=== PATIENT | female | born 1980 | race Caucasian/White ===

== ENCOUNTER 2019-10-31 01:48 | Outpatient (CLI) | payer MEDICAID, SELFPAY ==
--- NOTE | 2019-10-31 | DI.US_ITS ---
EXAM: US ABDOMEN CLINICAL HISTORY: ALCOHOLIC LIVER, CIRRHOSIS, K70.30 TECHNIQUE: Ultrasound performed using standard protocol. COMPARISON: No exams were available for comparison FINDINGS: The liver shows fairly homogeneous echotexture. There is a history of cirrhosis but no prominent con tour abnormality of the liver is seen. No focal hepatic lesion identified. There is borderline hepa tomegaly and mild splenomegaly. No evidence of cholelithiasis or biliary dilatation. Pancreas is unremarkable as visualized. Kidney s appear normal with no evidence hydronephrosis or nephrolithiasis. Abdominal aorta and IVC are of normal diameter. IMPRESSION: Mild hepatosplenomegaly in a patient reportedly has hepatic cirrhosis. No focal liver lesion identif ied. DATA REPOSITORY:
== END 2019-10-31 02:08 ==
PROVIDERS: PCP Family Medicine; Visit Provider Family Medicine
DX: K70.30 Alcoholic cirrhosis of liver without ascites (principal); R16.2 Hepatomegaly with splenomegaly, not elsewhere classified
CPT/HCPCS: 76700

== ENCOUNTER 2019-10-31 07:05 | Emergency (ER) | payer MEDICAID, SELFPAY ==
--- NOTE | 2019-10-31 07:12 | ED.GENADUL_ITS ---
Discharge Plan Discharge Details Primary Care Provider: JOSE ANGEL CANO ED Provider: Rock Mckee General Mode of arrival: ambulatory . Date/Time Provider Initiated Documentation: 10/31/19 07:06 . Limitations to Documentation: no limitations . Information obtained by: patient and RN notes reviewed .
--- NOTE | 2019-10-31 07:12 | W.ED.GENAD ---
Discharge Plan Discharge Details Primary Care Provider: JOSE ANGEL CANO ED Provider: Rock Mckee General Mode of arrival: ambulatory. Date/Time Provider Initiated Documentation: 10/31/19 07:06. Limitations to Documentation: no limitations. Information obtained by: patient and RN notes reviewed.
== END 2019-10-31 07:17 ==
LOC: ER 07:14
PROVIDERS: PCP Family Medicine
DX: Z53.21 Procedure and treatment not carried out due to patient leaving prior to being seen by health care provider (principal)

== ENCOUNTER 2019-12-31 08:24 | Emergency (ER) | payer MEDICAID, SELFPAY ==
--- NOTE | 2019-12-31 08:30 | DI.RAD_ITS ---
EXAM: XR FOOT RT COMPLETE CLINICAL HISTORY: lateral pain, swelling, erythema TECHNIQUE: COMPARISON: No exams were available for comparison FINDINGS: Three views were obtained. No bony or soft tissue abnormality seen. IMPRESSION: RADIATION DOSE DELIVERED: Total DLP
[2019-12-31 08:31] VITALS: BP 119/83; PULSE 86; RESP 18; TEMP 36.6; O2SAT 98
--- NOTE | 2019-12-31 08:43 | ED.GENADUL_ITS ---
Discharge Plan Disposition Patient Disposition: HOME Condition: Improving Discharge Details Chief Complaint: Orthopedic Clinical Impression: Gout of right foot Primary Care Provider: JOSE ANGEL CANO ED Provider: Pablo Hicks Home Meds and New Rx's Prescriptions: New prednisone 50 mg tablet 50 mg PO DAILY Qty: 5 RF: 0 colchicine 0.6 mg capsule 0.6 mg PO DAILY Qty: 2 RF: 0 Continued omeprazole 20 mg capsule,delayed release(DR/EC) 20 mg PO DAILY RF: 0 naltrexone 50 mg tablet 50 mg PO DAILY RF: 0 amitriptyline 50 mg tablet 50 mg PO QHS RF: 0 risperidone 2 mg tablet 2 mg PO QHS RF: 0 risperidone 1 mg tablet 1 mg PO DAILY RF: 0 hydroxyzine HCl 25 mg tablet 25 mg PO TID PRNRF: 0 cyclobenzaprine 10 mg tablet 10 mg PO HS RF: 0 albuterol sulfate [ProAir HFA] 90 mcg/actuation HFA aerosol inhaler 2 puff IH Q6H PRNRF: 0 Discharge Instructions Instructions: Gout (ED) Additional Instructions: May take next dose of colchicine this evening. 1 more dose tomorrow. Take prednisone as prescribed. Elevate and apply ice to reduce discomfort. Return for worsening or any other acute concerns. Discharge Data Discharge Date/Time-TO BE ENTERED AT DEPARTURE: 12/31/19 10:02 Medical Decision Making 39-year-old female with discrete left foot discomfort but predominantly right lateral foot discomfort over 1.5 days. She states this is come and gone in the past. She denies any injury. Her vital signs are normal. Her on exam she has warmth, erythema, swelling to the right lateral foot. Differential diagnosis includes gouty arthritides. I doubt cellulitis. Referred for x-ray to rule out bony abnormality. Screening laboratories obtained. CRP is elevated. Uric acid will be delayed due to laboratory machine delay. Chemistries otherwise noted BUN of 6, creatinine 1.1. Discussed with patient that I feel this is consistent with acute gouty attack. Will place her on colchicine and prednisone. She understands anticipated course of resolution. She is stable for home management at this time. Lab Data Lab results reviewed: Yes I reviewed the patient's lab results. Labs: Laboratory Results - last 24 hr 12/31/19 08:51 Sodium 137 Potassium 4.3 Chloride 107 Carbon Dioxide 26.1 Anion Gap 3.9 BUN 6 L Creatinine 1.10 H Estimated GFR/1.73 m2 55.89 Glucose 133 H Uric Acid 10.3 H Calcium 8.5 C-Reactive Protein 0.89 H HPI General Mode of arrival: ambulatory . Date/Time Provider Initiated Documentation: 12/31/19 08:25 . Limitations to Documentation: no limitations . Information obtained by: patient . History of Present Illness 39 year old F presents to the emergency department with the chief complaint of Right greater than left foot pain over 1.5 days, described as moderate, Quality is descr ibed as dull and constant, and is localized to the left, right and lower extremity. Patient reports no radiation. No relieving factors improve symptom(s), Movement worsens symptoms . Patient notes rash; denies fever/chills. Patient did receive the following treatments prior to arrival, NSAID Related Data Home Medications Medication Instructions Recorded Confirmed albuterol sulfate 90 mcg/actuation 2 puff IH Q6H PRN 11/26/19 12/31/19 aerosol inhaler amitriptyline 50 mg tablet 50 mg PO QHS 11/26/19 12/31/19 cyclobenzaprine 10 mg tablet 10 mg PO HS 11/26/19 12/31/19 hydroxyzine HCl 25 mg tablet 25 mg PO TID PRN 11/26/19 12/31/19 naltrexone 50 mg tablet 50 mg PO DAILY 11/26/19 12/31/19 omeprazole 20 mg capsule,delayed 20 mg PO DAILY 11/26/19 12/31/19 release risperidone 1 mg tablet 1 mg PO DAILY 11/26/19 12/31/19 risperidone 2 mg tablet 2 mg PO QHS 11/26/19 12/31/19 colchicine 0.6 mg PO DAILY #2 cap 12/31/19 prednisone 50 mg PO DAILY #5 tab 12/31/19 Previous Rx's Medication Instructions Recorded colchicine 0.6 mg PO DAILY #2 cap 12/31/19 prednisone 50 mg PO DAILY #5 tab 12/31/19 Allergies Allergy/AdvReac Type Severity Reaction Status Date / Time lamotrigine [From Lamictal] Allergy Severe Blistery Verified 12/31/19 08:36 rash per Marbella Cutler acetaminophen Allergy Intermediate Nausea & Verified 12/31/19 08:36 vomiting General Stated Complaint: Orthopedic SHEREEN: 4 Review of Systems Narrative: Recently stopped drinking. Was concerned this might be diabetes. No trauma. States this has come and gone in the past. 6 systems reviewed and otherwise negative [facility] Medical History Anemia (Chronic) Chronic alcoholism in remission (Acute) Cognitive dysfunction (Acute) Esophagitis (Acute) Osteoarthritis of left hip (Acute) PTSD (post-traumatic stress disorder) (Acute) Social History Smoking/Tobacco Use Status: Current every day Tobacco Type: cigarettes Alcohol Intake: former Drug use: Daily Substance use type: marijuana Do you feel safe at home: Yes Do you feel safe in your relationship?: Yes Exam Narrative Exam Narrative: GEN: awake, alert, oriented 3. Pleasant, well groomed, interactive. HEAD: Normocephalic, atraumatic EYES: PERRL, EOMI NECK: Full ROM, no DEL, no menigismus CHEST/RESP: Nontender, clear to auscultation bilateral, no wheeze/rhonchi/rales CARDIOVASCULAR: RRR, no murmur, rub sharri. 2+ Rad pulse bilateral EXT: Full ROM, right lateral foot slightly edematous, tender to touch, approximately 3 x 4 inch area of erythema that is slightly warm and blanches to the touch. The ankle is freely mobile. Left lower extremity unremarkable. Neuro: Grossly normal neurologic exam, conversant, interactive. Psych: Speech fluent, thoughts congruent, affect normal Course Vital Signs Vital signs: Vital Signs Temperature 36.6 C 12/31/19 08:31 Pulse 86 12/31/19 08:31 Respiratory Rate 18 12/31/19 08:31 Blood Pressure 119/83 12/31/19 08:31 Pulse Oximetry 98 12/31/19 08:31 Temperature 36.6 C 12/31/19 08:31 Temperature Source Skin 12/31/19 08:31 Pulse 86 12/31/19 08:31 Respiratory Rate 18 12/31/19 08:31 Respiratory Effort Non-Labored 12/31/19 08:35 Blood Pressure 119/83 12/31/19 08:31 Blood Pressure Position Sitting 12/31/19 08:31 Pulse Oximetry 98 12/31/19 08:31 Oxygen Delivery Method Room Air 12/31/19 08:31 Oxygen Flow Rate 0 12/31/19 08:31 Pain Level 9 12/31/19 08:31 Comment 12/31/19 08:31
[2019-12-31 09:15] LABS: Anion Gap 3.9 mmol/L (3-11); BUN 6 mg/dL (7-18); C-Reactive Protein 0.89 mg/dL (0.0-0.3); CO2 26.1 mmol/L (21.0-32.0); Calcium 8.5 mg/dL (8.5-10.1); Chloride 107 mmol/L (98-107); Estimated GFR 55.89 (mL/min/1.73m2); Glucose 133 mg/dL (74-106); Potassium 4.3 mmol/L (3.5-5.1); Sodium 137 mmol/L (136-145)
[2019-12-31] MEDS: predniSONE 20 MG TAB 60 MG PO (09:53)
[2019-12-31] MEDS: Colchicine 0.6 MG TAB PO (09:53)
[2019-12-31 10:45] LABS: Uric Acid 10.3 mg/dL (2.6-6.0)
== END 2019-12-31 10:02 | disposition home or self-care (01) ==
PROVIDERS: Emergency Provider Emergency Medicine; PCP Family Medicine
DX: M10.9 Gout, unspecified (principal); M79.671 Pain in right foot; M79.672 Pain in left foot
CPT/HCPCS: 36415; 36416; 80048; 82962; 99284; 73630; 84550; 86140; J7512

== ENCOUNTER 2020-02-22 09:31 | Inpatient (IN) | payer MEDICAID, SELFPAY ==
[2020-02-22] VITALS (100 sets, daily range): BP systolic 81–149; BP diastolic 50–104; PULSE 99–147; RESP 12–48; TEMP 36.9–38.4; O2SAT 85–98
--- NOTE | 2020-02-22 09:45 | RT.EKG_ITS ---
APPROVED REPORT Exam: Resting ECG Patient Location: E HR:138 bpm ECG Measurements Heart Rate 138 AXIS WV 131 P 59 QRSd 73 QRS 10 QT 278 T 58 QTc 421 Conclusion Sinus tachycardia...rate> [address] st dep lateral leads v4-6
--- NOTE | 2020-02-22 09:45 | DI.RAD_ITS ---
EXAM: XR PORTABLE CHEST AP CLINICAL HISTORY: fever, bodyaches TECHNIQUE: 2D digital imaging was performed. COMPARISON: No exams were available for comparison FINDINGS: LUNGS: Clear. No pleural abnormality seen. HEART: Normal. MEDIASTINUM: Normal. OTHER FINDINGS: None. IMPRESSION: No acute pulmonary findings. DATA REPOSITORY: RADIATION DOSE DELIVERED:
[2020-02-22] MEDS: Normal Saline 1,000 ML 1000 ML IV ×3 (10:00→14:00)
[2020-02-22 10:02] LABS: Abs Immature Grans 0.22 10^3/uL (0.0-0.06); Absolute Monocyte Count 3.31 10^3/uL (0.1-0.8); Basophils % 0.2; HCT 36.2 % (36.0-46.0); Lymphocytes % 4.2; MCH 28.7 pg (27.0-33.0); MCHC 33.1 % (32.0-36.0); MCV 86.6 fL (80-95); MPV 10.6 fL (8.0-11.0); Monocytes % 14.5; Neutrophils % 80.1; Nucleated RBC 0 %; RBC 4.18 10^6/uL (3.93-5.22); RDW 13.1 % (11.7-14.6); RDW-SD 41.1 fL; WBC 22.85 10^3/uL (4.4-10.8)
[2020-02-22 10:06] LABS: Lactate 2.5 mmol/L (0.6-1.4)
[2020-02-22] MEDS: Ketorolac 30 MG/ML VIAL IVP ×2 (10:11→22:27)
[2020-02-22] MEDS: Ondansetron 4 MG/2 ML VIAL IVP (10:12)
[2020-02-22 10:15] LABS: Absolute Basophil Count 0.05 10^3/uL (0.0-0.2); Absolute Lymphocyte Count 0.96 10^3/uL (1.2-3.4)
[2020-02-22 10:19] LABS: ALT 15 U/L (14-59); AST 12 U/L (15-37); Albumin 3.4 g/dL (3.4-5.0); Alkaline Phosphatase 159 U/L (46-116); Anion Gap 13.1 mmol/L (3-11); BUN 13 mg/dL (7-18); Bilirubin, Total 0.5 mg/dL (0.2-1.0); CO2 19.9 mmol/L (21.0-32.0); CREATININE 1.66 mg/dL (0.55-1.02); Calcium 8.7 mg/dL (8.5-10.1); Chloride 100 mmol/L (98-107); Estimated GFR 34.76 (mL/min/1.73m2); Glucose 108 mg/dL (74-106); Potassium 3.3 mmol/L (3.5-5.1); Sodium 133 mmol/L (136-145); Total Protein 7.3 g/dL (6.4-8.2)
[2020-02-22 10:23] LABS: ETHANOL BLOOD < 3.0 mg/dL (<3)
[2020-02-22 10:33] LABS: Diff Comment Agrees w/ Instrument; Platelet Count 184 10^3/uL (130-400); RBC Morphology Normal
[2020-02-22] MEDS: POTASSIUM CHLORIDE 10 MEQ/100 ML BAG 100 MEQ IVPB (10:40)
[2020-02-22] MEDS: Potassium Chloride 20 MEQ TABCR 40 MEQ PO (10:40)
[2020-02-22 10:47] LABS: Bilirubin Negative (Negative); Blood Trace-intact (Negative); Clarity Clear (Clear); Glucose 100 mg/dL (Negative); Ketones Negative (Negative); Leukocyte Esterase Small (Negative); Nitrite Positive (Negative); Specific Gravity 1.015 (1.005-1.025); pH 5.5 (5-8)
[2020-02-22 10:54] LABS: Bacteria Few HPF (Negative); C & S Indicated? Yes; Casts Negative LPF (Negative); Crystals Negative HPF (Negative); Epithelial Cells Rare HPF (Negative); Mucus Negative (Negative)
--- NOTE | 2020-02-22 10:58 | DI.VRAD_ITS ---
PROCEDURE INFORMATION: Exam: XR Chest, 1 View Exam date and time: 02/22/2020 10:51 AM Age: 39 years old Clinical indication: Patient HX: Feverm nausea TECHNIQUE: Imaging protocol: XR of the chest Views: 1 view. COMPARISON: No relevant prior studies available. FINDINGS: Lungs: Unremarkable. No consolidation. Pleural space: Unremarkable. No pleural effusion. No pneumothorax. Heart/Mediastinum: Unremarkable. No cardiomegaly. Bones/joints: Unremarkable. IMPRESSION: No acute findings. Dictated and Authenticated by: Jorge Means MD. Ordering:MAITE Magana MD
[2020-02-22 11:29] LABS: Troponin I < 0.05 ng/mL (<0.06)
--- NOTE | 2020-02-22 11:31 | W.ED.GENAD ---
Discharge Plan Disposition Patient Disposition: [facility] INPATIENT Condition: Serious Discharge Details Chief Complaint: Nausea/Vomit/Diar Clinical Impression: Sepsis Primary Care Provider: JOSE ANGEL CANO ED Provider: Chino Yates Home Meds and New Rx's Prescriptions: No Action omeprazole 20 mg capsule,delayed release(DR/EC) 20 mg PO DAILY RF: 0 naltrexone 50 mg tablet 50 mg PO DAILY RF: 0 amitriptyline 50 mg tablet 50 mg PO QHS RF: 0 risperidone 2 mg tablet 2 mg PO QHS RF: 0 risperidone 1 mg tablet 1 mg PO DAILY RF: 0 hydroxyzine HCl 25 mg tablet 25 mg PO TID PRNRF: 0 cyclobenzaprine 10 mg tablet 10 mg PO HS RF: 0 albuterol sulfate [ProAir HFA] 90 mcg/actuation HFA aerosol inhaler 2 puff IH Q6H PRNRF: 0 prednisone 50 mg tablet 50 mg PO DAILY Qty: 5 RF: 0 colchicine 0.6 mg capsule 0.6 mg PO DAILY Qty: 2 RF: 0 Medical Decision Making <RAGINI Ragland - Last Filed: 02/22/20 12:19> 39-year-old female reports body aches, mild headache, fever, nausea, vomiting that began yesterday evening. Denies recent sick contacts or travel. Patient presents with blood pressure of 111/77, pulse 139, temperature 38.0, O2 sat 94% on room air. She was recently treated with Bactrim for 3 days for a urinary tract infection. Given her fever and tachycardia, will initiate a septic work-up. Will obtain Covid swabs. Will not obtain flu as it has been determined that flu does not appear to be in our general area and we need to be more conscious of only ordering flu swabs for patients at high risk. IV access obtained, patient will be given 2 L normal saline, 1 L lactated Ringer's, 30 IV Toradol. We will also give IV Zofran. Will obtain EKG given her tachycardia. Case and plan was discussed with Dr. Peres. Initial laboratory values reveal white blood cell count of 22.85, lactate 2.5 potassium 3.3 anion gap 13.1 creatinine 1.66, GFR 34.76. Catheterized urine specimen reveals nitrate positive, small leuk esterase, 5-10 white cells, rare epithelial cells, few bacteria. Patient reports that she has not drank alcohol in a year, I did obtain a alcohol level simply because symptoms could be explained by withdrawal. Alcohol level less than 3.0. Blood cultures added on. Will give 2 g IV Rocephin. EKG does have subtle progression, patient has no chest pain whatsoever. We will add on a troponin. Will give both p.o. and IV potassium. Repeat heart rate after 2 L IV fluid is 127. Most recent blood pressure is 104/75. Patient has no nuchal rigidity, chest x-ray is unremarkable, Covid swab is pending. Patient has no skin lesions that would be associated with cellulitis. I do believe that a partially treated urinary tract infection from 10 days ago is a very reasonable source of infection currently. The patient does meet sepsis criteria. I will discuss the case with our hospitalist team for admission. Case discussed with Dr. Tam, is agreeable to admission and will place bridge orders. Does request that a CT without contrast of the abdomen and pelvis are obtained. Troponin less than 0.05 Medical Records Medical records reviewed: Yes I reviewed the patient's medical records. Imaging Data Radiologic Study: Attestation: I personally reviewed and interpreted this imaging study as follows: Imaging: X-Ray Radiologist's impression: Chest x-ray unremarkable Lab Data Lab results reviewed: Yes I reviewed the patient's lab results. Labs: 02/22/20 11:35 Blood Blood Culture - Pending 02/22/20 11:20 Blood Blood Culture - Pending 02/22/20 10:38 Urine - Reflex from Ua Urine Culture - Pending Laboratory Tests Range/Units 02/22/20 02/22/20 02/22/20 09:45 09:45 09:45 WBC (4.4-10.8) 10^3/uL 22.85 H RBC (3.93-5.22) 10^6/uL 4.18 Hgb (11.2-15.7) g/dL 12.0 Hct (36.0-46.0) % 36.2 MCV (80-95) fL 86.6 MCH (27.0-33.0) pg 28.7 MCHC (32.0-36.0) % 33.1 RDW (11.7-14.6) % 13.1 Plt Count (130-400) 10^3/uL 184 MPV (8.0-11.0) fL 10.6 Immature Gran % 1.0 Neutrophils % 80.1 Lymphocytes % 4.2 Monocytes % 14.5 Eosinophils % 0.0 Basophils % 0.2 Nucleated RBC % % 0 Absolute Neutrophils (1.2-6.7) 10^3/uL 18.30 H Absolute Lymphocytes (1.2-3.4) 10^3/uL 0.96 L Absolute Monocytes (0.1-0.8) 10^3/uL 3.31 H Absolute Eosinophils (0.0-0.7) 10^3/uL 0.00 Absolute Basophils (0.0-0.2) 10^3/uL 0.05 RBC Morphology Normal VBG Lactate (0.6-1.4) mmol/L 2.5 H* Sodium (136-145) mmol/L 133 L Potassium (3.5-5.1) mmol/L 3.3 L Chloride (98-107) mmol/L 100 Carbon Dioxide (21.0-32.0) mmol/L 19.9 L Anion Gap (3-11) mmol/L 13.1 H BUN (7-18) mg/dL 13 Creatinine (0.55-1.02) mg/dL 1.66 H Estimated GFR/1.73 m2 (mL/min/1.73m2) 34.76 Glucose (74-106) mg/dL 108 H Calcium (8.5-10.1) mg/dL 8.7 Total Bilirubin (0.2-1.0) mg/dL 0.5 AST (15-37) U/L 12 L ALT (14-59) U/L 15 Alkaline Phosphatase (46-116) U/L 159 H Troponin I (<0.06) ng/mL Total Protein (6.4-8.2) g/dL 7.3 Albumin (3.4-5.0) g/dL 3.4 Urine Color (Yellow) Urine Clarity (Clear) Urine pH (5-8) Ur Specific [place] (1.005-1.025) Urine Protein (Negative) mg/dL Urine Ketones (Negative) mg/dL Urine Blood (Negative) Urine Nitrite (Negative) Urine Bilirubin (Negative) Urine Urobilinogen (Up TO 0.2) EU/dL Ur Leukocyte Esterase (Negative) Urine RBC (0-2) HPF Urine WBC (0-5) HPF Ur Epithelial Cells (Negative) HPF Urine Crystals (Negative) HPF Urine Bacteria (Negative) HPF Urine Casts (Negative) LPF Urine Mucus (Negative) Ur Culture Indicated? Urine Glucose (Negative) mg/dL Ethyl Alcohol (<3) mg/dL Range/Units 02/22/20 02/22/20 02/22/20 09:45 09:45 10:38 WBC (4.4-10.8) 10^3/uL RBC (3.93-5.22) 10^6/uL Hgb (11.2-15.7) g/dL Hct (36.0-46.0) % MCV (80-95) fL MCH (27.0-33.0) pg MCHC (32.0-36.0) % RDW (11.7-14.6) % Plt Count (130-400) 10^3/uL MPV (8.0-11.0) fL Immature Gran % Neutrophils % Lymphocytes % Monocytes % Eosinophils % Basophils % Nucleated RBC % % Absolute Neutrophils (1.2-6.7) 10^3/uL Absolute Lymphocytes (1.2-3.4) 10^3/uL Absolute Monocytes (0.1-0.8) 10^3/uL Absolute Eosinophils (0.0-0.7) 10^3/uL Absolute Basophils (0.0-0.2) 10^3/uL RBC Morphology VBG Lactate (0.6-1.4) mmol/L Sodium (136-145) mmol/L Potassium (3.5-5.1) mmol/L Chloride (98-107) mmol/L Carbon Dioxide (21.0-32.0) mmol/L Anion Gap (3-11) mmol/L BUN (7-18) mg/dL Creatinine (0.55-1.02) mg/dL Estimated GFR/1.73 m2 (mL/min/1.73m2) Glucose (74-106) mg/dL Calcium (8.5-10.1) mg/dL Total Bilirubin (0.2-1.0) mg/dL AST (15-37) U/L ALT (14-59) U/L Alkaline Phosphatase (46-116) U/L Troponin I (<0.06) ng/mL < 0.05 Total Protein (6.4-8.2) g/dL Albumin (3.4-5.0) g/dL Urine Color (Yellow) [place] Urine Clarity (Clear) Clear Urine pH (5-8) 5.5 Ur Specific [place] (1.005-1.025) 1.015 Urine Protein (Negative) mg/dL 100 H Urine Ketones (Negative) mg/dL Negative Urine Blood (Negative) Trace-intact H Urine Nitrite (Negative) Positive H Urine Bilirubin (Negative) Negative Urine Urobilinogen (Up TO 0.2) EU/dL 1.0 H Ur Leukocyte Esterase (Negative) Small H Urine RBC (0-2) HPF 3-5 H Urine WBC (0-5) HPF 5-10 Ur Epithelial Cells (Negative) HPF Rare Urine Crystals (Negative) HPF Negative Urine Bacteria (Negative) HPF Few Urine Casts (Negative) LPF Negative Urine Mucus (Negative) Negative Ur Culture Indicated? Yes Urine Glucose (Negative) mg/dL 100 Ethyl Alcohol (<3) mg/dL < 3.0 ECG Data Attestation: I personally reviewed and interpreted this ECG (s) as follows: Interpretation: Please see official report by Dr. Peres. Sinus tachycardia, rate in the 130s. Subtle ST depression, no STEMI <Helder Peres MD - Last Filed: 02/22/20 12:05> 1200 --patient evaluated, treated and disposition by RAGINI Yates. I was not involved directly in the patient care other than to interpret ECG. ECG was reviewed and interpreted by me: Please see report, subtle ST depressions are noted laterally the 4 to V6, sinus tachycardia at 138 bpm. HPI <RAGINI Ragland - Last Filed: 02/22/20 12:19> General Mode of arrival: ambulatory. Date/Time Provider Initiated Documentation: 02/22/20 09:31. Limitations to Documentation: no limitations. Information obtained by: patient. HPI Narrative: This is a 39-year-old female with past medical history that includes anemia, chronic alcoholism in remission, sober x1 year, cognitive dysfunction, esophagitis, osteoarthritis, PTSD, current smoker. She states that yesterday evening she developed diffuse body aches, mild global headache, nausea, vomiting x2, fever of 104.1. Patient denies recent travel or sick contacts. She states that she was on 3 days of Bactrim for a UTI roughly 7-10 days ago. She denies visual changes, neck pain, cough, shortness of breath, chest pain, abdominal pain, dysuria, hematuria, diarrhea or constipation. She denies numbness, tingling, weakness or incontinence. She does state that she has generalized weakness and feels dehydrated. She did take 2 tablets of ibuprofen this morning. Related Data Home Medications Medication Instructions Recorded Confirmed albuterol sulfate 90 mcg/actuation 2 puff IH Q6H PRN 11/26/19 02/22/20 aerosol inhaler amitriptyline 50 mg tablet 50 mg PO QHS 11/26/19 02/22/20 cyclobenzaprine 10 mg tablet 10 mg PO HS 11/26/19 02/22/20 hydroxyzine HCl 25 mg tablet 25 mg PO TID PRN 11/26/19 02/22/20 naltrexone 50 mg tablet 50 mg PO DAILY 11/26/19 02/22/20 omeprazole 20 mg capsule,delayed 20 mg PO DAILY 11/26/19 02/22/20 release risperidone 1 mg tablet 1 mg PO DAILY 11/26/19 02/22/20 risperidone 2 mg tablet 2 mg PO QHS 11/26/19 02/22/20 colchicine 0.6 mg PO DAILY #2 cap 12/31/19 02/22/20 prednisone 50 mg PO DAILY #5 tab 12/31/19 02/22/20 Previous Rx's Medication Instructions Recorded colchicine 0.6 mg PO DAILY #2 cap 12/31/19 prednisone 50 mg PO DAILY #5 tab 12/31/19 Allergies Allergy/AdvReac Type Severity Reaction Status Date / Time lamotrigine [From Lamictal] Allergy Severe Blistery Verified 02/22/20 09:50 rash per Marbella Cutler acetaminophen Allergy Intermediate Nausea & Verified 02/22/20 09:50 vomiting General Stated Complaint: Nausea/Vomit/Diar SHEREEN: 3 Review of Systems <RAGINI Ragland - Last Filed: 02/22/20 12:19> Constitutional Constitutional: Reports fatigue, Reports fever(s), Reports headache(s) and Denies weakness Eyes Eyes: Denies change in vision ENT Ears, Nose, Mouth, and Throat: Reports headache(s), Denies neck pain and Denies sore throat Cardiovascular Cardiovascular: Denies chest pain and Denies dyspnea Respiratory Respiratory: Denies cough and Denies dyspnea Gastrointestinal Gastrointestinal: Denies abdominal pain, Denies diarrhea, Reports nausea and Reports vomiting Genitourinary Genitourinary: Denies dysuria Musculoskeletal Musculoskeletal: Denies back pain, Reports myalgias, Denies neck pain, Denies numbness and Denies tingling Integumentary/Breasts Skin/Breast: Denies rash Neurologic Neurologic: Reports headache(s), Denies numbness, Denies tingling and Denies weakness Endocrine Endocrine: Reports fatigue PFSH <RAGINI Ragland - Last Filed: 02/22/20 12:19> Medical History (Updated 02/22/20 @ 12:19 by RAGINI Ragland) Anemia Chronic alcoholism in remission Cognitive dysfunction Esophagitis Osteoarthritis of left hip PTSD (post-traumatic stress disorder) Social History Smoking/Tobacco Use Status: Current every day Tobacco Type: cigarettes Alcohol Intake: former Drug use: Daily Substance use type: marijuana Do you feel safe at home: Yes Do you feel safe in your relationship?: Yes Exam <RAGINI Ragland - Last Filed: 02/22/20 12:19> Const General: cooperative Orientation: alert, awake and oriented x3 HENMT Head: normal to inspection, normocephalic and atraumatic Ears: external ears normal, TM's normal bilaterally and EAC's normal General nose exam: external nose normal Mouth: moist mucous membranes abnormal (Dry) Throat: posterior oropharynx normal Eyes General: appearance normal, both eyes and all related structures Alignment and Position: alignment normal Periorbital: periorbital findings normal Eyelids: eyelids normal Conjunctivae: conjunctivae normal Sclera: sclerae normal Cornea: corneas normal Pupils: PERRL EOM: EOM intact bilaterally Direct ophthalmoscopy: normal light reflex Neck Neck: normal visual inspection, full ROM, no lymphadenopathy, no meningeal signs, trachea midline, supple and nontender Resp Effort & Inspection: normal respiratory effort and able to speak in complete sentences Auscultation: clear to auscultation bilaterally Cardio Rate: tachycardic (140s) Rhythm: regular rhythm GI Palpation: soft, not firm, no guarding, not rigid and nontender Back/Spine/Pelvis Back: No back tenderness Skin General skin exam: no rashes or lesions noted Neuro General: patient alert, patient awake, patient oriented x3, moves all extremities and no focal motor deficits Cranial Nerves: CN's II-XI intact bilaterally Cognition: normal cognition Speech: speech normal Gait: normal gait Motor: muscle tone normal throughout Sensory Exam: no sensory deficits noted Extrem General: normal to inspection, full ROM, capillary refill normal, no pedal edema and no calf tenderness Psych Appearance: grossly normal Mental Status: mental status grossly normal Course <RAGINI Ragland - Last Filed: 02/22/20 12:19> Vital Signs Vital signs: Vital Signs Pulse 139 H 02/22/20 09:40 Respiratory Rate 20 02/22/20 09:40 Blood Pressure 111/77 02/22/20 09:40 Temperature 38.0 C H 02/22/20 09:42 Temperature Source Oral 02/22/20 09:42 Pulse 127 H 02/22/20 11:00 Pulse 127 H 02/22/20 11:10 Respiratory Rate 25 H 02/22/20 11:10 Respiratory Effort Non-Labored 02/22/20 09:42 Blood Pressure 106/76 02/22/20 11:00 Blood Pressure Mean 82 02/22/20 11:00 Blood Pressure Position Supine 02/22/20 09:42 Pulse Oximetry 94 02/22/20 11:10 Oxygen Delivery Method Room Air 02/22/20 09:42 Oxygen Flow Rate 0 02/22/20 09:42 Pain Level 8 02/22/20 09:42 Lab/Test Results Lab/Test Results: 02/22/20 10:38 Urine - Reflex from Ua Urine Culture - Pending 02/22/20 10:43 Blood Blood Culture - Pending 02/22/20 10:43 Blood Blood Culture - Pending Laboratory Tests Range/Units 02/22/20 02/22/20 02/22/20 09:45 09:45 09:45 WBC (4.4-10.8) 10^3/uL 22.85 H RBC (3.93-5.22) 10^6/uL 4.18 Hgb (11.2-15.7) g/dL 12.0 Hct (36.0-46.0) % 36.2 MCV (80-95) fL 86.6 MCH (27.0-33.0) pg 28.7 MCHC (32.0-36.0) % 33.1 RDW (11.7-14.6) % 13.1 Plt Count (130-400) 10^3/uL 184 MPV (8.0-11.0) fL 10.6 Immature Gran % 1.0 Neutrophils % 80.1 Lymphocytes % 4.2 Monocytes % 14.5 Eosinophils % 0.0 Basophils % 0.2 Nucleated RBC % % 0 Absolute Neutrophils (1.2-6.7) 10^3/uL 18.30 H Absolute Lymphocytes (1.2-3.4) 10^3/uL 0.96 L Absolute Monocytes (0.1-0.8) 10^3/uL 3.31 H Absolute Eosinophils (0.0-0.7) 10^3/uL 0.00 Absolute Basophils (0.0-0.2) 10^3/uL 0.05 RBC Morphology Normal VBG Lactate (0.6-1.4) mmol/L 2.5 H* Sodium (136-145) mmol/L 133 L Potassium (3.5-5.1) mmol/L 3.3 L Chloride (98-107) mmol/L 100 Carbon Dioxide (21.0-32.0) mmol/L 19.9 L Anion Gap (3-11) mmol/L 13.1 H BUN (7-18) mg/dL 13 Creatinine (0.55-1.02) mg/dL 1.66 H Estimated GFR/1.73 m2 (mL/min/1.73m2) 34.76 Glucose (74-106) mg/dL 108 H Calcium (8.5-10.1) mg/dL 8.7 Total Bilirubin (0.2-1.0) mg/dL 0.5 AST (15-37) U/L 12 L ALT (14-59) U/L 15 Alkaline Phosphatase (46-116) U/L 159 H Troponin I (<0.06) ng/mL Total Protein (6.4-8.2) g/dL 7.3 Albumin (3.4-5.0) g/dL 3.4 Urine Color (Yellow) Urine Clarity (Clear) Urine pH (5-8) Ur Specific [place] (1.005-1.025) Urine Protein (Negative) mg/dL Urine Ketones (Negative) mg/dL Urine Blood (Negative) Urine Nitrite (Negative) Urine Bilirubin (Negative) Urine Urobilinogen (Up TO 0.2) EU/dL Ur Leukocyte Esterase (Negative) Urine RBC (0-2) HPF Urine WBC (0-5) HPF Ur Epithelial Cells (Negative) HPF Urine Crystals (Negative) HPF Urine Bacteria (Negative) HPF Urine Casts (Negative) LPF Urine Mucus (Negative) Ur Culture Indicated? Urine Glucose (Negative) mg/dL Ethyl Alcohol (<3) mg/dL Range/Units 02/22/20 02/22/20 02/22/20 09:45 09:45 10:38 WBC (4.4-10.8) 10^3/uL RBC (3.93-5.22) 10^6/uL Hgb (11.2-15.7) g/dL Hct (36.0-46.0) % MCV (80-95) fL MCH (27.0-33.0) pg MCHC (32.0-36.0) % RDW (11.7-14.6) % Plt Count (130-400) 10^3/uL MPV (8.0-11.0) fL Immature Gran % Neutrophils % Lymphocytes % Monocytes % Eosinophils % Basophils % Nucleated RBC % % Absolute Neutrophils (1.2-6.7) 10^3/uL Absolute Lymphocytes (1.2-3.4) 10^3/uL Absolute Monocytes (0.1-0.8) 10^3/uL Absolute Eosinophils (0.0-0.7) 10^3/uL Absolute Basophils (0.0-0.2) 10^3/uL RBC Morphology VBG Lactate (0.6-1.4) mmol/L Sodium (136-145) mmol/L Potassium (3.5-5.1) mmol/L Chloride (98-107) mmol/L Carbon Dioxide (21.0-32.0) mmol/L Anion Gap (3-11) mmol/L BUN (7-18) mg/dL Creatinine (0.55-1.02) mg/dL Estimated GFR/1.73 m2 (mL/min/1.73m2) Glucose (74-106) mg/dL Calcium (8.5-10.1) mg/dL Total Bilirubin (0.2-1.0) mg/dL AST (15-37) U/L ALT (14-59) U/L Alkaline Phosphatase (46-116) U/L Troponin I (<0.06) ng/mL < 0.05 Total Protein (6.4-8.2) g/dL Albumin (3.4-5.0) g/dL Urine Color (Yellow) [place] Urine Clarity (Clear) Clear Urine pH (5-8) 5.5 Ur Specific [place] (1.005-1.025) 1.015 Urine Protein (Negative) mg/dL 100 H Urine Ketones (Negative) mg/dL Negative Urine Blood (Negative) Trace-intact H Urine Nitrite (Negative) Positive H Urine Bilirubin (Negative) Negative Urine Urobilinogen (Up TO 0.2) EU/dL 1.0 H Ur Leukocyte Esterase (Negative) Small H Urine RBC (0-2) HPF 3-5 H Urine WBC (0-5) HPF 5-10 Ur Epithelial Cells (Negative) HPF Rare Urine Crystals (Negative) HPF Negative Urine Bacteria (Negative) HPF Few Urine Casts (Negative) LPF Negative Urine Mucus (Negative) Negative Ur Culture Indicated? Yes Urine Glucose (Negative) mg/dL 100 Ethyl Alcohol (<3) mg/dL < 3.0 POC- Test(urine) Negative Critical Care Time <RAGINI Ragland - Last Filed: 02/22/20 12:19> Critical Care Time Critical Care Time: Yes Total Critical Care Time: 45 Attestation: Upon my evaluation, this patient had a high probability of clinically significant, life-threatening deterioration due to their current medical conditions, which required my direct attention, intervention, and personal management. I have personally provided greater than 30 minutes of critical care time exclusive of the time spend on separately billable procedures. Time includes obtaining a history, examining the patient, pulse oximetry, review of laboratory data, radiology results, discussion with consultants, arranging urgent treatment with development of a management plan, evaluation of patient's response to treatment, and monitoring for potential decompensation. Interventions were performed as documented above.
[2020-02-22] MEDS: cefTRIAXone 2 GM/50 ML BAG IVPB (11:51)
--- NOTE | 2020-02-22 12:00 | DI.CT_ITS ---
EXAM: CT ABDOMEN PELVIS WO CLINICAL HISTORY: fever, wbc 22, recent uti, bodyaches. TECHNIQUE: Imaging Protocol: Axial computed tomography images with coronal and sagittal reformatted images were created and reviewed. Oral: yes / no COMPARISON: No exams were available for comparison FINDINGS: ABDOMEN: Lung Bases: Mild dependent changes. Liver: Mildly enlarged. Hepatic steatosis.. No measurable mass. Gallbladder and biliary tract: No radiodense calculus or dilation. Pancreas: Normal density, no abnormal calcifications or inflammatory process. Spleen: Normal. Kidneys: Normal size, contour and axis. No radiodense stones or obstructive uropathy. No masses seen. There is bilateral perinephric stranding, left greater than right. There is mild prominence of emely th renal pelves. There is no drainable abscess. Adrenal glands: No masses seen. Lymph nodes: Within normal limits. Abdominal Aorta: Abdominal portion non-dilated. PELVIS: Bladder: Symmetric distention, no gross wall thickening. Bowel: No obstruction or bowel wall thickening. Normal appendix. Peritoneal cavity: No ascites, collection or mesenteric inflammatory response. Reproductive organs: Within normal limits. Bones: Within normal limits. IMPRESSION: Bilateral perinephric stranding, suspicious for bilateral pyelonephritis. No evidence of obstructing stones. RADIATION DOSE DELIVERED: 1,119.72mGy.cm Total DLP DATA REPOSITORY: All CT scans at this facility are submitted to the National Radiology Data Registry (NRDR) Dose Index Registry (DIR) with the [employer] ([employer]). RADIATION OPTIMIZATION: All CT scans at this facility use at least one of these dose optimization te chniques: automated exposure control; mA and/or kV adjustment per patient size (includes targeted exa ms where dose is matched to clinical indication); or iterative reconstruction.
[2020-02-22] MEDS: Lactated Ringers 1,000 ML 1000 ML IV (12:15)
[2020-02-22] MEDS: Normal Saline 1,000 ML 100 ML IV (13:57)
[2020-02-22] MEDS: Enoxaparin 40 MG/0.4 ML SYR SC (13:57)
--- NOTE | 2020-02-22 14:14 | W.PM.HP.N ---
Date of service: 02/22/20 Time of Service: 14:14 Assessment and Plan Assessment and plan (1) Sepsis: Start date: 02/22/20 Start time: 14:37 Status: Acute Assessment and plan: From UTI prior to admission, with pyelonephritis. U/a positive nitrates, small leukoctye est. Flank pain to bilateral sides R greater than left. Procalcitonin 14.0, WBC 22 with shift. Lactate 2.5. HR in 120's bp soft with SBP in 90's. Initially m/s admission, however given severity of illness transferred to ICU for further management. 3 L NS bolus, with IV hydration at 150 Repeat lactate 1600 Meropenem, while awaiting culture and sensitivity. Monitor CBC, BMP CT abd pending. Checking for hydronephrosis. Total critical care mins spent on patient 90. Qualifiers: Sepsis type: sepsis due to unspecified organism Sepsis acute organ dysfunction status: with acute organ dysfunction Severe sepsis acute organ dysfunction type: acute renal failure Acute renal failure type: unspecified Severe sepsis shock status: with septic shock Qualified Code(s): A41.9 - Sepsis, unspecified organism; R65.21 - Severe sepsis with septic shock; N17.9 - Acute kidney failure, unspecified (2) UTI (urinary tract infection): Start date: 02/22/20 Start time: 14:42 Status: Acute Assessment and plan: as above, source of infection Qualifiers: Urinary tract infection type: acute pyelonephritis Qualified Code(s): N10 - Acute pyelonephritis (3) Pyelonephritis: Start date: 02/22/20 Start time: 14:42 Status: Acute Assessment and plan: as above (4) Fever: Start date: 02/22/20 Start time: 14:42 Status: Acute Assessment and plan: In setting of sepsis. Will try IV tylenol for fever. Monitor. Qualifiers: Fever type: due to other condition Qualified Code(s): R50.81 - Fever presenting with conditions classified elsewhere (5) Discharge planning issues: Start date: 02/22/20 Start time: 14:43 Status: Acute Assessment and plan: Will be discharged home without any anticipated services when medically cleared. above case discussed with Dr. Tam who is in agreement. History of Present Illness History of Present Illness Chief Complaint: Pyleonephritis, UTI, Sepsis Narrative: 39 y.o female with little PMH presents to [facility] ED with fever, body aches, headache, nausea and vomiting onset a day prior to admission. Ms. Anand was found to be febrile in the ED with temp 38.0, Oxygen sat 94% on RA. Recently she was treated with a 3 day course of bactrim for a UTI. Labs in ED remarkable for leukocytosis 22.85, with shift, hyponatremia 133, hypokalemia 3.3, elevated Anion gap 13.1, elevated Creatinine 1.66, and procalcitonin 14.0 with Lactate 2.5. 2 liters NS given in ED. Per ED team patient was not complaining of any pain. She was accepted for admission to /s. We did request CT without contrast prior to admission, results pending. Upon arrival to floor patient appeared to be toxic. Flushed, febrile. On exam she is having CVA tenderness and flank pain. Temperature is 38.1, soft bp, for this reason she is being transferred to ICU for closer monitoring. Will give another 1 liter saline, then IV hydration at 150. Meropenem while awaiting cultures and sensitivities. Recheck lactate this afternoon. She states she can have tylenol in medication but separately this makes her nauseated, will try IV tylenol for fever. Potassium repleted in ED. Review of Systems All systems reviewed & are unremarkable except as noted in HPI and below PFSH Medical History (Updated 02/22/20 @ 14:42 by Rimma Darby NP) Anemia Chronic alcoholism in remission Cognitive dysfunction Esophagitis Osteoarthritis of left hip PTSD (post-traumatic stress disorder) Social History Smoking/Tobacco Use Status: Current every day Tobacco Type: cigarettes Alcohol Intake: former Drug use: Daily Substance use type: marijuana Do you feel safe at home: Yes Do you feel safe in your relationship?: Yes Meds Home Medications and Allergies Home Medications Medication Instructions Recorded Confirmed Type albuterol sulfate 90 mcg/actuation 2 puff IH Q6H PRN 11/26/19 02/22/20 History aerosol inhaler amitriptyline 50 mg tablet 50 mg PO QHS 11/26/19 02/22/20 History cyclobenzaprine 10 mg tablet 10 mg PO HS 11/26/19 02/22/20 History hydroxyzine HCl 25 mg tablet 25 mg PO TID PRN 11/26/19 02/22/20 History naltrexone 50 mg tablet 50 mg PO DAILY 11/26/19 02/22/20 History omeprazole 20 mg capsule,delayed 20 mg PO DAILY 11/26/19 02/22/20 History release risperidone 1 mg tablet 1 mg PO DAILY 11/26/19 02/22/20 History risperidone 2 mg tablet 2 mg PO QHS 11/26/19 02/22/20 History colchicine 0.6 mg PO DAILY #2 cap 12/31/19 02/22/20 Rx prednisone 50 mg PO DAILY #5 tab 12/31/19 02/22/20 Rx Allergies Allergy/AdvReac Type Severity Reaction Status Date / Time lamotrigine [From Lamictal] Allergy Severe Blistery Verified 02/22/20 09:50 rash per Marbella Scrimshaw acetaminophen AdvReac Intermediate Nausea & Verified 02/22/20 12:46 vomiting Exam Narrative Exam Narrative: Const: ill appearing young woman, laying in bed, ruddish colored, AAOx 3 answer questions appropriately. HENMT: No lymphedema, no goiter, no JVD, MM dry EYE: PERRLA, EOMI Resp: LSC to all [place], no SOB, rhonchi, wheezing or rales Cardio: Regular rhythm, tachy rate. No ectopic beats, GI: abd soft, nontender : CVA tenderness with flank pain worse to right then left. Skin: Intact no open areas Extrem: No clubbing, edema or cyanosis. Results Labs Result diagrams: 02/22/20 09:45 02/22/20 09:45 Labs: Laboratory Results - last 24 hr 02/22/20 02/22/20 02/22/20 09:45 09:45 09:45 WBC 22.85 H RBC 4.18 Hgb 12.0 Hct 36.2 MCV 86.6 MCH 28.7 MCHC 33.1 RDW 13.1 Plt Count 184 MPV 10.6 Immature Gran % 1.0 Neutrophils % 80.1 Lymphocytes % 4.2 Monocytes % 14.5 Eosinophils % 0.0 Basophils % 0.2 Nucleated RBC % 0 Absolute Neutrophils 18.30 H Absolute Lymphocytes 0.96 L Absolute Monocytes 3.31 H Absolute Eosinophils 0.00 Absolute Basophils 0.05 RBC Morphology Normal VBG Lactate 2.5 H* Sodium 133 L Potassium 3.3 L Chloride 100 Carbon Dioxide 19.9 L Anion Gap 13.1 H BUN 13 Creatinine 1.66 H Estimated GFR/1.73 m2 34.76 Glucose 108 H Calcium 8.7 Total Bilirubin 0.5 AST 12 L ALT 15 Alkaline Phosphatase 159 H Troponin I Total Protein 7.3 Albumin 3.4 Procalcitonin Urine Color Urine Clarity Urine pH Ur Specific [place] Urine Protein Urine Ketones Urine Blood Urine Nitrite Urine Bilirubin Urine Urobilinogen Ur Leukocyte Esterase Urine RBC Urine WBC Ur Epithelial Cells Urine Crystals Urine Bacteria Urine Casts Urine Mucus Ur Culture Indicated? Urine Glucose Ethyl Alcohol 02/22/20 02/22/20 02/22/20 09:45 09:45 09:45 WBC RBC Hgb Hct MCV MCH MCHC RDW Plt Count MPV Immature Gran % Neutrophils % Lymphocytes % Monocytes % Eosinophils % Basophils % Nucleated RBC % Absolute Neutrophils Absolute Lymphocytes Absolute Monocytes Absolute Eosinophils Absolute Basophils RBC Morphology VBG Lactate Sodium Potassium Chloride Carbon Dioxide Anion Gap BUN Creatinine Estimated GFR/1.73 m2 Glucose Calcium Total Bilirubin AST ALT Alkaline Phosphatase Troponin I < 0.05 Total Protein Albumin Procalcitonin 14.0 Urine Color Urine Clarity Urine pH Ur Specific [place] Urine Protein Urine Ketones Urine Blood Urine Nitrite Urine Bilirubin Urine Urobilinogen Ur Leukocyte Esterase Urine RBC Urine WBC Ur Epithelial Cells Urine Crystals Urine Bacteria Urine Casts Urine Mucus Ur Culture Indicated? Urine Glucose Ethyl Alcohol < 3.0 02/22/20 10:38 WBC RBC Hgb Hct MCV MCH MCHC RDW Plt Count MPV Immature Gran % Neutrophils % Lymphocytes % Monocytes % Eosinophils % Basophils % Nucleated RBC % Absolute Neutrophils Absolute Lymphocytes Absolute Monocytes Absolute Eosinophils Absolute Basophils RBC Morphology VBG Lactate Sodium Potassium Chloride Carbon Dioxide Anion Gap BUN Creatinine Estimated GFR/1.73 m2 Glucose Calcium Total Bilirubin AST ALT Alkaline Phosphatase Troponin I Total Protein Albumin Procalcitonin Urine Color [place] Urine Clarity Clear Urine pH 5.5 Ur Specific [place] 1.015 Urine Protein 100 H Urine Ketones Negative Urine Blood Trace-intact H Urine Nitrite Positive H Urine Bilirubin Negative Urine Urobilinogen 1.0 H Ur Leukocyte Esterase Small H Urine RBC 3-5 H Urine WBC 5-10 Ur Epithelial Cells Rare Urine Crystals Negative Urine Bacteria Few Urine Casts Negative Urine Mucus Negative Ur Culture Indicated? Yes Urine Glucose 100 Ethyl Alcohol Last Vital Signs Temp 38.1 C H 02/22/20 13:41 Pulse 114 H 10/17/20 13:41 Resp 18 02/22/20 13:41 BP 100/68 02/22/20 13:41 Pulse Ox 94 02/22/20 13:41 COVID-19 Screening Have you,or household,traveled outside [place] in last 14 days?: No Had IN PERSON contact w/suspected or confirmed C-19 person: No
[2020-02-22] MEDS: ACETAMINOPHEN 1,000 MG/100 ML BTL 400 MG IVPB ×2 (14:25→22:27)
--- NOTE | 2020-02-22 14:44 | DI.VRAD_ITS ---
PROCEDURE INFORMATION: Exam: CT Abdomen And Pelvis Without Contrast Exam date and time: 02/22/2020 12:05 PM Age: 39 years old Clinical indication: Abdominal pain to the TECHNIQUE: Imaging protocol: Computed tomography of the abdomen and pelvis without contrast. COMPARISON: SD US ABDOMEN 10/31/2019 7:24 AM FINDINGS: Heart: Heart is within normal limits in size. There are bibasilar atelectasis. Liver: Liver is mildly enlarged with diffuse hepatic steatosis. Gallbladder and bile ducts: Gallbladder is within normal limits in size. Pancreas: Pancreas is unremarkable. Spleen: Normal. No splenomegaly. Adrenals: See Liver finding. Kidneys and ureters: Kidneys are bilaterally orthotopic. There is diffuse bilateral perinephric fat stranding, asymmetric to left. There are bilateral extrarenal pelvis. No efrain hydronephrosis or nephrolithiasis. Stomach and bowel: Large bowel demonstrates diverticulosis without signs of acute inflammation. Appendix is unremarkable. Small bowel is within normal limits in size. The stomach and small bowel are nondistended. There are focal hyperdensities within lumen of small bowel, nonspecific and could be related to ingested food particles. Appendix: See Stomach and bowel finding. Intraperitoneal space: Unremarkable. No free air. No significant fluid collection. Vasculature: Unremarkable. No abdominal aortic aneurysm. Lymph nodes: Unremarkable. No enlarged lymph nodes. Urinary bladder: Urinary bladder is unremarkable. Reproductive: Uterus and adnexa are grossly unremarkable. Bones/joints: No acute abnormality in osseous structures. Soft tissues unremarkable. Soft tissues: There is small fat containing umbilical hernia. IMPRESSION: 1. Hepatic steatosis. 2. Asymmetric left perinephric fat stranding could be due to age-indeterminate infection or inflammation . Evaluation of pyelonephritis is limited due to lack of administration of IV contrast. Clinical correlation might be considered. No nephrolithiasis or hydronephrosis. 3. Appendix is normal. Dictated and Authenticated by: Jorge Means MD. Ordering:MAITE Magana MD
[2020-02-22 15:10] LABS: Troponin I < 0.05 ng/mL (<0.06)
--- NOTE | 2020-02-22 15:53 | NUR.NOTE ---
Nursing Note: Report given to Malia [employer]. Reported no questions. Pt transferred to ICU. Pt verified she had all of her belongings.
[2020-02-22 16:34] LABS: Lactate 1.5 mmol/L (0.6-1.4)
[2020-02-22] MEDS: MEROPENEM 1 GM in Normal Saline 100 ML IVPB (16:55)
[2020-02-22] MEDS: risperiDONE 1 MG TAB 2 MG PO (21:18)
[2020-02-22] MEDS: Amitriptyline 25 MG TAB 50 MG PO (21:26)
[2020-02-22] MEDS: Normal Saline 1,000 ML 150 ML IV (22:18)
[2020-02-22] MEDS: LORazepam 1 MG TAB PO (22:21)
[2020-02-22] MEDS: hydrOXYzine HCL 25 MG TAB PO (22:27)
[2020-02-23] VITALS (211 sets, daily range): BP systolic 49–142; BP diastolic 27–126; PULSE 74–174; RESP 4–43; TEMP 36.5–39; O2SAT 88–98
[2020-02-23] MEDS: MEROPENEM 1 GM in Normal Saline 100 ML IVPB ×2 (00:12→12:15)
[2020-02-23] MEDS: Normal Saline Flush 10 ML SYR (00:13)
[2020-02-23] MEDS: Normal Saline 500 ML IV ×2 (02:52→03:49)
[2020-02-23] MEDS: Normal Saline 1,000 ML 150 ML IV ×2 (02:54→08:45)
[2020-02-23] MEDS: Nicotine 21 MG/24 HR PATCH TD ×2 (03:54→08:49)
--- NOTE | 2020-02-23 04:03 | NUR.NOTE ---
0130 Pt asymptomatic but having low blood pressures. Dr Lozano notified. Ordered NS bolus x2 500 cc each and increased maintenance IV fluid to 250 cc hr. Pt awake and eating Jello and drinking mercedez keira. Nicotine patch applied per pt request.
--- NOTE | 2020-02-23 04:06 | NUR.NOTE ---
0000-morphine 4 ng given for c/o 10 pain to head. Pt moaning and clutching head. Relieved after 15 minutes.Pt sleeping.
[2020-02-23] MEDS: ACETAMINOPHEN 1,000 MG/100 ML BTL 400 MG IVPB ×3 (04:52→18:25)
[2020-02-23 07:18] LABS: Abs Immature Grans 1.94 10^3/uL (0.0-0.06); HCT 28.4 % (36.0-46.0); HGB 9.3 g/dL (11.2-15.7); MCH 29.3 pg (27.0-33.0); MCHC 32.7 % (32.0-36.0); MCV 89.6 fL (80-95); MPV 11.3 fL (8.0-11.0); Nucleated RBC 0 %; RBC 3.17 10^6/uL (3.93-5.22); RDW 13.5 % (11.7-14.6); RDW-SD 44.7 fL
[2020-02-23 07:23] LABS: WBC 27.49 10^3/uL (4.4-10.8)
[2020-02-23 07:31] LABS: Anion Gap 15.2 mmol/L (3-11); BUN 18 mg/dL (7-18); CO2 17.8 mmol/L (21.0-32.0); CREATININE 1.81 mg/dL (0.55-1.02); Calcium 7.5 mg/dL (8.5-10.1); Chloride 105 mmol/L (98-107); Estimated GFR 31.46 (mL/min/1.73m2); Glucose 133 mg/dL (74-106); Magnesium 1.1 mg/dL (1.8-2.4); Potassium 4.3 mmol/L (3.5-5.1); Sodium 138 mmol/L (136-145)
[2020-02-23 07:48] LABS: Absolute Eosinophil Count 0.27 10^3/uL (0.0-0.7); Absolute Lymphocyte Count 0.55 10^3/uL (1.2-3.4); Absolute Neutrophil Count 23.37 10^3/uL (1.2-6.7); Bands % 8; Platelet Count 141 10^3/uL (130-400)
[2020-02-23 07:49] LABS: Diff Comment Manual Differential; Metamyelocytes % 3; Myelocytes % 2; RBC Morphology Normal
[2020-02-23 07:50] LABS: COVID-19 RT-PCR UVMMC Result Negative (Negative)
--- NOTE | 2020-02-23 08:20 | PDOC.CMIN ---
- If Service Date Differs Date of service: 02/23/20 Time of Service: 19:00 Care Management Initial Assess REASON FOR HOSPITALIZATION:: Pyelonephritis, Urosepsis PAST MEDICAL HISTORY/PAST SURGICAL HISTORY:: Anemia, chronic alcoholism in remission, cognitive dysfunction, esophagitis, osteoarthritis of left hip, PTSD PREVIOUS FUNCTIONAL STATUS/SOCIAL/FAMILY SUPPORTS:: Celia resides in [facility]. Her mother, Shoshana is her main support person and resides in [place], [place]. ADVANCE DIRECTIVES:: None on file. Has patient been provided with info about the portal/API?: Yes Did the patient sign up for the portal?: No CODE STATUS:: Full Code INSURANCE COVERAGE / FINANCIAL ISSUES:: Medicaid CURRENT HOME/COMMUNITY SERVICES/EQUIPMENT:: No current services or equipment. PRIMARY CARE PHYSICIAN:: Angela Beyer POTENTIAL DISCHARGE NEEDS:: Follow up appointment with PCP. Celia has a surgical appointment scheduled for 03/06/20 for EGD due to worsening anemia. PATIENT/FAMILY EDUCATION NEEDS:: Review discharge instructions, discuss Ask Me Three. ANTICIPATED BARRIERS TO DISCHARGE:: None identified. TRANSPORTATION:: Via private vehicle; RCT vs Family. PLAN:: Celia continues to be closely monitored in the ICU. She will discharge to home, follow up with her PCP and [facility] surgical services. She will transport via private vehicle; RCT vs Family.
[2020-02-23] MEDS: risperiDONE 1 MG TAB PO (08:49)
--- NOTE | 2020-02-23 08:53 | NUR.NOTE ---
RN performs bladder scan is has no residual findings.Nursing Note:
--- NOTE | 2020-02-23 09:18 | NUR.NOTE ---
Dr. Tam performs ultrasound of kidneys at bedside and believes patient may have an abscess. MD to follow up with nephrology specialsits. Nursing Note:
--- NOTE | 2020-02-23 09:59 | NUR.NOTE ---
IV hub is tightened to stop leaking. Tightening is successful in stopping leaking.Nursing Note:
--- NOTE | 2020-02-23 10:00 | DI.CT_ITS ---
EXAM: CT ABDOMEN PELVIS WO CLINICAL HISTORY: Pyelonephritis rule out perinephric abscess. TECHNIQUE: Noncontrast COMPARISON: CT CT ABDOMEN PELVIS WO from 02/22/2020 FINDINGS: Exam is limited by patient motion. ABDOMEN: Lung Bases: Increasing bibasilar densities consistent with atelectasis. Liver: Enlarged fatty liver.. No measurable mass. Gallbladder and biliary tract: No radiodense calculus or dilation. Pancreas: Normal density, no abnormal calcifications or inflammatory process. Spleen: Normal. Kidneys: Normal size, contour and axis. No radiodense stones or obstructive uropathy. No masses seen. Bilateral perinephric stranding. No evidence of Diane renal abscess or hydronephrosis. Adrenal glands: No masses seen. Lymph nodes: Within normal limits. Abdominal Aorta: Abdominal portion non-dilated. PELVIS: Bladder: Alcocer catheter., no gross wall thickening. Bowel: No obstruction or bowel wall thickening. Peritoneal cavity: A small amount of fluid is now seen in the low pelvis.. Reproductive organs: Within normal limits. Bones: Within normal limits. IMPRESSION: Limited exam due to patient motion.. Bilateral perinephric stranding, consistent with pyelonephritis . No perinephric abscess or hydronephrosis. RADIATION DOSE DELIVERED: 1,852.51mGy.cm Total DLP DATA REPOSITORY: All CT scans at this facility are submitted to the National Radiology Data Registry (NRDR) Dose Index Registry (DIR) with the [employer] (ACR). RADIATION OPTIMIZATION: All CT scans at this facility use at least one of these dose optimization te chniques: automated exposure control; mA and/or kV adjustment per patient size (includes targeted exa ms where dose is matched to clinical indication); or iterative reconstruction.
--- NOTE | 2020-02-23 10:05 | PGE_ITS ---
Date of Service Date of service: 02/23/20 Time of Service: 10:05 Assessment and Plan Assessment and plan (1) Sepsis: Status: Acute Assessment and plan: Patient demonstrated all the hallmarks of sepsis including elevated procalcitonin, hypotension, BETH. Her BP seems to be responding to the multiple fluid boluses and at this point as long as her MAP remains over 65, I do not feel that she needs norepinephrine now, although this would have been helpful last night. I will check CT of her abdomen/pelvis looking for perinephric abscess. I performed a POCUS exam of her kidneys and the right kidney looked ok but the left kidney appears to have a perinephric abscess. I will be consulting / [facility] nephrology and ICU once I have her CT results. For now will continue iv fluids at higher rate but will need to decrease once her urine output picks up and her BP has remained stable. Continue the meropenem and vancomycin at renal adjusted doses. Also I have discontinued her Toradol which was orderd last night. Alcocer has been placed for closer monitoring of her urine output. Qualifiers: Acute renal failure type: unspecified Sepsis acute organ dysfunction status: with acute organ dysfunction Sepsis type: sepsis due to unspecified organism Severe sepsis acute organ dysfunction type: acute renal failure Severe sepsis shock status: with septic shock Qualified Code(s): A41.9 - Sepsis, unspecified organism; R65.21 - Severe sepsis with septic shock; N17.9 - Acute kidney failure, unspecified (2) Pyelonephritis: Status: Acute Assessment and plan: As above Subjective Subjective Interval history since last seen: Patient continues to have left-sided flank pain although she states it is better than yesterday. She is now afebrile. T- max last night was 38.4. Patient developed hypotension yesterday evening with systolic pressures as low as the 60s to 70s however her nurse this morning states that blood pressures were obtained with a wrist cuff last night. Nevertheless believe that some of these blood pressures were legitimate as the patient has had an acute rise in her creatinine to 1.8 and had no reported urine output from 11 PM to 7 AM this morning. She required multiple fluid boluses and currently has saline going at 250 mL an hour. However this morning she did put out 300 mL of dark brownish-red urine and had no post void residual. 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 Her WBCs remain elevated and are actually higher at 27,000. I have added vancomycin to her antibiotic regimen in addition to the meropenem. Blood and urine cultures are still pending at this time. I will be checking a noncontrast CT scan of her abdomen and pelvis again looking for perinephric abscess. Exam Narrative Exam Narrative: Obese female who is awake alert and oriented person place time circumstance. Lungs are clear to auscultation Heart regular rate and rhythm without murmur rub or gallop. Abdomen is obese soft with diffuse tenderness with active bowel sounds. Slight CVA tenderness on the right more pronounced CVA tenderness on the left. Objective Last Vital Signs Temp 37.0 C 02/23/20 09:50 Pulse 105 H 02/23/20 09:50 Resp 21 02/23/20 09:50 BP 95/61 L 02/23/20 09:50 Pulse Ox 97 02/23/20 09:50 Laboratory Results - last 24 hr 02/22/20 02/22/20 02/22/20 09:45 09:45 09:45 WBC 22.85 H RBC 4.18 Hgb 12.0 Hct 36.2 MCV 86.6 MCH 28.7 MCHC 33.1 RDW 13.1 Plt Count 184 MPV 10.6 Immature Gran % 1.0 Neutrophils % 80.1 Band Neutrophils % Lymphocytes % 4.2 Monocytes % 14.5 Eosinophils % 0.0 Basophils % 0.2 Metamyelocytes % Myelocytes % Nucleated RBC % 0 Absolute Neutrophils 18.30 H Absolute Lymphocytes 0.96 L Absolute Monocytes 3.31 H Absolute Eosinophils 0.00 Absolute Basophils 0.05 RBC Morphology Normal VBG Lactate 2.5 H* Sodium 133 L Potassium 3.3 L Chloride 100 Carbon Dioxide 19.9 L Anion Gap 13.1 H BUN 13 Creatinine 1.66 H Estimated GFR/1.73 m2 34.76 Glucose 108 H Calcium 8.7 Magnesium Total Bilirubin 0.5 AST 12 L ALT 15 Alkaline Phosphatase 159 H Troponin I Total Protein 7.3 Albumin 3.4 Procalcitonin Urine Color Urine Clarity Urine pH Ur Specific [place] Urine Protein Urine Ketones Urine Blood Urine Nitrite Urine Bilirubin Urine Urobilinogen Ur Leukocyte Esterase Urine RBC Urine WBC Ur Epithelial Cells Urine Crystals Urine Bacteria Urine Casts Urine Mucus Ur Culture Indicated? Urine Glucose Ethyl Alcohol COVID-19 PCR Nasopharyn COVID-19 PCR Ref Test Perform Site 02/22/20 02/22/20 02/22/20 09:45 09:45 09:45 WBC RBC Hgb Hct MCV MCH MCHC RDW Plt Count MPV Immature Gran % Neutrophils % Band Neutrophils % Lymphocytes % Monocytes % Eosinophils % Basophils % Metamyelocytes % Myelocytes % Nucleated RBC % Absolute Neutrophils Absolute Lymphocytes Absolute Monocytes Absolute Eosinophils Absolute Basophils RBC Morphology VBG Lactate Sodium Potassium Chloride Carbon Dioxide Anion Gap BUN Creatinine Estimated GFR/1.73 m2 Glucose Calcium Magnesium Total Bilirubin AST ALT Alkaline Phosphatase Troponin I < 0.05 Total Protein Albumin Procalcitonin Urine Color Urine Clarity Urine pH Ur Specific [place] Urine Protein Urine Ketones Urine Blood Urine Nitrite Urine Bilirubin Urine Urobilinogen Ur Leukocyte Esterase Urine RBC Urine WBC Ur Epithelial Cells Urine Crystals Urine Bacteria Urine Casts Urine Mucus Ur Culture Indicated? Urine Glucose Ethyl Alcohol < 3.0 COVID-19 PCR Negative Nasopharyn COVID-19 PCR Not Applicable Ref Test Perform Site [place] [facility] lab 02/22/20 02/22/20 02/22/20 09:45 10:38 14:35 WBC RBC Hgb Hct MCV MCH MCHC RDW Plt Count MPV Immature Gran % Neutrophils % Band Neutrophils % Lymphocytes % Monocytes % Eosinophils % Basophils % Metamyelocytes % Myelocytes % Nucleated RBC % Absolute Neutrophils Absolute Lymphocytes Absolute Monocytes Absolute Eosinophils Absolute Basophils RBC Morphology VBG Lactate Sodium Potassium Chloride Carbon Dioxide Anion Gap BUN Creatinine Estimated GFR/1.73 m2 Glucose Calcium Magnesium Total Bilirubin AST ALT Alkaline Phosphatase Troponin I < 0.05 Total Protein Albumin Procalcitonin 14.0 Urine Color [place] Urine Clarity Clear Urine pH 5.5 Ur Specific [place] 1.015 Urine Protein 100 H Urine Ketones Negative Urine Blood Trace-intact H Urine Nitrite Positive H Urine Bilirubin Negative Urine Urobilinogen 1.0 H Ur Leukocyte Esterase Small H Urine RBC 3-5 H Urine WBC 5-10 Ur Epithelial Cells Rare Urine Crystals Negative Urine Bacteria Few Urine Casts Negative Urine Mucus Negative Ur Culture Indicated? Yes Urine Glucose 100 Ethyl Alcohol COVID-19 PCR Nasopharyn COVID-19 PCR Ref Test Perform Site 02/22/20 02/23/20 02/23/20 16:25 06:15 06:15 WBC 27.49 H* RBC 3.17 L Hgb 9.3 L D Hct 28.4 L D MCV 89.6 D MCH 29.3 MCHC 32.7 RDW 13.5 Plt Count 141 MPV 11.3 H Immature Gran % 0.0 Neutrophils % 77.0 Band Neutrophils % 8 Lymphocytes % 2.0 Monocytes % 8.0 Eosinophils % 1.0 Basophils % 0.0 Metamyelocytes % 3 Myelocytes % 2 Nucleated RBC % 0 Absolute Neutrophils 23.37 H Absolute Lymphocytes 0.55 L Absolute Monocytes 2.20 H Absolute Eosinophils 0.27 Absolute Basophils 0.00 RBC Morphology Normal VBG Lactate 1.5 H Sodium 138 Potassium 4.3 D Chloride 105 Carbon Dioxide 17.8 L Anion Gap 15.2 H BUN 18 Creatinine 1.81 H Estimated GFR/1.73 m2 31.46 Glucose 133 H Calcium 7.5 L Magnesium 1.1 L Total Bilirubin AST ALT Alkaline Phosphatase Troponin I Total Protein Albumin Procalcitonin Urine Color Urine Clarity Urine pH Ur Specific [place] Urine Protein Urine Ketones Urine Blood Urine Nitrite Urine Bilirubin Urine Urobilinogen Ur Leukocyte Esterase Urine RBC Urine WBC Ur Epithelial Cells Urine Crystals Urine Bacteria Urine Casts Urine Mucus Ur Culture Indicated? Urine Glucose Ethyl Alcohol COVID-19 PCR Nasopharyn COVID-19 PCR Ref Test Perform Site
[2020-02-23] MEDS: LORazepam 1 MG TAB PO ×2 (11:01→18:25)
--- NOTE | 2020-02-23 11:01 | DI.VRAD_ITS ---
PROCEDURE INFORMATION: Exam: CT Abdomen And Pelvis Without Contrast Exam date and time: 02/23/2020 10:01 AM Age: 39 years old Clinical indication: Other: Pyelonephritis rule out perinephric abscess TECHNIQUE: Imaging protocol: Computed tomography of the abdomen and pelvis without contrast. Radiation optimization: All CT scans at this facility use at least one of these dose optimization techniques: automated exposure control; mA and/or kV adjustment per patient size (includes targeted exams where dose is matched to clinical indication); or iterative reconstruction. COMPARISON: CT ABDOMEN PELVIS WO 02/22/2020 1:28 PM FINDINGS: Bibasilar atelectasis and/or scarring. Diffuse bilateral perinephric fat stranding. No hydronephrosis. No discrete perinephric organized fluid collection to suggest perinephric abscess. In the interval, when compared to CT of the abdomen/pelvis dated 02/22/2020 there has been a Alcocer catheter placement in a decompressed urinary bladder and moderate free pelvic fluid. Hepatic steatosis. Gallbladder, pancreas, spleen, adrenals, stomach, bowel and appendix are unchanged when compared to most recent prior. No free air. The vasculature is unremarkable. No significantly enlarged lymph nodes. The reproductive organs are unremarkable visualized. The osseous structures are unchanged in interval. Soft tissues are unchanged. IMPRESSION: Redemonstrated perinephric fat stranding, concerning for pyelonephritis. Evaluation is limited due to motion artifact and lack of intravenous contrast. No organized perinephric collections. No hydronephrosis. The remainder of the examination is unchanged since 02/22/2020. Dictated and Authenticated by: Shemar Jordan MD. Ordering:[facility] Anel Magana MD
--- NOTE | 2020-02-23 11:06 | NUR.NOTE ---
Patient is quite agitated and worked up having just returned from CT Scan. Patient is given 1mg of Ativan to help her calm down. Heart rate in the 130's.Nursing Note:
[2020-02-23] MEDS: MORPHine 2 MG/ML SYR IVP ×4 (11:28→22:27)
[2020-02-23] MEDS: Enoxaparin 40 MG/0.4 ML SYR SC (14:13)
--- NOTE | 2020-02-23 14:35 | SUR.INTRAOP ---
Vital signs stable. Patient resting in bed but is easily arousable. Patient's pain is in good control.
--- NOTE | 2020-02-23 14:41 | PHA.REVIEW ---
Pharmacy Admission Review - Admission Clinical Review (Last Reviewed 02/22/20 @ 14:25 by Rimma Darby NP) Fever (Acute) Discharge planning issues (Acute) Pyelonephritis (Acute) UTI (urinary tract infection) (Acute) Sepsis (Acute) lamotrigine [From Lamictal] Allergy (Severe, Verified 02/22/20 09:50) Blistery rash per Marbella Cutler acetaminophen Adverse Reaction (Intermediate, Verified 02/22/20 12:46) Nausea & vomiting Height 5 ft 5 in Weight 94 kg Urosepsis, Polynephritis - Comments Comments/Follow Ups: High fevers, high WBC, Sepsis protocol, soft BP's, HR>100. Patient will need a PPI. No external medication history to verify home med list. CT of pelvis/abdomen shows Left sided renal abscess. - Renal Dosing Renal Dosing: BUN 18 mg/dL (7-18) 02/23/20 06:15 Creatinine 1.81 mg/dL (0.55-1.02) H 02/23/20 06:15 Medications needing adjustments: Intervened (CrCl~38.2ml/min (recommended Meropenem dose from 1gram IV q8h to 1gram Q12h)) - Anticoagulation Anticoagulation: Hgb 9.3 g/dL (11.2-15.7) L D 02/23/20 06:15 Hct 28.4 % (36.0-46.0) L D 02/23/20 06:15 Plt Count 141 10^3/uL (130-400) 02/23/20 06:15 Creatinine 1.81 mg/dL (0.55-1.02) H 02/23/20 06:15 DVT Prohphylaxis: Reviewed Medications: Enoxaparin (watch for dose adjustment if SCr worsens) - Opiate Usage Evaluate Pain Scale/Pains Meds: Reviewed (MS IVP, pain 5/10, c/o headache) Scheduled Bowel Reg ordered if on Opiates?: No (liquid stools) - Relevant Labs Sodium 138 mmol/L (136-145) 02/23/20 06:15 Potassium 4.3 mmol/L (3.5-5.1) D 02/23/20 06:15 Chloride 105 mmol/L (98-107) 02/23/20 06:15 Magnesium 1.1 mg/dL (1.8-2.4) L 02/23/20 06:15 Electrolytes, C-Reactive P, ESR: Reviewed (PCT 14, Mag 1.1 (will be replaced), WBC 27.49, H/H 9.3/28.4) - DM Control DM Control: Glucose 133 mg/dL (74-106) H 02/23/20 06:15 Insulin Dosing: N/A - Heart Failure/IA Heart Failure/IA: Troponin I < 0.05 ng/mL (<0.06) 02/22/20 14:35 EF%, TEVIN's, B-Blockers, Diuretics: N/A - BP Control BP Control: Blood Pressure [Right Arm] 108/67 Blood Pressure [Right Arm] 95/61 Blood Pressure [Right Arm] 74/51 Blood Pressure 97/54 Blood Pressure 108/67 Blood Pressure 98/48 Blood Pressure 117/86 Blood Pressure 117/86 Blood Pressure 127/92 Blood Pressure 93/60 Blood Pressure 95/61 Blood Pressure 122/57 Blood Pressure 75/53 Blood Pressure 97/61 Blood Pressure 93/75 Blood Pressure 93/75 Blood Pressure 88/56 Blood Pressure 57/31 Blood Pressure 90/55 Blood Pressure 65/40 Blood Pressure 94/61 Blood Pressure 49/33 Blood Pressure 93/61 Blood Pressure 81/57 Blood Pressure 68/51 Blood Pressure 70/45 Blood Pressure 67/43 Blood Pressure 76/55 Blood Pressure 78/51 Blood Pressure 58/40 Blood Pressure 69/50 Blood Pressure 73/52 Blood Pressure 74/51 Blood Pressure 66/48 Blood Pressure 81/59 Blood Pressure 81/52 Blood Pressure 74/55 Blood Pressure 74/45 Blood Pressure 75/53 Blood Pressure 59/42 Blood Pressure 59/41 Blood Pressure 76/51 If elevated: Reviewed (May need pressors if fluid bolus' aren't able to maintain BP's (NS@125ml/hr)) - Qtc Review If Elevated: Reviewed (QTC 421) - IV to PO Switch IV Medications: Reviewed (APAP, Phenergan are ordered IV) - Home Meds Home Med List reviewed: Reviewed Relevent Home Meds Not ordered & why?: Colchicine, Cyclobenzaprine, Naltrexone, Omeprazole (needs PPI), Prednisone Antibiotic Activity - Pharmacy Antibiotic Review Pharmacy Antibiotic Activity: Renal function adjustment (Meropenem adjusted to Q12h, Vanco started for Urosepsis) - Antibiotic Information Antibiotic Review Info: E.Coli>100K Urosepsis awaiting sensitivities. On Meropenem and Vanco
[2020-02-23] MEDS: MAGNESIUM SULFATE 4 GM/100 ML BAG IVPB (15:35)
[2020-02-23] MEDS: Normal Saline 1,000 ML 125 ML IV (18:27)
[2020-02-23] MEDS: risperiDONE 1 MG TAB 2 MG PO (21:27)
[2020-02-23] MEDS: Amitriptyline 25 MG TAB 50 MG PO (21:27)
[2020-02-23] MEDS: hydrOXYzine HCL 25 MG TAB PO (22:28)
[2020-02-24] VITALS (52 sets, daily range): BP systolic 91–152; BP diastolic 60–96; PULSE 92–140; RESP 15–32; TEMP 36.7–39.5; O2SAT 87–98
[2020-02-24] MEDS: MEROPENEM 1 GM in Normal Saline 100 ML IVPB (00:35)
[2020-02-24] MEDS: ACETAMINOPHEN 1,000 MG/100 ML BTL 400 MG IVPB (03:29)
[2020-02-24] MEDS: LORazepam 1 MG TAB PO (03:30)
--- NOTE | 2020-02-24 03:48 | NUR.NOTE ---
Addendum entered by Chelle Styles 02/24/20 04:52: 0437 Medicated for headache unrelieved by tylenol, 11/14. 0448 Temp 37.6 Original Note: Nursing Note: 0300 Pt c/o feeling cold, noted to be shivering. Temp assessed, 36.7. HR 124. Extra blanket provided. 0325 Pt tachypneic and coughing (nonproductive), states she has a smoker's cough. Pt noted to be moaning. When asked, states she has a headache from coughing. 0330 Tylenol IV administered for headache. Ativan also administered at this time as pt is restless, c/o discomfort with the hugo, agrees that she is experiencing anxiety. Unable to obtain accurate SaO2 r/t restlessness and poor pleth. HR max 144 @0332. This nurse encouraged slow, deep breathing in an effort to ease anxiety. 0343 pt remains tachycardic, temp reassessed- 38.0. Reiterated encouragement to take slow breaths and reassured pt that the tylenol was nearly complete. 0403 HR 120, SaO2 93% 2LNC. Pt resting with eyes closed. BP remains stable t/o this time.
[2020-02-24] MEDS: MORPHine 2 MG/ML SYR IVP ×2 (04:37→08:14)
[2020-02-24] MEDS: Normal Saline 1,000 ML 125 ML IV (04:38)
[2020-02-24 06:31] LABS: Abs Immature Grans 1.25 10^3/uL (0.0-0.06); HCT 26.2 % (36.0-46.0); HGB 8.9 g/dL (11.2-15.7); MCV 85.3 fL (80-95); Nucleated RBC 0 %; Platelet Count 142 10^3/uL (130-400); RBC 3.07 10^6/uL (3.93-5.22); RDW 13.6 % (11.7-14.6); RDW-SD 42.7 fL; WBC 16.98 10^3/uL (4.4-10.8)
[2020-02-24 06:45] LABS: Anion Gap 11.6 mmol/L (3-11); BUN 17 mg/dL (7-18); CO2 19.4 mmol/L (21.0-32.0); CREATININE 1.38 mg/dL (0.55-1.02); Calcium 8.2 mg/dL (8.5-10.1); Chloride 105 mmol/L (98-107); Estimated GFR 43.02 (mL/min/1.73m2); Glucose 83 mg/dL (74-106); Magnesium 2.1 mg/dL (1.8-2.4); Potassium 3.4 mmol/L (3.5-5.1); Sodium 136 mmol/L (136-145)
[2020-02-24 06:57] LABS: Absolute Basophil Count 0.17 10^3/uL (0.0-0.2); Absolute Eosinophil Count 0.34 10^3/uL (0.0-0.7); Absolute Lymphocyte Count 0.68 10^3/uL (1.2-3.4); Absolute Monocyte Count 1.19 10^3/uL (0.1-0.8); Absolute Neutrophil Count 14.43 10^3/uL (1.2-6.7); Bands % 5; Diff Comment Manual Differential; Metamyelocytes % 1
[2020-02-24 06:58] LABS: Hypochromasia 1+
--- NOTE | 2020-02-24 08:02 | W.PM.PROGNOT ---
Date of Service Date of service: 02/24/20 Time of Service: 08:02 Assessment and Plan Assessment and plan (1) Sepsis: Status: Acute Assessment and plan: Patient is improving and has remained hemodynamically stable. She has some slight tachycardia associated with her fever spike last night as well as with her pain. Rhythm remains sinus to sinus tachycardia. Inflammatory markers are decreasing and renal function has improved. She is mildly hypokalemic which I will replace with oral supplementation. Her diet is going to be advanced and we will increase her activity and discontinue her Hugo catheter. She no longer requires parenteral narcotics and parenteral acetaminophen. I have ordered acetaminophen for her pain and for breakthrough pain she can take some oral Dilaudid. She will continue to receive dual antibiotic treatment with meropenem and vancomycin pending the results of her blood and urine cultures. She will be transferred to the medical/surgical floor with continued telemetry monitoring. I will get a renal ultrasound this morning to follow-up on her CT findings. Qualifiers: Sepsis type: sepsis due to unspecified organism Sepsis acute organ dysfunction status: with acute organ dysfunction Severe sepsis acute organ dysfunction type: acute renal failure Acute renal failure type: unspecified Severe sepsis shock status: with septic shock Qualified Code(s): A41.9 - Sepsis, unspecified organism; R65.21 - Severe sepsis with septic shock; N17.9 - Acute kidney failure, unspecified (2) Pyelonephritis: Status: Acute Assessment and plan: As above Subjective Subjective Interval history since last seen: Patient has improved remarkably overnight with reduction in her creatinine to 1.38 and stabilization of her blood pressure. She did spike a fever last night up to 38 ?C at 3:43 this morning associated with tachycardia.However her inflammatory markers are declining (WBC 16,000). She would like her diet advanced and would like her hugo removed. At this point she is medically stable for transfer to the floor w/ advancement of her diet. Exam Narrative Exam Narrative: Young female lying in bed alert and oriented x3. She is in some mild discomfort over her left flank. Lungs with basilar rales Heart regular rhythm slightly tachycardic Abdomen soft nontender no rebound tenderness or guarding normal active bowel sounds. Objective Last Vital Signs Temp 37 C 02/24/20 06:40 Pulse 112 H 02/24/20 06:00 Resp 21 02/24/20 06:00 BP 110/62 02/24/20 06:00 Pulse Ox 93 02/24/20 06:00 Laboratory Results - last 24 hr 02/22/20 02/22/20 02/24/20 09:45 19:38 06:08 WBC RBC Hgb Hct MCV MCH MCHC RDW Plt Count MPV Immature Gran % Neutrophils % Band Neutrophils % Lymphocytes % Monocytes % Eosinophils % Basophils % Metamyelocytes % Nucleated RBC % Absolute Neutrophils Absolute Lymphocytes Absolute Monocytes Absolute Eosinophils Absolute Basophils RBC Morphology Hypochromasia Sodium 136 Potassium 3.4 L Chloride 105 Carbon Dioxide 19.4 L Anion Gap 11.6 H BUN 17 Creatinine 1.38 H Estimated GFR/1.73 m2 43.02 Glucose 83 D Calcium 8.2 L Magnesium 2.1 Stl C.difficile Tox PCR Cancelled COVID-19 PCR Negative Ref Test Perform Site [place] [facility] lab 02/24/20 06:08 WBC 16.98 H D RBC 3.07 L Hgb 8.9 L Hct 26.2 L MCV 85.3 D MCH 29.0 MCHC 34.0 RDW 13.6 Plt Count 142 MPV 11.0 Immature Gran % 0.0 Neutrophils % 80.0 Band Neutrophils % 5 Lymphocytes % 4.0 Monocytes % 7.0 Eosinophils % 2.0 Basophils % 1.0 Metamyelocytes % 1 Nucleated RBC % 0 Absolute Neutrophils 14.43 H Absolute Lymphocytes 0.68 L Absolute Monocytes 1.19 H Absolute Eosinophils 0.34 Absolute Basophils 0.17 RBC Morphology See below Hypochromasia 1+ Sodium Potassium Chloride Carbon Dioxide Anion Gap BUN Creatinine Estimated GFR/1.73 m2 Glucose Calcium Magnesium Stl C.difficile Tox PCR COVID-19 PCR Ref Test Perform Site
[2020-02-24] MEDS: Lactobacillus Acidophilus CAP 1 CAP PO ×3 (08:12→21:14)
[2020-02-24] MEDS: Nicotine 21 MG/24 HR PATCH TD (08:12)
[2020-02-24] MEDS: risperiDONE 1 MG TAB PO (08:13)
[2020-02-24] MEDS: Pantoprazole 20 MG TABCR PO (08:13)
[2020-02-24] MEDS: Biotene Mouthwash 237 ML BTL 15 ML MM ×2 (08:14→22:14)
[2020-02-24] MEDS: Potassium Chloride Liquid 20 MEQ PKT PO ×3 (08:15→21:19)
--- NOTE | 2020-02-24 08:15 | DI.US_ITS ---
EXAM: US RENAL CLINICAL HISTORY: Pyelonephritis. TECHNIQUE: [place] scale, color and spectral Doppler were used. COMPARISON: CT CT ABDOMEN PELVIS WO from 02/22/[address] ABDOMEN PELVIS WO from 02/23/2020 FINDINGS: Exam is somewhat limited due to lack of patient cooperation. Renal size in cm: Right: 13.9 left: 14.8 Echogenicity: Normal Hydronephrosis: No Cyst or mass: No Nephrolithiasis: No Other findings: No perinephric collection. Bladder:Normal Prevoid vol:139 Postvoid vol:Not performed. IMPRESSION: Mild bilateral renal enlargement. No hydronephrosis or perinephric collection. DATA REPOSITORY:
--- NOTE | 2020-02-24 08:34 | PDOC.CMPRO ---
- If Service Date Differs Date of service: 02/24/20 Time of Service: 08:34 Care Management Progress Note S/O: Celia was sitting up in bed when CM met with her. She expressed concern about her housing situation, stating that for the past several months she has been living at the [facility] in [place] which was set up through [facility]. She requested that CM contact [facility] and let them know that she is hospitalized. CM made the call and was informed that a return call will be made to later today. Celia also shared that she receives disability for back pain and her head. She stated I am crazy. She did confirm that she sees a therapist at [facility] named Susy. A: Celia is a 39 year old woman admitted on 02/22/20 with pyelonephritis and urosepsis P:Celia continues to be closely monitored in the ICU. She will discharge to her home at the [facility], follow up with her PCP and [facility] surgical services. She will transport via private vehicle; RCT vs Family.
[2020-02-24] MEDS: HYDROmorphone 2 MG TAB PO ×2 (08:57→16:33)
[2020-02-24] MEDS: Loperamide 2 MG CAP 4 MG PO (08:57)
[2020-02-24] MEDS: Omeprazole 20 MG CAPCR PO (08:58)
[2020-02-24] MEDS: Psyllium PKT 1 EACH PO ×2 (08:58→21:15)
[2020-02-24] MEDS: Furosemide 20 MG/2 ML VIAL IVP (09:15)
[2020-02-24] MEDS: cefTRIAXone 2 GM/50 ML BAG IVPB (10:10)
[2020-02-24] MEDS: Acetaminophen 325 MG TAB PO ×2 (10:10→21:15)
[2020-02-24] MEDS: hydrOXYzine HCL 25 MG TAB PO ×2 (12:52→21:14)
[2020-02-24] MEDS: Enoxaparin 40 MG/0.4 ML SYR SC (13:20)
--- NOTE | 2020-02-24 16:06 | CHAPLAIN ---
Celia was sitting in bed when I visited. She said she was in touch with some friends by phone, but was annoyed that people called when she wanted to rest. Celia shared some personal history, telling me about growing up in [place], [place], then moving to [place] and now living in [place]. She was interested in having her daughter come visit. Her daughter lives with foster parents in [facility]. I don't know the policies about children visiting at this time, so I let Celia's nurse, Marva Cedillo RN, know about Celia's request. I will continue to visit.
[2020-02-24] MEDS: risperiDONE 1 MG TAB 2 MG PO (21:13)
[2020-02-24] MEDS: Amitriptyline 25 MG TAB 50 MG PO (21:14)
[2020-02-24] MEDS: Normal Saline Flush 10 ML SYR (22:14)
[2020-02-25] VITALS (26 sets, daily range): BP systolic 136–161; BP diastolic 95–113; PULSE 86–119; RESP 11–33; TEMP 36.7–38.9; O2SAT 89–99
[2020-02-25] MEDS: HYDROmorphone 2 MG TAB PO ×3 (00:43→20:19)
[2020-02-25] MEDS: Acetaminophen 325 MG TAB PO ×5 (05:13→20:19)
[2020-02-25 06:58] LABS: Anion Gap 10.5 mmol/L (3-11); BUN 16 mg/dL (7-18); CO2 21.5 mmol/L (21.0-32.0); CREATININE 1.29 mg/dL (0.55-1.02); Calcium 8.4 mg/dL (8.5-10.1); Chloride 106 mmol/L (98-107); Glucose 108 mg/dL (74-106); Potassium 3.7 mmol/L (3.5-5.1); Sodium 138 mmol/L (136-145)
[2020-02-25 07:18] LABS: Procalcitonin 7.4 ng/mL
[2020-02-25] MEDS: Biotene Mouthwash 237 ML BTL 15 ML MM ×2 (07:45→20:21)
[2020-02-25] MEDS: Nicotine 21 MG/24 HR PATCH TD (07:45)
[2020-02-25] MEDS: Lactobacillus Acidophilus CAP 1 CAP PO ×3 (07:45→20:20)
[2020-02-25] MEDS: Psyllium PKT 1 EACH PO ×2 (07:47→20:19)
[2020-02-25] MEDS: Omeprazole 20 MG CAPCR PO (07:47)
[2020-02-25] MEDS: risperiDONE 1 MG TAB PO (07:47)
[2020-02-25 07:52] LABS: Abs Immature Grans 0.08 10^3/uL (0.0-0.06); Absolute Basophil Count 0.06 10^3/uL (0.0-0.2); Absolute Eosinophil Count 0.13 10^3/uL (0.0-0.7); Absolute Monocyte Count 0.96 10^3/uL (0.1-0.8); Basophils % 0.4; Eosinophils % 0.9; HCT 26.2 % (36.0-46.0); HGB 8.8 g/dL (11.2-15.7); Immature Grans % 0.5; MCH 28.7 pg (27.0-33.0); MCHC 33.6 % (32.0-36.0); MCV 85.3 fL (80-95); MPV 12.7 fL (8.0-11.0); Monocytes % 6.6; Neutrophils % 78.6; Nucleated RBC 0 %; RBC 3.07 10^6/uL (3.93-5.22); RDW 13.6 % (11.7-14.6); RDW-SD 42.8 fL; WBC 14.56 10^3/uL (4.4-10.8)
[2020-02-25 08:07] LABS: Absolute Lymphocyte Count 1.89 10^3/uL (1.2-3.4); Absolute Neutrophil Count 11.44 10^3/uL (1.2-6.7)
[2020-02-25 08:11] LABS: Diff Comment PLT Morph Reviewed; RBC Morphology Normal
--- NOTE | 2020-02-25 08:32 | PDOC.CMPRO ---
- If Service Date Differs Date of service: 02/25/20 Time of Service: 08:32 Care Management Progress Note S/O: Celia was lying in bed when CM met with her. She was receptive to conversation but stated that she had a really bad headache from coughing. RAFAEL was able to share [facility] her and that she can return upon discharge. Celia expressed that she was relieved to hear that. Clinically she is somewhat better today, although she remains febrile with a temperature of 38.9C. Her WBC is slowly returning to normal (14.56 from a high of 27.49) and her BETH is improving. A: Celia is a 39 year old woman admitted on 02/22/20 with pyelonephritis and urosepsis P:Celia is slowly improving clinically although she remains febrile. She will discharge to her home at the [facility], follow up with her PCP and [facility] surgical services. She will transport via private vehicle; [facility] vs Family. CM will continue to support patient and assess for discharge planning needs.
--- NOTE | 2020-02-25 08:59 | NUR.NOTE ---
Patient is encouraged to walk in halls with RN. Patient will walk with RN shortly.Nursing Note:
--- NOTE | 2020-02-25 09:15 | W.PM.PROGNOT ---
Date of Service Date of service: 02/25/20 Time of Service: 09:15 Assessment and Plan Assessment and plan (1) Sepsis: Status: Acute Assessment and plan: Patient remains hemodynamically stable and her acute kidney injury is resolving. Patient's responded to antibiotics for treatment of E. coli pyelonephritis. We will continue Rocephin 2 g IV daily for another 24 hours and then switch to an oral antibiotic and discharge her home Qualifiers: Sepsis type: sepsis due to unspecified organism Sepsis acute organ dysfunction status: with acute organ dysfunction Severe sepsis acute organ dysfunction type: acute renal failure Acute renal failure type: unspecified Severe sepsis shock status: with septic shock Qualified Code(s): A41.9 - Sepsis, unspecified organism; R65.21 - Severe sepsis with septic shock; N17.9 - Acute kidney failure, unspecified (2) Pyelonephritis: Status: Acute Assessment and plan: As above (3) Acute kidney injury (nontraumatic): Status: Acute Assessment and plan: Resolving. creatinine down to 1.29 and BUN 16. urine output 4000 mL yesterday and so far 1250 mL today. No need for further diuretics. she is mobilizing her third spaced fluids on her own now. Subjective Subjective Interval history since last seen: Patient is doing markedly better today. Her flank pain has improved. She remains afebrile this morning. Last temperature spike was at 9 PM last night. She is now on high-dose Rocephin 2 g daily for an E. coli pyelonephritis. Renal ultrasound yesterday showed no perinephric abscess no hydronephrosis. She remains in the intensive care unit however she is no longer in ICU patient. I wrote for her transfer to the medical/surgical floor yesterday. I will watch her 1 more day on the high-dose Rocephin and then switch her to oral antibiotics and discharge her home tomorrow. Patient was diuresed yesterday and she looks much better in terms of her edema. I do not feel that she needs any more diuretics. Exam Narrative Exam Narrative: Young female who is alert and oriented person place time circumstance. She walked out in the hallways with her nurse. Lungs are clear anteriorly posteriorly she does have some faint rales no rhonchi or wheezing. Heart is regular rate and rhythm. Abdomen soft nontender. Flank tenderness is minimal bilaterally Facial edema has improved Edema of her hands and feet are now gone Objective Last Vital Signs Temp 36.8 C 02/25/20 08:11 Pulse 97 H 02/25/20 08:11 Resp 11 L 02/25/20 08:11 BP 141/98 H 02/25/20 08:11 Pulse Ox 97 02/25/20 08:11 Laboratory Results - last 24 hr 02/24/20 02/25/20 02/25/20 11:00 06:30 06:30 WBC 14.56 H RBC 3.07 L Hgb 8.8 L Hct 26.2 L MCV 85.3 MCH 28.7 MCHC 33.6 RDW 13.6 Plt Count MPV 12.7 H Immature Gran % 0.5 Neutrophils % 78.6 Lymphocytes % 13.0 Monocytes % 6.6 Eosinophils % 0.9 Basophils % 0.4 Nucleated RBC % 0 Absolute Neutrophils 11.44 H Absolute Lymphocytes 1.89 Absolute Monocytes 0.96 H Absolute Eosinophils 0.13 Absolute Basophils 0.06 RBC Morphology Normal Sodium 138 Potassium 3.7 Chloride 106 Carbon Dioxide 21.5 Anion Gap 10.5 BUN 16 Creatinine 1.29 H Estimated GFR/1.73 m2 46.50 Glucose 108 H Calcium 8.4 L Procalcitonin Vancomycin Trough Cancelled 02/25/20 06:30 WBC RBC Hgb Hct MCV MCH MCHC RDW Plt Count MPV Immature Gran % Neutrophils % Lymphocytes % Monocytes % Eosinophils % Basophils % Nucleated RBC % Absolute Neutrophils Absolute Lymphocytes Absolute Monocytes Absolute Eosinophils Absolute Basophils RBC Morphology Sodium Potassium Chloride Carbon Dioxide Anion Gap BUN Creatinine Estimated GFR/1.73 m2 Glucose Calcium Procalcitonin 7.4 Vancomycin Trough
[2020-02-25] MEDS: cefTRIAXone 2 GM/50 ML BAG IVPB (09:39)
--- NOTE | 2020-02-25 10:27 | NUR.NOTE ---
Patient resting quietly in bed. No needs indentified other then a desire for some gingerale.Nursing Note:
--- NOTE | 2020-02-25 12:13 | NUR.NOTE ---
Patient's appetite has improved.Nursing Note:
--- NOTE | 2020-02-25 12:44 | DI.RAD_ITS ---
EXAM: XR CHEST 2V PA LATERAL CLINICAL HISTORY: cough TECHNIQUE: 2D digital imaging was performed. COMPARISON: CR,XR XR PORTABLE CHEST AP from 02/22/2020 FINDINGS: MEDIASTINUM: Normal. HEART: Normal. PULMONARY VASCULATURE: Normal. LUNGS: Clear. PLEURAL SPACE: No pneumothorax. Blunting of the costophrenic angles on the lateral view, consistent with tiny effusions. BONE:Normal. IMPRESSION: Tiny bilateral pleural effusions DATA REPOSITORY: RADIATION DOSE DELIVERED:
--- NOTE | 2020-02-25 13:00 | NUR.NOTE ---
Nursing Note: Patient returns from radiology having undergone a PA/LAT. Patient tolerates said test well.
[2020-02-25] MEDS: LORazepam 1 MG TAB PO (13:06)
[2020-02-25] MEDS: Benzonatate 200 MG CAP PO (13:09)
--- NOTE | 2020-02-25 13:15 | NUR.NOTE ---
Patient given [place] Pearls to help with her nagging cough, 650mg Acetaminophen to assist with headache, and 1mg of Lorazepam to help patient relax and get a little rest.Nursing Note:
[2020-02-25] MEDS: Enoxaparin 40 MG/0.4 ML SYR SC (13:23)
--- NOTE | 2020-02-25 14:40 | NUR.NOTE ---
Patient comfortable in bed watching t.v.Nursing Note:
--- NOTE | 2020-02-25 14:43 | NUR.NOTE ---
RN fills patient's mug with some gingerale on ice.Nursing Note:
--- NOTE | 2020-02-25 16:07 | CHAPLAIN ---
Celia said she had been up walking today, had xrays taken and was a pin cushion so she was resting this afternoon when I visited. She said she was feeling a bit better. Yesterday, she'd asked about her daughter visiting, but was told kids couldn't visit at this time. She's allowed one visitor, and said her will be in later to visit. (Her daughter lives with a foster family in [place].) Celia said she is feeling very relieved this afternoon because she was told by [facility] that she can return to the room at the [facility] when she is discharged. [facility] has arranged this for her.
[2020-02-25] MEDS: hydrOXYzine HCL 25 MG TAB PO (16:12)
[2020-02-25] MEDS: risperiDONE 1 MG TAB 2 MG PO (21:51)
[2020-02-25] MEDS: Amitriptyline 25 MG TAB 50 MG PO (21:51)
[2020-02-26] VITALS: BP 150/90; PULSE 117; RESP 19; TEMP 38.4; O2SAT 95
[2020-02-26] MEDS: LORazepam 1 MG TAB PO (00:50)
[2020-02-26] MEDS: Acetaminophen 325 MG TAB PO ×5 (03:18→21:46)
[2020-02-26] MEDS: HYDROmorphone 2 MG TAB PO ×2 (03:19→08:04)
[2020-02-26] MEDS: Omeprazole 20 MG CAPCR PO (06:45)
[2020-02-26 06:59] LABS: Abs Immature Grans 0.28 10^3/uL (0.0-0.06); Absolute Basophil Count 0.04 10^3/uL (0.0-0.2); Absolute Eosinophil Count 0.09 10^3/uL (0.0-0.7); Absolute Lymphocyte Count 1.55 10^3/uL (1.2-3.4); Absolute Monocyte Count 1.23 10^3/uL (0.1-0.8); Absolute Neutrophil Count 7.61 10^3/uL (1.2-6.7); Basophils % 0.4; Eosinophils % 0.8; HCT 28.4 % (36.0-46.0); HGB 9.5 g/dL (11.2-15.7); Immature Grans % 2.6; Lymphocytes % 14.4; MCH 28.5 pg (27.0-33.0); MCHC 33.5 % (32.0-36.0); MCV 85.3 fL (80-95); MPV 10.7 fL (8.0-11.0); Monocytes % 11.4; Neutrophils % 70.4; Nucleated RBC 0 %; Platelet Count 208 10^3/uL (130-400); RBC 3.33 10^6/uL (3.93-5.22); RDW 13.3 % (11.7-14.6); RDW-SD 41.7 fL
[2020-02-26 07:17] VITALS: BP 125/91; PULSE 90; RESP 18; TEMP 36.7; O2SAT 95
[2020-02-26 08:00] VITALS: O2SAT 95
[2020-02-26] MEDS: Lactobacillus Acidophilus CAP 1 CAP PO ×3 (08:04→19:35)
[2020-02-26] MEDS: Nicotine 21 MG/24 HR PATCH TD ×2 (08:04→18:16)
[2020-02-26] MEDS: risperiDONE 1 MG TAB PO (08:05)
[2020-02-26] MEDS: Psyllium PKT 1 EACH PO ×2 (08:06→19:35)
[2020-02-26] MEDS: Biotene Mouthwash 237 ML BTL 15 ML MM ×2 (08:06→19:35)
--- NOTE | 2020-02-26 09:35 | W.PM.PROGNOT ---
Date of Service Date of service: 02/26/20 Time of Service: 09:35 Assessment and Plan Assessment and plan (1) Pyelonephritis: Status: Acute Assessment and plan: DC Rocephin switch her to an oral cephalosporin. Will choose Cefpodoxime and monitor her for 24 hours. If no febrile response I will plan on discharging her tomorrow morning. (2) Acute kidney injury (nontraumatic): Status: Acute Assessment and plan: Improving renal function. Acute kidney injury was secondary to sepsis. Avoid NSAIDs but use Tylenol for her pain. Subjective Subjective Interval history since last seen: Overall the patient feels markedly better. No nausea or vomiting. She is eating a regular diet. She is voiding freely. Her flank pain is improved remarkably. She still occasionally using the Dilaudid but might decrease the frequency and encourage her to use Tylenol. She is still on Rocephin 2 g IV daily. Review of her fever curve shows her last at midnight when her temp went up to 38.4. I told her that I would like her to be afebrile for 24 hours before I discharge her home. Her leukocytosis is now resolved her total white count is down to 10,800. BMP was not ordered so I just ordered to recheck her renal function. Yesterday her creatinine was 1.29. Exam Narrative Exam Narrative: Young female who is alert and oriented person place time circumstance and not but her bedside. Her lungs are clear to auscultation. Heart is regular rate and rhythm. Flank is nontender to palpation. Abdomen soft and nontender. Objective Last Vital Signs Temp 36.7 C 02/26/20 07:17 Pulse 90 02/26/20 07:17 Resp 18 02/26/20 07:17 BP 125/91 H 02/26/20 07:17 Pulse Ox 95 02/26/20 08:00 Laboratory Results - last 24 hr 02/26/20 06:15 WBC 10.80 RBC 3.33 L Hgb 9.5 L Hct 28.4 L MCV 85.3 MCH 28.5 MCHC 33.5 RDW 13.3 Plt Count 208 MPV 10.7 Immature Gran % 2.6 Neutrophils % 70.4 Lymphocytes % 14.4 Monocytes % 11.4 Eosinophils % 0.8 Basophils % 0.4 Nucleated RBC % 0 Absolute Neutrophils 7.61 H Absolute Lymphocytes 1.55 Absolute Monocytes 1.23 H Absolute Eosinophils 0.09 Absolute Basophils 0.04
--- NOTE | 2020-02-26 10:10 | PDOC.CMPRO ---
- If Service Date Differs Date of service: 02/26/20 Time of Service: 10:11 Care Management Progress Note S/O: Celia was sitting up in bed when CM met with her. She was smiling and stated that she is feeling much better. She noted that she was hoping to be discharged today and has learned that that is not going to happen because she had another febrile episode at midnight. If she remains afebrile today she will likely return to her room at the [facility] tomorrow. Celia shared a little more about her children and personal life today. She stated that she is but needed to move out of her home in [facility] in order to regain custody of her 14 year old daughter. She implied that there is an issue between her , who is the father of her children, and her daughter. She stated that in general things are going well for her and that she feels she has the community supports that she needs. A: Celia is a 39 year old woman admitted on 02/22/20 with pyelonephritis and urosepsis P:Celia is slowly improving clinically although she remains febrile. She will discharge to her home at the [facility], follow up with her PCP and [facility] surgical services. She will transport via private vehicle; RCT vs Family. CM will continue to support patient and assess for discharge planning needs.
[2020-02-26] MEDS: Cefpodoxime 200 MG TAB PO ×2 (10:55→21:46)
[2020-02-26 11:15] LABS: Anion Gap 10.1 mmol/L (3-11); BUN 13 mg/dL (7-18); CO2 22.9 mmol/L (21.0-32.0); CREATININE 1.14 mg/dL (0.55-1.02); Calcium 8.5 mg/dL (8.5-10.1); Chloride 104 mmol/L (98-107); Estimated GFR 53.63 (mL/min/1.73m2); Glucose 92 mg/dL (74-106); Potassium 3.4 mmol/L (3.5-5.1); Sodium 137 mmol/L (136-145)
[2020-02-26] MEDS: Enoxaparin 40 MG/0.4 ML SYR SC (13:25)
--- NOTE | 2020-02-26 15:32 | CHAPLAIN ---
Celia moved out to the med/surg floor. She told me she liked in better in the ICU because not as many people were bugging me. Her visited last night, she said and she was able to talk with her daughter by phone. Her daughter is living with foster parents in [place] and Celia is living at the [facility] in [place], provided by [facility].
[2020-02-26 15:58] VITALS: BP 128/88; PULSE 96; RESP 20; TEMP 38.6; O2SAT 96
[2020-02-26 17:24] VITALS: TEMP 38.4
[2020-02-26] MEDS: Benzonatate 200 MG CAP PO (18:22)
[2020-02-26] MEDS: hydrOXYzine HCL 25 MG TAB PO (18:22)
[2020-02-26 18:26] LABS: Bilirubin Negative (Negative); Blood Trace-intact (Negative); Clarity Clear (Clear); Glucose Negative (Negative); Ketones Negative (Negative); Leukocyte Esterase Small (Negative); Nitrite Negative (Negative); Specific Gravity 1.015 (1.005-1.025); Urobilinogen 0.2 EU/dL (Up TO 0.2); pH 6.5 (5-8)
[2020-02-26 18:36] LABS: Bacteria Few HPF (Negative); C & S Indicated? C&S Done As Ordered; Casts Negative LPF (Negative); Crystals Negative HPF (Negative); Epithelial Cells Few HPF (Negative); Mucus Negative (Negative); RBC 0-2 HPF (0-2)
[2020-02-26] MEDS: risperiDONE 1 MG TAB 2 MG PO (21:46)
[2020-02-26] MEDS: Amitriptyline 25 MG TAB 50 MG PO (21:46)
[2020-02-26 23:00] VITALS: BP 140/93; PULSE 87; RESP 17; TEMP 36.2; O2SAT 96
[2020-02-27] MEDS: HYDROmorphone 2 MG TAB PO ×2 (02:13→12:51)
[2020-02-27] MEDS: Benzonatate 200 MG CAP PO (02:13)
[2020-02-27] MEDS: Acetaminophen 325 MG TAB PO ×2 (05:38→10:35)
[2020-02-27 06:45] LABS: Abs Immature Grans 0.65 10^3/uL (0.0-0.06); HCT 28.7 % (36.0-46.0); HGB 9.5 g/dL (11.2-15.7); MCH 28.3 pg (27.0-33.0); MCHC 33.1 % (32.0-36.0); MCV 85.4 fL (80-95); MPV 10.7 fL (8.0-11.0); Nucleated RBC 0 %; Platelet Count 206 10^3/uL (130-400); RBC 3.36 10^6/uL (3.93-5.22); RDW-SD 40.5 fL; WBC 9.73 10^3/uL (4.4-10.8)
[2020-02-27 06:55] LABS: Anion Gap 7.3 mmol/L (3-11); BUN 12 mg/dL (7-18); CO2 25.7 mmol/L (21.0-32.0); CREATININE 0.98 mg/dL (0.55-1.02); Calcium 8.1 mg/dL (8.5-10.1); Chloride 101 mmol/L (98-107); Glucose 117 mg/dL (74-106); Potassium 3.3 mmol/L (3.5-5.1); Sodium 134 mmol/L (136-145)
[2020-02-27 07:40] VITALS: O2SAT 96
[2020-02-27 07:40] LABS: Absolute Lymphocyte Count 2.14 10^3/uL (1.2-3.4); Absolute Monocyte Count 1.46 10^3/uL (0.1-0.8); Absolute Neutrophil Count 5.55 10^3/uL (1.2-6.7); Bands % 1; Diff Comment Manual Differential; Metamyelocytes % 4; Myelocytes % 1; RBC Morphology Normal
[2020-02-27] MEDS: Lactobacillus Acidophilus CAP 1 CAP PO (07:43)
[2020-02-27] MEDS: Psyllium PKT 1 EACH PO (07:43)
[2020-02-27] MEDS: Nicotine 21 MG/24 HR PATCH TD (07:43)
[2020-02-27] MEDS: risperiDONE 1 MG TAB PO (07:44)
[2020-02-27] MEDS: Omeprazole 20 MG CAPCR PO (07:44)
[2020-02-27] MEDS: Biotene Mouthwash 237 ML BTL 15 ML MM (07:48)
[2020-02-27 08:29] VITALS: BP 138/91; PULSE 97; RESP 16; TEMP 36.7; O2SAT 96
[2020-02-27 08:35] VITALS: O2SAT 96
[2020-02-27] MEDS: Potassium Chloride 20 MEQ TABCR 40 MEQ PO (09:05)
[2020-02-27] MEDS: Cefpodoxime 200 MG TAB PO (09:05)
--- NOTE | 2020-02-27 09:53 | W.NUTRFU ---
Date of service: 02/27/20 Time of Service: 09:53 Nutritional Follow up NOTE: 39 year old female admitted with acute kidney injury, pyelonephritis with UTI with sepsis. Advanced to regular meal plan with excellent intake. BMI of 35 indicates class 2 obesity. Not at risk for nutritional decline at this time. Time Spent in Nutritional Counseling and Treatment: 0 time spent face to face
--- NOTE | 2020-02-27 11:53 | DSE_ITS ---
Date of service: 02/27/20 Time of Service: 11:54 DS: Diagnosis Discharge Diagnosis (1) Sepsis: Status: Acute Asessment and Plan: Patient presented with all signs and symptoms of sepsis including tachycardia, hypotension, acute kidney injury, elevated procalcitonin level and elevated lactate. Multiple blood cultures came back no growth. Urine culture came back positive for E. coli. Patient was initially treated with broad-spectrum antibiotics including meropenem and when she continued to spike fevers vancomycin was added. Once her culture came back positive for E. coli her antibiotics were changed to Rocephin. As she continued to improve her Rocephin was transitioned over to Cefpodoxime. Although clinically she was improving with decreased pain improvement in her kidney function and improvement in her oxygen saturation she continued to have some low-grade intermittent fevers however these tended to be less severe and less frequent. As her leukocytosis had resolved and the patient was feeling markedly better and requesting to return home it was felt she could be completed on oral antibiotics. She was put on Cefpodoxime 200 mg p.o. twice daily x10 days. She was also given oral potassium supplementation because of her persistent hypokalemia. Patient should get a repeat BMP in a week. (2) Pyelonephritis: Status: Acute Asessment and Plan: As above. Multiple noncontrast CT scans of the abdomen and abdominal ultrasound failed to show any perinephric abscess nor any hydronephrosis nor any nephrolithiasis. Renal function returned to normal at the time of discharge. (3) Acute kidney injury (nontraumatic): Status: Resolved Asessment and Plan: Patient presented with a BUN of 13 creatinine 1.66. Creatinine peaked at 1.81 before gradually returning to normal. At the time of discharge her BUN was 12 and creatinine was 0.98. Renal ultrasound and abdominal CT scans without contrast showed no obstructive uropathy and no evidence of perinephric abscess. (4) Diarrhea: Status: Resolved Asessment and Plan: Antibiotic associated diarrhea. Stool for C. difficile was negative. Patient was treated with probiotics and Imodium. (5) Hypokalemia: Status: Acute Asessment and Plan: Patient continued to have hypokalemia at the time of discharge. Potassium was 3.3 on the day of discharge this was treated with 40 mEq of potassium chloride orally. She was discharged home with a prescription for potassium chloride 20 mEq once a day. Repeat BMP should be obtained in a week. Discharge Plan Disposition Patient Disposition: HOME Condition: Improving Discharge Details Reason For Visit: PYELONEPHRITIS, UROSEPSIS Admit Date/Time: 02/22/20 12:05 Admit Provider: Chino Tam Attending Provider: Chino Tam Primary Care Provider: JOSE ANGEL CANO Hospital Course Hospital Course: 39 y.o female with little PMH presents to [facility] ED with fever, body aches, headache, nausea and vomiting onset a day prior to admission. Ms. Anand was found to be febrile in the ED with temp 38.0, Oxygen sat 94% on RA. Recently she was treated with a 3 day course of bactrim for a UTI. Labs in ED remarkable for leukocytosis 22.85, with shift, hyponatremia 133, hypokalemia 3.3, elevated Anion gap 13.1, elevated Creatinine 1.66, and procalcitonin 14.0 with Lactate 2.5. Patient was initially admitted to the medical/surgical floor as the patient was initially presented as being medically stable however this was prior to obtaining results of her CT scan of her abdomen and her procalcitonin levels. Upon evaluation on arrival to the medical/surgical floor patient appeared to be toxic and was having bilateral flank pain. Because of her fever patient was admitted in an isolation room as a person of interest until her Covid-19 test could be obtained. Patient was subsequently transferred to the medical intensive care unit where she continued to receive IV fluid hydration, analgesics, antiemetics and broad-spectrum antibiotics including meropenem. Overnight she developed hypotension and required multiple fluid boluses but was never treated with vasopressors. After several hours of hypotension her pressures finally responded to IV fluids. Alcocer catheter was placed for monitoring of urine output. Daily labs were monitored and results of blood and urine cultures were obtained. Blood cultures from admission have remained no growth after 96 hours. However when she had repeated fever spikes repeat blood cultures were obtained on February 24, 2020 and these are still no growth. Her initial urine culture came back positive for E. coli which was resistant to ampicillin and ampicillin/sulbactam but otherwise was sensitive to all cephalosporins and quinolones and Bactrim. When she continued to have fever spikes repeat CT scan was obtained of her abdomen pelvis to rule out perinephric abscess or hydronephrosis or stones. And a renal ultrasound was ultimately obtained on February 24, 2020. Ultrasound showed bilateral enlarged kidneys but no hydronephrosis and no nephrolithiasis and no perinephric collection. Repeat CT scan showed bilateral perinephric stranding consistent with pyelonephritis but no perinephric abscess or hydronephrosis. Her initial leukocytosis of 22,000 carlos to as high as 27,000 before gradually declining at the time of discharge her white cell count was normal at 9700. Patient was noted to be anemic with a hemoglobin of 9.5 g which was stable throughout her hospitaliz ation. Her initial hemoglobin was elevated at 12 g but this was felt to be hemoconcentrated and once she was adequately hydrated her hemoglobin dropped to as low as 8.8 but the time of discharge her hemoglobin is 9.5 g. Because the large volume IV fluid resuscitation patient developed some pleural effusions and required some IV Lasix. At the time of discharge patient was euvolemic and not requiring any supplemental oxygen and not having any dyspnea. Her renal function at the time of discharge was normal with a BUN of 12 and creatinine 0.98. She did have some hypokalemia with a potassium of 3.3 which was supplemented with 40 mEq orally on the day of discharge and she is sent home on an additional 20 mEq daily with orders for repeat BMP in a week. She will be discharged home on Cefpodoxime 200 mg p.o. every 12 hours for another 10 days. This is after 5 full days of parenteral antibiotics including meropenem and vancomycin which was subsequently switched to Rocephin 2 g daily once we found out that she had E. coli that was pansensitive. Patient's condition on discharge was markedly improved. She is tolerating a regular diet ambulating under her own power and not having any si gnificant pain or nausea or dysuria. Patient requested nicotine patches to help her quit smoking. She is given lactobacillus supplement to help prevent antibiotic associated diarrhea. During her hospital stay she did have some transient diarrhea that corrected with Metamucil and Imodium. Stool was checked for C. difficile and found to be negative. Home Meds and New Rx's Prescriptions: New nicotine 21 mg/24 hr Patch 24 Hour 21 mg transdermal DAILY Qty: 30 RF: 0 acidophilus-pectin, citrus 25 million cell -100 mg Tablet 1 tab PO TID 10 Days Qty: 30 RF: 0 potassium chloride 20 mEq tablet extended release 20 meq PO DAILY Qty: 10 RF: 0 cefpodoxime 200 mg tablet 200 mg PO Q12H Qty: 20 RF: 0 Continued omeprazole 20 mg capsule,delayed release(DR/EC) 20 mg PO DAILY RF: 0 naltrexone 50 mg tablet 50 mg PO DAILY RF: 0 amitriptyline 50 mg tablet 50 mg PO QHS RF: 0 risperidone 2 mg tablet 2 mg PO QHS RF: 0 risperidone 1 mg tablet 1 mg PO DAILY RF: 0 hydroxyzine HCl 25 mg tablet 25 mg PO TID PRNRF: 0 cyclobenzaprine 10 mg tablet 10 mg PO HS RF: 0 albuterol sulfate [ProAir HFA] 90 mcg/actuation HFA aerosol inhaler 2 puff IH Q6H PRNRF: 0 prednisone 50 mg tablet 50 mg PO DAILY Qty: 5 RF: 0 colchicine 0.6 mg capsule 0.6 mg PO DAILY Qty: 2 RF: 0 Discharge Instructions Instructions: Kidney Infection (DC) Additional Instructions: Finish all of your oral antibiotic Cefpodoxime 200 mg twice a day for another 10 days. You may take the lactobacillus as needed to help prevent antibiotic associated diarrhea. You should take the potassium supplementation until you get a repeat lab work to reassess your kidney function and your potassium level. You have a prescription for a basic metabolic profile also called a BMP which will check your electrolytes and your kidney function. Please get this done within the next week. Please drink plenty of fluids to keep your kidneys hydrated. Drink at least 6 to 8 glasses of water a day. You can help correct your low potassium levels with dietary supplementation with foods such as bananas, avocados, oranges or tomatoes. Stand Alone Forms: Nursing Discharge Form Referrals: JOSE ANGEL CANO [Primary Care Provider] - (Call the office for follow-up appointment in the next week) Activity:: Activity as Tolerated Equipment/Supplies:: No Equipment Needed Diet:: Normal Diet Discharge Orders Discharge Orders: Discharge Order (Routine); Ordered 02/27/20 Ordered By: Chino Tam Other Ambulatory Orders: Basic Metabolic Panel (Routine) Location: None Selected Ordered By: Chino Tam Discharge Data Discharge Date/Time-TO BE ENTERED AT DEPARTURE: 02/27/20 12:53 DS: Summary Status at Discharge Functional status at discharge: independent ambulation Overall status at discharge: patient is progressing back to baseline Mental Status: mental status grossly normal Speech and Movement: speech and movement normal Mood: congruent mood Affect: normal affect Time Spent with Patient providing and/or coordinating discharge services: Less than 30 minutes Exam Psych Mental Status: mental status grossly normal Speech and Movement: speech and movement normal Mood: congruent mood Affect: normal affect DS: Data Vitals/I&O Vitals and I&O: Vital Signs Temperature 36.7 C 02/27/20 08:29 Temperature Source Tympanic 02/27/20 08:29 Pulse 97 H 02/27/20 08:29 Pulse Rhythm Regular 02/27/20 08:30 Pulse 111 H 02/25/20 09:00 Respiratory Rate 16 02/27/20 08:29 Respiratory Effort 02/27/20 08:30 Respiratory Depth Normal 02/27/20 08:30 Respiratory Pattern Normal 02/27/20 08:30 Blood Pressure 138/91 H 02/27/20 08:29 Blood Pressure Mean 121 02/25/20 16:04 Blood Pressure Position Supine 02/24/20 08:00 Pulse Oximetry 96 02/27/20 08:35 Oxygen Delivery Method Room Air 02/27/20 08:35 Oxygen Flow Rate 0 02/27/20 08:35 Pain Level 6 02/27/20 05:38 Comment 02/26/20 15:58 Intake & Output 02/26/20 02/26/20 02/27/20 11:59 23:59 11:59 Intake Total 1590 / 2550 960 / 2550 Output Total 950 / 1650 700 / 1650 450 / 450 Balance 640 / 900 260 / 900 -440 / -440 Weight 95.9 kg Intake: IV Oral 1580 / 2540 960 / 2540 Output: Urine 950 / 1650 700 / 1650 450 / 450 Other: Urine Color Yellow Yellow Yellow Urine Appearance Clear Clear Clear Urine Odor Normal Voiding Methods Toilet Toilet Toilet Data Completed and Pending Labs on day of discharge: Labs from last 24 hours 02/27/20 02/27/20 02/26/20 06:03 06:03 18:00 WBC 9.73 RBC 3.36 L Hgb 9.5 L Hct 28.7 L MCV 85.4 MCH 28.3 MCHC 33.1 RDW 13.0 Plt Count 206 MPV 10.7 Immature Gran % See Differential Neutrophils % 56.0 Band Neutrophils % 1 Lymphocytes % 22.0 Monocytes % 15.0 Eosinophils % 1.0 Basophils % 0.0 Metamyelocytes % 4 Myelocytes % 1 Nucleated RBC % 0 Absolute Neutrophils 5.55 Absolute Lymphocytes 2.14 Absolute Monocytes 1.46 H Absolute Eosinophils 0.10 Absolute Basophils 0.00 RBC Morphology Normal Sodium 134 L Potassium 3.3 L Chloride 101 Carbon Dioxide 25.7 Anion Gap 7.3 BUN 12 Creatinine 0.98 Estimated GFR/1.73 m2 >= 60.00 Glucose 117 H Calcium 8.1 L Urine Color Yellow Urine Clarity Clear Urine pH 6.5 Ur Specific Bayard 1.015 Urine Protein Negative Urine Ketones Negative Urine Blood Trace-intact H Urine Nitrite Negative Urine Bilirubin Negative Urine Urobilinogen 0.2 Ur Leukocyte Esterase Small H Urine RBC 0-2 Urine WBC 5-10 Ur Epithelial Cells Few Urine Crystals Negative Urine Bacteria Few Urine Casts Negative Urine Mucus Negative Ur Culture Indicated? C&s done as ordered Urine Glucose Negative 02/26/20 17:37 Blood Blood Culture - Pending 02/26/20 17:25 Blood Blood Culture - Pending Preliminary micro results at discharge 02/26/20 18:00 Urine Culture - Preliminary Urine - Voided Gram Positive Belen 02/26/20 17:37 Blood Culture - Pending Blood 02/26/20 17:25 Blood Culture - Pending Blood 02/22/20 11:35 Blood Culture - Preliminary Blood NO GROWTH 96 HOURS 02/22/20 11:20 Blood Culture - Preliminary Blood NO GROWTH 96 HOURS 02/24/20 10:43 Blood Culture - Preliminary Blood NO GROWTH 48 HOURS 02/24/20 10:28 Blood Culture - Preliminary Blood NO GROWTH 48 HOURS [facility] Medical History (Updated 02/27/20 @ 16:06 by Chino Tam) Anemia Chronic alcoholism in remission Cognitive dysfunction Esophagitis Osteoarthritis of left hip PTSD (post-traumatic stress disorder) Social History Smoking/Tobacco Use Status: Current every day Tobacco Type: cigarettes Alcohol Intake: former Drug use: Daily Substance use type: marijuana Do you feel safe at home: Yes Do you feel safe in your relationship?: Yes
--- NOTE | 2020-02-27 12:16 | PDOC.CMDIS ---
- If Service Date Differs Date of service: 02/27/20 Time of Service: 12:16 LACE Index Scoring Tool - Questions: Length of Stay (in days): 4 - 6 Acuity (Admit via E.D.?): Yes E.D. Visits: 3 - Answers: Total Score: 10 Risk of Readmission: High Risk Care Management Discharge Reason for Hospitalization: Pyelonephritis, Urosepsis Discharge Plan: Celia will be discharged home to her room at the [facility] in [place]. She will follow up with her PCP, surgeon and discharge plan. Celia will transport home via private vehicle with family. Patient/Family Education Needs: Discharge plan, limitations, follow up plan, Ask Me Three
== END 2020-02-27 12:53 | disposition home or self-care (01) | DRG 871 ==
LOC: ER 12:20 → MS 13:25 → ICU 02-23 10:42 → MS 02-25 17:40
PROVIDERS: Family Medicine; Nurse Practitioner Family; Admitting Provider Internal Medicine; Emergency Provider Physician Assistant; PCP Family Medicine; Visit Provider Internal Medicine
DX: A41.9 Sepsis, unspecified organism (principal); R65.21 Severe sepsis with septic shock; N17.9 Acute kidney failure, unspecified; N10 Acute pyelonephritis; D64.9 Anemia, unspecified; F10.21 Alcohol dependence, in remission; K20.90 Esophagitis, unspecified without bleeding; F43.10 Post-traumatic stress disorder, unspecified; F17.210 Nicotine dependence, cigarettes, uncomplicated; F12.90 Cannabis use, unspecified, uncomplicated; R19.7 Diarrhea, unspecified; B96.20 Unspecified Escherichia coli [E. coli] as the cause of diseases classified elsewhere; E87.6 Hypokalemia
CPT/HCPCS: 36410; 36415; 51701; 76770; 80048; 80053; 81025; 84145; 87040; 87077; 87449; 87493; 90686; 93005; 96361; 96365; 96366; 96368; 96375; 99223; 99232; 99233; 99238; 99291; J1650; U0003; 71045; 71046; 74176; 80202; 80320; 81003; 81015; 83605; 83735; 84484; 85025; 87086; 87186; 87324; 93010; J0131; J1885; J1941; J2270; J2405; J3370; J3475; J3480

== ENCOUNTER 2020-03-17 09:32 | Emergency (ER) | payer MEDICAID, SELFPAY ==
[2020-03-17 09:41] VITALS: BP 149/96; PULSE 112; RESP 16; TEMP 36.9; O2SAT 96
--- NOTE | 2020-03-17 09:45 | DI.CT_ITS ---
EXAM: CT ABDOMEN PELVIS W CLINICAL HISTORY: Right flank pain, recent urosepsis TECHNIQUE: Imaging Protocol: Axial computed tomography images with coronal and sagittal reformatted images were created and reviewed CONTRAST MATERIAL: Intravenous: Omnipaque 350 Contrast volume:100 mL Oral: No COMPARISON: CT CT ABDOMEN PELVIS WO from 02/22/[address] ABDOMEN PELVIS WO from 02/23/2020 FINDINGS: ABDOMEN: Lung Bases: Normal where visualized. Liver: Normal density. No measurable mass. Portal, Superior Mesenteric, and Splenic Veins: Unremarkable. Gallbladder and Biliary Tract: The gallbladder is contracted. No biliary ductal dilatation. Pancreas: Normal density. No inflammatory process. Calcifications again seen in the head of the caba cre[place]. Spleen: Normal. The spleen measures 17 cm in length. Adrenals: No masses seen. Kidneys: Normal size. Lobulated contour of the kidneys which may reflect cortical scarring. This is unchanged. No radiodense stones or obstructive uropathy. No masses seen. Abdominal Aorta: Abdominal portion non-dilated. Atherosclerosis. Bowel: No obstruction or bowel wall thickening. Appendix is unremarkable. Peritoneal Cavity: Trace amount of ascites in the pelvis which may be physiologic. Lymph Nodes: Within normal limits. Bones: Unremarkable. Soft Tissues: Unremarkable. PELVIS: Bladder: There is diffuse thickening of the wall of the urinary bladder. An infectious or inflammato ry cystitis cannot be excluded. Reproductive Organs: Unremarkable as visualized. Lymph Nodes: Within normal limits. Bones: Within normal limits. IMPRESSION: Diff diffuse thickening of the wall of the urinary bladder. An infectious or inflammatory cystitis c annot be excluded. Findings were discussed with the emergency department on the date of the examination. RADIATION DOSE DELIVERED: 1,199.39mGy.cm Total DLP DATA REPOSITORY: All CT scans at this facility are submitted to the National Radiology Data Registry (NRDR) Dose Index Registry (DIR) with the [employer] ([employer]). RADIATION OPTIMIZATION: All CT scans at this facility use at least one of these dose optimization te chniques: automated exposure control; mA and/or kV adjustment per patient size (includes targeted exa ms where dose is matched to clinical indication); or iterative reconstruction.
[2020-03-17 09:48] LABS: Bilirubin Negative (Negative); Blood Negative (Negative); Clarity Sl Cloudy (Clear); Glucose Negative (Negative); Ketones Negative (Negative); Leukocyte Esterase Negative (Negative); Nitrite Negative (Negative); Specific Gravity <= 1.005 (1.005-1.025); Urobilinogen 0.2 EU/dL (Up TO 0.2); pH 5.5 (5-8)
--- NOTE | 2020-03-17 10:03 | W.ED.GENAD ---
Discharge Plan Disposition Patient Disposition: HOME Condition: Stable Discharge Details Clinical Impression: Flank pain Primary Care Provider: JOSE ANGEL CANO ED Provider: Chino Yates Home Meds and New Rx's Prescriptions: Continued omeprazole 20 mg capsule,delayed release(DR/EC) 20 mg PO DAILY RF: 0 amitriptyline 50 mg tablet 50 mg PO QHS RF: 0 risperidone 2 mg tablet 2 mg PO QHS RF: 0 risperidone 1 mg tablet 1 mg PO DAILY RF: 0 hydroxyzine HCl 25 mg tablet 25 mg PO TID PRNRF: 0 cyclobenzaprine 10 mg tablet 10 mg PO HS RF: 0 albuterol sulfate [ProAir HFA] 90 mcg/actuation HFA aerosol inhaler 2 puff IH Q6H PRNRF: 0 nicotine 21 mg/24 hr Patch 24 Hour 21 mg transdermal DAILY Qty: 30 RF: 0 gabapentin 300 mg Tablet 600 mg PO QHS RF: 0 Discharge Instructions Instructions: Flank Pain (ED) Additional Instructions: Work-up in the ER did not reveal any obvious emergent process. I discussed her case with [employer] Veronica, urology. I have placed you on the urology list and they should be contacting you over the next couple of days for an outpatient appointment. In the meantime, please watch for new or worsening symptoms and return to the ER for any concerns. Snaf-gyq-zschcfg medications as directed for symptomatic control. Plenty of fluids to avoid dehydration. Medical Decision Making 39-year-old female presents complaining of a headache that began this morning, resolved with [id number]-[id number] medication. She continues to have mild right flank and back discomfort, worse with movement and palpation. She was recently admitted for urosepsis, pyelonephritis, and is concerned that this pain could be related to her recent illness. She denies fever, nausea, vomiting, abdominal pain on the anterior aspect, dysuria, hematuria, urinary frequency. Clinically she appears well, nontoxic. Given her recent hospitalization will obtain IV access, give IV fluid, obtain CBC, CMP, urinalysis, , lipase, CT abdomen and pelvis with contrast. Patient is comfortable this plan Upon reevaluation patient is resting comfortably. Heart rate now in the 90s. Laboratory values reveal white blood cell count of 7.53 hemoglobin 10.9 hematocrit 33.6 platelet count 239. Electrolytes are unremarkable, creatinine 1.32 with a GFR of 45.29. Patient is receiving IV fluid. Glucose 98 calcium 8.6, lipase 526 however she has no epigastric or left upper quadrant pain whatsoever. All of her pain is on the right side. Clinically she does not have pancreatitis. Urine sample is clear. CT imaging of abdomen and pelvis with contrast read by radiology as diffuse thickening of the wall of the urinary bladder. An infectious or inflammatory cystitis cannot be excluded. Given her recent hospitalization, nonspecific CT findings, my plan is to consult urology. I discussed the case with RAFI Martin who felt as though that her laboratory values were otherwise unremarkable, no fever, normal white count, nonspecific CT findings. She did not recommend initiating any antibiotic therapy, felt that the patient could be safely discharged, and placed on the urology list so they can see her as an outpatient. I discussed this plan with the patient who has no additional questions or concerns. She is relieved and comfortable discharge. We discussed return precautions and outpatient neurology follow-up. Patient has no additional questions or concerns upon discharge. Upon discharge she appears well, nontoxic. Medical Records Medical records reviewed: Yes I reviewed the patient's medical records. Lab Data Lab results reviewed: Yes I reviewed the patient's lab results. Labs: Laboratory Tests Range/Units 03/17/20 03/17/20 03/17/20 09:40 10:15 10:15 WBC (4.4-10.8) 10^3/uL 7.53 RBC (3.93-5.22) 10^6/uL 3.82 L Hgb (11.2-15.7) g/dL 10.9 L Hct (36.0-46.0) % 33.6 L MCV (80-95) fL 88.0 MCH (27.0-33.0) pg 28.5 MCHC (32.0-36.0) % 32.4 RDW (11.7-14.6) % 13.5 Plt Count (130-400) 10^3/uL 239 MPV (8.0-11.0) fL 10.1 Immature Gran % 0.3 Neutrophils % 60.1 Lymphocytes % 28.0 Monocytes % 8.2 Eosinophils % 2.9 Basophils % 0.5 Nucleated RBC % % 0 Absolute Neutrophils (1.2-6.7) 10^3/uL 4.52 Absolute Lymphocytes (1.2-3.4) 10^3/uL 2.11 Absolute Monocytes (0.1-0.8) 10^3/uL 0.62 Absolute Eosinophils (0.0-0.7) 10^3/uL 0.22 Absolute Basophils (0.0-0.2) 10^3/uL 0.04 Sodium (136-145) mmol/L 137 Potassium (3.5-5.1) mmol/L 3.9 Chloride (98-107) mmol/L 102 Carbon Dioxide (21.0-32.0) mmol/L 23.9 Anion Gap (3-11) mmol/L 11.1 H BUN (7-18) mg/dL 13 Creatinine (0.55-1.02) mg/dL 1.32 H Estimated GFR/1.73 m2 (mL/min/1.73m2) 45.29 Glucose (74-106) mg/dL 98 Calcium (8.5-10.1) mg/dL 8.6 Total Bilirubin (0.2-1.0) mg/dL 0.3 AST (15-37) U/L 14 L ALT (14-59) U/L 23 Alkaline Phosphatase (46-116) U/L 164 H Total Protein (6.4-8.2) g/dL 8.1 Albumin (3.4-5.0) g/dL 3.8 Lipase (73-393) U/L 526 H Urine Color (Yellow) Straw Urine Clarity (Clear) Sl cloudy Urine pH (5-8) 5.5 Ur Specific Sycamore (1.005-1.025) <= 1.005 Urine Protein (Negative) mg/dL Negative Urine Ketones (Negative) mg/dL Negative Urine Blood (Negative) Negative Urine Nitrite (Negative) Negative Urine Bilirubin (Negative) Negative Urine Urobilinogen (Up TO 0.2) EU/dL 0.2 Ur Leukocyte Esterase (Negative) Negative Urine Glucose (Negative) mg/dL Negative HPI General Mode of arrival: ambulatory. Date/Time Provider Initiated Documentation: 03/17/20 09:33. Limitations to Documentation: no limitations. Information obtained by: patient. HPI Narrative: This is a 39-year-old female with past medical history that includes anemia, chronic alcoholism in remission, cognitive dysfunction, esophagitis, osteoarthritis, PTSD, migraines, recent hospitalization for urosepsis. She was subsequently discharged from the hospital 2 weeks ago on cefepime. She states that she has been feeling very well however this morning when she awoke she had a mild dull headache which resolved completely with jjjw-hwk-tzfnwqn anti-inflammatory medication. She states that she has mild right-sided flank discomfort which did not completely go away. She denies any fever, chest pain, shortness of breath, neck pain, abdominal pain, nausea, vomiting, dysuria, hematuria, vaginal bleeding or discharge. She wants to be sure that she does not have a urinary tract infection given her recent hospitalization. Related Data Home Medications Medication Instructions Recorded Confirmed albuterol sulfate 90 mcg/actuation 2 puff IH Q6H PRN 11/26/19 03/17/20 aerosol inhaler amitriptyline 50 mg tablet 50 mg PO QHS 11/26/19 03/17/20 cyclobenzaprine 10 mg tablet 10 mg PO HS 11/26/19 03/17/20 hydroxyzine HCl 25 mg tablet 25 mg PO TID PRN 11/26/19 03/17/20 omeprazole 20 mg capsule,delayed 20 mg PO DAILY 11/26/19 03/17/20 release risperidone 1 mg tablet 1 mg PO DAILY 11/26/19 03/17/20 risperidone 2 mg tablet 2 mg PO QHS 11/26/19 03/17/20 nicotine 21 mg TRANSDERMAL DAILY #30 ea 02/27/20 03/17/20 gabapentin 600 mg PO QHS 03/17/20 03/17/20 Previous Rx's Medication Instructions Recorded nicotine 21 mg TRANSDERMAL DAILY #30 ea 02/27/20 Allergies Allergy/AdvReac Type Severity Reaction Status Date / Time lamotrigine [From Lamictal] Allergy Severe Blistery Verified 03/17/20 09:47 rash per Marbella Cutler acetaminophen AdvReac Intermediate Nausea & Verified 03/17/20 09:47 vomiting General Stated Complaint: FlankPain SHEREEN: 3 Review of Systems Constitutional Constitutional: Denies fever(s) and Denies headache(s) ENT Ears, Nose, Mouth, and Throat: Denies headache(s) and Denies neck pain Cardiovascular Cardiovascular: Denies chest pain and Denies dyspnea Respiratory Respiratory: Denies cough and Denies dyspnea Gastrointestinal Gastrointestinal: Reports abdominal pain (Right flank), Denies diarrhea, Denies nausea and Denies vomiting Genitourinary Genitourinary: Denies hematuria, Denies dysuria and Denies vaginal discharge Musculoskeletal Musculoskeletal: Reports back pain, Denies neck pain, Denies numbness and Denies tingling Integumentary/Breasts Skin/Breast: Denies rash Neurologic Neurologic: Denies headache(s), Denies numbness and Denies tingling [facility] Medical History Anemia Cannabis dependence Chronic alcoholism in remission Cognitive dysfunction Esophagitis Osteoarthritis of left hip PTSD (post-traumatic stress disorder) Social History Smoking/Tobacco Use Status: Current every day Tobacco Type: cigarettes Smoking risk assessment performed?: Yes Alcohol Intake: former Drug use: Daily Substance use type: marijuana Do you feel safe at home: Yes Do you feel safe in your relationship?: Yes Exam Const General: cooperative, healthy appearing, comfortable and no acute distress Orientation: alert, awake and oriented x3 HENMT Head: normal to inspection, normocephalic and atraumatic Face and sinus: normal facial exam Mouth: moist mucous membranes Eyes General: appearance normal, both eyes and all related structures Eyelids: eyelids normal Conjunctivae: conjunctivae normal Neck Neck: normal visual inspection, full ROM, trachea midline and supple Resp Effort & Inspection: normal respiratory effort and able to speak in complete sentences Auscultation: clear to auscultation bilaterally Cardio Rate: tachycardic (108) Rhythm: regular rhythm GI Inspection: obesity Palpation: soft, not firm, no guarding and tender (Mild right flank to deep palpation) with no rebound tenderness Auscultation: normal bowel sounds Back/Spine/Pelvis Back: no CVA tenderness and back tenderness (Diffuse mild right lumbar) Skin General skin exam: no rashes or lesions noted Neuro General: patient alert, patient awake, moves all extremities and no focal motor deficits Cognition: normal cognition Speech: speech normal Gait: normal gait Motor: muscle tone normal throughout Sensory Exam: no sensory deficits noted Extrem General: normal to inspection, full ROM and capillary refill normal Psych Appearance: grossly normal Mental Status: mental status grossly normal Course Vital Signs Vital signs: Vital Signs Temperature 36.9 C 03/17/20 09:41 Pulse 112 H 03/17/20 09:41 Respiratory Rate 16 03/17/20 09:41 Blood Pressure 149/96 H 03/17/20 09:41 Pulse Oximetry 96 03/17/20 09:41 Temperature 36.9 C 03/17/20 09:41 Temperature Source Skin 03/17/20 09:41 Pulse 112 H 03/17/20 09:41 Respiratory Rate 16 03/17/20 09:41 Respiratory Effort 03/17/20 09:45 Blood Pressure 149/96 H 03/17/20 09:41 Blood Pressure Position Sitting 03/17/20 09:41 Pulse Oximetry 96 03/17/20 09:41 Oxygen Delivery Method Room Air 03/17/20 09:41 Oxygen Flow Rate 0 03/17/20 09:41 Pain Level 4 03/17/20 09:46 Lab/Test Results Lab/Test Results: Laboratory Tests Range/Units 03/17/20 09:40 Urine Color (Yellow) Straw Urine Clarity (Clear) Sl cloudy Urine pH (5-8) 5.5 Ur Specific Sycamore (1.005-1.025) <= 1.005 Urine Protein (Negative) mg/dL Negative Urine Ketones (Negative) mg/dL Negative Urine Blood (Negative) Negative Urine Nitrite (Negative) Negative Urine Bilirubin (Negative) Negative Urine Urobilinogen (Up TO 0.2) EU/dL 0.2 Ur Leukocyte Esterase (Negative) Negative Urine Glucose (Negative) mg/dL Negative
[2020-03-17] MEDS: Normal Saline Flush 10 ML SYR IVP (10:15)
[2020-03-17 10:23] LABS: Abs Immature Grans 0.02 10^3/uL (0.0-0.06); Absolute Basophil Count 0.04 10^3/uL (0.0-0.2); Absolute Eosinophil Count 0.22 10^3/uL (0.0-0.7); Absolute Lymphocyte Count 2.11 10^3/uL (1.2-3.4); Absolute Monocyte Count 0.62 10^3/uL (0.1-0.8); Absolute Neutrophil Count 4.52 10^3/uL (1.2-6.7); Basophils % 0.5; Eosinophils % 2.9; HCT 33.6 % (36.0-46.0); HGB 10.9 g/dL (11.2-15.7); Immature Grans % 0.3; MCH 28.5 pg (27.0-33.0); MCHC 32.4 % (32.0-36.0); MPV 10.1 fL (8.0-11.0); Monocytes % 8.2; Neutrophils % 60.1; Nucleated RBC 0 %; Platelet Count 239 10^3/uL (130-400); RBC 3.82 10^6/uL (3.93-5.22); RDW 13.5 % (11.7-14.6); RDW-SD 43.7 fL; WBC 7.53 10^3/uL (4.4-10.8)
[2020-03-17 10:37] LABS: ALT 23 U/L (14-59); AST 14 U/L (15-37); Albumin 3.8 g/dL (3.4-5.0); Alkaline Phosphatase 164 U/L (46-116); Anion Gap 11.1 mmol/L (3-11); BUN 13 mg/dL (7-18); Bilirubin, Total 0.3 mg/dL (0.2-1.0); CO2 23.9 mmol/L (21.0-32.0); CREATININE 1.32 mg/dL (0.55-1.02); Calcium 8.6 mg/dL (8.5-10.1); Chloride 102 mmol/L (98-107); Estimated GFR 45.29 (mL/min/1.73m2); Glucose 98 mg/dL (74-106); Lipase 526 U/L (73-393); Potassium 3.9 mmol/L (3.5-5.1); Sodium 137 mmol/L (136-145); Total Protein 8.1 g/dL (6.4-8.2)
[2020-03-17] MEDS: Normal Saline 1,000 ML 1000 ML IV (10:48)
[2020-03-17] MEDS: Omnipaque 350 MG/ML 100 ML BTL IJ (11:03)
[2020-03-17] MEDS: Normal Saline - Diluent 50 ML VIAL IV (11:04)
--- NOTE | 2020-03-17 11:25 | NUR.NOTE ---
Nursing Note: Faxed referral for follow up to [facility] Urology. Angely Vu
[2020-03-17 11:35] VITALS: BP 129/70; PULSE 101; RESP 16; TEMP 37; O2SAT 97
== END 2020-03-17 12:11 | disposition home or self-care (01) ==
PROVIDERS: Emergency Provider Physician Assistant; PCP Family Medicine
DX: R10.11 Right upper quadrant pain (principal); M54.5 Low back pain; Z59.0 Homelessness
CPT/HCPCS: 36415; 80053; 81025; 83690; 96360; 99285; 74177; 81003; 85025; 99284; J3490

== ENCOUNTER 2020-04-03 03:03 | Outpatient (CLI) | payer MEDICAID, SELFPAY ==
[2020-04-05 08:51] LABS: SARS-CoV-2 RNA Not Detected (NotDetected); SARS-CoV-2 RNA Source Nasal/Nares
== END 2020-04-03 03:23 ==
PROVIDERS: PCP Family Medicine; Visit Provider Surgery
DX: Z11.59 Encounter for screening for other viral diseases (principal); Z01.818 Encounter for other preprocedural examination
CPT/HCPCS: U0003

== ENCOUNTER 2020-04-08 09:09 | Outpatient (CLI) | payer MEDICAID, SELFPAY ==
[2020-04-09 18:42] LABS: COVID-19 RT-PCR UVMMC Result Negative (Negative)
== END 2020-04-08 09:29 ==
PROVIDERS: PCP Family Medicine; Visit Provider Surgery
DX: Z11.59 Encounter for screening for other viral diseases (principal); Z01.818 Encounter for other preprocedural examination
CPT/HCPCS: U0003

== ENCOUNTER 2020-04-13 07:50 | Day surgery (SDC) | payer MEDICAID, SELFPAY ==
[2020-04-13 07:50] VITALS: BP 141/93; PULSE 106; RESP 18; TEMP 36.4; O2SAT 97
[2020-04-13] MEDS: Lactated Ringers 1,000 ML 80 ML IV (08:35)
--- NOTE | 2020-04-13 12:05 | STOM_PTH ---
PATIENT: Celia Anand LOC: [facility] U#:[id number] AGE/SX: 39/F ROOM: RE04/13/[address]: Antonella Mederos : 1980 BED: DIS: 04/13/2020 SPEC #: [id number] RECD: 04/13/20 18:10 STATUS: ASHA RE #: [id number] AGUSTÍN: 04/13/20 12:[address]: Antonella Mederos DEPT: Surgical Specimen RECD BY: Nataliia Miller ENTERED: 04/13/20 18:12 SP TYPE: STOMACH OTHR DR: Angela Cerrato Tissues: 1 - BIOPSY BOWEL 2 - STOMACH BIOPSY 3 - STOMACH BIOPSY 4 - ESOPHAGUS BIOPSY 5 - ESOPHAGUS BIOPSY 6 - LARYNX BIOPSY Procedures: GROSS AND MICRO LEVEL 4 Comments: [id number]
--- NOTE | 2020-04-13 12:34 | PDOC.DSDIS_ITS ---
Discharge Plan Disposition Patient Disposition: HOME Condition: Good Discharge Details Reason For Visit: stomach scope Attending Provider: Antonella Mederos Primary Care Provider: JOSE ANGEL CANO Home Meds and New Rx's Prescriptions: New pantoprazole [Protonix] 40 mg tablet,delayed release (DR/EC) 40 mg PO DAILY Qty: 30 RF: 12 Continued disulfiram [Antabuse] 250 mg tablet 250 mg PO DAILY RF: 0 amitriptyline 50 mg tablet 50 mg PO QHS RF: 0 risperidone 2 mg tablet 2 mg PO QHS RF: 0 risperidone 1 mg tablet 1 mg PO DAILY RF: 0 hydroxyzine HCl 25 mg tablet 25 mg PO TID PRNRF: 0 cyclobenzaprine 10 mg tablet 10 mg PO HS RF: 0 albuterol sulfate [ProAir HFA] 90 mcg/actuation HFA aerosol inhaler 2 puff IH Q6H PRNRF: 0 nicotine 21 mg/24 hr Patch 24 Hour 21 mg transdermal DAILY Qty: 30 RF: 0 gabapentin 300 mg Tablet 600 mg PO QHS RF: 0 Discontinued omeprazole 20 mg capsule,delayed release(DR/EC) 20 mg PO DAILY RF: 0 bisacodyl [Dulcolax (bisacodyl)] 5 mg tablet,delayed release (DR/EC) 5 mg PO ONCE Qty: 4 RF: 0 polyethylene glycol 3350 17 gram/dose powder 17 g PO ONCE Qty: 238 RF: 0 Discharge Instructions Additional Instructions: Findings: moderate inflammation of stomach. no active bleeding. polyp in upper airway that was Biopsied. May need to be removed by ENT. Stop Smoking! Change prilosec to protonix Follow up: will send a letter w/ results in 2-3 wks Please call if you develop: fevers >101.5 Nausea or Vomiting Abdominal pain that is not transient DAY SURGERY UNIT POST COLONOSCOPY INSTRUCTIONS 1. Because there will be medication in your system for the next 24 hours, you may feel a little sleepy. Your coordination will be affected. Therefore: a. Do not drive or operate dangerous equipment for 24 hours. b. Do not drink alcohol beverages for 24 hours (not even beer). c. Plan to go home and rest for the day. 2. Generally there are no restrictions on your activity after a day or so has gone by, but you may feel a bit fatigued for a few days. 3 After you arrive home you may have a light meal and return to a normal diet as you can tolerate it without feeling sick to your stomach. 4. After surgery, you may feel pain or discomfort. This should be only transient , but if it persists please contact your doctor. 5. If there are any questions regarding the findings of your procedure, please feel free to contact your doctor. 6. If you are unable to contact your doctor with a problem, contact the hospital at [phone]. 7. Continue all your regular medications unless directed otherwise. I understand the above instructions and have no questions. Signature of Patient or Responsible Adult Escort Date/Time Name of Responsible Adult Escort Signature of Nurse Date/Time Activity:: no lifting over 20#'s x 24 hrs Diet:: small light meals x 24 hrs Discharge Orders Discharge Orders: Discharge Order (Routine); Ordered 04/13/20 Ordered By: Antonella Mederos DS: Diagnosis Discharge Diagnosis (1) Tobacco use: Status: Acute (2) Chronic erosive gastritis: Status: Acute (3) Supraglottic edema secondary to procedure: Status: Acute
[2020-04-13 12:57] VITALS: BP 132/78; PULSE 94; RESP 18; TEMP 36.4; O2SAT 98
--- NOTE | 2020-04-15 09:03 | ENDO_ITS ---
Date of service: 04/13/20 Time of Service: 11:30 Endoscopy Report DATE OF PROCEDURE: 04/13/20 PRE-OP DIAGNOSIS: anemia/hx of erosive esophagitis POST-OP DIAGNOSIS: other (gastritis supraglotticpolyp-left 5mm) SURGEON: Antonella Mederos ANESTHESIA: GETA ESTIMATED BLOOD LOSS: 1 PATHOLOGY: other DISPOSITION: same day PROCEDURE DESCRIPTION: After informed consent was obtained the patient was take to the procedure room and placed in a supine position. Monitors were applied and a time out was done. The patients name, date of , procedure type, allergies to medications and metal in their body was reviewed. A bite block was placed and the patient was sedated. Once sedated and comfortable the gastroscope was advanced through the oropharynx which was grossly normal into the esophagus. The proximal and mid-esophagus were nl. In the distal esophagus there was nlnoted. The scope was advanced into the stomach and through the pylorus into the 3rd portion of the duodenum. The duodenum was noted to be nl. Biopsies were done. All specimens are retrieved and no bleeding is noted. The scope was retracted back into the stomach and biopsies were done to rule out H. pylori. There were no ulcers. Erythema around the antrum- moderate gastritis. Biopsies were taken. No active bleeding or ulcers. The scope was retroflexed. The cardia and fundus were noted to be normal. There no a hiatal hernia noted. The scope was retracted back into the esophagus and biopsies were done of the GE junction to rule out Rendon's. The Z line was regular. As we were removing the scope I did look at her vocal cords. The left wall larynx/suprglottic region, she has a 5 mm polyp that does appear to be adenomatous. Biopsy was taken. There is no significant bleeding noted. The scope was removed and the patient was woken up and taken back to [facility] in stable condition. Follow up: 2 wks poss ENT refferral to remove polyp
== END 2020-04-13 13:20 | disposition home or self-care (01) ==
PROVIDERS: PCP Family Medicine; Visit Provider Surgery
PROC: 0DJ68ZZ Inspection of Stomach, Via Natural or Artificial Opening Endoscopic (ICD-10-PCS; CPT 43235; principal; 2020-04-13 10:00)
DX: D64.9 Anemia, unspecified (principal); K31.89 Other diseases of stomach and duodenum; K21.00 Gastro-esophageal reflux disease with esophagitis, without bleeding; D14.1 Benign neoplasm of larynx
CPT/HCPCS: 31576; 43239; 88305; J2001

== ENCOUNTER 2020-05-03 10:53 | Emergency (ER) | payer MEDICAID, SELFPAY ==
--- NOTE | 2020-05-03 10:57 | W.ED.GENAD ---
Discharge Plan Disposition Patient Disposition: HOME Condition: Improving Discharge Details Clinical Impression: Acute streptococcal pharyngitis Primary Care Provider: JOSE ANGEL CANO ED Provider: Pablo Hicks Home Meds and New Rx's Prescriptions: New penicillin V potassium 500 mg tablet 500 mg PO TID 10 Days Qty: 30 RF: 0 Continued disulfiram [Antabuse] 250 mg tablet 250 mg PO DAILY RF: 0 amitriptyline 50 mg tablet 50 mg PO QHS RF: 0 risperidone 2 mg tablet 2 mg PO QHS RF: 0 risperidone 1 mg tablet 1 mg PO DAILY RF: 0 hydroxyzine HCl 25 mg tablet 25 mg PO TID PRNRF: 0 cyclobenzaprine 10 mg tablet 10 mg PO HS RF: 0 albuterol sulfate [ProAir HFA] 90 mcg/actuation HFA aerosol inhaler 2 puff IH Q6H PRNRF: 0 nicotine 21 mg/24 hr Patch 24 Hour 21 mg transdermal DAILY Qty: 30 RF: 0 gabapentin 300 mg Tablet 600 mg PO QHS RF: 0 pantoprazole [Protonix] 40 mg tablet,delayed release (DR/EC) 40 mg PO DAILY Qty: 30 RF: 12 Medical Decision Making Well appearing 39yof presents with 2 days of sore throat. She did have mild headache that improved with ibuprofen. Tolerating liquids and solids by mouth. No drooling. She is not had a cough or shortness of breath. Screening Covid test and Rapid strep test obtained. Rapid strep is +. She will continue ibuprofen. Will place her on a course of penicillin. She is stable and appropriate for discharge to home. HPI General Mode of arrival: ambulatory. Date/Time Provider Initiated Documentation: 05/03/20 10:54. Limitations to Documentation: no limitations. Information obtained by: patient. History of Present Illness 39 year old F presents to the emergency department with the chief complaint of Sore throat x2 days, described as moderate, Quality is described as dull, and is localized to the neck. Patient reports no radiation. Patient started experiencing this day(s) and it has been constant. No relieving factors improve symptom(s), No exacerbating factors reported . Patient notes denies nausea/vomiting and shortness of breath. Related Data Home Medications Medication Instructions Recorded Confirmed albuterol sulfate 90 mcg/actuation 2 puff IH Q6H PRN 11/26/19 05/03/20 aerosol inhaler amitriptyline 50 mg tablet 50 mg PO QHS 11/26/19 05/03/20 cyclobenzaprine 10 mg tablet 10 mg PO HS 11/26/19 05/03/20 hydroxyzine HCl 25 mg tablet 25 mg PO TID PRN 11/26/19 05/03/20 risperidone 1 mg tablet 1 mg PO DAILY 11/26/19 05/03/20 risperidone 2 mg tablet 2 mg PO QHS 11/26/19 05/03/20 nicotine 21 mg TRANSDERMAL DAILY #30 ea 02/27/20 05/03/20 gabapentin 600 mg PO QHS 03/17/20 05/03/20 disulfiram 250 mg tablet 250 mg PO DAILY 03/26/20 05/03/20 pantoprazole [Protonix] 40 mg PO DAILY #30 tab 04/13/20 05/03/20 penicillin V potassium 500 mg PO TID 10 Days #30 tab 05/03/20 Previous Rx's Medication Instructions Recorded nicotine 21 mg TRANSDERMAL DAILY #30 ea 02/27/20 pantoprazole [Protonix] 40 mg PO DAILY #30 tab 04/13/20 penicillin V potassium 500 mg PO TID 10 Days #30 tab 05/03/20 Allergies Allergy/AdvReac Type Severity Reaction Status Date / Time lamotrigine [From Lamictal] Allergy Severe Blistery Verified 05/03/20 11:06 rash per Marbella Edmondshaw acetaminophen AdvReac Intermediate Nausea & Verified 05/03/20 11:06 vomiting General SHEREEN: 3 Review of Systems Narrative: No known sick contacts, headache yesterday. 6 systems reviewed and otherwise neg [facility] Medical History Anemia Bipolar disorder Cannabis dependence Chronic alcoholism in remission pt. states she has been sober for 8 months Chronic erosive gastritis Cognitive dysfunction Esophagitis Osteoarthritis of left hip Papilloma of larynx PTSD (post-traumatic stress disorder) Schizophrenia Smoker Supraglottic edema secondary to procedure Surgical History (Updated 04/14/20 @ 15:24 by Briana Ortiz RN) History of section History of esophagogastroduodenoscopy (EGD) (~04/13/20) History of tubal ligation Social History Smoking/Tobacco Use Status: Current every day Tobacco Type: cigarettes Smoking risk assessment performed?: Yes Alcohol Intake: former Drug use: Daily Substance use type: marijuana Do you feel safe at home: Yes Do you feel safe in your relationship?: Yes Exam Narrative Exam Narrative: GEN: awake, alert, oriented 3. Pleasant, well groomed, interactive. HEAD: Normocephalic, atraumatic ENT: Mucous membranes moist, oropharynx erythematous with right greater than left exudate. The uvula is midline, tympanic membranes clear on the right, partially occluded by wax on the left, External ear exam unremarkable EYES: PERRL, EOMI NECK: Full ROM, no DEL, no menigismus CHEST/RESP: Nontender, clear to auscultation bilateral, no wheeze/rhonchi/rales CARDIOVASCULAR: RRR with a borderline tachycardia at the time of exam, no murmur, rub sharri. 2+ Rad pulse bilateral EXT: Full ROM, no edema, no rash Neuro: Grossly normal neurologic exam, conversant, interactive. Psych: Speech fluent, thoughts congruent, affect normal
[2020-05-03 11:02] VITALS: BP 124/80; PULSE 126; RESP 16; TEMP 36.4; O2SAT 97
[2020-05-03] MEDS: Penicillin V POTASSIUM 500 MG TAB, 4 TABS/BTL PO (11:21)
[2020-05-05 19:17] LABS: COVID-19 RT-PCR UVMMC Result Negative (Negative)
--- NOTE | 2020-05-06 08:39 | NUR.NOTE ---
Nursing Note: 0840--Celia notified of Negative Covid test result. Verbalizes understanding.
== END 2020-05-03 11:20 | disposition home or self-care (01) ==
PROVIDERS: Emergency Provider Emergency Medicine; PCP Family Medicine
DX: J02.0 Streptococcal pharyngitis (principal); Z03.818 Encounter for observation for suspected exposure to other biological agents ruled out
CPT/HCPCS: 87880; 99283; U0003

== ENCOUNTER 2020-08-07 09:06 | Emergency (ER) | payer MEDICAID, SELFPAY ==
[2020-08-07 09:13] VITALS: BP 138/91; PULSE 83; RESP 19; TEMP 36.1; O2SAT 97
--- NOTE | 2020-08-07 09:37 | W.ED.GENAD ---
Discharge Plan Disposition Patient Disposition: HOME Condition: Stable Discharge Details Clinical Impression: Pain, dental, Pharyngitis Primary Care Provider: JOSE ANGEL CANO ED Provider: Chino Yates Home Meds and New Rx's Prescriptions: Continued disulfiram [Antabuse] 250 mg tablet 250 mg PO DAILY RF: 0 amitriptyline 50 mg tablet 50 mg PO QHS RF: 0 risperidone 2 mg tablet 2 mg PO QHS RF: 0 risperidone 1 mg tablet 1 mg PO DAILY RF: 0 hydroxyzine HCl 25 mg tablet 25 mg PO TID PRNRF: 0 cyclobenzaprine 10 mg tablet 10 mg PO HS RF: 0 albuterol sulfate [ProAir HFA] 90 mcg/actuation HFA aerosol inhaler 2 puff IH Q6H PRNRF: 0 nicotine 21 mg/24 hr Patch 24 Hour 21 mg transdermal DAILY Qty: 30 RF: 0 gabapentin 300 mg Tablet 600 mg PO QHS RF: 0 pantoprazole [Protonix] 40 mg tablet,delayed release (DR/EC) 40 mg PO DAILY Qty: 30 RF: 12 Discharge Instructions Instructions: Pharyngitis (ED), Toothache (ED) Additional Instructions: Rapid strep is negative, culture pending. If culture is positive we will contact you and placed on the appropriate medication. Otherwise, salt water gargles, [id number] Chloraseptic spray, Tylenol, Motrin as directed for symptomatic control. Cool and/or warm compresses every 2 hours for 20 minutes. Please watch for new or worsening symptoms and return to the ER for any concerns. I have also given you the dental resources list in the [facility], I recommend contacting dentist on this list to establish outpatient dental care. Medical Decision Making 40-year-old female presents complaining of sore throat for the past 3 days and chronic dental discomfort. Clinically she appears well, nontoxic. Pharynx is minimally erythematous otherwise unremarkable. Will obtain rapid strep. No trismus. She is afebrile. Bilateral ear examination unremarkable. No obvious acute dental infection or abscess. Rapid strep negative, culture pending. No clear indication for antibiotic therapy. Will provide patient with the dental list of resources of the [facility]. Recommend salt water gargles, cool and/or warm compresses, [id number] Tylenol and/or Motrin. Patient comfortable with this plan and has no additional questions or concerns. Medical Records Medical records reviewed: Yes I reviewed the patient's medical records. Lab Data Lab results narrative: Negative rapid strep, culture pending HPI General Mode of arrival: ambulatory. Date/Time Provider Initiated Documentation: 08/07/20 09:07. Limitations to Documentation: no limitations. Information obtained by: patient. HPI Narrative: This is a 40-year-old female with past medical history that includes anemia, bipolar disorder, PTSD, GERD, current smoker, presenting to the ER concerned that she may have strep throat. She states a mildly sore throat for the past 3 days, worse with swallowing or eating, feels similar to when she has had strep throat in the past. She reports chronic poor dentition, right sided dental pain that radiates to her ear. She states that she has been trying to find a dentist but has been unsuccessful. She denies any fever, difficulty speaking or breathing, neck pain, ear discharge, acute dental pain, facial swelling, cough, shortness of breath, abdominal pain. She has not taken any [id number] medications. She would like to be tested for strep Related Data Home Medications Medication Instructions Recorded Confirmed albuterol sulfate 90 mcg/actuation 2 puff IH Q6H PRN 11/26/19 08/07/20 aerosol inhaler amitriptyline 50 mg tablet 50 mg PO QHS 11/26/19 08/07/20 cyclobenzaprine 10 mg tablet 10 mg PO HS 11/26/19 08/07/20 hydroxyzine HCl 25 mg tablet 25 mg PO TID PRN 11/26/19 08/07/20 risperidone 1 mg tablet 1 mg PO DAILY 11/26/19 08/07/20 risperidone 2 mg tablet 2 mg PO QHS 11/26/19 08/07/20 nicotine 21 mg TRANSDERMAL DAILY #30 ea 02/27/20 08/07/20 gabapentin 600 mg PO QHS 03/17/20 08/07/20 disulfiram 250 mg tablet 250 mg PO DAILY 03/26/20 08/07/20 pantoprazole [Protonix] 40 mg PO DAILY #30 tab 04/13/20 08/07/20 Previous Rx's Medication Instructions Recorded nicotine 21 mg TRANSDERMAL DAILY #30 ea 02/27/20 pantoprazole [Protonix] 40 mg PO DAILY #30 tab 04/13/20 Allergies Allergy/AdvReac Type Severity Reaction Status Date / Time lamotrigine [From Lamictal] Allergy Severe Blistery Verified 08/07/20 09:15 rash per Marbella Emilianajimmyhaw acetaminophen AdvReac Intermediate Nausea & Verified 08/07/20 09:15 vomiting General Stated Complaint: Sorethroat SHEREEN: 4 Review of Systems Constitutional Constitutional: Denies fever(s) and Denies headache(s) ENT Ears, Nose, Mouth, and Throat: Denies facial pain, Denies headache(s), Denies neck pain, Reports sore throat and Denies throat swelling Cardiovascular Cardiovascular: Denies chest pain Respiratory Respiratory: Denies cough Gastrointestinal Gastrointestinal: Denies abdominal pain, Denies nausea and Denies vomiting Musculoskeletal Musculoskeletal: Denies neck pain Integumentary/Breasts Skin/Breast: Denies rash Neurologic Neurologic: Denies headache(s) Allergic/Immunologic Allergic/Immunologic: Denies throat swelling [facility] Medical History Anemia Bipolar disorder Cannabis dependence Chronic alcoholism in remission pt. states she has been sober for 8 months Chronic erosive gastritis Cognitive dysfunction Esophagitis Gastritis History of esophageal reflux Osteoarthritis of left hip Papilloma of larynx PTSD (post-traumatic stress disorder) Schizophrenia Smoker Supraglottic edema secondary to procedure Surgical History History of section History of esophagogastroduodenoscopy (EGD) (~04/13/20) History of tubal ligation Social History Smoking/Tobacco Use Status: Current every day Tobacco Type: cigarettes Smoking risk assessment performed?: Yes Alcohol Intake: former Drug use: Daily Substance use type: marijuana Do you feel safe at home: Yes Do you feel safe in your relationship?: Yes Exam Const General: cooperative, healthy appearing, comfortable and no acute distress Orientation: alert, awake and oriented x3 HENMT Head: normal to inspection, normocephalic and atraumatic Ears: external ears normal, TM's normal bilaterally and EAC's normal General nose exam: external nose normal Face and sinus: normal facial exam Mouth: oral mucosae normal and moist mucous membranes Teeth and gingiva: poor dentition (Throughout, no evidence of abscess) Throat: uvula midline, no peritonsillar masses and posterior oropharynx abnormal erythema (Minimal); no exudates Eyes General: appearance normal, both eyes and all related structures Conjunctivae: conjunctivae normal Sclera: sclerae normal Neck Neck: normal visual inspection, full ROM, no lymphadenopathy, no meningeal signs, trachea midline, supple and nontender Resp Effort & Inspection: normal respiratory effort and able to speak in complete sentences Auscultation: clear to auscultation bilaterally Cardio Rate: regular rate Rhythm: regular rhythm Skin General skin exam: no rashes or lesions noted Neuro General: patient alert, patient awake, moves all extremities and no focal motor deficits Sensory Exam: no sensory deficits noted Psych Appearance: grossly normal Mental Status: mental status grossly normal Course Vital Signs Vital signs: Vital Signs Temperature 36.1 C L 08/07/20 09:13 Pulse 83 08/07/20 09:13 Respiratory Rate 19 08/07/20 09:13 Blood Pressure 138/91 H 08/07/20 09:13 Pulse Oximetry 97 08/07/20 09:13 Temperature 36.1 C L 08/07/20 09:13 Temperature Source Temporal Artery Scan 08/07/20 09:13 Pulse 83 08/07/20 09:13 Respiratory Rate 19 08/07/20 09:13 Respiratory Effort Non-Labored 08/07/20 09:15 Blood Pressure 138/91 H 08/07/20 09:13 Blood Pressure Position Sitting 08/07/20 09:13 Pulse Oximetry 97 08/07/20 09:13 Oxygen Delivery Method Room Air 08/07/20 09:13 Oxygen Flow Rate 0 08/07/20 09:13 Pain Level 8 08/07/20 09:13 Lab/Test Results Lab/Test Results: POC Strep Test-KAT(Rapid) Start: 08/07/20 09:26 Freq: .Rapid Strep Test Status: Active Protocol: Document 08/07/20 09:37 CL (Rec: 08/07/20 09:37 CL [id number]) Strep test-KAT(Rapid)-POC POC-Strep test-KAT (Rapid) Negative POC-Strep test-KAT (Rapid) Negative
== END 2020-08-07 10:45 | disposition home or self-care (01) ==
PROVIDERS: Emergency Provider Physician Assistant; PCP Family Medicine
DX: R68.84 Jaw pain (principal); J02.9 Acute pharyngitis, unspecified
CPT/HCPCS: 87880; 99282; 87081; 99283

== ENCOUNTER 2020-08-17 16:22 | Emergency (ER) | payer MEDICAID, SELFPAY ==
[2020-08-17 16:40] VITALS: BP 179/89; PULSE 103; RESP 16; TEMP 36.7; O2SAT 97
--- NOTE | 2020-08-17 16:58 | ED.GENADUL_ITS ---
Discharge Plan Disposition Patient Disposition: HOME Condition: Stable Discharge Details Clinical Impression: Chronic sore throat Primary Care Provider: JOSE ANGEL CANO ED Provider: Bernadette Peres Home Meds and New Rx's Prescriptions: Continued disulfiram [Antabuse] 250 mg tablet 250 mg PO DAILY RF: 0 amitriptyline 50 mg tablet 50 mg PO QHS RF: 0 risperidone 2 mg tablet 2 mg PO QHS RF: 0 risperidone 1 mg tablet 1 mg PO DAILY RF: 0 hydroxyzine HCl 25 mg tablet 25 mg PO TID PRNRF: 0 cyclobenzaprine 10 mg tablet 10 mg PO HS RF: 0 albuterol sulfate [ProAir HFA] 90 mcg/actuation HFA aerosol inhaler 2 puff IH Q6H PRNRF: 0 nicotine 21 mg/24 hr Patch 24 Hour 21 mg transdermal DAILY Qty: 30 RF: 0 gabapentin 300 mg Tablet 600 mg PO QHS RF: 0 pantoprazole [Protonix] 40 mg tablet,delayed release (DR/EC) 40 mg PO DAILY Qty: 30 RF: 12 Discharge Instructions Instructions: Pharyngitis (ED) Additional Instructions: Please return immediately to the emergency department if you develop any new or worsening symptoms, if your condition does not improve as expected, or if you become otherwise concerned. It is extremely important that you call soon as possible to make an appointment to be seen in follow-up for this visit by your primary care doctor. Stand Alone Forms: PENDING COVID-19 TESTING Referrals: JOSE ANGEL CANO [Primary Care Provider] - Discharge Data Discharge Date/Time-TO BE ENTERED AT DEPARTURE: 08/17/20 17:13 Medical Decision Making Celia Anand is a 40 y/o woman with history of GERD, papilloma of the larynx in the past, schizophrenia presenting to emergency department with chronic intermittent sore throat, not returned. On exam patient is well and nontoxic- appearing. Mild erythema the posterior pharynx without other intraoral abnormality. Normal exam of the neck. Exam/history at this time is not consistent with impending airway compromise, peritonsillar abscess, retropharyn geal abscess, sepsis, epiglottitis, other acute emergent life-threatening condition. Concern for possible recurrent strep versus recurring irritation from smoking versus allergies versus COVID-19 versus other. Plan for strep, Covid testing. Rapid strep testing negative. Covid testing pending, I have a lengthy discussion with patient regarding precautions for home care with pending Covid test. Patient to follow-up with her PCP this week regarding ability to go to court. I had a lengthy discussion with Patient regarding return to emergency department precautions, home care, and importance of outpatient follow-up. Pt verbalizes understanding of the plan and is amenable. Patient discharged to home with clear plan for outpatient follow-up. All questions were answered. Disposition decision was made weighing the risks and benefits of hospitalization versus outpatient treatment, the risk for further decompensation, and the patient's wishes. Medical Records Medical records reviewed: Yes I reviewed the patient's medical records. Lab Data Lab results reviewed: Yes I reviewed the patient's lab results. Labs: 08/17/20 16:45 Tonsil - Left Streptococcus Screen (AGUS) - Final Laboratory Tests Range/Units 08/17/20 17:15 SARS-CoV-2 (PCR) (Negative) Negative Nasopharyn COVID-19 PCR Not Applicable Ref Test Perform Site [facility] [employer] HPI General Mode of arrival: ambulatory . Date/Time Provider Initiated Documentation: 08/17/20 16:39 . Limitations to Documentation: no limitations . Information obtained by: patient, RN notes reviewed and old records reviewed . HPI Narrative: Celia Anand is a 40 y/o woman with h/o esophagitis, schizophrenia presenting to the emergency department with sore throat. Pt reports that she has had sore throat intermittently over the past few months. Per record review patient was seen here April 2020, diagnosed with strep pharyngitis, seen here 08/07/2020 for sore throat and dental pain, rapid strep and Covid testing negative at that time. Patient was also seen by ear nose and throat on 07/13/2020 with normal flexible laryngoscope performed. Patient reports that every few months she developed sore throat consistent with strep pharyngitis. She states that she has had symptoms that are similar to her recurring sore throat for the past 3 weeks. Patient states that she has been able to eat and drink as usual but does have pain with swallowing. She states that pain is typical of her usual episodes in location, severity, and quality. She denies difficulty swallowing, fever, shortness of breath, any other pain including neck pain, vomiting, diarrhea, numbness, weakness. Patient reports that she sleeps with 1 pillow in her bed without issue and this has not changed. Patient patient states that she is scheduled for court this week, she requests a note to defer court due to her sore throat. Related Data Home Medications Medication Instructions Recorded Confirmed albuterol sulfate 90 mcg/actuation 2 puff IH Q6H PRN 11/26/19 08/07/20 aerosol inhaler amitriptyline 50 mg tablet 50 mg PO QHS 11/26/19 08/07/20 cyclobenzaprine 10 mg tablet 10 mg PO HS 11/26/19 08/07/20 hydroxyzine HCl 25 mg tablet 25 mg PO TID PRN 11/26/19 08/07/20 risperidone 1 mg tablet 1 mg PO DAILY 11/26/19 08/07/20 risperidone 2 mg tablet 2 mg PO QHS 11/26/19 08/07/20 nicotine 21 mg TRANSDERMAL DAILY #30 ea 02/27/20 08/07/20 gabapentin 600 mg PO QHS 03/17/20 08/07/20 disulfiram 250 mg tablet 250 mg PO DAILY 03/26/20 08/07/20 pantoprazole [Protonix] 40 mg PO DAILY #30 tab 04/13/20 08/07/20 Previous Rx's Medication Instructions Recorded nicotine 21 mg TRANSDERMAL DAILY #30 ea 02/27/20 pantoprazole [Protonix] 40 mg PO DAILY #30 tab 04/13/20 Allergies Allergy/AdvReac Type Severity Reaction Status Date / Time lamotrigine [From Lamictal] Allergy Severe Blistery Verified 08/17/20 16:43 rash per Marbella Cutler acetaminophen AdvReac Intermediate Nausea & Verified 08/17/20 16:43 vomiting General Stated Complaint: Sorethroat SHEREEN: 4 Review of Systems Narrative: Constitutional: denies fevers Eyes: denies eye pain ENT: denies ear pain, dental pain, reports sore throat Cardiovascular: denies chest pain Respiratory: denies SOB, cough GI: denies abdominal pain, vomiting, diarrhea : denies flank pain MSK: denies back pain, neck pain, arthralgias, myalgias Skin: denies rash Neuro: denies headaches, numbness, weakness [facility] Medical History Anemia Bipolar disorder Cannabis dependence Chronic alcoholism in remission pt. states she has been sober for 8 months Chronic erosive gastritis Cognitive dysfunction Esophagitis Gastritis History of esophageal reflux Osteoarthritis of left hip Papilloma of larynx PTSD (post-traumatic stress disorder) Schizophrenia Smoker Supraglottic edema secondary to procedure Surgical History History of section History of esophagogastroduodenoscopy (EGD) (~04/13/20) History of tubal ligation Social History Smoking/Tobacco Use Status: Current every day Tobacco Type: cigarettes Smoking risk assessment performed?: Yes Alcohol Intake: current Alcohol Intake frequency: a few times a month Drug use: Daily Substance use type: marijuana Do you feel safe at home: Yes Do you feel safe in your relationship?: Yes Exam Narrative Exam Narrative: Constitutional: well and [id number], pleasant, conversing normally HENT: head atraumatic/normocephalic/normal inspection, mucous membranes moist, posterior pharynx mildly erythematous with some cobblestoning, there is no edema, uvula midline, no exudate, no intraoral lesion, no tongue elevation no subglossal induration, no drooling or pooling of secretions, normal voice Eyes: conjunctiva normal, sclera normal, pupils 3mm b/l Neck: no stridor, normal ROM, trachea midline, full painless range of motion, no anterior or posterior lymphadenopathy Resp: normal work of breathing Cardio: normal rate, normal rhythm Skin: warm, dry, normal color, no rash Neuro: alert, not altered, grossly non-focal, normal tone Ext: no edema Psych: normal mood, normal affect, normal behavior Course Vital Signs Vital signs: Vital Signs Temperature 36.7 C 08/17/20 16:40 Pulse 103 H 08/17/20 16:40 Respiratory Rate 16 08/17/20 16:40 Blood Pressure 179/89 H 08/17/20 16:40 Pulse Oximetry 97 08/17/20 16:40 Temperature 36.7 C 08/17/20 16:40 Temperature Source Oral 08/17/20 16:40 Pulse 103 H 08/17/20 16:40 Respiratory Rate 16 08/17/20 16:40 Respiratory Effort 08/17/20 16:41 Blood Pressure 179/89 H 08/17/20 16:40 Blood Pressure Position Sitting 08/17/20 16:40 Pulse Oximetry 97 08/17/20 16:40 Oxygen Delivery Method Room Air 08/17/20 16:40 Oxygen Flow Rate 0 08/17/20 16:40 Pain Level 7 08/17/20 16:40 Lab/Test Results Lab/Test Results: 08/17/20 16:45 Tonsil - Left Streptococcus Screen (AGUS) - Pending POC Strep Test-KAT(Rapid) Start: 08/17/20 16:43 Freq: .Rapid Strep Test Status: Active Protocol: Document 08/17/20 16:51 MCG (Rec: 08/17/20 16:51 MCG [id number]) Strep test-KAT(Rapid)-POC POC-Strep test-KAT (Rapid) Negative POC-Strep test-KAT (Rapid) Negative
--- NOTE | 2020-08-18 08:48 | NUR.NOTE ---
Nursing Note: Essie Baumann from [facility] called asking if the patient was seen here yesterday and for what reason. She is on the HIPPA form and was told that yes she was seen here and it was for a sore throat. Angely Vu
--- NOTE | 2020-08-18 15:46 | NUR.NOTE ---
Nursing Note: After multiple attempts to fax the referral and visit information to her PCP, it just went through to the office. Her PCP is Angela Beyer. Angely Santana [phone] or [phone]
[2020-08-19 12:22] LABS: COVID-19 RT-PCR UVMMC Result Negative (Negative)
--- NOTE | 2020-08-19 18:30 | NUR.NOTE ---
patient contacted and after verifying patient's identity, relayed negative covid results to her.
--- NOTE | 2020-08-20 17:38 | NUR.NOTE ---
Nursing Note: Patient returned phone call to the ED on 08/20/2020 @ [phone]. RN confirmed patient name and date of and relayed COVID negative test results. Patient verbalized understanding.
== END 2020-08-17 17:13 | disposition home or self-care (01) ==
PROVIDERS: Emergency Provider Student in an Organized Health Care Education/Training Program; PCP Family Medicine
DX: J31.2 Chronic pharyngitis (principal); Z03.818 Encounter for observation for suspected exposure to other biological agents ruled out
CPT/HCPCS: 87880; 99282; U0003; 87081; 99283

== ENCOUNTER 2020-09-03 13:28 | Emergency (ER) | payer MEDICAID, SELFPAY ==
[2020-09-03 13:37] VITALS: BP 140/96; PULSE 103; RESP 16; TEMP 36.3; O2SAT 97
--- NOTE | 2020-09-03 13:54 | W.ED.GENAD ---
Discharge Plan Disposition Patient Disposition: HOME Condition: Stable Discharge Details Clinical Impression: UTI (urinary tract infection) Primary Care Provider: JOSE ANGEL CANO ED Provider: Emily Mendoza Home Meds and New Rx's Prescriptions: New cephalexin 500 mg capsule 500 mg PO BID 7 Days Qty: 14 RF: 0 Continued disulfiram [Antabuse] 250 mg tablet 250 mg PO DAILY RF: 0 amitriptyline 50 mg tablet 50 mg PO QHS RF: 0 risperidone 2 mg tablet 2 mg PO QHS RF: 0 risperidone 1 mg tablet 1 mg PO DAILY RF: 0 hydroxyzine HCl 25 mg tablet 25 mg PO TID PRNRF: 0 cyclobenzaprine 10 mg tablet 10 mg PO HS RF: 0 albuterol sulfate [ProAir HFA] 90 mcg/actuation HFA aerosol inhaler 2 puff IH Q6H PRNRF: 0 nicotine 21 mg/24 hr Patch 24 Hour 21 mg transdermal DAILY Qty: 30 RF: 0 gabapentin 300 mg Tablet 600 mg PO QHS RF: 0 pantoprazole [Protonix] 40 mg tablet,delayed release (DR/EC) 40 mg PO DAILY Qty: 30 RF: 12 Discharge Instructions Instructions: Urinary Tract Infection in Women (ED) Additional Instructions: Drink plenty of fluids and get plenty of rest. Alternate tylenol and motrin as needed and directed for pain. Your prescription has been sent electronically to your pharmacy. Call the pharmacy to make sure your prescription is ready before pickup. Take the prescription as directed. Follow-up with your primary care doctor in 1 week. Return to the emergency department with any worsening or new concerning symptoms such as fever, vomiting, worsening pain. Stand Alone Forms: Work Release Discharge Data Discharge Date/Time-TO BE ENTERED AT DEPARTURE: 09/03/20 15:43 Discharge Physician: Emily Mendoza Medical Decision Making 40-year-old female with a previous history of kidney injury presents the ED with complaint of difficulty urinating since last night. She states this feels consistent with previous UTIs she has had in the past. She admits to dysuria and urgency today. Bladder scan done by nurse at bedside noted 200 cc. Patient denies any significant pelvic pain. She is afebrile and appears nontoxic. Patient referred for labs and urinalysis. As she has no abdominal pain, reported fever, not seen indication for imaging at this time Labs reviewed. White blood cell count 11.38. Creatinine improved compared to baseline at 1.4. Urinalysis noted 3-5 WBCs but appears contaminated and urine culture not sent. Discussed with patient that I recommend obtaining a straight cath urine sample for repeating a clean-catch but she is declining stating she would just rather take antibiotics at this time but she wants to go home. She states this feels consistent with a UTI would rather take antibiotics. Previous urine culture noted sensitivity to cephalosporins. A prescription for Keflex was sent electronically to her pharmacy. Patient was also requested a work note for tomorrow. Advised to follow up with the primary care doctor for re-evaluation. Usual and customary return precautions given prior to discharge. Medical Records Medical records reviewed: Yes I reviewed the patient's medical records. Lab Data Lab results reviewed: Yes I reviewed the patient's lab results. Labs: Laboratory Tests Range/Units 09/03/20 09/03/20 09/03/20 13:40 14:25 14:25 WBC (4.4-10.8) 10^3/uL 11.38 H RBC (3.93-5.22) 10^6/uL 3.88 L Hgb (11.2-15.7) g/dL 12.1 Hct (36.0-46.0) % 35.7 L MCV (80-95) fL 92.0 MCH (27.0-33.0) pg 31.2 MCHC (32.0-36.0) % 33.9 RDW (11.7-14.6) % 13.2 Plt Count (130-400) 10^3/uL 220 MPV (8.0-11.0) fL 10.3 Immature Gran % 0.4 Neutrophils % 58.7 Lymphocytes % 28.4 Monocytes % 9.8 Eosinophils % 2.2 Basophils % 0.5 Nucleated RBC % % 0 Absolute Neutrophils (1.2-6.7) 10^3/uL 6.68 Absolute Lymphocytes (1.2-3.4) 10^3/uL 3.23 Absolute Monocytes (0.1-0.8) 10^3/uL 1.12 H Absolute Eosinophils (0.0-0.7) 10^3/uL 0.25 Absolute Basophils (0.0-0.2) 10^3/uL 0.06 Sodium (136-145) mmol/L 137 Potassium (3.5-5.1) mmol/L 3.8 Chloride (98-107) mmol/L 100 Carbon Dioxide (21.0-32.0) mmol/L 21.3 Anion Gap (3-11) mmol/L 15.7 H BUN (7-18) mg/dL 5 L Creatinine (0.55-1.02) mg/dL 1.4 H Estimated GFR/1.73 m2 (mL/min/1.73m2) 42.08 Glucose (74-106) mg/dL 112 H Calcium (8.5-10.1) mg/dL 8.8 Total Bilirubin (0.2-1.0) mg/dL 0.4 AST (15-37) U/L 12 L ALT (14-59) U/L 18 Alkaline Phosphatase (46-116) U/L 196 H Total Protein (6.4-8.2) g/dL 8.0 Albumin (3.4-5.0) g/dL 3.5 Urine Color (Yellow) Yellow Urine Clarity (Clear) Clear Urine pH (5-8) 5.5 Ur Specific Arabi (1.005-1.025) 1.010 Urine Protein (Negative) mg/dL Negative Urine Ketones (Negative) mg/dL Negative Urine Blood (Negative) Negative Urine Nitrite (Negative) Negative Urine Bilirubin (Negative) Negative Urine Urobilinogen (Up TO 0.2) EU/dL 0.2 Ur Leukocyte Esterase (Negative) Trace H Urine RBC (0-2) HPF Negative Urine WBC (0-5) HPF 3-5 Ur Epithelial Cells (Negative) HPF Many Urine Crystals (Negative) HPF Negative Urine Bacteria (Negative) HPF Few Urine Casts (Negative) LPF Negative Urine Mucus (Negative) Negative Ur Culture Indicated? No/sq. contamination Urine Glucose (Negative) mg/dL Negative HPI General Mode of arrival: ambulatory. Date/Time Provider Initiated Documentation: 09/03/20 13:35. Limitations to Documentation: no limitations. Information obtained by: patient. HPI Narrative: Patient is a 40-year-old female with a history of previous kidney injury presents for difficulty with urinating since last night. She states she feels this has improved since she came to the ED. She does admit to some dysuria and urgency. She states she vomited twice yesterday but not today. She denies any fever, nausea at this time, back pain or abdominal pain. She denies any recent travel, recent new medication or antibiotic, vaginal discharge or genital lesions. Related Data Home Medications Medication Instructions Recorded Confirmed albuterol sulfate 90 mcg/actuation 2 puff IH Q6H PRN 11/26/19 09/03/20 aerosol inhaler amitriptyline 50 mg tablet 50 mg PO QHS 11/26/19 09/03/20 cyclobenzaprine 10 mg tablet 10 mg PO HS 11/26/19 09/03/20 hydroxyzine HCl 25 mg tablet 25 mg PO TID PRN 11/26/19 09/03/20 risperidone 1 mg tablet 1 mg PO DAILY 11/26/19 09/03/20 risperidone 2 mg tablet 2 mg PO QHS 11/26/19 09/03/20 nicotine 21 mg TRANSDERMAL DAILY #30 ea 02/27/20 09/03/20 gabapentin 600 mg PO QHS 03/17/20 09/03/20 disulfiram 250 mg tablet 250 mg PO DAILY 03/26/20 09/03/20 pantoprazole [Protonix] 40 mg PO DAILY #30 tab 04/13/20 09/03/20 cephalexin 500 mg PO BID 7 Days #14 cap 09/03/20 Previous Rx's Medication Instructions Recorded nicotine 21 mg TRANSDERMAL DAILY #30 ea 02/27/20 pantoprazole [Protonix] 40 mg PO DAILY #30 tab 04/13/20 cephalexin 500 mg PO BID 7 Days #14 cap 09/03/20 Allergies Allergy/AdvReac Type Severity Reaction Status Date / Time lamotrigine [From Lamictal] Allergy Severe Blistery Verified 08/17/20 16:43 rash per Marbella Greyhaw acetaminophen AdvReac Intermediate Nausea & Verified 08/17/20 16:43 vomiting General Stated Complaint: Urinary SHEREEN: 3 Review of Systems All systems reviewed & are unremarkable except as noted in HPI and below Constitutional Constitutional: Reports as per HPI, Denies chills and Denies fever(s) Eyes Eyes: Denies blurry vision ENT Ears, Nose, Mouth, and Throat: Denies dizziness, Denies sore throat and Denies throat swelling Cardiovascular Cardiovascular: Denies chest pain and Denies dyspnea Respiratory Respiratory: Denies cough and Denies dyspnea Gastrointestinal Gastrointestinal: Denies abdominal pain, Denies diarrhea and Denies vomiting Genitourinary Genitourinary: Denies hematuria, Reports difficulty voiding, Denies dysuria and Reports urinary urgency Musculoskeletal Musculoskeletal: Denies back pain and Denies numbness Integumentary/Breasts Skin/Breast: Denies lesions and Denies rash Neurologic Neurologic: Denies dizziness, Denies localized weakness and Denies numbness Allergic/Immunologic Allergic/Immunologic: Denies throat swelling [facility] Medical History Anemia Bipolar disorder Cannabis dependence Chronic alcoholism in remission pt. states she has been sober for 8 months Chronic erosive gastritis Cognitive dysfunction Esophagitis Gastritis History of esophageal reflux Osteoarthritis of left hip Papilloma of larynx PTSD (post-traumatic stress disorder) Schizophrenia Smoker Supraglottic edema secondary to procedure Surgical History History of section History of esophagogastroduodenoscopy (EGD) (~04/13/20) History of tubal ligation Social History Smoking/Tobacco Use Status: Current every day Tobacco Type: cigarettes Smoking risk assessment performed?: Yes Alcohol Intake: current Alcohol Intake frequency: a few times a month Drug use: Daily Substance use type: marijuana Do you feel safe at home: Yes Do you feel safe in your relationship?: Yes Exam Const General: cooperative and no acute distress Nutritional Appearance: obese morbidly obese [facility] Head: normal to inspection Face and sinus: normal facial exam Eyes General: appearance normal, both eyes and all related structures EOM: EOM intact bilaterally Neck Neck: normal visual inspection and No submandibular swelling Lymphatic: no lymphadenopathy noted Chest Chest: normal inspection of the chest and no tenderness Resp Effort & Inspection: normal respiratory effort and able to speak in complete sentences Auscultation: clear to auscultation bilaterally Cardio Rate: regular rate Rhythm: regular rhythm GI Inspection: normal to inspection and obesity Palpation: soft, not firm, not rigid and nontender Auscultation: normal bowel sounds and hypoactive bowel sounds Back/Spine/Pelvis Back: no CVA tenderness Skin General skin exam: no rashes or lesions noted Neuro General: patient alert, patient awake and patient oriented x3 Cognition: normal cognition Speech: speech normal Motor: muscle tone normal throughout Sensory Exam: no sensory deficits noted Extrem General: normal to inspection, full ROM, capillary refill normal, no calf tenderness bilaterally and no edema Psych Appearance: grossly normal Mental Status: mental status grossly normal Speech and Movement: speech and movement normal Affect: normal affect Course Vital Signs Vital signs: Vital Signs Temperature 97.3 F L 09/03/20 13:37 Pulse 103 H 09/03/20 13:37 Respiratory Rate 16 09/03/20 13:37 Blood Pressure 140/96 H 09/03/20 13:37 Pulse Oximetry 97 09/03/20 13:37 Temperature 97.3 F L 09/03/20 13:37 Temperature Source Tympanic 09/03/20 13:37 Pulse 103 H 09/03/20 13:37 Respiratory Rate 16 09/03/20 13:37 Respiratory Effort 09/03/20 13:41 Blood Pressure 140/96 H 09/03/20 13:37 Blood Pressure Position Sitting 09/03/20 13:37 Pulse Oximetry 97 09/03/20 13:37 Oxygen Delivery Method Room Air 09/03/20 13:37 Oxygen Flow Rate 0 09/03/20 13:37 Lab/Test Results Lab/Test Results: POC- Test(urine) Negative
[2020-09-03 14:01] LABS: Bilirubin Negative (Negative); Blood Negative (Negative); Clarity Clear (Clear); Glucose Negative (Negative); Ketones Negative (Negative); Leukocyte Esterase Trace (Negative); Nitrite Negative (Negative); Urobilinogen 0.2 EU/dL (Up TO 0.2); pH 5.5 (5-8)
[2020-09-03 14:28] LABS: Bacteria Few HPF (Negative); C & S Indicated? No/Sq. Contamination; Casts Negative LPF (Negative); Crystals Negative HPF (Negative); Epithelial Cells Many HPF (Negative); Mucus Negative (Negative); RBC Negative HPF (0-2)
[2020-09-03 14:39] LABS: Abs Immature Grans 0.04 10^3/uL (0.0-0.06); Absolute Basophil Count 0.06 10^3/uL (0.0-0.2); Absolute Eosinophil Count 0.25 10^3/uL (0.0-0.7); Absolute Lymphocyte Count 3.23 10^3/uL (1.2-3.4); Absolute Monocyte Count 1.12 10^3/uL (0.1-0.8); Absolute Neutrophil Count 6.68 10^3/uL (1.2-6.7); Basophils % 0.5; Eosinophils % 2.2; HCT 35.7 % (36.0-46.0); HGB 12.1 g/dL (11.2-15.7); Immature Grans % 0.4; Lymphocytes % 28.4; MCH 31.2 pg (27.0-33.0); MCHC 33.9 % (32.0-36.0); MPV 10.3 fL (8.0-11.0); Monocytes % 9.8; Neutrophils % 58.7; Nucleated RBC 0 %; Platelet Count 220 10^3/uL (130-400); RBC 3.88 10^6/uL (3.93-5.22); RDW 13.2 % (11.7-14.6); WBC 11.38 10^3/uL (4.4-10.8)
[2020-09-03 14:47] LABS: ALT 18 U/L (14-59); AST 12 U/L (15-37); Albumin 3.5 g/dL (3.4-5.0); Alkaline Phosphatase 196 U/L (46-116); Anion Gap 15.7 mmol/L (3-11); BUN 5 mg/dL (7-18); Bilirubin, Total 0.4 mg/dL (0.2-1.0); CO2 21.3 mmol/L (21.0-32.0); CREATININE 1.4 mg/dL (0.55-1.02); Calcium 8.8 mg/dL (8.5-10.1); Chloride 100 mmol/L (98-107); Estimated GFR 42.08 (mL/min/1.73m2); Glucose 112 mg/dL (74-106); Potassium 3.8 mmol/L (3.5-5.1); Sodium 137 mmol/L (136-145)
[2020-09-03] MEDS: Normal Saline 500 ML IV (15:10)
[2020-09-03 15:41] VITALS: BP 133/80; PULSE 84; RESP 20; TEMP 36.8; O2SAT 99
== END 2020-09-03 15:43 | disposition home or self-care (01) ==
PROVIDERS: Emergency Provider Physician Assistant; PCP Family Medicine
DX: N39.0 Urinary tract infection, site not specified (principal)
CPT/HCPCS: 36415; 80053; 81025; 99284; 81003; 81015; 85025; 99283

== ENCOUNTER 2020-09-19 05:15 | Inpatient (IN) | payer MEDICAID, SELFPAY ==
[2020-09-19] VITALS (25 sets, daily range): BP systolic 101–146; BP diastolic 60–101; PULSE 83–138; RESP 11–27; TEMP 36.4–37.3; O2SAT 91–99
--- NOTE | 2020-09-19 | DI.RAD_ITS ---
Exam(s) XR PORTABLE CHEST AP EXAM: XR PORTABLE CHEST AP CLINICAL HISTORY: acute hypoxia. TECHNIQUE: 2D digital imaging was performed. COMPARISON: CR,XR XR CHEST 2V PA LATERAL from 09/19/2020 FINDINGS: Heart size upper normal mediastinum is not widened. No right lung infiltrates evident. Mild increased markings in the posterior basal segment left lower lobe. Slight blunting left costophrenic angle. Possible small amount of pleural effusion. There i s no pneumothorax. IMPRESSION: On the present portable view there increased markings in the left lower lobe posterior basal segment- probable developing infiltrate at this location. Possible small amount of left pleural fluid. Recommend nonportable PA and lateral views when clinically possible. DATA REPOSITORY: RADIATION DOSE DELIVERED: All CT scans at this facility use at least one of these dose optimization techniques: automated exposure control; mA and/or kV adjustment per patient size (includes targeted e xams where dose is matched to clinical indication); or iterative reconstruction.
--- NOTE | 2020-09-19 05:15 | RT.EKG_ITS ---
APPROVED REPORT Exam: Resting ECG Reason for Exam: chest pain Patient Location: E HR:96 bpm ECG Measurements Heart Rate 96 AXIS [place] 143 P 53 QRSd 84 QRS 2 QT 357 T 29 QTc 450 Conclusion Sinus rhythm...normal P axis, V-rate 60- 99 Normal [place] Normal Electrocardiogram
--- NOTE | 2020-09-19 05:24 | W.ED.GENAD ---
Discharge Plan Disposition Patient Disposition: [facility] INPATIENT Condition: Poor Discharge Details Clinical Impression: Acute pancreatitis Primary Care Provider: JOSE ANGEL CANO ED Provider: Rock Mckee Thurmond Meds and New Rx's Prescriptions: No Action amitriptyline 50 mg tablet 50 mg PO QHS RF: 0 risperidone 2 mg tablet 2 mg PO QHS RF: 0 risperidone 1 mg tablet 1 mg PO DAILY RF: 0 hydroxyzine HCl 25 mg tablet 25 mg PO TID PRNRF: 0 cyclobenzaprine 10 mg tablet 10 mg PO HS RF: 0 albuterol sulfate [ProAir HFA] 90 mcg/actuation HFA aerosol inhaler 2 puff IH Q6H PRNRF: 0 gabapentin 300 mg Tablet 600 mg PO QHS RF: 0 pantoprazole [Protonix] 40 mg tablet,delayed release (DR/EC) 40 mg PO DAILY Qty: 30 RF: 12 Medical Decision Making Patient presenting to ED with epigastric abdominal pain that radiates to the back and chest. She is a low risk for PE by both [place] and revised [place]. She is PERC negative and no D-dimer will be sent. She is also low risk by the HEART score assuming normal troponin. This seems more likely GI related and with her history of gastritis/reflux with fever this is because of her pain. Possible gallbladder disease, pancreatitis. EKG is normal. IV established. Zofran and GI cocktail given. Laboratory studies sent. Chest x-ray ordered. 06:20 - Patient without any significant relief from Zofran or GI cocktail. Laboratory studies returned with a lipase greater than 3000. Lactated Ringer's, morphine, Phenergan ordered. CT scan of the abdomen pelvis with IV contrast ordered. Alk phos a little elevated but otherwise LFTs normal. White count minimally elevated. Chest x-ray unremarkable per my review. 07:30 - CT scan shows pancreatitis but normal gallbladder/ducts. Patient a little better with morphine and Zofran. We will keep n.p.o. and continue IV fluids. Discussed with hospitalist for admission. Patient aware of diagnosis and need for admission. Differential Diagnosis Differential Diagnosis: Acid related disease, gallbladder, pancreatitis, ACS, PE Medical Records Medical records reviewed: Yes I reviewed the patient's medical records. Lab Data Lab results reviewed: Yes I reviewed the patient's lab results. ECG Data Attestation: I personally reviewed and interpreted this ECG (s) as follows: Prior ECG tracings: available for review Interpretation: see EKG HPI General Mode of arrival: EMS. Date/Time Provider Initiated Documentation: 09/19/20 05:24. Limitations to Documentation: no limitations. Information obtained by: patient, RN notes reviewed and old records reviewed. HPI Narrative: Patient presents to the ED by ambulance with complaint of epigastric pain which radiates through to her back and somewhat up into her chest. Patient reports she felt fine when she went to bed last night. 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 She reports that she feels nauseated and short of breath with this. She denies having pain like this in the past. She denies fever or cough. Pain is not pleuritic it is just there. She is holding her upper abdomen. She does still have her gallbladder. She also has a history of reflux and gastritis. She does smoke but denies diabetes, hypertension, hyperlipidemia. She denies leg pain or leg swelling. She has no prior history of blood clot. She is not on control. Related Data Home Medications Medication Instructions Recorded Confirmed albuterol sulfate 90 mcg/actuation 2 puff IH Q6H PRN 11/26/19 09/19/20 aerosol inhaler amitriptyline 50 mg tablet 50 mg PO QHS 11/26/19 09/19/20 cyclobenzaprine 10 mg tablet 10 mg PO HS 11/26/19 09/19/20 hydroxyzine HCl 25 mg tablet 25 mg PO TID PRN 11/26/19 09/19/20 risperidone 1 mg tablet 1 mg PO DAILY 11/26/19 09/19/20 risperidone 2 mg tablet 2 mg PO QHS 11/26/19 09/19/20 gabapentin 600 mg PO QHS 03/17/20 09/19/20 pantoprazole [Protonix] 40 mg PO DAILY #30 tab 04/13/20 09/19/20 Previous Rx's Medication Instructions Recorded pantoprazole [Protonix] 40 mg PO DAILY #30 tab 04/13/20 Allergies Allergy/AdvReac Type Severity Reaction Status Date / Time lamotrigine [From Lamictal] Allergy Severe Blistery Verified 09/19/20 05:26 rash per Marbella Scrimshaw acetaminophen AdvReac Intermediate Nausea & Verified 09/19/20 05:26 vomiting General SHEREEN: 3 Review of Systems Narrative: 02/18 Review of Systems completed and is negative except as stated above in HPI (Systems reviewed: Const, Eyes, ENT, Resp, CV, GI, , MSK, Skin, Neuro) PFSH Medical History Anemia Bipolar disorder Cannabis dependence Chronic alcoholism in remission pt. states she has been sober for 8 months Chronic erosive gastritis Cognitive dysfunction Esophagitis Gastritis History of esophageal reflux Osteoarthritis of left hip Papilloma of larynx PTSD (post-traumatic stress disorder) Schizophrenia Smoker Supraglottic edema secondary to procedure Surgical History History of section History of esophagogastroduodenoscopy (EGD) (~04/13/20) History of tubal ligation Social History Smoking/Tobacco Use Status: Current every day Tobacco Type: cigarettes Smoking risk assessment performed?: Yes Alcohol Intake: current Alcohol Intake frequency: a few times a month Drug use: Daily Substance use type: marijuana Do you feel safe at home: Yes Do you feel safe in your relationship?: Yes Exam Narrative Exam Narrative: Const: Obese female holding her upper abdomen. HEENT: NC/AT. Normal facial exam. Eyes: Normal conjunctiva and sclera. Neck: Supple. Trachea midline. Lungs: Normal respiratory effort. Lungs are clear. Cor: RRR without murmur/gallop. Good radial pulses. GI: Soft. ND. Tender in the epigastric area. No guarding or rebound. Neuro: A+O x 3. Normal speech, mentation, gait. Cranial nerves II - XII grossly intact. No gross motor or sensory deficit. Ext: No C/C/E. No calf tenderness. Skin: Warm and dry without rash.
[2020-09-19] MEDS: Ondansetron 4 MG/2 ML VIAL IVP (05:47)
[2020-09-19 05:48] LABS: Abs Immature Grans 0.05 10^3/uL (0.0-0.06); Absolute Basophil Count 0.06 10^3/uL (0.0-0.2); Absolute Monocyte Count 0.84 10^3/uL (0.1-0.8); Absolute Neutrophil Count 6.34 10^3/uL (1.2-6.7); Basophils % 0.5; Eosinophils % 2.7; HCT 37.2 % (36.0-46.0); HGB 12.4 g/dL (11.2-15.7); Immature Grans % 0.4; MCH 30.8 pg (27.0-33.0); MCHC 33.3 % (32.0-36.0); MCV 92.5 fL (80-95); MPV 10.2 fL (8.0-11.0); Monocytes % 7.4; Nucleated RBC 0 %; Platelet Count 285 10^3/uL (130-400); RBC 4.02 10^6/uL (3.93-5.22); RDW 12.6 % (11.7-14.6); RDW-SD 43.2 fL; WBC 11.32 10^3/uL (4.4-10.8)
--- NOTE | 2020-09-19 06:05 | DI.RAD_ITS ---
Exam(s) XR CHEST 2V PA LATERAL EXAM: XR CHEST 2V PA LATERAL CLINICAL HISTORY: CP. TECHNIQUE: 2D digital imaging was performed. COMPARISON: CR XR CHEST 2V PA LATERAL from 02/25/2020 FINDINGS: Heart size is normal. The mediastinum is not widened. Lungs are clear. No infiltrates nor pleural effusions. Chest leads in place. IMPRESSION: No acute pulmonary findings. DATA REPOSITORY: RADIATION DOSE DELIVERED:
[2020-09-19 06:08] LABS: Absolute Eosinophil Count 0.31 10^3/uL (0.0-0.7); Absolute Lymphocyte Count 3.74 10^3/uL (1.2-3.4)
[2020-09-19 06:09] LABS: ALT 18 U/L (14-59); AST 14 U/L (15-37); Albumin 3.3 g/dL (3.4-5.0); Alkaline Phosphatase 159 U/L (46-116); Anion Gap 13.4 mmol/L (3-11); BUN 11 mg/dL (7-18); Bilirubin, Total 0.4 mg/dL (0.2-1.0); CO2 24.6 mmol/L (21.0-32.0); CREATININE 1.3 mg/dL (0.55-1.02); Calcium 8.5 mg/dL (8.5-10.1); Chloride 103 mmol/L (98-107); Estimated GFR 45.84 (mL/min/1.73m2); Glucose 185 mg/dL (74-106); Lipase 3170 U/L (73-393); Magnesium 1.8 mg/dL (1.8-2.4); Potassium 3.8 mmol/L (3.5-5.1); Sodium 141 mmol/L (136-145); Total Protein 7.6 g/dL (6.4-8.2); Troponin I < 0.05 ng/mL (<0.06)
--- NOTE | 2020-09-19 06:12 | DI.CT_ITS ---
Exam(s) CT ABDOMEN PELVIS WO EXAM: CT ABDOMEN PELVIS WO CLINICAL HISTORY: pancreatitis. TECHNIQUE: Imaging Protocol: Axial computed tomography images with coronal and sagittal reformatted images were created and reviewed CONTRAST MATERIAL: Intravenous: none Oral: None COMPARISON: CT CT ABDOMEN PELVIS W from 03/17/2020 FINDINGS: VISUALIZED LUNG BASES: Symmetrical dependent increased markings in the lung bases. No associated ple ural effusions.. ABDOMEN: There is no ascites. LIVER: There are no obvious focal hepatic lesions evident of this noninfused study. Liver appears sl ightly large GALLBLADDER/BILIARY: No obvious gallbladder pathology. CBD is not dilated. PANCREAS: There are multiple calcifications again noted in the region the pancreatic head. There is peripancreatic fat stranding is cyst with pancreatitis. No obvious dilatation of the pancreatic duct . No obvious hemorrhage nor obvious necrosis realized limitations of a noninfused study. SPLEEN: Mild splenomegaly again noted. Cannot assess patency of splenic and portal veins on a noninf used study. ADRENALS: There are no significant adrenal masses. KIDNEYS:Scarring a lobulation of the kidneys is again noted. No solid renal masses. No calculi nor h ydronephrosis. . ABDOMINAL AORTA: Abdominal aorta is not enlarged. LYMPH NODES: There is no retroperitoneal nor paraaortic adenopathy. ABDOMINAL WALL: No evidence of significant anterior abdominal wall hernia. GI: There is some prominence of the diameter of the duodenum probably I ileus related to the adjacent pancreatitis. PELVIS: LYMPH NODES: There is no intrapelvic nor inguinal adenopathy. GI: No evidence of appendicitis.No evidence of sigmoid diverticulitis. URINARY BLADDER: No calculi nor obvious masses evident REPRODUCTIVE: Uterus and adnexal regions appear unremarkable. There is a tiny amount of fluid in the dependent aspect of the pelvis. This probably related to the pancreatic findings. OSSEOUS: No significant osseous lesions. IMPRESSION: 1. Findings are consistent with acute pancreatitis, superimposed upon an element of chronic pancreati tis given that there are multiple calcifications in the pancreatic head noted. There is presently no peripancreatic fluid collection. No obvious hemorrhage. Appropriate follow-up recommended. 2. Prominent duodenum is most probably an element of I ileus related to the adjacent pancreatitis. 3. Hepato splenomegaly. RADIATION DOSE DELIVERED: 1,321.1mGy.cm Total DLP DATA REPOSITORY: All CT scans at this facility are submitted to the National Radiology Data Registry (NRDR) Dose Index Registry (DIR) with the [employer] (ACR). RADIATION OPTIMIZATION: All CT scans at this facility use at least one of these dose optimization te chniques: automated exposure control; mA and/or kV adjustment per patient size (includes targeted exa ms where dose is matched to clinical indication); or iterative reconstruction.
[2020-09-19] MEDS: MORPHine 10 MG/ML VIAL 4 MG IVP (06:25)
[2020-09-19] MEDS: Lactated Ringers 2,000 ML 1000 ML IV (06:30)
[2020-09-19 06:37] LABS: HCG Qual (Serum) Negative
--- NOTE | 2020-09-19 07:18 | DI.VRAD_ITS ---
PROCEDURE INFORMATION: Exam: XR Chest Exam date and time: 09/19/2020 5:43 AM Age: 40 years old Clinical indication: Pain; Other: Chest TECHNIQUE: Imaging protocol: XR of the chest. Views: 2 views. COMPARISON: CR XR CHEST 2V PA LATERAL 02/25/2020 12:39 PM FINDINGS: Lungs: Unremarkable. No consolidation. Pleural spaces: Unremarkable. No pleural effusion. No pneumothorax. Heart/Mediastinum: Mild atherosclerotic disease. No cardiomegaly. Bones/joints: Unremarkable. IMPRESSION: No acute findings. Dictated and Authenticated by: Rama Zavala MD. Ordering:HARRIS Wilkerson MD
--- NOTE | 2020-09-19 07:22 | DI.VRAD_ITS ---
PROCEDURE INFORMATION: Exam: CT Abdomen And Pelvis Without Contrast Exam date and time: 09/19/2020 6:56 AM Age: 40 years old Clinical indication: Pain and condition or disease; Pancreatic condition; Pancreatitis; Abdominal pain; Localized; Upper; Prior surgery; Surgery type: Cesarian TECHNIQUE: Imaging protocol: Computed tomography of the abdomen and pelvis without contrast. Radiation optimization: All CT scans at this facility use at least one of these dose optimization techniques: automated exposure control; mA and/or kV adjustment per patient size (includes targeted exams where dose is matched to clinical indication); or iterative reconstruction. COMPARISON: CT ABDOMEN PELVIS W 03/17/2020 10:36 AM FINDINGS: Lungs: Mild bibasilar atelectasis. Liver: Hepatomegaly. Gallbladder and bile ducts: Normal. No calcified stones. No ductal dilation. Pancreas: Small calcifications are seen in the pancreatic head. There is mild peripancreatic fat stranding consistent with mild pancreatitis. No pancreatic ductal dilatation. Spleen: Normal. No splenomegaly. Adrenal glands: Normal. No mass. Kidneys and ureters: Bilateral renal scarring. No hydronephrosis or stones. Stomach and bowel: Stomach is unremarkable. The duodenum is mildly distended with fluid and air. Rest of the small bowel is unremarkable. Fluid levels are seen throughout the colon. Appendix: Normal appendix. Intraperitoneal space: No free air. Vasculature: Mildly atherosclerotic aorta without aneurysm. Lymph nodes: Unremarkable. No enlarged lymph nodes. Urinary bladder: Unremarkable as visualized. Reproductive: Unremarkable as visualized. Bones/joints: Unremarkable. No acute fracture. Soft tissues: Unremarkable. IMPRESSION: Acute pancreatitis without drainable collection, hemorrhage or necrosis. Hepatomegaly. Fluid levels in the duodenum and colon suggest enteritis. Dictated and Authenticated by: Rama Zavala MD. Ordering:HARRIS Wilkerson MD
[2020-09-19 07:59] LABS: Cholesterol 226 mg/dL (<200); HDL Cholesterol 31 mg/dL (40-60); Triglyceride 925 mg/dL (<150)
[2020-09-19 08:05] LABS: Source Nasal/Nares
--- NOTE | 2020-09-19 08:10 | NUR.NOTE ---
Nursing Note: Unable to end phenergen infusion. completed prior to taking over patient/needs co-signer.
[2020-09-19 08:12] LABS: LDL CHOLESTEROL 92 mg/dL (<100)
--- NOTE | 2020-09-19 08:15 | NUR.NOTE ---
Nursing Note: report from johnathon quesada. pt denies any needs at this time. LR infusing via pump.
--- NOTE | 2020-09-19 08:19 | NUR.NOTE ---
Nursing Note: repot to charge nurse. all questions answered.
--- OUTSIDE RECORDS SUMMARY | 2020-09-19 08:30 | XMS_ITS ---
:1980 Author Care Team Providers Name Role Phone DR. JOSE ANGEL CANO Primary Care Provider [phone] DR. JOSE ANGEL CANO Referring Provider [phone] JOSE ANGEL CANO MD - DIRECT Primary Care Provider [phone] JOSE ANGEL CANO MD Primary Care Provider Unavailable DR. MOTA Primary Care Provider Unavailable DR. MOTA Referring Provider Unavailable Allergies Code Code System Name Reaction Severity Status Onset 161 RxNorm Acetaminophen Nausea ? Active ? Vomiting ? Active ? 019284 RxNorm Lamictal Rash ? Active ? Medications Name Status Start Date Stop Date ? ? amitriptyline 25 mg tablet Active ? Not a vailable Take 1 tablet every day by oral route. bupropion HCl 100 mg tablet Completed 04/15/201904/07 Take 1 tablet twice a day by oral route. cyclobenzaprine 10 mg tablet Completed ? Take 1 tablet 3 times a day by oral route. diclofenac 3 % topical gel Completed 04/15/201904/22 APPLY TO LESION AREAS BY TOPICAL ROUTE 2 TIMES PER DAY gabapentin 300 mg capsule Active 04/15/2019 Not av ailable TAKE 1 CAPSULE (300 MG) BY ORAL ROUTE IN THE MORNING AND 3 CAPSULES AT BEDTIME hydroxyzine HCl 10 mg tablet Active ? Not available Take by oral route. Mag-Delay 70 mg tablet,delayed release Completed ? 10/12/2018 Take 1 tablet 3 times a day by oral route. pantoprazole 40 mg tablet,delayed release Active 2018 Not available Take 1 tablet every day by oral route. Remedy Antifungal 2 % topical cream Active 04/15/2019 Not available APPLY 4 GRAMS TOPICALLY TWICE DAILY NEEDED risperidone 1 mg tablet Active 04/15/2019 Not avai lable Take 2 tablets every day by oral route. trazodone 50 mg tablet Completed 04/15/2019 0 Take 3 tablets every day by oral route at bedtime. Problems Name Status Onset Date Source ? Cognitive Disorder Active 06/21/2018 ? Pancreatitis Active 06/21/2018 ? Pain in Right Foot Active 06/21/2018 ? Chronic Alcoholic Liver Disease Active 06/21/2018 ? Major Depression with Psychotic Features Active 019 ? Pain of Left Hip Joint Active 09/23/2019 ? Herpes Simplex Active ? ? Anemia Active ? ? Cannabis Dependence Active ? ? Alcohol Abuse Active ? ? Posttraumatic Stress Disorder Active ? ? Attention Deficit Hyperactivity Disorder Active ? ? Migraine Active ? ? Esophagitis Active ? ? Hepatic Encephalopathy Active ? ? Disease of Liver Active ? ? Blood in Urine Active ? ? Amenorrhea Active ? ? Low Back Pain Active ? ? Large Liver Active ? ? Partner Relationship Problem Active ? ? Adult Health Examination Active ? ? Screening for Malignant Neoplasm of Cervix Active ? ? Adopted Active ? ? Procedures Date Name Performed by ? 11/05/2016 Egd Information not avai lable Notes: EROSIVE ESOPHAGITIS, MILD PORT AL GASTROPATHY ? Urology Surgery Procedure Information no t available Notes: Ureteral implants 10/12/2018 MRI, Lower Extremity Joint(s), W/wo [facility] - Radiology Contrast [address] [place] [address] (Work Place) 09/23/2019 XR, Hip, Unilateral, 2 or 3 View [facility] - Radiology [address] [place] [address] (Work Place) Notes: bilateral tubal ligation- 10/11 Results Lab Results Date Name Specimen Result Interpretation Description Value Range Status Address ? 02/04/2020 Methylmalonate, S Normal Methylmalonic 225 0-[address] [facility] QN, Serum or Acid, Serum nmol/L nmol/L Hospital Plasma (Lab): 90 [facility] ? ? S ? Disclaimer: comment ? Final [facility] (Lab): 90 [facility] 02/04/2020 Transferrin, S Normal Cdt 0.7 % 0.0-1.[address] [facility] Carbohydrate-def % Hospital icient/total, (La b): 90 QN, Serum or Swif twater Plasma [facility] ? ? S ? Comment comment ? Final [facility] (Lab): 90 [facility] 02/04/2020 Iron + Total S Normal Fe 58 50-[address] [facility] Iron-binding ug/dL ug/dL Hosp ital Capacity (TIBC), (Lab): 90 Serum [facility] ? ? S Normal Tibc 333 250-[address] [facility] ug/dL ug/dL Hospital (Lab): 90 [facility] ? ? S ? Sat 17.4 % ? Final [facility] Hospital (Lab): 90 [facility] 02/04/2020 Uric Acid, Serum P High Uric 9.1 2.6-6.0 Fi [facility]al [place] or Plasma mg/dL mg/dL Hospita l (Lab): [address] [place] [address] 02/04/2020 Ferritin, Serum P Normal Ferr 125 8-252 Jess l [facility] or Plasma NG/mL NG/mL Hospita l (Lab): [address] [place] [address] 02/04/2020 CBC W/ Auto Diff WB High Wbc 11.1 4.8-10. Fi nal [facility] 10^3/mm 8 Hospital ^3 10^3/mm (Lab): 90 ^3 [facility] ? ? WB Low Rbc 3.89 3.90-5. [address] [facility] 10^6/mm 03 Hospital ^3 10^6/mm (Lab): 90 ^3 [facility] ? ? WB Low Hgb 11.4 12.0-[address] [facility] g/dL .5 g/dL Hospital (Lab): 90 [facility] ? ? WB Low Hct 33 % 36-46 % Final [facility] Hospital (Lab): 90 [facility] ? ? WB Normal Mcv 85.3 fL 81.0-99 [facility] 90 [facility] ? ? WB Normal Mch 29.3 pg 27.1-32 [facility] (Lab[facility] 90 [facility] ? ? WB Normal Mchc 34 g/dL 33-[address] [facility] g/dL Hospital (Lab): 90 [facility] ? ? WB Normal Rdw 13.0 % 11.6-14 [facility] .[facility] (Lab[facility] 90 [facility] ? ? WB Normal Platelets 187 150-400 Final [place] 10^3/mm 10^3/mm Hospital ^3 ^3 (Lab): 90 [facility] ? ? WB High Ne# 6.95 1.20-6. Final [facility] 10^3/mm 70 Hospital ^3 10^3/mm (Lab): 90 ^3 [facility] ? ? WB Normal Ly# 2.87 1.20-3. Final [facility] 10^3/mm 40 Hospital ^3 10^3/mm (Lab): 90 ^3 [facility] ? ? WB High Mo# 1.03 0.11-0. Final [facility] 10^3/mm 70 Hospital ^3 10^3/mm (Lab): 90 ^3 [facility] ? ? WB Normal Eo# 0.20 0.00-0. Final [facility] 10^3/mm 70 Hospital ^3 10^3/mm (Lab): 90 ^3 [facility] ? ? WB Normal Ba# 0.05 0.00-0. Final [facility] 10^3/mm 20 Hospital ^3 10^3/mm (Lab): 90 ^3 [facility] ? ? WB Normal Neut% 63 % 40-74 % Final [facility] per 100 per 100 Hospital WBC WBC (Lab): [facility] ? ? WB Normal Ly% 26 % 19-48 % Final [facility] per 100 per 100 Hospital WBC WBC (Lab): [facility] ? ? WB Normal Mo% 9.3 % 3.0-10. Final [facility] per 100 0 % per Hospital WBC 100 WBC (Lab): [facility] ? ? WB Normal Eo% 1.8 % 1.0-7.0 Final [facility] per 100 % per Hospital WBC 100 WBC (Lab): [facility] ? ? WB Normal Ba% 0.5 % 0.0-2.0 Final [facility] per 100 % per Hospital WBC 100 WBC (Lab): [address] [place] [address] 02/04/2020 Culture, Urine U ? Usour random ? Final [facility] (Lab): [facility] ? ? U ? Culresult ? ? Final [facility] e Hospital (Lab): [address] [place] [address] 02/04/2020 Urinalysis, U Normal Uwbc 0-2 0-2 Final C [facility] Microscopic /hpf /hpf Hospi mak (Lab): [address] [place] [address] ? ? U ABNORMAL Sqep 0-2 negativ Final [facility] /hpf e /hpf Hospital (Lab): [address] [place] [address] ? ? U ? Culture no ? Final [facility] Hospital (Lab): [address] [place] [address] 02/04/2020 Urinalysis, U ? Urine random ? Final [facility] Dipstick, Reflex Collection Hospital Micro Method (Lab): [address] [place] [address] ? ? U Normal Color light yellow Final [facility] yellow Hospital (Lab): [address] [place] [address] ? ? U Normal Ev clear clear Final [facility] Hospital (Lab): [address] [place] [address] ? ? U ABNORMAL Spgr 1.010 1.015-[address] [facility] .025 Hospital (Lab): [address] [place] [address] ? ? U ? Ph 5.5 ? Final [facility] Hospital (Lab): [address] [place] [address] ? ? U Normal Gluc negativ negativ Final [facility] e e Hospital (Lab): [address] [place] [address] ? ? U Normal Bilb negativ negativ Final [facility] e e Hospital (Lab): [address] [place] [address] ? ? U Normal Ket negativ negativ Final [facility] e e Hospital (Lab): [address] [place] [address] ? ? U Normal Bld negativ negativ Final [facility] e e Hospital (Lab): [address] [place] [address] ? ? U Normal Prot negativ negativ Final [facility] e e Hospital (Lab): [address] [place] [address] ? ? U Normal Uro 0.[address] [facility] E.U./dL E.U./dL Hospital (Lab): [address] [place] [address] ? ? U Normal Nit negativ negativ Final [facility] e e Hospital (Lab): [address] [place] [address] ? ? U ABNORMAL Leuko trace negativ Final [facility] [place] [place] [facility] (Lab): [address] [place] [address] 12/02/2019 Culture, Urine U ? Usour random ? Final [facility] Hospital (Lab): 90 [facility] ? ? U ? Col (Isolate >100,00 ? Final Co ttage 1) gram 0 Hospital Negative Rods) cfu/mL( ( Lab): 90 isolate [place] [address]) gram Road, negativ [facility] e e rods ? ? U ? Culresult escheri ? Final [place] ge (Isolate 1) humberto Hospi mak coli (Lab): 90 (isolat [place] e 1) [facility] ? ? U Unknown Esbl (Isolate neg ? ? C ottage 1) Hospital (Lab): 90 [facility] ? ? U Resistan Ampicillin >=32 ? ? Cot tage t (Isolate 1) Hospi mak (Lab): [address] [place] [address] ? ? U Res[place] Ampicillin/sul >=32 ? ? Brian t bactam (Isolate H ospital 1) (Lab): 90 [facility] ? ? U Suscepti Piperacillin/t <=4 ? ? Brian ble azobactam Hospita l (Isolate 1) (Lab) : 90 [facility] ? ? U Intermed Cefazolin 16 ? ? Obie addison iate (Isolate 1) Hospi mak (Lab): 90 [facility] ? ? U Suscepti Cefoxitin <=4 ? ? Obie addison ble (Isolate 1) Hospi mak (Lab): 90 [facility] ? ? U Suscepti Ceftazidime <=1 ? ? Co ttage ble (Isolate 1) Hospi mak (Lab): 90 [facility] ? ? U Suscepti Ceftriaxone <=1 ? ? Co ttage ble (Isolate 1) Hospi mak (Lab): 90 [facility] ? ? U Suscepti Cefepime <=1 ? ? [place] ge ble (Isolate 1) Hospi mak (Lab): 90 [facility] ? ? U Suscepti Ertapenem <=0.5 ? ? Cott age ble (Isolate 1) Hospi mak (Lab): 90 [facility] ? ? U Suscepti Imipenem <=0.25 ? ? Obie[place] ge ble (Isolate 1) Hospi mak (Lab): 90 [facility] ? ? U Suscepti Gentamicin <=1 ? ? Cot tage ble (Isolate 1) Hospi mak (Lab): 90 [facility] ? ? U Suscepti Tobramycin <=1 ? ? Cot tage ble (Isolate 1) Hospi mak (Lab): 90 [facility] ? ? U Suscepti Ciprofloxacin <=0.25 ? ? Cottage ble (Isolate 1) Hospi mak (Lab): 90 [facility] ? ? U Suscepti Levofloxacin <=0.12 ? ? C ottage ble (Isolate 1) Hospi mak (Lab): 90 [facility] ? ? U Suscepti Nitrofurantoin <=16 ? ? Cottage ble (Isolate 1) Hospi mak (Lab): 90 [facility] ? ? U Suscepti Trimeth/sulfa <=20 ? ? Cottage ble (Isolate 1) Hospi mak (Lab): 90 [facility] 09/23/2019 Prothrombin Time P Normal Pt 10.2 9.1-11. Fi nal [facility] sec 0 sec Hospital (Lab): 90 [facility] ? ? P ? Inr 1.02 ? Final [facility] Hospital (Lab): 90 [facility] 09/23/2019 CBC W/ Auto Diff WB Normal Wbc 6.7 4.8-10. Fi [facility] Hospital ^3 10^3/mm (Lab): 90 ^3 [facility] ? ? WB Low Rbc 3.67 3.90-5. Final [facility] 10^6/mm 03 Hospital ^3 10^6/mm (Lab): 90 ^3 [facility] ? ? WB Low Hgb 10.8 12.0-[address] [facility] g/dL .5 g/dL Hospital (Lab): 90 [facility] ? ? WB Low Hct 33 % 36-46 % [facility] (Lab): [facility] ? ? WB Normal Mcv 88.6 fL 81.0-99 Final [facility] .0 fL Hospital (Lab): 90 [facility] ? ? WB Low Mch 29.4 pg 33.0-36 Final [facility] .0 pg Hospital (Lab): [facility] ? ? WB Normal Mchc 33 g/dL 33-36 Final [facility] g/dL Hospital (Lab): [facility] ? ? WB Normal Rdw 12.4 % 11.6-14 Final [facility] .8 % Hospital (Lab): [facility] ? ? WB Normal Platelets 207 150-400 Final [place] 10^3/mm 10^3/mm Hospital ^3 ^3 (Lab): [facility] ? ? WB Normal Ne# 3.68 1.20-6. Final [facility] 10^3/mm 70 Hospital ^3 10^3/mm (Lab): 90 ^3 [facility] ? ? WB Normal Ly# 2.21 1.20-3. Final [facility] 10^3/mm 40 Hospital ^3 10^3/mm (Lab): 90 ^3 [facility] ? ? WB Normal Mo# 0.61 0.11-0. Final [facility] 10^3/mm 70 Hospital ^3 10^3/mm (Lab): 90 ^3 [facility] ? ? WB Normal Eo# 0.21 0.00-0. Final [facility] 10^3/mm 70 Hospital ^3 10^3/mm (Lab): 90 ^3 [facility] ? ? WB Normal Ba# 0.02 0.00-0. Final [facility] 10^3/mm 20 Hospital ^3 10^3/mm (Lab): 90 ^3 [facility] ? ? WB Normal Neut% 55 % 40-74 % Final [facility] per 100 per 100 Hospital WBC WBC (Lab): [facility] ? ? WB Normal Ly% 33 % 19-48 % Final [place] per 100 per 100 Hospital WBC WBC (Lab): 90 [facility] ? ? WB Normal Mo% 9.1 % 3.0-10. Final [facility] per 100 0 % per Hospital WBC 100 WBC (Lab): [address] [place] [address] ? ? WB Normal Eo% 3.1 % 1.0-7.0 Final [facility] per 100 % per Hospital WBC 100 WBC (Lab): [address] [place] [address] ? ? WB Normal Ba% 0.3 % 0.0-2.0 Final [facility] per 100 % per Hospital WBC 100 WBC (Lab): [address] [place] [address] 09/23/2019 Erythrocyte WB Normal Esr 13.00 0.00-20 Final [facility] Sedimentation mm/HR .00 Hos pital Rate by mm/HR (Lab): [address] [place] [address] 09/23/2019 CMP, Serum or P Normal Na 138 136-145 Final [facility] Plasma mEq/L mEq/L Hospital (Lab): [address] [place] [address] ? ? P Normal K 4.3 3.5-5.1 Final [facility] mEq/L mEq/L Hospital (Lab): [address] [place] [address] ? ? P Normal Cl 104 98-107 Final [facility] mEq/L mEq/L Hospital (Lab): [address] [place] [address] ? ? P Normal Co2 21 21-31 Final [facility] mEq/L mEq/L Hospital (Lab): [address] [place] [address] ? ? P ? Agap 17.0 ? Final [facility] calcula Hospital tion (Lab): [address] [place] [address] ? ? P High Glu 111 70-100 Final [facility] mg/dL mg/dL Hospital (Lab): [address] [place] [address] ? ? P Normal Bun 15 7-18 Final [facility] mg/dL mg/dL Hospital (Lab): [address] [place] [address] ? ? P High Creat 1.15 0.55-1. Final [facility] mg/dL 02 Hospital mg/dL (Lab): [address] [place] [address] ? ? P ? Bn/cr 13.4 ? Final [facility] ratio Hospital (Lab): [address] [place] [address] ? ? P Normal Ca 8.8 8.5-10. Final [facility] mg/dL 1 mg/dL Hospital (Lab): [address] [place] [address] ? ? P High Alkp 125 U/L 37-98 [facility] ([facility] [address] [place] [address] ? ? P Normal Alt 20 U/L 14-59 [facility] U[facility]L [facility] (Lab): [address] [place] [address] ? ? P Low Ast 12 U/L 15-37 [facility] U/L Hospital (Lab): [address] [place] [address] ? ? P Normal Tbil 0.2 <=1.2 [facility] mg/[facility] mg/dL Hospital (Lab): [address] [place] [address] ? ? P Normal Tp 7.3 6.4-8.2 [facility] g/[facility] g/dL Hospital (Lab): [address] [place] [address] ? ? P Normal Alb 3.7 3.4-5.[address] [facility] g/dL g/dL Hospital (Lab): [address] [place] [address] ? ? P ? Glob 3.61 ? [facility] (Lab): [address] [place] [address] ? ? P ? A/g 1.0 ? Final [facility] calc Hospital (Lab): [address] [place] [address] ? ? P ? Egfraa 64.35 ? Final [facility] Hospital (Lab): [address] [place] [address] ? ? P ? Egfrnaa 53.09 ? Final [facility] Hospital (Lab): [address] [place] [address] 09/23/2019 Ethanol, Blood P ? Alc <3 ? [facility] (Lab): [address] [place] [address] 09/23/2019 Vitamin B12, P Normal B12 391.00 193.00- Final [facility] Serum pg/mL 986.00 Hospital pg/mL (Lab): [address] [place] [address] 09/23/2019 TSH + Free T4, P Normal Tsh 2.036 0.360-[address] [facility] Serum mIU/mL .740 Hospital mIU/mL (Lab): [address] [place] [address] 09/23/2019 C Reactive P ? Crp <0.2 ? Final Co tt[facility] Protein, QN, mg/dL Hosp ital Serum or Plasma ( Lab): [address] [place] [address] 09/23/2019 CK (Creatine P Normal Ck 135 U/L 26-[address] [facility] Kinase), Total, U/L H ospital Serum (Lab): [address] [place] [address] 09/23/2019 Uric Acid, Serum P High Uric 9.5 2.6-6.[address] [facility] or Plasma mg/dL mg/dL Hospita l (Lab): [address] [place] [address] 09/23/2019 Hepatitis C Ab, S Normal HCV Ab 0.1 0.0-0.9 Fi [facility] Qual, [place], Serum s/co s/co H ospital or Plasma ratio ratio (Lab): [address] [place] [address] ? ? S ? Interpretation comment ? Final [facility] : Hospital (Lab): [address] [place] [address] 09/23/2019 HIV 1+2 AB + HIV S Normal HIV Screen 4TH non n on Final [facility] 1 P24 Ag, Generation Wrfx reactiv reactiv [facility] Qualitative e e (Lab) : Immunoassay, [facility] 09/23/2019 Treponema S Normal T Pallidum non non Final [facility] Pallidum Screen, Antibodies reactiv reactiv [facility] Serum, Reflex e e (La b): 90 [facility] 09/23/2019 Reticulocyte WB Normal Reticulocyte 2.2 % 0.6-2.[address] [facility] Count, Auto, Count % Hosp ital Blood (Lab): [address] [place] [address] 09/23/2019 Folate, Serum P Normal Fol 16.0 8.6-58. Final [facility] NG/mL 9 NG/mL Hospital (Lab): [address] [place] [address] 09/23/2019 Thiamine (Vit WB Normal Vit. B1, Whole 113.4 66.5 -[address] [facility] B1) Blood nmol/L 0.0 Hospital nmol/L (Lab): [address] [place] [address] 04/15/2019 Erythrocyte WB High Esr 42.00 0.00-[address] [facility] Sedimentation mm/HR .00 Hos pital Rate by mm/HR (Lab): [address] [place] [address] 04/15/2019 C Reactive P High Crp 2.00 <0.90 Final Co [facility] Protein, QN, mg/dL mg/dL Hosp ital Serum or Plasma ( Lab): [address] [place] [address] 04/15/2019 CMP, Serum or P Normal Na 139 136-145 Final [facility] Plasma mEq/L mEq/L Hospital (Lab): [address] [place] [address] ? ? P Normal K 3.8 3.5-5.1 Final [facility] mEq/L mEq/L Hospital (Lab): [address] [place] [address] ? ? P Normal Cl 103 98-107 Final [facility] mEq/L mEq/L Hospital (Lab): [address] [place] [address] ? ? P Normal Co2 25 21-32 Final [facility] mEq/L mEq/L Hospital (Lab): [address] [place] [address] ? ? P ? Agap 15.0 ? Final [facility] calcula Hospital tion (Lab): [address] [place] [address] ? ? P Normal Glu 88.0 70.0-10 Final [facility] mg/dL 0.0 Hospital mg/dL (Lab): [address] [place] [address] ? ? P Normal Bun 15 7-18 Final [facility] mg/dL mg/dL Hospital (Lab): [address] [place] [address] ? ? P Normal Creat 1.00 0.55-1. Final [facility] mg/dL 02 Hospital mg/dL (Lab): [address] [place] [address] ? ? P ? Bn/cr 15.0 ? Final [facility] ratio Hospital (Lab): [address] [place] [address] ? ? P Normal Ca 9.0 8.5-10. Final [facility] mg/dL 1 mg/dL Hospital (Lab): [address] [place] [address] ? ? P Normal Alkp 78 U/L 37-98 Final [facility] U/L Hospital (Lab): [address] [place] [address] ? ? P Normal Alt 21 U/L 14-59 Final [facility] U/L Hospital (Lab): [address] [place] [address] ? ? P Normal Ast 21 U/L 15-37 Final [facility] U/L Hospital (Lab): [address] [place] [address] ? ? P Normal Tbil 0.5 <=1.[address] [facility] mg/dL mg/dL Hospital (Lab): 90 [facility] ? ? P High Tp 8.6 6.4-8.[address] [facility] g/dL g/dL Hospital (Lab): 90 [facility] ? ? P Normal Alb 3.5 3.4-5.[address] [facility] g/dL g/dL Hospital (Lab): 90 [facility] ? ? P ? Glob 5.10 ? Final [facility] mg/dL Hospital (Lab): 90 [facility] ? ? P ? A/g 0.7 ? Final [facility] calc Hospital (Lab): [address] [place] [address] ? ? P ? Egfraa 76.04 ? Final [facility] Hospital (Lab): 90 [facility] ? ? P ? Egfrnaa 62.74 ? Final [facility] Hospital (Lab): [address] [place] [address] 04/15/2019 Ethanol, Blood P ? Alc <3 ? Final [facility] mg/dL Hospital (Lab): [address] [place] [address] 04/15/2019 CBC W/ Auto Diff WB High Wbc 13.4 4.8-10. Fi nal [facility] 10^3/mm 8 Hospital ^3 10^3/mm (Lab): 90 ^3 [facility] ? ? WB Low Rbc 3.71 3.90-5. Final [facility] 10^6/mm 03 Hospital ^3 10^6/mm (Lab): 90 ^3 [facility] ? ? WB Low Hgb 11.8 12.0-[address] [facility] g/dL .5 g/dL Hospital (Lab): 90 [facility] ? ? WB Normal Hct 37 % 36-46 % Final [facility] Hospital (Lab): 90 [facility] ? ? WB High Mcv 100.5 81.0-[address] [facility] fL .0 fL Hospital (Lab): 90 [facility] ? ? WB Low Mch 31.8 pg 33.0-36 [facility] (Lab[facility] 90 [facility] ? ? WB Low Mchc 32 g/dL 33-36 Final [facility] g/dL Hospital (Lab): [facility] ? ? WB Normal Rdw 13.1 % 11.6-14 Final [facility] .8 % Hospital (Lab): [facility] ? ? WB Normal Platelets 203 150-400 Final [place] 10^3/mm 10^3/mm Hospital ^3 ^3 (Lab): [facility] ? ? WB High Ne# 9.54 1.20-6. Final [facility] 10^3/mm 70 Hospital ^3 10^3/mm (Lab): 90 ^3 [facility] ? ? WB Normal Ly# 2.26 1.20-3. Final [facility] 10^3/mm 40 Hospital ^3 10^3/mm (Lab): 90 ^3 [facility] ? ? WB High Mo# 1.38 0.11-0. Final [facility] 10^3/mm 70 Hospital ^3 10^3/mm (Lab): 90 ^3 [facility] ? ? WB Normal Eo# 0.14 0.00-0. Final [facility] 10^3/mm 70 Hospital ^3 10^3/mm (Lab): 90 ^3 [facility] ? ? WB Normal Ba# 0.04 0.00-0. Final [facility] 10^3/mm 20 Hospital ^3 10^3/mm (Lab): 90 ^3 [facility] ? ? WB Normal Neut% 72 % 40-74 % Final [facility] per 100 per 100 Hospital WBC WBC (Lab): [facility] ? ? WB Low Ly% 17 % 19-48 % Final [facility] per 100 per 100 Hospital WBC WBC (Lab): [facility] ? ? WB High Mo% 10.3 % 3.0-10. Final [facility] per 100 0 % per Hospital WBC 100 WBC (Lab): [facility] ? ? WB Normal Eo% 1.0 % 1.0-7.0 Final [facility] per 100 % per Hospital WBC 100 WBC (Lab): [facility] ? ? WB Normal Ba% 0.3 % 0.0-2.0 Final [facility] per 100 % per Hospital WBC 100 WBC (Lab): 90 [facility] Past Encounters 09/23/2019 Pain of Left Hip Joint RAGINI Vaz: [address] [place] [phone], Ph. 04/22/2019 Adriano Cervantes PA: [address] [place] [phone], Ph. Social History Tobacco Smoking Status Current Every Day Smoker Vaccine List Vaccine Type influenza, unspecified formulation 02/28/2017 pneumococcal polysaccharide PPV23 05/13/2014 Td (adult) 07/22/2015 Tdap 12/06/2005 Plan of Care Patient Instructions I did discuss with her that I think this is probably coming intrinsically from the hip. Is possible she has some DAVID and the degeneration is causing some pain as well. I have suggested that we try the intra-articular steroid injection wh ich we discussed in the past. If this did not help her or give her any sustained relief then I would suggest an MRI scan with contrast to check for labral tear, F AI, as well as AVN in an early stage. Sh rodney understands and agrees to proceed. There is no contraindications. We will get this set up for next available time. If she has any questions in the interim she will contact us. This note was created using [employer] voice recognition software. It was reviewed for major content. However, there may be multiple small discrepancies and errors due to the voice recognition aspects of the software. As I discussed with her she does sharif ve a history of back pain that is been going on for some time. It is possible this could have been coming from her hip this whole time but hard to know. I have zacarias ggested that we try a corticosteroid inj ection in the hip for diagnostic and potential therapeutic purposes. The risks and benefits of this were discussed and she agreed to proceed. We will see if we ge t this set up hopefully within the next week or so. She will need to keep a log of how she feels after the injection and then depending on how she does we will go from there. If she gets no relief then I think we need to investigate her back as a significant causative factor. She understands and will follow-up as scheduled. Also, not mentioned above, she does have a significant history of EtOH abuse. Possible she could have some AVN although I do not see that on her films today. If she does not get any relief from her preston icosteroid injection then I would sugges t potentially getting an MRI scan for the hip to rule out AVN. This note was created using [employer] voice recognition software. It was reviewed for major content. However, there may be multiple small discrepancies and errors due to the voice recognition aspects of the software. Reminders Provider Appointments None recorded. ? ? Lab None recorded. ? ? Referral None recorded. ? ? Procedures None recorded. ? ? Surgeries None recorded. ? ? Imaging None recorded. ? ? Vitals Weight Blood Pressure 63.05 kg 134/78 mm[Hg]
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
[2020-09-19] MEDS: MORPHine 4 MG/ML SYR IVP (08:58)
[2020-09-19] MEDS: Normal Saline Flush 10 ML SYR IVP ×3 (08:59→19:56)
[2020-09-19] MEDS: Pantoprazole 40 MG VIAL IVP (09:27)
[2020-09-19] MEDS: Normal Saline 1,000 ML 200 ML IV ×3 (10:06→18:09)
[2020-09-19] MEDS: LORazepam 2 MG/ML VIAL 1 MG IVP (10:27)
[2020-09-19 10:38] LABS: COVID-19 PCR Negative (Negative)
[2020-09-19] MEDS: MAGNESIUM SULFATE 8.12 MEQ, MULTIVITAMIN 10 ML, THIAMINE 100 MG, FOLIC ACID 1 MG in Nor... 168.867 MG IV (11:14)
[2020-09-19] MEDS: HYDROmorphone 2 MG/ML VIAL IVP ×2 (14:38→19:56)
--- NOTE | 2020-09-19 14:58 | HPE_ITS ---
Date of service: 09/19/20 Time of Service: 14:58 Assessment and Plan Assessment and plan (1) Acute pancreatitis: Start date: 09/19/20 Start time: 16:01 Status: Acute Assessment and plan: Evidenced by CT and elevated lipase Keep NPO, Dilaudid for pain Banana bag and NS at 200/hr Repeat labs in am Will place on po medication for high triglycerides when tolerating diet will start creon as well when starting diet She did quit for 8 months and after conversation with daughter had two alcoholic beverages yesterday. CIWA ordered. Qualifiers: Pancreatitis type: alcohol induced Acute pancreatitis complication: no infection or necrosis Qualified Code(s): K85.20 - Alcohol induced acute pancreatitis without necrosis or infection (2) High triglycerides: Start date: 09/19/20 Start time: 16:09 Status: Acute Assessment and plan: With level over 900 will repeat in am and treat as above (3) Chronic renal disease: Start date: 09/19/20 Start time: 16:08 Status: Chronic Assessment and plan: appears to be at baseline (4) Tobacco use: Start date: 09/19/20 Start time: 16:09 Status: Chronic Assessment and plan: offered nicotine at this time. Not craving nicotine. No interest in quiting (5) Cirrhosis: Start date: 09/19/20 Start time: 16:13 Status: Chronic Assessment and plan: as above (6) Chronic alcohol abuse: Start date: 09/19/20 Start time: 16:15 Status: Chronic Assessment and plan: States first drink in 8 months as above (7) DVT prophylaxis: Start date: 09/19/20 Start time: 16:15 Status: Acute Assessment and plan: Teds and SCds for 40 ambulatory female, possible risk for varicies. (8) Discharge planning issues: Start date: 09/19/20 Start time: 16:16 Status: Acute Assessment and plan: Home when medically ready discussed with Dr. logan History of Present Illness History of Present Illness Chief Complaint: Pancreatitis, hypertriglyceridmeia Narrative: 40 y.o female with PMH ETOH abuse, Tobacco abuse, ADHD, Migraines, Cirrhosis, CRD, Pancreatitis, presents to [facility] with abdominal pain after she states being sober for 8 months and having 2 beers yesterday after speaking with 15 y.o daughter. This conversation caused her to fall off the wagon prompting severe abdominal pain radiating to back and chest. 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 Labs in the ED show wbc 11.32, anion gap 13.4, creatinine 1.3, alk phos 159, triglycerides 925 total cholesterol 226, lipase 3170. CXR negative. CT abd and pelvis w/o contrast acute pancreatitis without drainable collection, hemorrhage or necrosis. hepatomegaly, and enteritis. Hospitalist service was asked to admit for further management. Due to severe pain, she was switched to IV dilaudid from morphine, given 1 dose of ativan to help with pain and anxiety. Placed on CIWA as unsure how reliable information is. She did have an elevated glucose level on admission as well though she will be made NPO until pain subsides will check A1c and BID fingersticks. Banana bag infusing with IVF at 200/hr, repeat labs in am. Will place on medication for triglycerides when able to tolerate po. She denies CP, SOB, n/v/d. Review of Systems All systems reviewed & are unremarkable except as noted in HPI and below PFSH Medical History (Updated 09/19/20 @ 16:15 by Rimma Darby NP) Anemia Bipolar disorder Cannabis dependence Chronic alcoholism in remission pt. states she has been sober for 8 months Chronic erosive gastritis Cognitive dysfunction Esophagitis Gastritis History of esophageal reflux Osteoarthritis of left hip Papilloma of larynx PTSD (post-traumatic stress disorder) Schizophrenia Supraglottic edema secondary to procedure Surgical History History of section History of esophagogastroduodenoscopy (EGD) (~04/13/20) History of tubal ligation Social History Smoking/Tobacco Use Status: Current every day Tobacco Type: cigarettes Smoking risk assessment performed?: Yes Alcohol Intake: current Alcohol Intake frequency: a few times a month Drug use: Daily Substance use type: marijuana Do you feel safe at home: Yes Do you feel safe in your relationship?: Yes Meds Allergies and Home Medications Allergies Allergy/AdvReac Type Severity Reaction Status Date / Time lamotrigine [From Lamictal] Allergy Severe Blistery Verified 09/19/20 05:26 rash per Marbella Cutler acetaminophen AdvReac Intermediate Nausea & Verified 09/19/20 05:26 vomiting Home Medications Medication Instructions Recorded Confirmed Type albuterol sulfate 90 mcg/actuation 2 puff IH Q6H PRN 11/26/19 09/19/20 History aerosol inhaler amitriptyline 50 mg tablet 50 mg PO QHS 11/26/19 09/19/20 History cyclobenzaprine 10 mg tablet 10 mg PO HS 11/26/19 09/19/20 History hydroxyzine HCl 25 mg tablet 25 mg PO TID PRN 11/26/19 09/19/20 History risperidone 1 mg tablet 1 mg PO DAILY 11/26/19 09/19/20 History risperidone 2 mg tablet 2 mg PO QHS 11/26/19 09/19/20 History gabapentin 600 mg PO QHS 03/17/20 09/19/20 History pantoprazole [Protonix] 40 mg PO DAILY #30 tab 04/13/20 09/19/20 Rx Exam Const General: cooperative, comfortable, no acute distress and ill appearing chronically Nutritional Appearance: obese HENMT Head: normal to inspection and atraumatic Mouth: moist mucous membranes abnormal (dry) Teeth and gingiva: poor dentition Eyes Conjunctivae: conjunctivae normal Sclera: sclerae normal Pupils: PERRL EOM: EOM intact bilaterally Neck Neck: no JVD Thyroid: thyroid normal Chest Chest: normal inspection of the chest Resp Effort & Inspection: normal respiratory effort and able to speak in complete sentences Auscultation: clear to auscultation bilaterally Cardio Jugular venous pressure: no JVD Rate: regular rate Rhythm: regular rhythm Heart Sounds: S1 normal and S2 normal GI Inspection: normal to inspection Palpation: soft and guarding Other: pain with palpation to LUQ and mid umbilicus General: No CVA tenderness and deferred Back/Spine/Pelvis Back: no CVA tenderness Thoracic/Lumbar Spine: thoracic and lumbar spine normal to inspection Skin General skin exam: no rashes or lesions noted Neuro General: patient alert, patient awake and patient oriented x3 Extrem General: normal to inspection, full ROM and no clubbing, cyanosis or edema Right lower extremity: normal to inspection Results Labs Result diagrams: 09/19/20 05:36 09/19/20 05:36 Labs: Laboratory Results - last 24 hr 09/19/20 09/19/20 09/19/20 05:36 05:36 05:36 WBC 11.32 H RBC 4.02 Hgb 12.4 Hct 37.2 MCV 92.5 MCH 30.8 MCHC 33.3 RDW 12.6 Plt Count 285 MPV 10.2 Immature Gran % 0.4 Neutrophils % 56.0 Lymphocytes % 33.0 Monocytes % 7.4 Eosinophils % 2.7 Basophils % 0.5 Nucleated RBC % 0 Absolute Neutrophils 6.34 Absolute Lymphocytes 3.74 H Absolute Monocytes 0.84 H Absolute Eosinophils 0.31 Absolute Basophils 0.06 Sodium 141 Potassium 3.8 Chloride 103 Carbon Dioxide 24.6 Anion Gap 13.4 H BUN 11 Creatinine 1.3 H Estimated GFR/1.73 m2 45.84 Glucose 185 H Calcium 8.5 Magnesium 1.8 Total Bilirubin 0.4 AST 14 L ALT 18 Alkaline Phosphatase 159 H Troponin I < 0.05 Total Protein 7.6 Albumin 3.3 L Triglycerides Total Cholesterol LDL Cholesterol Direct LDL Cholesterol, Calc HDL Cholesterol Lipase 3170 H Serum HCG, Qual Negative COVID-19 Source SARS-CoV-2 (PCR) 09/19/20 09/19/20 09/19/20 05:36 08:00 08:38 WBC RBC Hgb Hct MCV MCH MCHC RDW Plt Count MPV Immature Gran % Neutrophils % Lymphocytes % Monocytes % Eosinophils % Basophils % Nucleated RBC % Absolute Neutrophils Absolute Lymphocytes Absolute Monocytes Absolute Eosinophils Absolute Basophils Sodium Potassium Chloride Carbon Dioxide Anion Gap BUN Creatinine Estimated GFR/1.73 m2 Glucose Calcium Magnesium Total Bilirubin AST ALT Alkaline Phosphatase Troponin I Cancelled Total Protein Albumin Triglycerides 925 H Total Cholesterol 226 H LDL Cholesterol Direct 92 LDL Cholesterol, Calc Tnp HDL Cholesterol 31 L Lipase Serum HCG, Qual COVID-19 Source Nasal/nares SARS-CoV-2 (PCR) Negative Last Vital Signs Temp 36.4 C L 09/19/20 14:02 Pulse 115 H 09/19/20 14:02 Resp 20 09/19/20 14:02 BP 132/88 09/19/20 14:02 Pulse Ox 95 09/19/20 14:02 COVID-19 Screening Have you, or household traveled for leisure in last 14 days?: No Had IN PERSON contact w/suspected or confirmed C-19 person: No
[2020-09-19] MEDS: risperiDONE 1 MG TAB 3 MG PO (21:07)
[2020-09-19] MEDS: Albuterol 2.5 MG/3 ML INH SOLN VIAL UPD (22:14)
[2020-09-19] MEDS: diphenhydrAMINE 50 MG/ML VIAL 12.5 MG IVP (22:16)
--- NOTE | 2020-09-19 22:34 | DI.VRAD_ITS ---
PROCEDURE INFORMATION: Exam: XR Chest Exam date and time: 09/19/2020 9:46 PM Age: 40 years old Clinical indication: Other: Acute hypoxia TECHNIQUE: Imaging protocol: XR of the chest. Views: 1 view. COMPARISON: CR XR CHEST 2V PA LATERAL 09/19/2020 6:01 AM FINDINGS: Lungs: Unremarkable. No consolidation. Pleural spaces: Unremarkable. No pleural effusion. No pneumothorax. Heart/Mediastinum: Unremarkable. No cardiomegaly. Bones/joints: Unremarkable. IMPRESSION: No acute findings. Dictated and Authenticated by: Josiah Mullen MD. Ordering:MARIA ELENA Dunlap MD
[2020-09-20] VITALS (10 sets, daily range): BP systolic 92–134; BP diastolic 62–83; PULSE 117–146; RESP 1–21; TEMP 36.1–37.6; O2SAT 92–98
--- NOTE | 2020-09-20 | DI.US_ITS ---
Exam(s) US RENAL EXAM: US RENAL CLINICAL HISTORY: r/o pyelo TECHNIQUE: Ultrasound of both kidneys performed using standard protocol. COMPARISON: US US RENAL from 02/24/2020 FINDINGS: Exam limited due to body habitus and patient not being able to be cooperative with respective positio ra nor breath holding. RIGHT KIDNEY: Measures 9.0 cm in length. No cysts evident. Normal cortical thickness and corticomedullary different iation .No solid masses No intrarenal calculi nor hydronephrosis. LEFT KIDNEY: Measures 10.5 cm in length. No cysts evident. Normal cortical thickness and corticomedullary differe ntiaion. No solids masses. No intrarenal calculi nor hydonephrosis. URINARY BLADDER: Prevoid volume is 12 cc Postvoid volume is not done There appears to be some fluid in the pelvis adjacent to the urinary bladder. Ureterovesical jets: Both identified and appear symmetrical IMPRESSION: 1. No obvious abnormality in the kidneys. No hydronephrosis. 2. Only 12 cc urine in the bladder lumen and therefore not adequately distended for examination to r ule out bladder wall mass. However, there appears to be some free fluid in the pelvis adjacent to th e urinary bladder. If clinically indicated follow-up CT scan can be performed. DATA REPOSITORY:
[2020-09-20] MEDS: Normal Saline 1,000 ML 200 ML IV ×4 (00:03→20:54)
[2020-09-20] MEDS: HYDROmorphone 2 MG/ML VIAL IVP ×5 (02:47→21:40)
[2020-09-20 07:27] LABS: Abs Immature Grans 0.06 10^3/uL (0.0-0.06); HCT 36.9 % (36.0-46.0); HGB 11.6 g/dL (11.2-15.7); MCH 30.3 pg (27.0-33.0); MCHC 31.4 % (32.0-36.0); MCV 96.3 fL (80-95); MPV 10.8 fL (8.0-11.0); Nucleated RBC 0 %; RBC 3.83 10^6/uL (3.93-5.22); RDW 13.2 % (11.7-14.6); RDW-SD 47.1 fL
[2020-09-20 07:45] LABS: Bilirubin Negative (Negative); Blood Large (Negative); Clarity Sl Cloudy (Clear); Glucose Negative (Negative); Ketones Negative (Negative); Leukocyte Esterase Negative (Negative); Nitrite Negative (Negative); Specific Gravity 1.025 (1.005-1.025); Urobilinogen 0.2 EU/dL (Up TO 0.2); pH 5.5 (5-8)
[2020-09-20 07:46] LABS: ALT 12 U/L (14-59); AST 14 U/L (15-37); Albumin 2.5 g/dL (3.4-5.0); Alkaline Phosphatase 120 U/L (46-116); Anion Gap 7.8 mmol/L (3-11); BUN 11 mg/dL (7-18); Bilirubin, Direct 0.2 mg/dL (0.0-0.2); Bilirubin, Total 0.7 mg/dL (0.2-1.0); CO2 23.2 mmol/L (21.0-32.0); CREATININE 1.2 mg/dL (0.55-1.02); Calcium 7.8 mg/dL (8.5-10.1); Chloride 110 mmol/L (98-107); Estimated GFR 50.28 (mL/min/1.73m2); Glucose 95 mg/dL (74-106); Magnesium 1.9 mg/dL (1.8-2.4); Potassium 4.4 mmol/L (3.5-5.1); Sodium 141 mmol/L (136-145)
[2020-09-20 07:51] LABS: Absolute Eosinophil Count 0.14 10^3/uL (0.0-0.7); Absolute Lymphocyte Count 0.41 10^3/uL (1.2-3.4); Absolute Monocyte Count 2.31 10^3/uL (0.1-0.8); Absolute Neutrophil Count 10.74 10^3/uL (1.2-6.7); Bands % 6; Diff Comment Manual Differential; Platelet Count 198 10^3/uL (130-400); Polychromasia Present
[2020-09-20 07:55] LABS: Hemoglobin A1C 5.2 % (<5.7)
[2020-09-20] MEDS: Pantoprazole 40 MG VIAL IVP (08:02)
[2020-09-20] MEDS: Nicotine 14 MG/24 HR PATCH TD (08:02)
[2020-09-20] MEDS: Normal Saline Flush 10 ML SYR IVP ×2 (08:03→21:41)
[2020-09-20 08:05] LABS: Triglyceride 458 mg/dL (<150)
[2020-09-20 08:14] LABS: Bacteria Many HPF (Negative); C & S Indicated? Yes; Casts Negative LPF (Negative); Crystals Rare Amorphous HPF (Negative); Epithelial Cells Rare HPF (Negative); Mucus Negative (Negative); RBC >50 HPF (0-2); WBC 0-2 HPF (0-5)
[2020-09-20 08:18] LABS: LDL CHOLESTEROL 68 mg/dL (<100)
[2020-09-20] MEDS: LORazepam 2 MG/ML VIAL 1 MG IVP (09:13)
[2020-09-20] MEDS: Levalbuterol 0.63 MG/3 ML UPD VIAL (09:25)
--- NOTE | 2020-09-20 10:22 | RESPIRATORY ---
Pt says she feels SOB and describes it being difficult take a deep breath or cough because of pain. HR in 130's so albuterol changed to xopenex. Neb done with no change. 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
[2020-09-20 11:01] LABS: Lactate 1.5 mmol/L (0.6-1.4)
[2020-09-20 11:11] LABS: C-Reactive Protein 21.55 mg/dL (0.0-0.3)
[2020-09-20] MEDS: cefTRIAXone 2 GM/50 ML BAG IVPB (11:49)
--- NOTE | 2020-09-20 11:55 | W.PM.PROGNOT ---
Date of Service Date of service: 09/20/20 Time of Service: 11:55 Assessment and Plan Assessment and plan (1) Sepsis: Start date: 09/20/20 Start time: 12:12 Status: Suspected Assessment and plan: Patient appearing toxic. CRP 21, leukocytosis 13.60 requiring hugo d/t retention last night. Renal u/s with medical disease no hydronephrosis. concern for sepsis based on HR, Resp status. Ceftriaxone 2 gm initiated. Procal 0.6 Continue to monitor status. consider pyelo Qualifiers: Sepsis type: sepsis due to unspecified organism Sepsis acute organ dysfunction status: with acute organ dysfunction Severe sepsis acute organ dysfunction type: acute renal failure Acute renal failure type: unspecified Severe sepsis shock status: with septic shock Qualified Code(s): A41.9 - Sepsis, unspecified organism; R65.21 - Severe sepsis with septic shock; N17.9 - Acute kidney failure, unspecified (2) Acute pancreatitis: Start date: 09/20/20 Start time: 12:42 Status: Acute Assessment and plan: Evidenced by CT and elevated lipase Keep NPO, Dilaudid for pain increased as pain is worse Banana bag and NS at 200/hr Repeat labs in am Will place on po medication for high triglycerides when tolerating diet. Triglycerides have decreased to 458 will start creon as well when starting diet She did quit for 8 months and after conversation with daughter had two alcoholic beverages yesterday. ANANTWA ordered. Qualifiers: Pancreatitis type: alcohol induced Acute pancreatitis complication: no infection or necrosis Qualified Code(s): K85.20 - Alcohol induced acute pancreatitis without necrosis or infection (3) High triglycerides: Start date: 09/20/20 Start time: 12:43 Status: Acute Assessment and plan: Level is 458 today as above (4) Chronic renal disease: Start date: 09/20/20 Start time: 12:43 Status: Chronic Assessment and plan: appears to be at baseline (5) Tobacco use: Start date: 09/20/20 Start time: 12:43 Status: Chronic Assessment and plan: offered nicotine at this time. Not craving nicotine. No interest in quiting (6) Cirrhosis: Start date: 09/20/20 Start time: 12:43 Status: Chronic Assessment and plan: as above (7) Chronic alcohol abuse: Start date: 09/20/20 Start time: 12:43 Status: Chronic Assessment and plan: States first drink in 8 months as above (8) DVT prophylaxis: Start date: 09/20/20 Start time: 12:43 Status: Acute Assessment and plan: Teds and SCds for 40 ambulatory female, possible risk for varicies. (9) Discharge planning issues: Start date: 09/20/20 Start time: 12:43 Status: Acute Assessment and plan: Home when medically ready discussed with Dr. logan Subjective Subjective Patient reports: other Interval history since last seen: Patient c/o severe pain, she does not look well. HR is in the 120's, bp soft, concern for possible sepsis. Unsure of source at this time. Hugo inserted last night d/t urinary retention, renal u/s with multifocal cortical thinning could reflect medical renal disease.. CRP elevated at 21, procal pending, blood cultures ordered, Ceftriaxone 2 gm ordered. WBC continues to trend up. Patient requiring oxygen at this time as she is doing shallow breathing likely due to pain. IS encourage. CXR with atelectasis. She denies CP. Continue to monitor. Exam Const General: cooperative, comfortable, in distress, anxious and ill appearing chronically Nutritional Appearance: obese [facility] Head: normal to inspection and atraumatic Mouth: moist mucous membranes abnormal (dry) Teeth and gingiva: poor dentition Eyes Conjunctivae: conjunctivae normal Sclera: sclerae normal Pupils: PERRL EOM: EOM intact bilaterally Neck Neck: no JVD Thyroid: thyroid normal Chest Chest: normal inspection of the chest Resp Effort & Inspection: abnormal respiratory effort, able to speak in complete sentences and abnormal respiratory pattern (taking shallow breaths) Auscultation: clear to auscultation bilaterally Cardio Jugular venous pressure: no JVD Rate: regular rate Rhythm: regular rhythm Heart Sounds: S1 normal and S2 normal GI Inspection: normal to inspection Palpation: soft and guarding General: No CVA tenderness and deferred Back/Spine/Pelvis Back: no CVA tenderness Thoracic/Lumbar Spine: thoracic and lumbar spine normal to inspection Skin General skin exam: no rashes or lesions noted Neuro General: patient alert, patient awake and patient oriented x3 Extrem General: normal to inspection, full ROM and no clubbing, cyanosis or edema Right lower extremity: normal to inspection Objective Last Vital Signs Temp 37.2 C 09/20/20 10:30 Pulse 131 H 09/20/20 10:30 Resp 18 09/20/20 10:30 BP 124/62 09/20/20 10:30 Pulse Ox 92 09/20/20 10:30 Laboratory Results - last 24 hr 09/19/20 09/20/20 09/20/20 21:57 06:05 06:05 WBC RBC Hgb Hct MCV MCH MCHC RDW Plt Count MPV Immature Gran % Neutrophils % Band Neutrophils % Lymphocytes % Monocytes % Eosinophils % Basophils % Nucleated RBC % Absolute Neutrophils Absolute Lymphocytes Absolute Monocytes Absolute Eosinophils Absolute Basophils RBC Morphology Polychromasia VBG Lactate Sodium 141 Potassium 4.4 Chloride 110 H Carbon Dioxide 23.2 Anion Gap 7.8 BUN 11 Creatinine 1.2 H Estimated GFR/1.73 m2 50.28 Glucose 95 D Hemoglobin A1c 5.2 Calcium 7.8 L Magnesium 1.9 Total Bilirubin 0.7 Conjugated Bilirubin 0.2 AST 14 L ALT 12 L Alkaline Phosphatase 120 H C-Reactive Protein Total Protein 6.0 L Albumin 2.5 L Triglycerides 458 H LDL Cholesterol Direct 68 Urine Color Yellow Urine Clarity Sl cloudy Urine pH 5.5 Ur Specific [place] 1.025 Urine Protein Negative Urine Ketones Negative Urine Blood Large H Urine Nitrite Negative Urine Bilirubin Negative Urine Urobilinogen 0.2 Ur Leukocyte Esterase Negative Urine RBC >50 H Urine WBC 0-2 Ur Epithelial Cells Rare Urine Crystals Rare amorphous Urine Bacteria Many Urine Casts Negative Urine Mucus Negative Ur Culture Indicated? Yes Urine Glucose Negative 09/20/20 09/20/20 09/20/20 06:05 10:50 10:50 WBC 13.60 H RBC 3.83 L Hgb 11.6 Hct 36.9 MCV 96.3 H MCH 30.3 MCHC 31.4 L RDW 13.2 Plt Count 198 MPV 10.8 Immature Gran % See Differential Neutrophils % 73.0 Band Neutrophils % 6 Lymphocytes % 3.0 Monocytes % 17.0 Eosinophils % 1.0 Basophils % 0.0 Nucleated RBC % 0 Absolute Neutrophils 10.74 H Absolute Lymphocytes 0.41 L Absolute Monocytes 2.31 H Absolute Eosinophils 0.14 Absolute Basophils 0.00 RBC Morphology See below Polychromasia Present VBG Lactate 1.5 H Sodium Potassium Chloride Carbon Dioxide Anion Gap BUN Creatinine Estimated GFR/1.73 m2 Glucose Hemoglobin A1c Calcium Magnesium Total Bilirubin Conjugated Bilirubin AST ALT Alkaline Phosphatase C-Reactive Protein 21.55 H Total Protein Albumin Triglycerides LDL Cholesterol Direct Urine Color Urine Clarity Urine pH Ur Specific [place] Urine Protein Urine Ketones Urine Blood Urine Nitrite Urine Bilirubin Urine Urobilinogen Ur Leukocyte Esterase Urine RBC Urine WBC Ur Epithelial Cells Urine Crystals Urine Bacteria Urine Casts Urine Mucus Ur Culture Indicated? Urine Glucose
--- NOTE | 2020-09-20 12:03 | DI.VRAD_ITS ---
PROCEDURE INFORMATION: Exam: US Retroperitoneal; Complete; Kidneys and Bladder Exam date and time: 09/20/2020 10:26 AM Age: 40 years old Clinical indication: Other: Abd pain. Pancreatitis. TECHNIQUE: Imaging protocol: Real-time ultrasound of the retroperitoneum with image documentation. Complete exam focused on the kidneys and bladder. COMPARISON: SD US ABDOMEN 10/31/2019 7:24 AM FINDINGS: Right kidney: Right kidney is 9.0 x 4.1 by 3.5 cm. There is mild multifocal cortical thinning .No hydronephrosis or nephrolithiasis. Left kidney: Left kidney is 10.5 x 4.6 x 5.3 cm. There is mild multifocal cortical thinning. No hydronephrosis or nephrolithiasis. Intraperitoneal space: There is a small free fluid adjacent to the urinary bladder, probably a small ascites measuring up to 3.4 cm. Urinary bladder: Urinary bladder is nondistended with a prevoid volume of 12.1 mL. Postvoid volume is not obtained, probably due to lack of distention. There is no urinary bladder wall thickening. No bladder calculi or mass. IMPRESSION: 1. Mild multifocal cortical thinning could reflect medical renal disease. No hydronephrosis or nephrolithiasis. 2. Nondistended urinary bladder with a prevoid volume of 12.1 mL. No gross abnormality within the bladder. Dictated and Authenticated by: Jorge Means MD. Ordering:BRENDA Shanks MD
[2020-09-20 12:29] LABS: Procalcitonin 0.6 ng/mL
[2020-09-20] MEDS: ACETAMINOPHEN 1,000 MG/100 ML BTL 400 MG IVPB (15:35)
--- NOTE | 2020-09-20 19:23 | PDOC.CMPRO ---
- If Service Date Differs Date of service: 09/20/20 Time of Service: 19:24 Care Management Progress Note S/O: Celia was sitting up in bed when CM met with her. She was obviously uncomfortable, rubbing her abdomen, with shallow breathing while wearing oxygen. Celia informed CM that the provider now thinks that she may have another kidney infection instead of or in addition to the pancreatitis and may need to be in the hospital for another week. She expressed disappointment with the news. She is NPO. She shared that she is still having a lot of pain.; her pain medication has been increased to address the issue. A: Celia is a 40 year old woman admitted on 09/19/20 with pancreatitis. P:Celia will likely be discharged home with no new services. She will follow up with her PCP and discharge plan of care and transport with family. CM will continue to support Celia and her discharge planning needs.
[2020-09-20] MEDS: risperiDONE 1 MG TAB 3 MG PO (21:41)
[2020-09-21] VITALS (10 sets, daily range): BP systolic 102–120; BP diastolic 59–84; PULSE 107–143; RESP 19–20; TEMP 36.3–37.8; O2SAT 87–95
--- NOTE | 2020-09-21 | DI.US_ITS ---
Exam(s) US ABDOMEN EXAM: US ABDOMEN CLINICAL HISTORY: pancreatitis TECHNIQUE: Ultrasound of complete upper abdomen performed using standard protocol. COMPARISON: CT CT ABDOMEN PELVIS WO from 09/19/2020 US US RENAL from 09/20/2020 FINDINGS: There is some free fluid in the right upper quadrant more since pose region. Also slightly thickened bowel wall noted in the right upper quadrant. Assuming that this is duodenum LIVER: There are no hepatic lesions evident nor obvious dilatation of intrahepatic ducts. GALLBLADDER/BILIARY: Appears to be some sludge in the gallbladder lumen. Gallbladder wall does not a ppear grossly edematous. The common hepatic duct issomewhat, measuring 6-7mm at the level of galileo hepatis. PANCREAS: Not well visualized due to overlying bowel gas. SPLEEN: Mild splenomegaly. KIDNEYS:Kidneys exhibit normal size with no evidence of solid mass, calculus, nor hydronephrosis. No cortical cysts evident. ABDOMINAL AORTA: There is no evidence of abdominal aortic aneurysm. IVC: Normal diameter where visualized. IMPRESSION: 1. In this patient who has pancreatitis on recent CT scan the pancreas is poorly visualized due to o verlying bowel gas-probable ileus pattern. However, the visualized bowel loops in the right upper qu adrant exhibits some thickened wall, probably corresponding to duodenum which is inflamed secondary t o the pancreatitis. There is small amount of fluid in this area. 2. No focal hepatic findings. Mild splenomegaly noted. 3. No significant findings in the kidneys. There appear to be small bilateral pleural effusions. DATA REPOSITORY:
[2020-09-21] MEDS: Normal Saline 1,000 ML 200 ML IV ×2 (01:45→06:28)
[2020-09-21] MEDS: HYDROmorphone 2 MG/ML VIAL IVP ×6 (01:52→21:31)
[2020-09-21] MEDS: Normal Saline Flush 10 ML SYR IVP ×5 (01:53→21:30)
[2020-09-21] MEDS: Nicotine 14 MG/24 HR PATCH TD ×2 (07:30→20:39)
[2020-09-21] MEDS: ACETAMINOPHEN 1,000 MG/100 ML BTL 400 MG IVPB ×3 (07:31→21:31)
[2020-09-21] MEDS: Pantoprazole 40 MG VIAL IVP (07:31)
[2020-09-21 07:38] LABS: HCT 31.7 % (36.0-46.0); HGB 10.2 g/dL (11.2-15.7); MCH 30.8 pg (27.0-33.0); MCHC 32.2 % (32.0-36.0); MCV 95.8 fL (80-95); MPV 10.6 fL (8.0-11.0); Nucleated RBC 0 %; Platelet Count 164 10^3/uL (130-400); RBC 3.31 10^6/uL (3.93-5.22); RDW 13.1 % (11.7-14.6); WBC 15.52 10^3/uL (4.4-10.8)
[2020-09-21 07:45] LABS: Anion Gap 10.5 mmol/L (3-11); BUN 14 mg/dL (7-18); CO2 19.5 mmol/L (21.0-32.0); CREATININE 1.4 mg/dL (0.55-1.02); Calcium 7.9 mg/dL (8.5-10.1); Chloride 106 mmol/L (98-107); Estimated GFR 42.08 (mL/min/1.73m2); Glucose 96 mg/dL (74-106); Lipase 886 U/L (73-393); Magnesium 1.5 mg/dL (1.8-2.4); Potassium 3.9 mmol/L (3.5-5.1); Sodium 136 mmol/L (136-145)
[2020-09-21 08:16] LABS: Absolute Lymphocyte Count 0.78 10^3/uL (1.2-3.4); Bands % 15
[2020-09-21] MEDS: MAGNESIUM SULFATE 4 GM/100 ML BAG IVPB (08:16)
[2020-09-21 08:17] LABS: Absolute Eosinophil Count 0.16 10^3/uL (0.0-0.7); Absolute Monocyte Count 1.09 10^3/uL (0.1-0.8); Diff Comment Manual Differential; RBC Morphology Normal
[2020-09-21] MEDS: cefTRIAXone 2 GM/50 ML BAG IVPB (09:50)
[2020-09-21] MEDS: DOXYCYCLINE 100 MG in Normal Saline 100 ML IVPB ×2 (10:25→21:59)
--- NOTE | 2020-09-21 10:34 | W.PM.PROGNOT ---
Date of Service Date of service: 09/21/20 Time of Service: 10:34 Assessment and Plan Assessment and plan (1) Sepsis: Start date: 09/21/20 Start time: 10:41 Status: Suspected Assessment and plan: Patient appearing toxic. CRP 21, leukocytosis increased to 15 Ceftriaxone 2 gm was initiated day 2 will cover with doxy and vanco, BC pending, urine cx pending, unsure of source and organism at this time. She did pull hugo out las night. PVR has only been 100 will replace, continue bladder scans Step down antibiotics when cultures revealed Procal 0.6 Continue to monitor status. consider pyelo/abd abscess Abd u/s r/o infectious process-pending. Qualifiers: Acute renal failure type: unspecified Sepsis acute organ dysfunction status: with acute organ dysfunction Sepsis type: sepsis due to unspecified organism Severe sepsis acute organ dysfunction type: acute renal failure Severe sepsis shock status: with septic shock Qualified Code(s): A41.9 - Sepsis, unspecified organism; R65.21 - Severe sepsis with septic shock; N17.9 - Acute kidney failure, unspecified (2) Acute pancreatitis: Start date: 09/21/20 Start time: 10:47 Status: Acute Assessment and plan: Evidenced by CT and elevated lipase Keep NPO, Dilaudid for pain increased as pain is worse, also tylenol IV, she has not had any issue with this Repeat labs in am Will place on po medication for high triglycerides when tolerating diet. Triglycerides have decreased to 458 will start creon as well when starting diet She did quit for 8 months and after conversation with daughter had two alcoholic beverages yesterday. ANANTWA ordered. Qualifiers: Acute pancreatitis complication: no infection or necrosis Pancreatitis type: alcohol induced Qualified Code(s): K85.20 - Alcohol induced acute pancreatitis without necrosis or infection (3) High triglycerides: Start date: 09/21/20 Start time: 11:19 Status: Acute Assessment and plan: She is now tolerating a diet, will increase to soft diet and add creon with omega three for triglyceride levels as above (4) Chronic renal disease: Start date: 09/21/20 Start time: 11:27 Status: Chronic Assessment and plan: appears to be at baseline (5) Tobacco use: Start date: 09/21/20 Start time: 11:28 Status: Chronic Assessment and plan: offered nicotine at this time. Not craving nicotine. No interest in quiting (6) Cirrhosis: Start date: 09/21/20 Start time: : Status: Chronic Assessment and plan: as above (7) Chronic alcohol abuse: Start date: 09/21/20 Start time: Status: Chronic Assessment and plan: States first drink in 8 months as above (8) Hypomagnesemia: Start date: 09/21/20 Start time: :29 Status: Acute Assessment and plan: Mag 1.5, replete with IV and recheck in am (9) DVT prophylaxis: Start date: 09/21/20 Start time: : Status: Acute Assessment and plan: Teds and SCds for 40 ambulatory female, possible risk for varicies. (10) Discharge planning issues: Start date: 09/21/20 Start time: Status: Acute Assessment and plan: Home when medically ready discussed with Dr. logan Subjective Subjective Patient reports: other Interval history since last seen: Patient sitting up in chair, talking on phone, she briefly places phone down to speak to me then while assessing goes back to speaking on phone. History of cognitive delay. Appears to be the same, WBC increasing despite being on antibiotics will increase to broad spectrum until blood cultures grow out then can step down from there, she does have history of sepsis. Not febrile at this time, however she is a mouth breather and takes shallow breaths. Encourage IS. CXR with atelectasis. Abd u/s pending to r/o any infectious process or abscess with pancreas. Exam Const General: cooperative, comfortable, in distress, anxious and ill appearing chronically Nutritional Appearance: obese HENMT Head: normal to inspection and atraumatic Mouth: moist mucous membranes abnormal (dry) Teeth and gingiva: poor dentition Eyes Conjunctivae: conjunctivae normal Sclera: sclerae normal Pupils: PERRL EOM: EOM intact bilaterally Neck Neck: no JVD Thyroid: thyroid normal Chest Chest: normal inspection of the chest Resp Effort & Inspection: abnormal respiratory effort, able to speak in complete sentences and abnormal respiratory pattern (taking shallow breaths) Auscultation: clear to auscultation bilaterally Cardio Jugular venous pressure: no JVD Rate: regular rate Rhythm: regular rhythm Heart Sounds: S1 normal and S2 normal GI Inspection: normal to inspection Palpation: soft and guarding General: No CVA tenderness and deferred Back/Spine/Pelvis Back: no CVA tenderness Thoracic/Lumbar Spine: thoracic and lumbar spine normal to inspection Skin General skin exam: no rashes or lesions noted Neuro General: patient alert, patient awake and patient oriented x3 Extrem General: normal to inspection, full ROM and no clubbing, cyanosis or edema Right lower extremity: normal to inspection Objective Last Vital Signs Temp 37.8 C H 09/21/20 08:53 Pulse 128 H 09/21/20 08:53 Resp 20 09/21/20 08:53 BP 120/80 09/21/20 08:53 Pulse Ox 95 09/21/20 08:53 Laboratory Results - last 24 hr 09/20/20 09/20/20 09/21/20 10:50 10:50 07:20 WBC RBC Hgb Hct MCV MCH MCHC RDW Plt Count MPV Immature Gran % Neutrophils % Band Neutrophils % Lymphocytes % Monocytes % Eosinophils % Basophils % Nucleated RBC % Absolute Neutrophils Absolute Lymphocytes Absolute Monocytes Absolute Eosinophils Absolute Basophils RBC Morphology VBG Lactate 1.5 H Sodium 136 Potassium 3.9 Chloride 106 Carbon Dioxide 19.5 L Anion Gap 10.5 BUN 14 Creatinine 1.4 H Estimated GFR/1.73 m2 42.08 Glucose 96 Calcium 7.9 L Magnesium 1.5 L C-Reactive Protein 21.55 H Lipase 886 H Procalcitonin 0.6 09/21/20 07:20 WBC 15.52 H RBC 3.31 L Hgb 10.2 L Hct 31.7 L MCV 95.8 H MCH 30.8 MCHC 32.2 RDW 13.1 Plt Count 164 MPV 10.6 Immature Gran % 0.0 Neutrophils % 72.0 Band Neutrophils % 15 Lymphocytes % 5.0 Monocytes % 7.0 Eosinophils % 1.0 Basophils % 0.0 Nucleated RBC % 0 Absolute Neutrophils 13.50 H Absolute Lymphocytes 0.78 L Absolute Monocytes 1.09 H Absolute Eosinophils 0.16 Absolute Basophils 0.00 RBC Morphology Normal VBG Lactate Sodium Potassium Chloride Carbon Dioxide Anion Gap BUN Creatinine Estimated GFR/1.73 m2 Glucose Calcium Magnesium C-Reactive Protein Lipase Procalcitonin
--- NOTE | 2020-09-21 11:29 | CHAPLAIN ---
Celia was walking around her room when I visited. When she went to sit down, she was tangled in some of her tubing, but didn't seem interested in straightening it out. She asked me to let her nurse, NANETTE Loving, know that her would be dropping off stuff for her at the [facility] edger. I did that. Celia was polite but not interested in further conversation.
[2020-09-21] MEDS: Creon, Lipase 6,000 CAPCR 1 CAP PO (12:50)
[2020-09-21] MEDS: VANCOMYCIN/WATER (PEG) 1 GM/200 ML BAG IV ×2 (12:50→23:32)
--- NOTE | 2020-09-21 12:51 | PDOC.CMPRO ---
- If Service Date Differs Date of service: 09/21/20 Time of Service: 12:51 Care Management Progress Note S/O: Celia was sitting up in a chair when CM met with her. She stated that she is feeling better and that her pain has decreased. She still appears ill and was less engaged than usual in conversation, giving vague responses to questions. Her CRP is 21 and her WBC has increased to 15.52. An abdominal ultrasound has been ordered for today to rule out abscess or infection. A: Celia is a 40 year old woman admitted on 09/19/20 with pancreatitis. P:Celia will likely be discharged home with no new services. She will follow up with her PCP and discharge plan of care and transport with family. CM will continue to support Celia and her discharge planning needs.
[2020-09-21] MEDS: Tamsulosin 0.4 MG CAPCR PO (13:48)
--- NOTE | 2020-09-21 14:33 | PGE_ITS ---
Date of Service Date of service: 09/21/20 Time of Service: 14:34 Assessment and Plan Assessment and plan (1) Acute pancreatitis: Status: Acute Assessment and plan: 40 year old female with pancreatitis secondary to alcohol abuse. Lipase improving. CRP is >20. Has Leukocytosis Recommend bowel rest Continue antibiotics- if Leukocytosis worsens then would recommend another CT s can abdomen and Pelvis with IV and Oral contrast. Pancreatic protocol to look for necrosis, pseudocyst Continue protonix to avoid ulcers Please let us know if we need to see the patient at any time. Thank you Qualifiers: Pancreatitis type: alcohol induced Acute pancreatitis complication: no infection or necrosis Qualified Code(s): K85.20 - Alcohol induced acute pancreatitis without necrosis or infection Subjective Subjective Interval history since last seen: 40 y.o female with PMH ETOH abuse, Tobacco abuse, ADHD, Migraines, Cirrhosis, CRD, Pancreatitis, presented to [facility] yesterday with abdominal pain after she states being sober for 8 months and having 2 beers yesterday after speaking with 15 y.o daughter. This conversation caused her to fall off the wagon? prompting severe abdominal pain radiating to back and chest. 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 Labs in the ED showed wbc 11.32, anion gap 13.4, creatinine 1.3, alk phos 159, triglycerides 925 total cholesterol 226, lipase 3170. CXR negative. CT abd and pelvis w/o contrast? acute pancreatitis without drainable collection, hemorrhage or necrosis. hepatomegaly, and enteritis. Hospitalist service admitted for further management. Due to severe pain, she was switched to IV dilaudid from morphine, given 1 dose of ativan to help with pain and anxiety. Placed on CIWA as unsure how reliable information is. She did have an elevated glucose level on admission as well though she will be made NPO until pain subsides will check A1c and BID fingers ticks. Banana bag infusing with IVF at 200/hr, repeat labs in am. Will place on medication for triglycerides when able to tolerate po. She denies CP, SOB, n/v/d. Called by Hospitalist service to discuss case. Patients WBC count has increased. Patient is on brought spectrum antibiotics. She has been NPO. US done today. I reviewed the US. There is some small amount of fluid in the RUQ. There is inflammation of the duodenum, most likely due to the pancreatitis. Pancreas is not well visualized. Patient on Protonix already. Objective Last Vital Signs Temp 97.3 F L 09/21/20 10:41 Pulse 107 H 09/21/20 10:41 Resp 20 09/21/20 08:53 BP 120/80 09/21/20 08:53 Pulse Ox 92 09/21/20 13:52 Laboratory Results - last 24 hr 09/21/20 09/21/20 07:20 07:20 WBC 15.52 H RBC 3.31 L Hgb 10.2 L Hct 31.7 L MCV 95.8 H MCH 30.8 MCHC 32.2 RDW 13.1 Plt Count 164 MPV 10.6 Immature Gran % 0.0 Neutrophils % 72.0 Band Neutrophils % 15 Lymphocytes % 5.0 Monocytes % 7.0 Eosinophils % 1.0 Basophils % 0.0 Nucleated RBC % 0 Absolute Neutrophils 13.50 H Absolute Lymphocytes 0.78 L Absolute Monocytes 1.09 H Absolute Eosinophils 0.16 Absolute Basophils 0.00 RBC Morphology Normal Sodium 136 Potassium 3.9 Chloride 106 Carbon Dioxide 19.5 L Anion Gap 10.5 BUN 14 Creatinine 1.4 H Estimated GFR/1.73 m2 42.08 Glucose 96 Calcium 7.9 L Magnesium 1.5 L Lipase 886 H
[2020-09-21] MEDS: Senna TAB 1 TAB PO (14:36)
--- NOTE | 2020-09-21 15:19 | PHA.REVIEW ---
Pharmacy Admission Review - Admission Clinical Review (Last Updated 09/19/20 @ 16:00 by Rimma Darby NP) Hypomagnesemia (Acute) High triglycerides (Acute) DVT prophylaxis (Acute) Acute pancreatitis (Acute) Discharge planning issues (Acute) lamotrigine [From Lamictal] Allergy (Severe, Verified 09/19/20 05:26) Blistery rash per Marbella Cutler acetaminophen Adverse Reaction (Intermediate, Verified 09/19/20 05:26) Nausea & vomiting Height 5 ft 5 in Weight 100.9 kg - Renal Dosing Renal Dosing: BUN 14 mg/dL (7-18) 09/21/20 07:20 Creatinine 1.4 mg/dL (0.55-1.02) H 09/21/20 07:20 Medications needing adjustments: Reviewed (Crcl ~64.2 mL/min using adjusted body weight, current meds okay.) - Anticoagulation Anticoagulation: Hgb 10.2 g/dL (11.2-15.7) L 09/21/20 07:20 Hct 31.7 % (36.0-46.0) L 09/21/20 07:20 Plt Count 164 10^3/uL (130-400) 09/21/20 07:20 Creatinine 1.4 mg/dL (0.55-1.02) H 09/21/20 07:20 DVT Prohphylaxis: Reviewed (TEDs and SCDs ordered, pt is ambulatory per H&P) Therapeutic Anticoagulation: N/A - Opiate Usage Evaluate Pain Scale/Pains Meds: Reviewed Scheduled Bowel Reg ordered if on Opiates?: Yes - Relevant Labs Sodium 136 mmol/L (136-145) 09/21/20 07:20 Potassium 3.9 mmol/L (3.5-5.1) 09/21/20 07:20 Chloride 106 mmol/L (98-107) 09/21/20 07:20 Magnesium 1.5 mg/dL (1.8-2.4) L 09/21/20 07:20 C-Reactive Protein 21.55 mg/dL (0.0-0.3) H 09/20/20 10:50 Electrolytes, C-Reactive P, ESR: Reviewed (IV mag replacement ordered today.) - DM Control DM Control: Glucose 96 mg/dL (74-106) 09/21/20 07:20 Hemoglobin A1c 5.2 % (<5.7) 09/20/20 06:05 Finger Stick Blood Glucose 112 Finger Stick Blood Glucose 112 Finger Stick Blood Glucose 112 Insulin Dosing: N/A - Heart Failure/VA Heart Failure/VA: Troponin I Cancelled 09/19/20 08:38 EF%, TEVIN's, B-Blockers, Diuretics: Reviewed - BP Control BP Control: Blood Pressure 114/75 Blood Pressure 120/80 Blood Pressure 102/59 If elevated: N/A - Qtc Review If Elevated: N/A (QTc 450 on admission) - IV to PO Switch IV Medications: Intervened (Will ask provider about changing acetaminophen from IV to PO as pt is taking other PO meds.) - Home Meds Home Med List reviewed: Reviewed (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 Antibiotic Activity - Pharmacy Antibiotic Review Pharmacy Antibiotic Activity: C/S review (Blood and urine cultures no growth @24 hours. Ceftriaxone continues (day 2), vanco and doxycycline ordered.)
[2020-09-21] MEDS: Normal Saline 1,000 ML 100 ML IV (16:55)
[2020-09-21] MEDS: Polyethylene Glycol 3350 17 GM PACKET PO (20:39)
[2020-09-21] MEDS: Docusate Sodium 100 MG CAP PO (20:39)
[2020-09-21] MEDS: risperiDONE 1 MG TAB 3 MG PO (21:30)
[2020-09-22] VITALS (7 sets, daily range): BP systolic 110–166; BP diastolic 73–91; PULSE 98–121; RESP 15–20; TEMP 35.8–37.3; O2SAT 89–97
[2020-09-22] MEDS: Normal Saline Flush 10 ML SYR IVP ×4 (02:28→19:57)
[2020-09-22] MEDS: HYDROmorphone 2 MG/ML VIAL IVP ×3 (02:28→19:57)
[2020-09-22] MEDS: ACETAMINOPHEN 1,000 MG/100 ML BTL 400 MG IVPB ×3 (03:23→19:56)
[2020-09-22] MEDS: Normal Saline 1,000 ML 100 ML IV ×2 (03:24→21:06)
[2020-09-22 06:51] LABS: Abs Immature Grans 0.15 10^3/uL (0.0-0.06); HCT 29.4 % (36.0-46.0); HGB 9.3 g/dL (11.2-15.7); MCH 30.7 pg (27.0-33.0); MCHC 31.6 % (32.0-36.0); MPV 10.6 fL (8.0-11.0); Nucleated RBC 0 %; RBC 3.03 10^6/uL (3.93-5.22); RDW-SD 46.5 fL; WBC 13.62 10^3/uL (4.4-10.8)
[2020-09-22 07:06] LABS: Anion Gap 12.6 mmol/L (3-11); BUN 14 mg/dL (7-18); CO2 20.4 mmol/L (21.0-32.0); CREATININE 1.4 mg/dL (0.55-1.02); Calcium 8.2 mg/dL (8.5-10.1); Chloride 107 mmol/L (98-107); Estimated GFR 42.08 (mL/min/1.73m2); Glucose 80 mg/dL (74-106); Potassium 3.6 mmol/L (3.5-5.1); Sodium 140 mmol/L (136-145)
[2020-09-22 07:23] LABS: C-Reactive Protein > 25.00 mg/dL (0.0-0.3)
[2020-09-22 07:30] LABS: Absolute Neutrophil Count 10.76 10^3/uL (1.2-6.7); Bands % 6
[2020-09-22 07:31] LABS: Absolute Eosinophil Count 0.41 10^3/uL (0.0-0.7); Absolute Lymphocyte Count 1.09 10^3/uL (1.2-3.4); Absolute Monocyte Count 1.36 10^3/uL (0.1-0.8); Diff Comment Manual Differential; RBC Morphology Normal
[2020-09-22] MEDS: Tamsulosin 0.4 MG CAPCR PO (08:06)
[2020-09-22] MEDS: Nicotine 14 MG/24 HR PATCH TD (08:08)
[2020-09-22] MEDS: Pantoprazole 40 MG VIAL IVP (08:10)
--- NOTE | 2020-09-22 09:47 | W.PM.PROGNOT ---
Date of Service Date of service: 09/22/20 Time of Service: 09:47 Assessment and Plan Assessment and plan (1) Sepsis: Status: Suspected Assessment and plan: hemodynamically stable. no source of infection identified. white count back down to 13. stopping antibiotics. continue to monitor Qualifiers: Acute renal failure type: unspecified Sepsis acute organ dysfunction status: with acute organ dysfunction Sepsis type: sepsis due to unspecified organism Severe sepsis acute organ dysfunction type: acute renal failure Severe sepsis shock status: with septic shock Qualified Code(s): A41.9 - Sepsis, unspecified organism; R65.21 - Severe sepsis with septic shock; N17.9 - Acute kidney failure, unspecified (2) Acute pancreatitis: Status: Acute Assessment and plan: Evidenced by CT and elevated lipase pain improving so will try advancing diet continue pain management, taper back on dilaudid Repeat labs in am Will place on po medication for high triglycerides when tolerating diet. Triglycerides have decreased to 458 will start creon as well when starting diet She did quit for 8 months and after conversation with daughter had two alcoholic beverages yesterday. CIWA ordered. Qualifiers: Acute pancreatitis complication: no infection or necrosis Pancreatitis type: alcohol induced Qualified Code(s): K85.20 - Alcohol induced acute pancreatitis without necrosis or infection (3) High triglycerides: Status: Acute Assessment and plan: She is now tolerating a diet, will increase to soft diet and add creon with omega three for triglyceride levels as above (4) Chronic renal disease: Status: Chronic Assessment and plan: appears to be at baseline (5) Tobacco use: Status: Chronic Assessment and plan: offered nicotine at this time. Not craving nicotine. No interest in quiting (6) Cirrhosis: Status: Chronic Assessment and plan: as above (7) Chronic alcohol abuse: Status: Chronic Assessment and plan: States first drink in 8 months as above (8) Hypomagnesemia: Status: Acute Assessment and plan: Mag 2.0 replaced and will follow (9) DVT prophylaxis: Status: Acute Assessment and plan: Teds and SCds for 40 ambulatory female, possible risk for varicies. (10) Discharge planning issues: Status: Acute Assessment and plan: Home when medically ready discussed with Dr. logan Subjective Subjective Patient reports: still having pain and afebrile Exam Const General: cooperative, comfortable, in distress, anxious and ill appearing chronically Nutritional Appearance: obese HENMT Head: normal to inspection and atraumatic Mouth: moist mucous membranes abnormal (dry) Teeth and gingiva: poor dentition Eyes Conjunctivae: conjunctivae normal Sclera: sclerae normal Pupils: PERRL EOM: EOM intact bilaterally Neck Neck: no JVD Thyroid: thyroid normal Chest Chest: normal inspection of the chest Resp Effort & Inspection: abnormal respiratory effort, able to speak in complete sentences and abnormal respiratory pattern (taking shallow breaths) Auscultation: clear to auscultation bilaterally Cardio Jugular venous pressure: no JVD Rate: regular rate Rhythm: regular rhythm Heart Sounds: S1 normal and S2 normal GI Inspection: normal to inspection Palpation: soft and guarding General: No CVA tenderness and deferred Back/Spine/Pelvis Back: no CVA tenderness Thoracic/Lumbar Spine: thoracic and lumbar spine normal to inspection Skin General skin exam: no rashes or lesions noted Neuro General: patient alert, patient awake and patient oriented x3 Extrem General: normal to inspection, full ROM and no clubbing, cyanosis or edema Right lower extremity: normal to inspection Objective Last Vital Signs Temp 36.9 C 09/22/20 07:25 Pulse 98 H 09/22/20 07:25 Resp 18 09/22/20 07:25 BP 110/73 09/22/20 07:25 Pulse Ox 95 09/22/20 07:25 Laboratory Results - last 24 hr 09/22/20 09/22/20 09/22/20 06:04 06:04 06:04 WBC 13.62 H RBC 3.03 L Hgb 9.3 L Hct 29.4 L MCV 97.0 H MCH 30.7 MCHC 31.6 L RDW 13.0 Plt Count MPV 10.6 Immature Gran % 0.0 Neutrophils % 73.0 Band Neutrophils % 6 Lymphocytes % 8.0 Monocytes % 10.0 Eosinophils % 3.0 Basophils % 0.0 Nucleated RBC % 0 Absolute Neutrophils 10.76 H Absolute Lymphocytes 1.09 L Absolute Monocytes 1.36 H Absolute Eosinophils 0.41 Absolute Basophils 0.00 RBC Morphology Normal Sodium 140 Potassium 3.6 Chloride 107 Carbon Dioxide 20.4 L Anion Gap 12.6 H BUN 14 Creatinine 1.4 H Estimated GFR/1.73 m2 42.08 Glucose 80 Calcium 8.2 L Magnesium 2.0 C-Reactive Protein > 25.00 H
--- NOTE | 2020-09-22 10:12 | PDOC.CMPRO ---
- If Service Date Differs Date of service: 09/22/20 Time of Service: 10:12 Care Management Progress Note S/O: Celia was sitting up in bed when CM met with her. She reported that she was feeling better today. CM noted that she had a clear liquid lunch on her bedside table, but she reported that she was taking it slow and had only had water so far. CM discussed how she was managing her ADL's at home, to which she reported that she managed well on her own, but her will be assisting her once she is discharged from [facility]. She stated that he does not live with her, but will stay with her temporarily in order to help her with her ADL's as needed. She reported that she is unsure about services, but she would discuss it with her . CM will continue to follow. A: Celia is a 40 year old woman admitted on 09/19/20 with pancreatitis. P:Celia will likely be discharged home with no new services. She will follow up with her PCP and discharge plan of care and transport with family. CM will continue to support Celia and her discharge planning needs.
[2020-09-22] MEDS: cefTRIAXone 2 GM/50 ML BAG IVPB (10:15)
[2020-09-22 10:42] LABS: Lyme Ab w Rflx to Lyme Confirm Negative (Negative)
[2020-09-22] MEDS: Creon, Lipase 6,000 CAPCR 1 CAP PO ×2 (12:47→18:05)
[2020-09-22] MEDS: Polyethylene Glycol 3350 17 GM PACKET PO (19:56)
[2020-09-22] MEDS: Docusate Sodium 100 MG CAP PO (19:57)
[2020-09-22] MEDS: Normal Saline Flush 10 ML SYR 20 ML IVP (19:58)
[2020-09-22] MEDS: risperiDONE 1 MG TAB 3 MG PO (21:06)
[2020-09-22 22:06] LABS: Anaplasma phagocytophilum Negative (Negative); B. miyamotoi PCR Negative (Negative); Babesia divergens/MO-1 Negative (Negative); Babesia duncani Negative (Negative); Babesia microti Negative (Negative); Ehrlichia chaffeensis Negative (Negative); Ehrlichia ewingii/canis Negative (Negative); Ehrlichia muris eauclairensis Negative (Negative)
[2020-09-22] MEDS: Melatonin 3 MG TAB 9 MG PO (23:07)
[2020-09-23] MEDS: HYDROmorphone 2 MG/ML VIAL IVP ×2 (01:21→04:47)
[2020-09-23] MEDS: Normal Saline Flush 10 ML SYR IVP ×3 (01:22→07:45)
[2020-09-23] MEDS: ACETAMINOPHEN 1,000 MG/100 ML BTL 400 MG IVPB (04:47)
[2020-09-23] MEDS: Normal Saline 1,000 ML 100 ML IV (06:28)
[2020-09-23 07:02] LABS: Absolute Lymphocyte Count 1.32 10^3/uL (1.2-3.4); HCT 27.8 % (36.0-46.0); HGB 9.1 g/dL (11.2-15.7); MCH 30.6 pg (27.0-33.0); MCHC 32.7 % (32.0-36.0); MCV 93.6 fL (80-95); MPV 10.3 fL (8.0-11.0); Nucleated RBC 0 %; Platelet Count 170 10^3/uL (130-400); RBC 2.97 10^6/uL (3.93-5.22); RDW 12.9 % (11.7-14.6); RDW-SD 44.5 fL; WBC 14.66 10^3/uL (4.4-10.8)
[2020-09-23 07:17] LABS: ALT 13 U/L (14-59); AST 19 U/L (15-37); Albumin 1.9 g/dL (3.4-5.0); Alkaline Phosphatase 100 U/L (46-116); BUN 9 mg/dL (7-18); Bilirubin, Total 0.5 mg/dL (0.2-1.0); Calcium 8.1 mg/dL (8.5-10.1); Chloride 109 mmol/L (98-107); Glucose 71 mg/dL (74-106); Sodium 142 mmol/L (136-145); Total Protein 5.8 g/dL (6.4-8.2)
[2020-09-23 07:25] VITALS: BP 127/92; PULSE 120; RESP 19; TEMP 37.1; O2SAT 93
[2020-09-23 07:29] LABS: Absolute Eosinophil Count 0.29 10^3/uL (0.0-0.7); Absolute Monocyte Count 0.44 10^3/uL (0.1-0.8); Absolute Neutrophil Count 12.61 10^3/uL (1.2-6.7); Bands % 9; Diff Comment Manual Differential; RBC Morphology Normal
[2020-09-23 07:32] LABS: C-Reactive Protein > 25.00 mg/dL (0.0-0.3)
[2020-09-23] MEDS: Creon, Lipase 6,000 CAPCR 1 CAP PO (07:44)
[2020-09-23] MEDS: Pantoprazole 40 MG VIAL IVP (07:44)
[2020-09-23] MEDS: Polyethylene Glycol 3350 17 GM PACKET PO (08:10)
[2020-09-23] MEDS: Normal Saline Flush 10 ML SYR 20 ML IVP (08:10)
[2020-09-23] MEDS: Docusate Sodium 100 MG CAP PO (08:11)
[2020-09-23] MEDS: Omega-3 Fatty Acids 1000 MG CAP 4000 MG PO (08:11)
[2020-09-23] MEDS: Tamsulosin 0.4 MG CAPCR PO (08:12)
[2020-09-23 10:01] LABS: Magnesium 1.7 mg/dL (1.8-2.4)
[2020-09-23 10:02] LABS: Lipase 213 U/L (73-393)
[2020-09-23] MEDS: Potassium Chloride 20 MEQ TABCR 40 MEQ PO (10:10)
[2020-09-23 10:48] VITALS: BP 148/90; PULSE 107; RESP 18; TEMP 36.6; O2SAT 97
[2020-09-23] MEDS: Bacitracin 1 PACKET (11:00)
--- NOTE | 2020-09-23 11:05 | W.PM.DS.N ---
Date of service: 09/23/20 DS: Diagnosis Discharge Diagnosis (1) Sepsis: Status: Suspected (2) Acute pancreatitis: Status: Acute (3) High triglycerides: Status: Acute (4) Chronic renal disease: Status: Chronic (5) Tobacco use: Status: Chronic (6) Cirrhosis: Status: Chronic (7) Chronic alcohol abuse: Status: Chronic (8) Hypomagnesemia: Status: Acute (9) Hypokalemia: Status: Resolved Discharge Plan Disposition Patient Disposition: HOME Condition: Improving Discharge Details Reason For Visit: PANCREATITIS Admit Date/Time: 09/19/20 07:33 Admit Provider: Chino Tam Attending Provider: Chino Tam Primary Care Provider: JOSE ANGEL CANO Hospital Course Hospital Course: This is a 40 year old female with history of chronic alcohol abuse, pancreatitis, ADHD who presented to the ED with complaints of abdominal pain, work up consistent with acute pancreatitis with a lipase of 3170 CT scan showed no drainable fluid collection, hemorrhage or necrosis. She was admitted to med/surg for bowel rest and pain management. Her lipase trended downward and her pain improved. Her diet was slowly advanced and she denies worsening pain. she remained afebrile. She was started on antibiotics as it was thought she was significantly worsening with increasing white count which did stabilize. Her abdominal exam remained improving and she was tolerating PO well. She was seen by surgical services who was in agreement with current treatment and recommended repeat CT should she worsen. On morning of discharge, which was at her request, I did discuss her use of IV narcotic overnight which she denied requiring any further narcotics. She was advised to return immediately for worsening symptoms, fever or concerns. her potassium was 3.0 on day of discharge and repleted with 40 [address] order for outpatient labs to be drawn by home health services. I question her reliability but she is insistent that she is improved for discharge, I discussed one more day of advancing diet and following labs but she declines. I will arrange home health services for closer monitoring for complications. I will repeat labs on Monday and follow up has been scheduled with PCP. trigylcerides on admission 925, down to 458, placed on omega 3 fatty acids. discharge discussed with Dr Tam. Home Meds and New Rx's Prescriptions: New omega-3 fatty acids 1,000 mg capsule 4,000 mg PO DAILY Qty: 120 RF: 0 Continued amitriptyline 50 mg tablet 50 mg PO QHS RF: 0 risperidone 2 mg tablet 2 mg PO QHS RF: 0 risperidone 1 mg tablet 1 mg PO DAILY RF: 0 hydroxyzine HCl 25 mg tablet 25 mg PO TID PRNRF: 0 cyclobenzaprine 10 mg tablet 10 mg PO HS RF: 0 albuterol sulfate [ProAir HFA] 90 mcg/actuation HFA aerosol inhaler 2 puff IH Q6H PRNRF: 0 gabapentin 300 mg Tablet 600 mg PO QHS RF: 0 pantoprazole [Protonix] 40 mg tablet,delayed release (DR/EC) 40 mg PO DAILY Qty: 30 RF: 12 Discharge Instructions Instructions: Pancreatitis (DC) Additional Instructions: Do not use alcohol. Monitor for worsening abdominal pain, nausea or vomiting and fever and report immediately. Stand Alone Forms: Nursing Discharge Form Referrals: JOSE ANGEL CANO [Primary Care Provider] - 10/06/20 3:00 pm Activity:: Activity as Tolerated Equipment/Supplies:: No Equipment Needed Diet:: As Tolerated Discharge Orders Discharge Orders: Discharge Order (Routine); Ordered 09/23/20 Ordered By: Briana Amanda Other Ambulatory Orders: Basic Metabolic Panel (Routine) Timeframe: 20200925 Location: None Selected Ordered By: Briana Amanda Complete Blood Count w/Diff (Routine) Timeframe: 20200925 Location: None Selected Ordered By: Briana Amanda Magnesium (Routine) Timeframe: 20200925 Location: None Selected Ordered By: Briana Amanda Discharge Data Discharge Date/Time-TO BE ENTERED AT DEPARTURE: 09/23/20 11:35 DS: Summary Time Spent with Patient providing and/or coordinating discharge services: Greater than 30 minutes Status at Discharge Functional status at discharge: independent ambulation Overall status at discharge: patient is progressing back to baseline Mental Status: mental status grossly normal Speech and Movement: speech and movement normal Mood: congruent mood Affect: normal affect Exam Const General: cooperative, comfortable and ill appearing chronically Nutritional Appearance: obese HENMT Head: normal to inspection and atraumatic Mouth: oral mucosae normal (slightly dry) Teeth and gingiva: poor dentition Eyes Conjunctivae: conjunctivae normal Sclera: sclerae normal Pupils: PERRL EOM: EOM intact bilaterally Neck Neck: no JVD Chest Chest: normal inspection of the chest Resp Effort & Inspection: normal respiratory effort and able to speak in complete sentences Auscultation: clear to auscultation bilaterally Cardio Jugular venous pressure: no JVD Rate: regular rate Rhythm: regular rhythm Heart Sounds: S1 normal and S2 normal GI Inspection: normal to inspection and obesity Palpation: soft, not firm, no guarding, not rigid and nontender Auscultation: normal bowel sounds General: No CVA tenderness and deferred Back/Spine/Pelvis Thoracic/Lumbar Spine: thoracic and lumbar spine normal to inspection Skin General skin exam: no rashes or lesions noted Neuro General: patient alert, patient awake and patient oriented x3 Extrem General: normal to inspection and full ROM Right lower extremity: normal to inspection Psych Mental Status: mental status grossly normal Speech and Movement: speech and movement normal Mood: congruent mood Affect: normal affect DS: Data Vitals/I&O Vitals and I&O: Vital Signs Temperature 36.6 C 09/23/20 10:48 Temperature Source Tympanic 09/23/20 10:48 Pulse 107 H 09/23/20 10:48 Pulse Rhythm Regular 09/23/20 04:52 Pulse 93 H 09/19/20 07:51 Respiratory Rate 18 09/23/20 10:48 Respiratory Effort Non-Labored 09/23/20 04:52 Respiratory Depth Shallow 09/23/20 04:52 Respiratory Pattern Normal 09/23/20 04:52 Blood Pressure 148/90 H 09/23/20 10:48 Blood Pressure Mean 75 09/19/20 07:50 Pulse Oximetry 97 09/23/20 10:48 Oxygen Delivery Method Room Air 09/23/20 10:48 Oxygen Flow Rate 0 09/23/20 10:48 Pain Level 7 09/23/20 07:45 Comment 09/21/20 20:49 Intake & Output 09/22/20 09/22/20 09/23/20 11:59 23:59 11:59 Intake Total 1873.333 / 3390.000 1516.667 / 3390.000 1723.667 / 1723.667 Output Total 1600 / 1600 1050 / 1050 Balance 1873.333 / 1790.000 -83.333 / 1790.000 673.667 / 673.667 Intake: IV 1843.333 / 2320.000 476.667 / 2320.000 936.667 / 936.667 Oral 30 / 1070 1040 / 1070 787 / 787 Output: Urine 1600 / 1600 1050 / 1050 Other: Urine Color Yellow Light Rashmi Urine Appearance Cloudy Clear Clear Urine Odor Normal None Comment pT flushed before assesment could be made Stool Size Moderate Moderate Stool Characteristics Soft Soft Formed Liquid Brown Voiding Methods Toilet Toilet Toilet Data Completed and Pending Labs on day of discharge: Labs from last 24 hours 09/23/20 09/23/20 09/23/20 06:20 06:20 06:20 WBC 14.66 H RBC 2.97 L Hgb 9.1 L Hct 27.8 L MCV 93.6 MCH 30.6 MCHC 32.7 RDW 12.9 Plt Count 170 MPV 10.3 Immature Gran % 0.0 Neutrophils % 77.0 Band Neutrophils % 9 Lymphocytes % 9.0 Monocytes % 3.0 Eosinophils % 2.0 Basophils % 0.0 Nucleated RBC % 0 Absolute Neutrophils 12.61 H Absolute Lymphocytes 1.32 Absolute Monocytes 0.44 Absolute Eosinophils 0.29 Absolute Basophils 0.00 RBC Morphology Normal Sodium Potassium Chloride Carbon Dioxide Anion Gap BUN Creatinine Estimated GFR/1.73 m2 Glucose Calcium Magnesium 1.7 L Total Bilirubin AST ALT Alkaline Phosphatase C-Reactive Protein Total Protein Albumin Lipase 213 A.phagocytophil DNA PCR B. divergens/MO-1 PCR Babesia duncani (PCR) Babesia microti DNA PCR Borrelia (PCR) Lyme Disease Antibody E.chaffeensis DNA (PCR) E.ewingii/canis DNA PCR E. muris-like DNA (PCR) 09/23/20 09/20/20 06:20 06:05 WBC RBC Hgb Hct MCV MCH MCHC RDW Plt Count MPV Immature Gran % Neutrophils % Band Neutrophils % Lymphocytes % Monocytes % Eosinophils % Basophils % Nucleated RBC % Absolute Neutrophils Absolute Lymphocytes Absolute Monocytes Absolute Eosinophils Absolute Basophils RBC Morphology Sodium 142 Potassium 3.0 L Chloride 109 H Carbon Dioxide 21.0 Anion Gap 12.0 H BUN 9 Creatinine 1.0 Estimated GFR/1.73 m2 >= 60.00 Glucose 71 L Calcium 8.1 L Magnesium Total Bilirubin 0.5 AST 19 ALT 13 L Alkaline Phosphatase 100 C-Reactive Protein > 25.00 H Total Protein 5.8 L Albumin 1.9 L Lipase A.phagocytophil DNA PCR Negative B. divergens/MO-1 PCR Negative Babesia duncani (PCR) Negative Babesia microti DNA PCR Negative Borrelia (PCR) Negative Lyme Disease Antibody Negative E.chaffeensis DNA (PCR) Negative E.ewingii/canis DNA PCR Negative E. muris-like DNA (PCR) Negative Preliminary micro results at discharge 09/20/20 10:50 Blood Culture - Preliminary Blood NO GROWTH 48 HOURS 09/20/20 10:40 Blood Culture - Preliminary Blood NO GROWTH 48 HOURS PFSH Medical History (Updated 09/21/20 @ 11:29 by Rimma Darby NP) Anemia Bipolar disorder Cannabis dependence Chronic alcoholism in remission pt. states she has been sober for 8 months Chronic erosive gastritis Cognitive dysfunction Esophagitis Gastritis History of esophageal reflux Osteoarthritis of left hip Papilloma of larynx PTSD (post-traumatic stress disorder) Schizophrenia Supraglottic edema secondary to procedure Surgical History History of section History of esophagogastroduodenoscopy (EGD) (~04/13/20) History of tubal ligation Social History Smoking/Tobacco Use Status: Current every day Tobacco Type: cigarettes Smoking risk assessment performed?: Yes Alcohol Intake: current Alcohol Intake frequency: a few times a month Drug use: Daily Substance use type: marijuana Do you feel safe at home: Yes Do you feel safe in your relationship?: Yes
--- NOTE | 2020-09-23 15:15 | PDOC.HHF2F ---
<Briana Amanda NP - Last Filed: 09/23/20 17:16> Home Health Certification Home Health Certification: 1. Encounter Date and Reason I certify that Celia Anand was seen by Briana Amanda on 09/23/20 and that I had a [id number]-bg-wepn encounter with this patient that meets the physician face to face encounter requirements. 2. Clinical Findings Supporting Skilled Need and Homebound Status I certify that home health services are medically necessary, include either intermittent retirement and/or physical/speech therapy, and that this patient is homebound in that absences from the home require considerable and taxing effort and are infrequent or of short duration, or are attributable to the need to receive medical care. [X] (a) Attached documentation from encounter provides clinical findings supporting skilled need and homebound status (including what assistance patient requires to leave the home). The encounter with the patient was in whole, or in part, for the following medical condition, which is the primary reason for home health care: PANCREATITIS Intermediate: routine nursing evaluation and monitoring Physical/occupational Therapy: routine evaluation and treatment 3. Certification and Authentication I certify that I composed the above information based on my clinical judgement relating to this patient's medical condition and, if applicable, clinical findings communicated to me by the NPP or inpatient physician who performed the Home Health Referral. All further orders will be obtained through (Community Based Physician - PCP)
--- NOTE | 2020-09-23 15:33 | CMDISCH_ITS ---
- If Service Date Differs Date of service: 09/23/20 Time of Service: 15:33 LACE Index Scoring Tool - Questions: Length of Stay (in days): 4 - 6 Acuity (Admit via E.D.?): Yes Comorbidities: Liver or Renal Disease E.D. Visits: 9 - Answers: Total Score: 16 Risk of Readmission: High Risk Care Management Discharge Reason for Hospitalization: Acute pancreatitis Discharge Plan: Celia returned home today with new orders for HH RN, PT, OT. RAFAEL discussed her discharge plan with Angela Lindsey ([phone]), one of her community supportive employment case manager. She was driven home via private vehicle by her . She will follow up with her PCP and discharge plan of care. Patient/Family Education Needs: Review discharge instructions regarding activity levels and medications, discussion of self care needs including ask me three and self management. Services Needed at Discharge: Home Health Care Services (YAQUELIN RN, PT, OT)
== END 2020-09-23 11:35 | disposition home or self-care (01) | DRG 871 ==
LOC: ER 07:50 → MS 08:28
PROVIDERS: Internal Medicine; Nurse Practitioner Acute Care; Nurse Practitioner Family; Admitting Provider Internal Medicine; Emergency Provider Emergency Medicine; PCP Family Medicine; Visit Provider Internal Medicine
DX: A41.9 Sepsis, unspecified organism (principal); K85.20 Alcohol induced acute pancreatitis without necrosis or infection; R65.21 Severe sepsis with septic shock; N17.9 Acute kidney failure, unspecified; N18.9 Chronic kidney disease, unspecified; F17.210 Nicotine dependence, cigarettes, uncomplicated; K74.60 Unspecified cirrhosis of liver; G43.909 Migraine, unspecified, not intractable, without status migrainosus; F90.9 Attention-deficit hyperactivity disorder, unspecified type; D64.9 Anemia, unspecified; F20.9 Schizophrenia, unspecified; F43.10 Post-traumatic stress disorder, unspecified; M16.12 Unilateral primary osteoarthritis, left hip; K21.9 Gastro-esophageal reflux disease without esophagitis; F31.9 Bipolar disorder, unspecified; F12.20 Cannabis dependence, uncomplicated; K29.50 Unspecified chronic gastritis without bleeding; K20.90 Esophagitis, unspecified without bleeding; E78.1 Pure hyperglyceridemia; E83.42 Hypomagnesemia; E87.6 Hypokalemia; F10.10 Alcohol abuse, uncomplicated
CPT/HCPCS: 36410; 36415; 36573; 76770; 80048; 80053; 80061; 80076; 83690; 83721; 84145; 87040; 87635; 87798; 93005; 96361; 96365; 96375; 96376; 99285; 71045; 71046; 74176; 76700; 81003; 81015; 83036; 83605; 83735; 84478; 84484; 84703; 85025; 86140; 86618; 87086; 93010; 94640; 99222; 99233; 99239; J0131; J1200; J2060; J2270; J2405; J3475; J3490; J7613; J7614

== ENCOUNTER 2020-10-17 18:02 | Emergency (ER) | payer MEDICAID, SELFPAY ==
--- NOTE | 2020-10-17 18:04 | W.ED.GENAD ---
Discharge Plan Disposition Patient Disposition: HOME Condition: Stable Discharge Details Clinical Impression: Polymorphic light eruption, Rash Primary Care Provider: JOSE ANGEL CANO ED Provider: Emily Mendoza Home Meds and New Rx's Prescriptions: Continued amitriptyline 50 mg tablet 50 mg PO QHS RF: 0 risperidone 2 mg tablet 2 mg PO QHS RF: 0 risperidone 1 mg tablet 1 mg PO DAILY RF: 0 hydroxyzine HCl 25 mg tablet 25 mg PO TID PRNRF: 0 cyclobenzaprine 10 mg tablet 10 mg PO HS RF: 0 albuterol sulfate [ProAir HFA] 90 mcg/actuation HFA aerosol inhaler 2 puff IH Q6H PRNRF: 0 omega-3 fatty acids 1,000 mg capsule 4,000 mg PO DAILY Qty: 120 RF: 0 gabapentin 300 mg Tablet 600 mg PO QHS RF: 0 Discontinued pantoprazole [Protonix] 40 mg tablet,delayed release (DR/EC) 40 mg PO BID RF: 0 Discharge Instructions Instructions: Acute Rash (ED) Additional Instructions: Your rash may possibly be due to a reaction of taking Protonix and sun exposure. This can cause a rash known as a polymorphic light eruption which is due to photosensitivity or sensitivity to sun exposure when taking a specific drug. It is advised that you stop taking Protonix at this time. You can try other dnbz-kew-jliekka medication for GERD or other gastrointestinal complaints such as Pepcid, Zantac, Prevacid or Prilosec and take as directed. Apply the topical hydrocortisone treatment twice daily. If your symptoms do not improve or worsen, you may need to start a short course of oral steroids. If you develop itching, you can try zlmf-hpj-bycwfnw antihistamines such as Benadryl. Follow-up with your primary care doctor in 1 week. Return to the emergency department with any worsening or new concerning symptoms. Discharge Data Discharge Physician: Emily Mendoza Medical Decision Making 40-year-old female presents for nonpruritic, nonpainful red rash noted to bilateral forearms and legs for the past few days after recently starting Protonix and developed immediately after sun exposure. She has singular as well as clusters and groups of erythematous papules noted to bilateral flank, forearms and legs. Review of up-to-date notes that Protonix is a medication that can cause photosensitivity and polymorphic light eruption with sun exposure. The papules are much larger, raised and erythematous and do not appear consistent with petechiae which I would expect would appear much smaller, flat and purple in color. She appears nontoxic. Patient does not want any lab work drawn and I feel that this is reasonable at this time. Patient is advised to stop taking the Protonix at this time and to avoid sun exposure for the next several days. Will treat with topical corticosteroids at this time as her rash is mild to moderate but she is advised that she may need oral steroids if the rash worsens. Advised to take a different H2 agapito PPI for her gastrointestinal complaints. Advised to follow up with the primary care doctor for re-evaluation. Usual and customary return precautions given prior to discharge. Medical Records Medical records reviewed: Yes I reviewed the patient's medical records. HPI General Mode of arrival: ambulatory. Date/Time Provider Initiated Documentation: 10/17/20 18:03. Limitations to Documentation: no limitations. Information obtained by: patient. HPI Narrative: Patient is a 40-year-old female who presents for rash on her arms and legs for the past few days. She states she is concerned that it is due to Protonix but she started within the last week or 2. She states she noticed her rash developed when she went out to the sun. She states there is no itching or pain. She denies any fever, difficulty swallowing, difficulty breathing or vomiting. She states the rash initially started on her legs and then developed on her forearms but has been the same amount of lesions since onset and has not gotten significantly worse or better. Related Data Home Medications Medication Instructions Recorded Confirmed albuterol sulfate 90 mcg/actuation 2 puff IH Q6H PRN 11/26/19 10/17/20 aerosol inhaler amitriptyline 50 mg tablet 50 mg PO QHS 11/26/19 10/17/20 cyclobenzaprine 10 mg tablet 10 mg PO HS 11/26/19 10/17/20 hydroxyzine HCl 25 mg tablet 25 mg PO TID PRN 11/26/19 10/17/20 risperidone 1 mg tablet 1 mg PO DAILY 11/26/19 10/17/20 risperidone 2 mg tablet 2 mg PO QHS 11/26/19 10/17/20 gabapentin 600 mg PO QHS 03/17/20 10/17/20 omega-3 fatty acids 4,000 mg PO DAILY #120 cap 09/23/20 10/17/20 Previous Rx's Medication Instructions Recorded omega-3 fatty acids 4,000 mg PO DAILY #120 cap 09/23/20 Allergies Allergy/AdvReac Type Severity Reaction Status Date / Time lamotrigine [From Lamictal] Allergy Severe Blistery Verified 10/17/20 18:09 rash per Marbella Cutler acetaminophen AdvReac Intermediate Nausea & Verified 10/17/20 18:09 vomiting General SHEREEN: 3 Review of Systems All systems reviewed & are unremarkable except as noted in HPI and below Constitutional Constitutional: Reports as per HPI, Denies chills and Denies fever(s) Eyes Eyes: Denies blurry vision ENT Ears, Nose, Mouth, and Throat: Denies dizziness, Denies sore throat and Denies throat swelling Cardiovascular Cardiovascular: Denies chest pain and Denies dyspnea Respiratory Respiratory: Denies cough and Denies dyspnea Gastrointestinal Gastrointestinal: Denies abdominal pain, Denies diarrhea and Denies vomiting Genitourinary Genitourinary: Denies hematuria and Denies dysuria Musculoskeletal Musculoskeletal: Denies back pain and Denies numbness Integumentary/Breasts Skin/Breast: Denies lesions and Reports rash Neurologic Neurologic: Denies dizziness, Denies localized weakness and Denies numbness Allergic/Immunologic Allergic/Immunologic: Denies throat swelling [facility] Medical History (Updated 10/17/20 @ 18:37 by Emily Mendoza DO) Anemia Bipolar disorder Cannabis dependence Chronic alcoholism in remission pt. states she has been sober for 8 months Chronic erosive gastritis Cognitive dysfunction Esophagitis Gastritis History of esophageal reflux Osteoarthritis of left hip Papilloma of larynx PTSD (post-traumatic stress disorder) Schizophrenia Supraglottic edema secondary to procedure Surgical History History of section History of esophagogastroduodenoscopy (EGD) (~04/13/20) History of tubal ligation Social History Smoking/Tobacco Use Status: Current every day Tobacco Type: cigarettes Smoking risk assessment performed?: Yes Alcohol Intake: current Alcohol Intake frequency: a few times a month Drug use: Daily Substance use type: marijuana Do you feel safe at home: Yes Do you feel safe in your relationship?: Yes Exam Const General: cooperative and no acute distress [facility] Head: normal to inspection Ears: hearing grossly normal bilaterally and external ears normal Face and sinus: normal facial exam Mouth: oral mucosae normal, no drooling and no trismus Eyes General: appearance normal, both eyes and all related structures Neck Neck: normal visual inspection, trachea midline, supple, no anterior neck swelling and No submandibular swelling Resp Effort & Inspection: normal respiratory effort and able to speak in complete sentences Cardio Rate: regular rate Skin Other: Patches of erythematous nonblanching nontender papules ranging in size from 1mm to 5mm noted to bilateral flank, bilateral volar forearms and bilateral lower legs. Some areas are coalesced into groups or clusters while others are singular. Neuro General: patient alert, patient awake and patient oriented x3 Motor: muscle tone normal throughout Extrem General: normal to inspection and full ROM Psych Appearance: grossly normal Affect: normal affect
[2020-10-17 18:06] VITALS: BP 128/82; PULSE 111; RESP 16; TEMP 35.9; O2SAT 98
== END 2020-10-17 19:10 | disposition home or self-care (01) ==
LOC: ER 18:49
PROVIDERS: Emergency Provider Physician Assistant; PCP Family Medicine
DX: L56.4 Polymorphous light eruption (principal); X32.XXXA Exposure to sunlight, initial encounter; R23.8 Other skin changes
CPT/HCPCS: 99283

== ENCOUNTER 2020-11-05 17:29 | Emergency (ER) | payer MEDICAID, SELFPAY ==
--- NOTE | 2020-11-05 17:36 | W.ED.GENAD ---
Discharge Plan Disposition Patient Disposition: HOME Condition: Stable Discharge Details Clinical Impression: Headache, Bacteria in urine Primary Care Provider: JOSE ANGEL CANO ED Provider: Emily Mendoza Home Meds and New Rx's Prescriptions: New cephalexin 500 mg capsule 500 mg PO BID 5 Days Qty: 10 RF: 0 Continued amitriptyline 50 mg tablet 50 mg PO QHS RF: 0 risperidone 2 mg tablet 2 mg PO QHS RF: 0 risperidone 1 mg tablet 1 mg PO DAILY RF: 0 hydroxyzine HCl 25 mg tablet 25 mg PO TID PRNRF: 0 cyclobenzaprine 10 mg tablet 10 mg PO HS RF: 0 albuterol sulfate [ProAir HFA] 90 mcg/actuation HFA aerosol inhaler 2 puff IH Q6H PRNRF: 0 omega-3 fatty acids 1,000 mg capsule 4,000 mg PO DAILY Qty: 120 RF: 0 gabapentin 300 mg Tablet 600 mg PO QHS RF: 0 Discharge Instructions Instructions: Urinary Tract Infection in Women (ED), General Headache (ED) Additional Instructions: Without additional evaluation including blood work, it is unclear what the cause of your headache may be. Your urine sample noted to have bacteria present. This may be indicative of a urinary tract infection or this could be a contaminated sample. Without obtaining another clean-catch sample, we are unable to confirm whether this is a urinary tract infection. You could wait to see if your symptoms do not improve or worsen before starting the antibiotics. Drink plenty of fluids and get plenty of rest. Alternate tylenol and motrin as needed and directed for pain. Follow-up with your primary care doctor in 1 week. Return to the emergency department with any worsening or new concerning symptoms. Discharge Data Discharge Physician: Emily Mendoza Medical Decision Making 40yo F who presents to the ED with a complaint of headache and right flank pain with concern for bladder or kidney infection. Patient appears comfortable and nontoxic. She is afebrile. Abdomen soft nontender. No CVA tenderness. No meningeal signs. No focal deficits. Discussed with patient that her differential diagnosis could include urinary tract infection, pyelonephritis, dehydration, migraine, electrolyte abnormality. History and presentation does not appear consistent with meningitis. She does not appear significantly uncomfortable to be consistent with a kidney stone. Discussed with patient that I would recommend placing an IV, giving fluids and IV medication, and obtain screening labs. Patient is refusing any IV placement or blood work. Patient states she only came here for a urinalysis to determine whether she has an infection requiring antibiotics. 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 Patient gave a urine sample on arrival which notes moderate blood with small leukocyte esterase but unable to analyze white blood cell count. There is many bacteria and many epithelial cells. Unable to send for culture. Discussed with patient that I would recommend obtaining another clean-catch sample or straight cath urine but she is declining to give another sample. Discussed with patient that without further work-up including lab work and potential imaging, I cannot rule out a potential serious source of her symptoms including meningitis, kidney stone, pyelonephritis, acute kidney injury, etc. She is requesting a prescription for antibiotics. A prescription for Keflex sent electronically to her pharmacy. It was discussed that she may not need antibiotics as she may not have a urinary tract infection. Advised that she follow-up with her primary care doctor for reevaluation. Usual and customary return precautions given prior to discharge. Medical Records Medical records reviewed: Yes I reviewed the patient's medical records. Lab Data Lab results reviewed: Yes I reviewed the patient's lab results. HPI General Mode of arrival: ambulatory. Date/Time Provider Initiated Documentation: 11/05/20 17:35. Limitations to Documentation: no limitations. Information obtained by: patient. HPI Narrative: Patient is a 40-year-old female who presents with headache and right flank pain with concern for possible bladder or kidney infection. Patient states her headache is throbbing, located in her frontal region and is currently 7/10. She states this headache is consistent with previous bladder or kidney infections. She states she was last treated for kidney infection 1 month ago which completely resolved with treatment. She states she usually does not have any urinary symptoms with her urinary tract infection and states she has none at present. She admits to feeling feverish today but denies any documented fever. She denies any neck pain, chest pain, shortness of breath, cough, abdominal pain, injury. Related Data Home Medications Medication Instructions Recorded Confirmed albuterol sulfate 90 mcg/actuation 2 puff IH Q6H PRN 11/26/19 11/05/20 aerosol inhaler amitriptyline 50 mg tablet 50 mg PO QHS 11/26/19 11/05/20 cyclobenzaprine 10 mg tablet 10 mg PO HS 11/26/19 11/05/20 hydroxyzine HCl 25 mg tablet 25 mg PO TID PRN 11/26/19 11/05/20 risperidone 1 mg tablet 1 mg PO DAILY 11/26/19 11/05/20 risperidone 2 mg tablet 2 mg PO QHS 11/26/19 11/05/20 gabapentin 600 mg PO QHS 03/17/20 11/05/20 omega-3 fatty acids 4,000 mg PO DAILY #120 cap 09/23/20 11/05/20 cephalexin 500 mg PO BID 5 Days #10 cap 11/05/20 Previous Rx's Medication Instructions Recorded omega-3 fatty acids 4,000 mg PO DAILY #120 cap 09/23/20 cephalexin 500 mg PO BID 5 Days #10 cap 11/05/20 Allergies Allergy/AdvReac Type Severity Reaction Status Date / Time lamotrigine [From Lamictal] Allergy Severe Blistery Verified 11/05/20 17:44 rash per Marbellaannette Edmondshaw acetaminophen AdvReac Intermediate Nausea & Verified 11/05/20 17:44 vomiting General SHEREEN: 4 Review of Systems All systems reviewed & are unremarkable except as noted in HPI and below Constitutional Constitutional: Reports as per HPI, Denies chills, Denies fever(s) and Reports headache(s) Eyes Eyes: Denies blurry vision ENT Ears, Nose, Mouth, and Throat: Denies dizziness, Reports headache(s), Denies sore throat and Denies throat swelling Cardiovascular Cardiovascular: Denies chest pain and Denies dyspnea Respiratory Respiratory: Denies cough and Denies dyspnea Gastrointestinal Gastrointestinal: Denies abdominal pain, Denies diarrhea and Denies vomiting Genitourinary Genitourinary: Denies hematuria and Denies dysuria Musculoskeletal Musculoskeletal: Denies back pain and Denies numbness Integumentary/Breasts Skin/Breast: Denies lesions and Denies rash Neurologic Neurologic: Denies dizziness, Reports headache(s), Denies localized weakness and Denies numbness Allergic/Immunologic Allergic/Immunologic: Denies throat swelling [facility]LY [facility] Medical History (Updated 11/05/20 @ 18:10 by Emily Mendoza DO) Anemia Bipolar disorder Cannabis dependence Chronic alcoholism in remission pt. states she has been sober for 8 months Chronic erosive gastritis Cognitive dysfunction Esophagitis Gastritis History of esophageal reflux Osteoarthritis of left hip Papilloma of larynx PTSD (post-traumatic stress disorder) Schizophrenia Supraglottic edema secondary to procedure Surgical History History of section History of esophagogastroduodenoscopy (EGD) (~04/13/20) History of tubal ligation Social History Smoking/Tobacco Use Status: Current every day Tobacco Type: cigarettes Smoking risk assessment performed?: Yes Alcohol Intake: current Alcohol Intake frequency: a few times a month Drug use: Daily Substance use type: marijuana Do you feel safe at home: Yes Do you feel safe in your relationship?: Yes Exam Const General: cooperative and no acute distress HENMT Head: normal to inspection Face and sinus: normal facial exam Eyes General: appearance normal, both eyes and all related structures Pupils: PERRL EOM: EOM intact bilaterally Neck Neck: normal visual inspection and No submandibular swelling Lymphatic: no lymphadenopathy noted Chest Chest: normal inspection of the chest and no tenderness Resp Effort & Inspection: normal respiratory effort and able to speak in complete sentences Auscultation: clear to auscultation bilaterally Cardio Rate: regular rate Rhythm: regular rhythm GI Inspection: normal to inspection Palpation: soft, not firm, not rigid and nontender Auscultation: normal bowel sounds Back/Spine/Pelvis Back: no CVA tenderness Skin General skin exam: no rashes or lesions noted Neuro General: patient alert, patient awake, patient oriented x3, gait normal, moves all extremities, no meningeal signs and no focal motor deficits Cranial Nerves: CN's II-XI intact bilaterally Cognition: normal cognition Speech: speech normal Motor: muscle tone normal throughout and strength 5/5 throughout Sensory Exam: no sensory deficits noted Extrem General: normal to inspection, full ROM, capillary refill normal, no calf tenderness bilaterally and no edema Psych Appearance: grossly normal Mental Status: mental status grossly normal Speech and Movement: speech and movement normal Affect: normal affect
[2020-11-05 17:37] VITALS: BP 112/78; PULSE 103; RESP 18; TEMP 36.6; O2SAT 97
[2020-11-05 17:45] LABS: Bilirubin Negative (Negative); Blood Moderate (Negative); Clarity Cloudy (Clear); Glucose Negative (Negative); Ketones Negative (Negative); Leukocyte Esterase Small (Negative); Nitrite Negative (Negative); Urobilinogen 0.2 EU/dL (Up TO 0.2); pH 5.5 (5-8)
[2020-11-05 17:53] LABS: Bacteria Many HPF (Negative); C & S Indicated? No/Sq. Contamination; Epithelial Cells Many HPF (Negative)
[2020-11-05] MEDS: Ibuprofen 600 MG TAB PO (18:09)
== END 2020-11-05 18:28 | disposition home or self-care (01) ==
PROVIDERS: Emergency Provider Physician Assistant; PCP Family Medicine
DX: R82.71 Bacteriuria (principal); R51.9 Headache, unspecified
CPT/HCPCS: 36415; 80053; 81025; 99283; 81003; 81015; 85025

== ENCOUNTER 2020-11-12 08:02 | Emergency (ER) | payer MEDICAID, SELFPAY ==
[2020-11-12 08:06] VITALS: BP 131/92; PULSE 90; TEMP 36.7; O2SAT 99
--- NOTE | 2020-11-12 08:36 | ED.GENADUL_ITS ---
Discharge Plan Disposition Patient Disposition: HOME Condition: Stable Discharge Details Clinical Impression: Pain, dental, COVID-19 vaccine administered Primary Care Provider: JOSE ANGEL CANO ED Provider: Chino Yates Home Meds and New Rx's Prescriptions: New amoxicillin 875 mg tablet 875 mg PO BID Qty: 20 RF: 0 Continued amitriptyline 50 mg tablet 50 mg PO QHS RF: 0 risperidone 2 mg tablet 2 mg PO QHS RF: 0 risperidone 1 mg tablet 1 mg PO DAILY RF: 0 hydroxyzine HCl 25 mg tablet 25 mg PO TID PRNRF: 0 cyclobenzaprine 10 mg tablet 10 mg PO HS RF: 0 albuterol sulfate [ProAir HFA] 90 mcg/actuation HFA aerosol inhaler 2 puff IH Q6H PRNRF: 0 gabapentin 300 mg Tablet 600 mg PO QHS RF: 0 Discharge Instructions Instructions: Toothache (ED) Additional Instructions: Amoxicillin as directed. [id number] Tylenol and/or Motrin as directed for discomfort. Cool and/or warm compresses. Salt water swishes and spit as tolerated. Please watch for new or worsening symptoms and return to the ER for any concerns. I would like you to follow-up with your dentist as already scheduled on the . Medical Decision Making 40-year-old female presents with bilateral lower dental pain for the past couple of days, contacted her dentist and directed to the ER to initiate antibiotic therapy. She does have poor dentition throughout, discomfort of her tooth 30 and 18, no obvious abscess. She is afebrile, no trismus. Clinically she appears well, nontoxic. Given her new dental discomfort, poor dentition throughout, believe initiating antibiotic therapy is reasonable. Patient also showed interest in the Covid vaccine. Spent ample time educating patient on the pros and cons of vaccination, patient would like to proceed with Covid vaccine. I was able to contact the pharmacy, we do in fact have a [employer] vaccines available, vaccine given. Patient was observed in the ER for additional 10 minutes without any evidence of side effects. I will provide a prescription for amoxicillin. Patient will follow up with her dentist at the time to be seen sooner if possible. Standard discharge and return precautions given. We discussed [id number] medications for symptomatic control. Patient is comfortable this plan and has no additional questions or concerns. Medical Records Medical records reviewed: Yes I reviewed the patient's medical records. HPI General Mode of arrival: ambulatory . Date/Time Provider Initiated Documentation: 11/12/20 08:11 . Limitations to Documentation: no limitations . Information obtained by: patient . HPI Narrative: This is a 40-year-old female, current smoker, past medical history of anemia, bipolar disorder, PTSD, schizophrenia, presenting to the ER concerned for dental infection. Patient states that she has had bilateral lower jaw and dental pain over the past couple of days, attempted to make an appoint with her dentist but cannot be seen till . After speaking with them, they recommended coming to the ER to initiate antibiotic therapy until she can be evaluated potential of dental work. Patient denies any other concerns or questions. She did take [id number] Tylenol with minimal relief. She denies headache, difficulty speaking or swallowing, denies shortness of breath, chest pain, ear pain, difficulty moving her jaw. Related Data Home Medications Medication Instructions Recorded Confirmed albuterol sulfate 90 mcg/actuation 2 puff IH Q6H PRN 11/26/19 11/12/20 aerosol inhaler amitriptyline 50 mg tablet 50 mg PO QHS 11/26/19 11/12/20 cyclobenzaprine 10 mg tablet 10 mg PO HS 11/26/19 11/12/20 hydroxyzine HCl 25 mg tablet 25 mg PO TID PRN 11/26/19 11/12/20 risperidone 1 mg tablet 1 mg PO DAILY 11/26/19 11/12/20 risperidone 2 mg tablet 2 mg PO QHS 11/26/19 11/12/20 gabapentin 600 mg PO QHS 03/17/20 11/12/20 amoxicillin 875 mg PO BID #20 tab 11/12/20 Previous Rx's Medication Instructions Recorded amoxicillin 875 mg PO BID #20 tab 11/12/20 Allergies Allergy/AdvReac Type Severity Reaction Status Date / Time lamotrigine [From Lamictal] Allergy Severe Blistery Verified 11/12/20 08:11 rash per Marbella Edmondshaw acetaminophen AdvReac Intermediate Nausea & Verified 11/12/20 08:11 vomiting General Stated Complaint: DentalOral SHEREEN: 4 Review of Systems Constitutional Constitutional: Denies fever(s) and Denies headache(s) ENT Ears, Nose, Mouth, and Throat: Denies facial pain, Denies headache(s), Reports mouth pain, Denies sore throat and Denies throat swelling Integumentary/Breasts Skin/Breast: Denies erythema Neurologic Neurologic: Denies headache(s) Allergic/Immunologic Allergic/Immunologic: Denies throat swelling FOR[facility] Medical History Anemia Bipolar disorder Cannabis dependence Chronic alcoholism in remission pt. states she has been sober for 8 months Chronic erosive gastritis Cognitive dysfunction Esophagitis Gastritis History of esophageal reflux Osteoarthritis of left hip Papilloma of larynx PTSD (post-traumatic stress disorder) Schizophrenia Supraglottic edema secondary to procedure Surgical History History of section History of esophagogastroduodenoscopy (EGD) (~04/13/20) History of tubal ligation Social History Smoking/Tobacco Use Status: Current every day Tobacco Type: cigarettes Smoking risk assessment performed?: Yes Alcohol Intake: current Alcohol Intake frequency: a few times a month Drug use: Daily Substance use type: marijuana Do you feel safe at home: Yes Do you feel safe in your relationship?: Yes Exam Const General: cooperative, healthy appearing, comfortable and no acute distress Orientation: alert and awake HENMT Head: normal to inspection, normocephalic and atraumatic Ears: external ears normal, TM's normal bilaterally and EAC's normal General nose exam: external nose normal Face and sinus: normal facial exam Mouth: oral mucosae normal and moist mucous membranes Teeth and gingiva: caries, poor dentition (Throughout) and other (Discomfort over tooth 30 and 18.) Throat: posterior oropharynx normal Other: No trismus Eyes General: appearance normal, both eyes and all related structures Conjunctivae: conjunctivae normal Neck Neck: normal visual inspection, full ROM, no lymphadenopathy, trachea midline, supple and nontender Resp Effort & Inspection: normal respiratory effort and able to speak in complete sentences Auscultation: clear to auscultation bilaterally Cardio Rate: regular rate Rhythm: regular rhythm Skin General skin exam: no rashes or lesions noted Neuro General: patient alert, patient awake, moves all extremities and no focal motor deficits Cognition: normal cognition Speech: speech normal Gait: normal gait Sensory Exam: no sensory deficits noted Psych Appearance: grossly normal Mental Status: mental status grossly normal Course Vital Signs Vital signs: Vital Signs Temperature 36.7 C 11/12/20 08:06 Pulse 90 11/12/20 08:06 Blood Pressure 131/92 H 11/12/20 08:06 Pulse Oximetry 99 11/12/20 08:06 Temperature 36.7 C 11/12/20 08:06 Temperature Source Temporal Artery Scan 11/12/20 08:06 Pulse 90 11/12/20 08:06 Respiratory Effort Non-Labored 11/12/20 08:09 Blood Pressure 131/92 H 11/12/20 08:06 Blood Pressure Position Sitting 11/12/20 08:06 Pulse Oximetry 99 11/12/20 08:06 Oxygen Delivery Method Room Air 11/12/20 08:06 Oxygen Flow Rate 0 11/12/20 08:06 Pain Level 8 11/12/20 08:11
== END 2020-11-12 08:50 | disposition home or self-care (01) ==
PROVIDERS: Emergency Provider Physician Assistant; PCP Family Medicine
DX: K08.89 Other specified disorders of teeth and supporting structures (principal)
CPT/HCPCS: 99283

== ENCOUNTER 2021-01-03 18:32 | Inpatient (IN) | payer MEDICAID, SELFPAY ==
[2021-01-03] VITALS (33 sets, daily range): BP systolic 61–128; BP diastolic 38–83; PULSE 65–123; RESP 14–34; TEMP 35.7–36.3; O2SAT 92–99
--- NOTE | 2021-01-03 18:30 | RT.EKG_ITS ---
APPROVED REPORT Exam: Resting ECG Reason for Exam: chest pain Patient Location: E HR:90 bpm ECG Measurements Heart Rate 90 AXIS AR 143 P 46 QRSd 88 QRS 5 QT 363 T 15 QTc 445 Conclusion Sinus rhythm...normal P axis, V-rate 60- 99
--- NOTE | 2021-01-03 18:45 | DI.RAD_ITS ---
Exam(s) XR PORTABLE CHEST AP EXAM: XR PORTABLE CHEST AP CLINICAL HISTORY: chest pain TECHNIQUE: 2D digital imaging was performed. COMPARISON: CR,XR XR PORTABLE CHEST AP from 09/19/2020 FINDINGS: MEDIASTINUM: Normal. HEART: Normal. PULMONARY VASCULATURE: Normal. LUNGS: Clear. PLEURAL SPACE: No pleural effusion or pneumothorax. BONE:Within normal limits for the patient's age. OTHER FINDINGS:Normal. IMPRESSION: No acute pulmonary findings. DATA REPOSITORY: RADIATION DOSE DELIVERED:
[2021-01-03] MEDS: Ketorolac 30 MG/ML VIAL IVP (19:05)
[2021-01-03] MEDS: Ondansetron 4 MG/2 ML VIAL IVP (19:06)
[2021-01-03] MEDS: Normal Saline 1,000 ML 1000 ML IV (19:06)
[2021-01-03 19:19] LABS: Abs Immature Grans 0.05 10^3/uL (0.0-0.06); Absolute Basophil Count 0.09 10^3/uL (0.0-0.2); Absolute Eosinophil Count 0.24 10^3/uL (0.0-0.7); Absolute Monocyte Count 0.91 10^3/uL (0.1-0.8); Basophils % 0.6; Eosinophils % 1.6; HCT 42.7 % (36.0-46.0); HGB 14.1 g/dL (11.2-15.7); Immature Grans % 0.3; Lymphocytes % 44.4; MCH 30.3 pg (27.0-33.0); MCV 91.8 fL (80-95); Neutrophils % 47.1; Nucleated RBC 0 %; Platelet Count 296 10^3/uL (130-400); RBC 4.65 10^6/uL (3.93-5.22); RDW 13.2 % (11.7-14.6); RDW-SD 45.1 fL; WBC 15.24 10^3/uL (4.4-10.8)
--- NOTE | 2021-01-03 19:19 | W.ED.GENAD ---
Discharge Plan Disposition Patient Disposition: [facility] INPATIENT Condition: Serious Discharge Details Clinical Impression: Acute pancreatitis Primary Care Provider: Angela Cerrato ED Provider: Chino Yates Home Meds and New Rx's Prescriptions: No Action amitriptyline 50 mg tablet 50 mg PO QHS RF: 0 risperidone 2 mg tablet 2 mg PO QHS RF: 0 risperidone 1 mg tablet 1 mg PO DAILY RF: 0 hydroxyzine HCl 25 mg tablet 25 mg PO TID PRNRF: 0 cyclobenzaprine 10 mg tablet 10 mg PO HS RF: 0 albuterol sulfate [ProAir HFA] 90 mcg/actuation HFA aerosol inhaler 2 puff IH Q6H PRNRF: 0 gabapentin 300 mg Tablet 600 mg PO QHS RF: 0 amoxicillin 875 mg tablet 875 mg PO BID Qty: 20 RF: 0 Medical Decision Making 40-year-old female presents with nausea, vomiting, lower chest and epigastric discomfort over the past 1-2 days. Given she reported chest pain she already received aspirin and will pursue a cardiac work-up however I do believe this is more likely GI, specifically pancreatitis given her past medical history. I will also obtain a lipase and alcohol level. She does admit to drinking 1 alcoholic beverage today. Because she is dry heaving will provide IV Zofran, and I will also provide IV fluid and Toradol. Laboratory values reveal leukocytosis of 15.24, anion gap 13.2 creatinine 1.4, troponin less than 0.05, lipase of 1888. Urinalysis pending Patient continues to have discomfort, will give 4 mg IV morphine. She has no longer dry heaving but does report continuation of nausea. Given her leukocytosis, lipase levels, ongoing nausea and discomfort, I believe she likely needs to be admitted for IV hydration, medication as she can likely not tolerate any p.o. intake. Case discussed with Dr. Montiel who is agreeable to admission, I will write holding orders Medical Records Medical records reviewed: Yes I reviewed the patient's medical records. Imaging Data Radiologic Study: Attestation: I personally reviewed and interpreted this imaging study as follows: Imaging: X-Ray Radiologist's impression: Exam: XR Chest Exam date and time: 01/03/2021 6:58 PM Age: 40 years old Clinical indication: Other: Chest pain TECHNIQUE: Imaging protocol: XR of the chest. Views: 1 view. COMPARISON: CR XR PORTABLE CHEST AP 09/19/2020 10:10 PM FINDINGS: Lungs: Unremarkable. No consolidation. Pleural spaces: Unremarkable. No pleural effusion. No pneumothorax. Heart/Mediastinum: Unremarkable. No cardiomegaly. Bones/joints: Unremarkable. IMPRESSION: No acute findings. Lab Data Lab results reviewed: Yes I reviewed the patient's lab results. Labs: Laboratory Tests Range/Units 01/03/21 01/03/21 01/03/21 18:45 18:45 18:45 WBC (4.4-10.8) 10^3/uL 15.24 H RBC (3.93-5.22) 10^6/uL 4.65 Hgb (11.2-15.7) g/dL 14.1 Hct (36.0-46.0) % 42.7 MCV (80-95) fL 91.8 MCH (27.0-33.0) pg 30.3 MCHC (32.0-36.0) % 33.0 RDW (11.7-14.6) % 13.2 Plt Count (130-400) 10^3/uL 296 MPV (8.0-11.0) fL 10.0 Immature Gran % 0.3 Neutrophils % 47.1 Lymphocytes % 44.4 Monocytes % 6.0 Eosinophils % 1.6 Basophils % 0.6 Nucleated RBC % % 0 Absolute Neutrophils (1.2-6.7) 10^3/uL 7.18 H Absolute Lymphocytes (1.2-3.4) 10^3/uL 6.77 H Absolute Monocytes (0.1-0.8) 10^3/uL 0.91 H Absolute Eosinophils (0.0-0.7) 10^3/uL 0.24 Absolute Basophils (0.0-0.2) 10^3/uL 0.09 Sodium (136-145) mmol/L 137 Potassium (3.5-5.1) mmol/L 3.5 Chloride (98-107) mmol/L 101 Carbon Dioxide (21.0-32.0) mmol/L 22.8 Anion Gap (3-11) mmol/L 13.2 H BUN (7-18) mg/dL 12 Creatinine (0.55-1.02) mg/dL 1.4 H Estimated GFR/1.73 m2 (mL/min/1.73m2) 42.08 Glucose (74-106) mg/dL 146 H Calcium (8.5-10.1) mg/dL 8.6 Magnesium (1.8-2.4) mg/dL 2.1 Total Bilirubin (0.2-1.0) mg/dL 0.4 AST (15-37) U/L 22 ALT (14-59) U/L 22 Alkaline Phosphatase (46-116) U/L 180 H Troponin I (<0.06) ng/mL < 0.05 Total Protein (6.4-8.2) g/dL 8.1 Albumin (3.4-5.0) g/dL 3.4 Lipase (73-393) U/L 1808 H Ethyl Alcohol (<3) mg/dL COVID-19 Source Range/Units 01/03/21 01/03/21 18:45 20:20 WBC (4.4-10.8) 10^3/uL RBC (3.93-5.22) 10^6/uL Hgb (11.2-15.7) g/dL Hct (36.0-46.0) % MCV (80-95) fL MCH (27.0-33.0) pg MCHC (32.0-36.0) % RDW (11.7-14.6) % Plt Count (130-400) 10^3/uL MPV (8.0-11.0) fL Immature Gran % Neutrophils % Lymphocytes % Monocytes % Eosinophils % Basophils % Nucleated RBC % % Absolute Neutrophils (1.2-6.7) 10^3/uL Absolute Lymphocytes (1.2-3.4) 10^3/uL Absolute Monocytes (0.1-0.8) 10^3/uL Absolute Eosinophils (0.0-0.7) 10^3/uL Absolute Basophils (0.0-0.2) 10^3/uL Sodium (136-145) mmol/L Potassium (3.5-5.1) mmol/L Chloride (98-107) mmol/L Carbon Dioxide (21.0-32.0) mmol/L Anion Gap (3-11) mmol/L BUN (7-18) mg/dL Creatinine (0.55-1.02) mg/dL Estimated GFR/1.73 m2 (mL/min/1.73m2) Glucose (74-106) mg/dL Calcium (8.5-10.1) mg/dL Magnesium (1.8-2.4) mg/dL Total Bilirubin (0.2-1.0) mg/dL AST (15-37) U/L ALT (14-59) U/L Alkaline Phosphatase (46-116) U/L Troponin I (<0.06) ng/mL Total Protein (6.4-8.2) g/dL Albumin (3.4-5.0) g/dL Lipase (73-393) U/L Ethyl Alcohol (<3) mg/dL 117.1 COVID-19 Source Nasal/Nares ECG Data Attestation: I personally reviewed and interpreted this ECG (s) as follows: Interpretation: Please see official report by Dr. Hicks. Sinus rhythm, ventricular of 90. No STEMI HPI General Mode of arrival: EMS. Date/Time Provider Initiated Documentation: 01/03/21 18:37. Limitations to Documentation: no limitations. Information obtained by: patient and EMS. HPI Narrative: This is a 40-year-old female, past medical history that includes anemia, bipolar disorder, cannabis dependence, alcohol abuse, gastritis, schizophrenia, presenting to the ER complaining of what she describes as lower chest pain, epigastric discomfort, radiating to her back, nausea, vomiting for the past 1-2 days. She denies any fever, shortness of breath, lower abdominal pain, change of bowel bladder function, skin rash. Reports to one alcoholic drink today. She states that this does not feel exactly like her previous pancreatitis. Patient presents via EMS, given chief complaint of chest pain she did receive aspirin in the field. Patient reports the pain is severe, 10 out of 10, sharp in nature. Denies bad food exposure or sick contacts Related Data Home Medications Medication Instructions Recorded Confirmed albuterol sulfate 90 mcg/actuation 2 puff IH Q6H PRN 11/26/19 11/12/20 aerosol inhaler amitriptyline 50 mg tablet 50 mg PO QHS 11/26/19 11/12/20 cyclobenzaprine 10 mg tablet 10 mg PO HS 11/26/19 11/12/20 hydroxyzine HCl 25 mg tablet 25 mg PO TID PRN 11/26/19 11/12/20 risperidone 1 mg tablet 1 mg PO DAILY 11/26/19 11/12/20 risperidone 2 mg tablet 2 mg PO QHS 11/26/19 11/12/20 gabapentin 600 mg PO QHS 03/17/20 11/12/20 amoxicillin 875 mg PO BID #20 tab 11/12/20 Previous Rx's Medication Instructions Recorded amoxicillin 875 mg PO BID #20 tab 11/12/20 Allergies Allergy/AdvReac Type Severity Reaction Status Date / Time lamotrigine [From Lamictal] Allergy Severe Blistery Verified 01/03/21 21:08 rash per Marbella Cutler acetaminophen AdvReac Intermediate Nausea & Verified 01/03/21 21:08 vomiting General Stated Complaint: Chest Pain SHEREEN: 2 Review of Systems Constitutional Constitutional: Denies fatigue, Denies fever(s) and Denies headache(s) ENT Ears, Nose, Mouth, and Throat: Denies headache(s) and Denies neck pain Cardiovascular Cardiovascular: Reports chest pain and Denies dyspnea Respiratory Respiratory: Denies cough and Denies dyspnea Gastrointestinal Gastrointestinal: Reports abdominal pain, Denies diarrhea, Reports nausea and Reports vomiting Genitourinary Genitourinary: Denies dysuria Musculoskeletal Musculoskeletal: Reports back pain and Denies neck pain Integumentary/Breasts Skin/Breast: Denies rash Neurologic Neurologic: Denies headache(s) Endocrine Endocrine: Denies fatigue [facility] Medical History Anemia Bipolar disorder Cannabis dependence Chronic alcoholism in remission pt. states she has been sober for 8 months Chronic erosive gastritis Cognitive dysfunction Esophagitis Gastritis History of esophageal reflux Osteoarthritis of left hip Papilloma of larynx PTSD (post-traumatic stress disorder) Schizophrenia Supraglottic edema secondary to procedure Surgical History History of section History of esophagogastroduodenoscopy (EGD) (~04/13/20) History of tubal ligation Social History Smoking/Tobacco Use Status: Current every day Tobacco Type: cigarettes Smoking risk assessment performed?: Yes Alcohol Intake: current Alcohol Intake frequency: a few times a month Drug use: Rarely Substance use type: marijuana Do you feel safe at home: Yes Do you feel safe in your relationship?: Yes Exam Const General: cooperative, in distress (Dry heaving) and ill appearing chronically Orientation: alert and awake [facility] Head: normal to inspection, normocephalic and atraumatic Mouth: moist mucous membranes abnormal (Dry) Eyes General: appearance normal, both eyes and all related structures Conjunctivae: conjunctivae normal Neck Neck: normal visual inspection, full ROM, trachea midline and supple Resp Effort & Inspection: normal respiratory effort and able to speak in complete sentences Auscultation: clear to auscultation bilaterally Cardio Rate: regular rate Rhythm: regular rhythm GI Inspection: normal to inspection Palpation: soft, not firm, no guarding, no pulsatile masses and tender in the epigastrum and in the LUQ; with no rebound tenderness Auscultation: normal bowel sounds Back/Spine/Pelvis Back: no CVA tenderness and No back tenderness Skin General skin exam: no rashes or lesions noted Neuro General: patient alert, patient awake, moves all extremities and no focal motor deficits Cognition: normal cognition Speech: speech normal Sensory Exam: no sensory deficits noted Extrem General: normal to inspection, full ROM and capillary refill normal Psych Appearance: grossly normal Mental Status: mental status grossly normal Course Vital Signs Vital signs: Vital Signs Temperature 36.3 C L 01/03/21 18:34 Pulse 92 H 01/03/21 18:34 Respiratory Rate 15 01/03/21 18:34 Blood Pressure 95/38 L 01/03/21 18:34 Pulse Oximetry 98 01/03/21 18:34 Temperature 36.3 C L 01/03/21 18:34 Temperature Source Temporal Artery Scan 01/03/21 18:34 Pulse 92 H 01/03/21 18:34 Respiratory Rate 15 01/03/21 18:34 Respiratory Effort Non-Labored 01/03/21 18:41 Blood Pressure 95/38 L 01/03/21 18:34 Blood Pressure Position Sitting 01/03/21 18:34 Pulse Oximetry 98 01/03/21 18:34 Oxygen Delivery Method Room Air 01/03/21 18:34 Oxygen Flow Rate 0 01/03/21 18:34 Pain Level 10 01/03/21 18:34
[2021-01-03 19:30] LABS: Absolute Lymphocyte Count 6.77 10^3/uL (1.2-3.4); Absolute Neutrophil Count 7.18 10^3/uL (1.2-6.7)
[2021-01-03 19:35] LABS: Magnesium 2.1 mg/dL (1.8-2.4)
[2021-01-03 19:37] LABS: ETHANOL BLOOD 117.1 mg/dL (<3)
[2021-01-03 19:43] LABS: ALT 22 U/L (14-59); AST 22 U/L (15-37); Albumin 3.4 g/dL (3.4-5.0); Alkaline Phosphatase 180 U/L (46-116); Anion Gap 13.2 mmol/L (3-11); BUN 12 mg/dL (7-18); Bilirubin, Total 0.4 mg/dL (0.2-1.0); CO2 22.8 mmol/L (21.0-32.0); CREATININE 1.4 mg/dL (0.55-1.02); Calcium 8.6 mg/dL (8.5-10.1); Chloride 101 mmol/L (98-107); Estimated GFR 42.08 (mL/min/1.73m2); Glucose 146 mg/dL (74-106); Potassium 3.5 mmol/L (3.5-5.1); Sodium 137 mmol/L (136-145); Total Protein 8.1 g/dL (6.4-8.2)
[2021-01-03 19:51] LABS: Lipase 1808 U/L (73-393); Troponin I < 0.05 ng/mL (<0.06)
--- NOTE | 2021-01-03 19:51 | DI.VRAD_ITS ---
PROCEDURE INFORMATION: Exam: XR Chest Exam date and time: 01/03/2021 6:58 PM Age: 40 years old Clinical indication: Other: Chest pain TECHNIQUE: Imaging protocol: XR of the chest. Views: 1 view. COMPARISON: CR XR PORTABLE CHEST AP 09/19/2020 10:10 PM FINDINGS: Lungs: Unremarkable. No consolidation. Pleural spaces: Unremarkable. No pleural effusion. No pneumothorax. Heart/Mediastinum: Unremarkable. No cardiomegaly. Bones/joints: Unremarkable. IMPRESSION: No acute findings. Dictated and Authenticated by: Yg Ríos MD. Ordering:MAITE Magana MD
[2021-01-03 20:32] LABS: Source Nasal/Nares
[2021-01-03] MEDS: MORPHine 4 MG/ML SYR IVP (20:34)
--- NOTE | 2021-01-03 21:01 | HPE_ITS ---
Date of service: 01/03/21 Time of Service: 21:01 Assessment and Plan Assessment and plan (1) Acute pancreatitis: Status: Acute Assessment and plan: She will be treated with pain medicine, antiemetics and IV fluids. She be kept n.p.o. except for medicines. Her psychiatric meds will be continued if tolerated. We will recheck labs tomorrow. She will be given intravenous pantoprazole daily. I am not requesting a CT of her abdomen but if she does not improve this may need to be done. Qualifiers: Pancreatitis type: alcohol induced Acute pancreatitis complication: no infection or necrosis Qualified Code(s): K85.20 - Alcohol induced acute pancrea titis without necrosis or infection (2) Chronic alcohol abuse: Status: Chronic Assessment and plan: Alcohol level was 115 today after stating that she only had 1 drink. She does acknowledge drinking large beers. She will be placed on alcohol withdrawal protocol. She will be given thiamine and folic acid. History of Present Illness History of Present Illness Chief Complaint: abdominal pain, nausea and vomiting Narrative: This 40-year-old female is here because of abdominal pain. She has a history of pancreatitis and was here in the hospital in September of this year. It was thought to be alcohol related. She says that over the last day and a half she has had epigastric pain without radiation. She said she is not had a history of this in the past but does recall the pancreatitis in September. She has had associated nausea and vomiting with some loose stools. She tried putting up with the discomfort at home but could not take it anymore so she came in to be seen. Evaluation emergency department was consistent with pancreatitis. She has been given ondansetron, ketorolac and morphine. She has been given intravenous fluids also. She says she not been around anyone else that has been sick. She did have 1 drink of alcohol today and she said she normally drinks up to about 1024 ounce beers per week. She uses marijuana occasionally and smokes about half pack cigarettes per day. She has not been around anyone else been ill. She does live by herself. She has had both coronavirus vaccines. She is not working currently. Review of Systems Constitutional Constitutional: Reports anorexia, Denies chills, Denies fever(s), Denies headache(s), Reports poor appetite and Reports weakness ENT Ears, Nose, Mouth, and Throat: Denies dysphagia and Denies headache(s) Cardiovascular Cardiovascular: Denies chest pain, Denies rapid heart rate, Denies palpitations and Denies dyspnea Respiratory Respiratory: Denies cough and Denies dyspnea Gastrointestinal Gastrointestinal: Reports abdominal pain, Denies dysphagia, Reports nausea, Reports vomiting and Denies hematemesis Genitourinary Genitourinary: Denies urinary frequency and Denies difficulty voiding Comments: She had a delivery of her child about 16 years ago. She said she has not had a menstrual period since that delivery until earlier this month. Neurologic Neurologic: Denies abnormal speech, Denies headache(s) and Reports weakness Endocrine Endocrine: Denies palpitations [facility] Medical History Anemia Bipolar disorder Cannabis dependence Chronic alcoholism in remission pt. states she has been sober for 8 months Chronic erosive gastritis Cognitive dysfunction Esophagitis Gastritis History of esophageal reflux Osteoarthritis of left hip Papilloma of larynx PTSD (post-traumatic stress disorder) Schizophrenia Supraglottic edema secondary to procedure Surgical History History of section History of esophagogastroduodenoscopy (EGD) (~04/13/20) History of tubal ligation Social History Smoking/Tobacco Use Status: Current every day Tobacco Type: cigarettes Smoking risk assessment performed?: Yes Alcohol Intake: current Alcohol Intake frequency: a few times a month Drug use: Rarely Substance use type: marijuana Do you feel safe at home: Yes Do you feel safe in your relationship?: Yes Meds Allergies and Home Medications Allergies Allergy/AdvReac Type Severity Reaction Status Date / Time lamotrigine [From Lamictal] Allergy Severe Blistery Verified 01/03/21 21:08 rash per Marbella Cutler acetaminophen AdvReac Intermediate Nausea & Verified 01/03/21 21:08 vomiting Home Medications Medication Instructions Recorded Confirmed Type albuterol sulfate 90 mcg/actuation 2 puff IH Q6H PRN 11/26/19 11/12/20 History aerosol inhaler amitriptyline 50 mg tablet 50 mg PO QHS 11/26/19 11/12/20 History cyclobenzaprine 10 mg tablet 10 mg PO HS 11/26/19 11/12/20 History hydroxyzine HCl 25 mg tablet 25 mg PO TID PRN 11/26/19 11/12/20 History risperidone 1 mg tablet 1 mg PO DAILY 11/26/19 11/12/20 History risperidone 2 mg tablet 2 mg PO QHS 11/26/19 11/12/20 History gabapentin 600 mg PO QHS 03/17/20 11/12/20 History amoxicillin 875 mg PO BID #20 tab 11/12/20 Rx Exam Const General: cooperative, uncomfortable, ill appearing and not lethargic Nutritional Appearance: obese Orientation: alert and awake HENNE Other: Mouth is dry. Neck Neck: normal visual inspection and no lymphadenopathy Thyroid: thyroid normal Resp Effort & Inspection: normal respiratory effort and able to speak in complete sentences Auscultation: no rales, no rhonchi and no wheezes Cardio Jugular venous pressure: no JVD Rate: regular rate Rhythm: regular rhythm Heart Sounds: S1 normal, S2 normal, no click, no gallops and no murmurs GI Inspection: normal to inspection and non-distended Palpation: no hepatosplenomegaly and nontender Percussion: normal to percussion Neuro General: patient alert, patient awake and patient oriented x3 Extrem General: no edema Results Labs Result diagrams: 01/03/21 18:45 01/03/21 18:45 Labs: Laboratory Results - last 24 hr 01/03/21 01/03/21 01/03/21 18:45 18:45 18:45 WBC 15.24 H RBC 4.65 Hgb 14.1 Hct 42.7 MCV 91.8 MCH 30.3 MCHC 33.0 RDW 13.2 Plt Count 296 MPV 10.0 Immature Gran % 0.3 Neutrophils % 47.1 Lymphocytes % 44.4 Monocytes % 6.0 Eosinophils % 1.6 Basophils % 0.6 Nucleated RBC % 0 Absolute Neutrophils 7.18 H Absolute Lymphocytes 6.77 H Absolute Monocytes 0.91 H Absolute Eosinophils 0.24 Absolute Basophils 0.09 Sodium 137 Potassium 3.5 Chloride 101 Carbon Dioxide 22.8 Anion Gap 13.2 H BUN 12 Creatinine 1.4 H Estimated GFR/1.73 m2 42.08 Glucose 146 H Calcium 8.6 Magnesium 2.1 Total Bilirubin 0.4 AST 22 ALT 22 Alkaline Phosphatase 180 H Troponin I < 0.05 Total Protein 8.1 Albumin 3.4 Lipase 1808 H Ethyl Alcohol COVID-19 Source 01/03/21 01/03/21 18:45 20:20 WBC RBC Hgb Hct MCV MCH MCHC RDW Plt Count MPV Immature Gran % Neutrophils % Lymphocytes % Monocytes % Eosinophils % Basophils % Nucleated RBC % Absolute Neutrophils Absolute Lymphocytes Absolute Monocytes Absolute Eosinophils Absolute Basophils Sodium Potassium Chloride Carbon Dioxide Anion Gap BUN Creatinine Estimated GFR/1.73 m2 Glucose Calcium Magnesium Total Bilirubin AST ALT Alkaline Phosphatase Troponin I Total Protein Albumin Lipase Ethyl Alcohol 117.1 COVID-19 Source Nasal/Nares Last Vital Signs Temp 36.3 C L 01/03/21 18:34 Pulse 91 H 01/03/21 20:30 Resp 19 01/03/21 20:30 BP 105/67 01/03/21 20:30 Pulse Ox 96 01/03/21 20:30
[2021-01-03 21:40] LABS: Diff Comment Diff Reviewed; RBC Morphology Normal
[2021-01-03 21:51] LABS: COVID-19 PCR Negative (Negative)
[2021-01-03 21:54] LABS: Troponin I < 0.05 ng/mL (<0.06)
[2021-01-03] MEDS: Normal Saline Flush 10 ML SYR IVP (22:23)
[2021-01-03] MEDS: Lactated Ringers 1,000 ML 100 ML IV (22:24)
[2021-01-03] MEDS: THIAMINE 100 MG in Normal Saline 100 ML 200 MG IVPB (22:25)
[2021-01-03] MEDS: Pantoprazole 40 MG VIAL IVP (22:25)
[2021-01-03] MEDS: Gabapentin 600 MG TAB PO (22:26)
[2021-01-03] MEDS: risperiDONE 1 MG TAB 2 MG PO (22:26)
[2021-01-03] MEDS: Amitriptyline 50 MG TAB PO (22:30)
[2021-01-03] MEDS: HYDROmorphone 2 MG/ML VIAL 1 MG IVP (22:41)
[2021-01-04] VITALS (154 sets, daily range): BP systolic 58–130; BP diastolic 30–92; PULSE 78–130; RESP 15–37; TEMP 36.5–38; O2SAT 86–100
[2021-01-04] MEDS: Normal Saline Flush 10 ML SYR IVP ×4 (03:50→18:09)
[2021-01-04] MEDS: HYDROmorphone 2 MG/ML VIAL 1 MG IVP ×2 (03:50→08:06)
[2021-01-04 04:27] LABS: Bilirubin Negative (Negative); Blood Moderate (Negative); Clarity Sl Cloudy (Clear); Glucose Negative (Negative); Ketones Negative (Negative); Leukocyte Esterase Negative (Negative); Nitrite Negative (Negative); Specific Gravity 1.025 (1.005-1.025); Urobilinogen 0.2 EU/dL (Up TO 0.2); pH 5.5 (5-8)
[2021-01-04 04:38] LABS: *AMPHETAMINES SCREEN URINE Negative (Negative); *BARBITURATES SCREEN URINE Negative (Negative); *BENZODIAZEPINES SCREEN URINE Negative (Negative); C & S Indicated? No; Cannabinoids THC Negative (Negative); Casts Negative LPF (Negative); Cocaine Screen,Urine Negative (Negative); Crystals Negative HPF (Negative); Epithelial Cells Few HPF (Negative); METHADONE URINE SCREEN Negative (Negative); Mucus Negative (Negative); OPIATES URINE SCREEN Positive (Negative); WBC Negative HPF (0-5)
[2021-01-04 04:39] LABS: Bacteria Rare HPF (Negative); Tricyclic Antidepressants Positive (Negative)
[2021-01-04 07:28] LABS: Abs Immature Grans 0.04 10^3/uL (0.0-0.06); Absolute Basophil Count 0.03 10^3/uL (0.0-0.2); Absolute Lymphocyte Count 1.23 10^3/uL (1.2-3.4); Absolute Monocyte Count 0.99 10^3/uL (0.1-0.8); Basophils % 0.3; Eosinophils % 0.3; HCT 44.8 % (36.0-46.0); HGB 14.3 g/dL (11.2-15.7); Immature Grans % 0.3; Lymphocytes % 10.6; MCH 29.7 pg (27.0-33.0); MCHC 31.9 % (32.0-36.0); MCV 93.1 fL (80-95); Monocytes % 8.5; Nucleated RBC 0 %; RBC 4.81 10^6/uL (3.93-5.22); RDW 13.7 % (11.7-14.6); RDW-SD 46.7 fL; WBC 11.61 10^3/uL (4.4-10.8)
[2021-01-04 07:36] LABS: Absolute Eosinophil Count 0.03 10^3/uL (0.0-0.7); Absolute Neutrophil Count 9.29 10^3/uL (1.2-6.7)
[2021-01-04 07:40] LABS: Magnesium 1.8 mg/dL (1.8-2.4)
[2021-01-04 07:47] LABS: Diff Comment Diff Reviewed; RBC Morphology Normal
[2021-01-04] MEDS: risperiDONE 1 MG TAB PO (08:06)
--- NOTE | 2021-01-04 08:35 | DI.CT_ITS ---
Exam(s) CT ABDOMEN PELVIS WO EXAM: CT ABDOMEN PELVIS WO CLINICAL HISTORY: abd pain, elevated lipase. TECHNIQUE: Imaging Protocol: Axial computed tomography images with coronal and sagittal reformatted images were created and reviewed. COMPARISON: CT CT ABDOMEN PELVIS WO from 09/19/2020 FINDINGS: ABDOMEN: Lung Bases: Bilateral basilar atelectasis. There is a patulous esophagus. Liver: There is diffuse decreased attenuation of the liver consistent with fatty infiltration. No me asurable mass. Gallbladder and biliary tract: No radiodense calculus or biliary ductal dilation. Pancreas: The pancreas is ill-defined with moderately severe peripancreatic inflammatory changes. Ca lcification is again noted in the head of the pancreas which may reflect chronic pancreatitis. There is a question of a focal fluid collection adjacent to the body and tail of the pancreas and an absce ss or pseudocyst cannot be excluded. This area measures 5.1 x 3.0 cm. This cannot be well evaluated secondary to lack of IV contrast. Inflammatory stranding is seen around the distal stomach and duod enum and extending into the retroperitoneum. The findings are suspicious for acute pancreatitis. Spleen: Normal. Kidneys: Normal size, contour and axis.No radiodense stones or obstructive uropathy. No masses seen. Adrenal glands: No mass is seen. Lymph nodes: Within normal limits. Abdominal Aorta: Abdominal portion non-dilated. Mild atherosclerosis. PELVIS: Bladder:There is incomplete distension of the urinary bladder. No gross abnormality is identified. Bowel: No evidence of bowel obstruction. There is thickening of the wall of the distal stomach and p roximal duodenum. This is likely secondary to the adjacent pancreatic inflammatory process. Appendi x is unremarkable. Peritoneal cavity: There is inflammatory stranding in the mesentery. There is a small amount of flui d in the right pericolic gutter. No free air. Reproductive organs: Within normal limits. Bones: Within normal limits. Soft Tissues: Within normal limits. IMPRESSION: 1. Findings most suggestive of acute pancreatitis. Question of a fluid collection adjacent to the emely dy and tail of the pancreas which may represent an abscess or pseudocyst. A postcontrast CT scan may be considered for further evaluation. 2. Bowel wall thickening involving the distal stomach and duodenum consistent with gastritis and duod enitis likely secondary to the adjacent pancreatic inflammation. 3. Hepatic steatosis. 4. Calcifications in the head of the pancreas are again seen and likely reflect chronic pancreatitis. RADIATION DOSE DELIVERED: 1,070.22mGy.cm Total DLP DATA REPOSITORY: All CT scans at this facility are submitted to the National Radiology Data Registry (NRDR) Dose Index Registry (DIR) with the [employer] (A[employer]). RADIATION OPTIMIZATION: All CT scans at this facility use at least one of these dose optimization te chniques: automated exposure control; mA and/or kV adjustment per patient size (includes targeted exa ms where dose is matched to clinical indication); or iterative reconstruction.
[2021-01-04] MEDS: Thiamine 100 MG TAB PO (08:45)
[2021-01-04] MEDS: Folic Acid 1 MG TAB PO (08:45)
[2021-01-04] MEDS: MULTIVITAMIN 10 ML, THIAMINE 100 MG, FOLIC ACID 1 MG in DEXTROSE 5%-0.45% SALINE 1,000 ML 42 ML IV (08:45)
[2021-01-04] MEDS: Multivitamin TAB 1 TAB PO (08:45)
--- NOTE | 2021-01-04 09:05 | PDOC.CMIN ---
- If Service Date Differs Date of service: 01/04/21 Time of Service: 09:05 Care Management Initial Assess REASON FOR HOSPITALIZATION:: Pancreatitis PAST MEDICAL HISTORY/PAST SURGICAL HISTORY:: Anemia. Bipolar disorder. Cannabis dependence. Chronic alcoholism in remission. pt. states she has been sober for 8 months. Chronic erosive gastritis. Cognitive dysfunction. Esophagitis. Gastritis. History of esophageal reflux. Osteoarthritis of left hip. Papilloma of larynx. PTSD (post-traumatic stress disorder). Schizophrenia. Supraglottic edema secondary to procedure. History of section. History of esophagogastroduodenoscopy (EGD) (~04/13/20). History of tubal ligation PREVIOUS FUNCTIONAL STATUS/SOCIAL/FAMILY SUPPORTS:: Celia reports that she is but lives alone in an apartment on [address] in [place] [facility] [place] [facility]. She has 2 sons and a daughter, none of whom live with her. Her sons are 18 and 19. The older one lives with her in [place] and the younger one is with her parents. Celia's daughter is in [facility] custody and is with a family in [place] [place]. Celia is independent at baseline with ADLs and self care. CURRENT FUNCTIONAL STATUS:: Celia was laying in bed when CM met with her. She was pleasant and easily engaged in conversation. She reports that her main concern outiside of the hospital is paying her rent. To help with this she has arranged for a friend to go to her home and get her card. CM continues to support. ADVANCE DIRECTIVES:: None on file Has patient been provided with info about the portal/API?: Yes Did the patient sign up for the portal?: No CODE STATUS:: Full Code INSURANCE COVERAGE / FINANCIAL ISSUES:: Medicaid CURRENT HOME/COMMUNITY SERVICES/EQUIPMENT:: None PRIMARY CARE PHYSICIAN:: Angela Beyer POTENTIAL DISCHARGE NEEDS:: Follow up with PCP and discharge plan of care PATIENT/FAMILY EDUCATION NEEDS:: Review of discharge instructions, medications, limitations, follow up plan, Ask Me Three TRANSPORTATION:: via private vehicle with friend vs RCT PLAN:: Celia will likely be discharged home with no new services. She will follow up with her PCP and discharge plan of care and transport with family. CM will continue to support Celia and her discharge planning needs.
--- NOTE | 2021-01-04 09:47 | PGE_ITS ---
Date of Service Date of service: 01/04/21 Time of Service: 09:47 Assessment and Plan Assessment and plan (1) Fever: Start date: 01/04/21 Start time: 10:57 Status: Acute Assessment and plan: Fever work up CT scan, possible abscess cxray urine cx, blood culture procal, lactate pending, continue to monitor labs antipyretics Qualifiers: Fever type: due to other condition Qualified Code(s): R50.81 - Fever presenting with conditions classified elsewhere (2) Acute pancreatitis: Start date: 01/04/21 Start time: 10:54 Status: Acute Assessment and plan: She will be treated with pain medicine, antiemetics and IV fluids. She be kept n.p.o. except for medicines. Her psychiatric meds will be continued if tolerated. We will recheck labs tomorrow. She will be given intravenous pantoprazole daily. Dry CT abd done question of abscess. Pt febrile with leukocytosis however this does not appear to be new. She did have an event where she became hypotensive with lethargy, repeat Ct with contrast ordered, 2 liters boluses ordered Will consult surgery if abscess Qualifiers: Pancreatitis type: alcohol induced Acute pancreatitis complication: no infection or necrosis Qualified Code(s): K85.20 - Alcohol induced acute pancreatitis without necrosis or infection (3) Chronic alcohol abuse: Start date: 01/04/21 Start time: 10:59 Status: Chronic Assessment and plan: Alcohol level was 115 today after stating that she only had 1 drink. She does acknowledge drinking large beers. She will be placed on alcohol withdrawal protocol. She will be given thiamine, MVI and folic acid. IVF @ 200 (4) Tobacco use: Start date: 01/04/21 Start time: 10:59 Status: Chronic Assessment and plan: nicotine replacement as needed, unable to assess readiness to quite at this time due to condition (5) DVT prophylaxis: Start date: 01/04/21 Start time: 11:01 Status: Acute Assessment and plan: given age she does not require chemical prophylaxis however will add teds and scds at this time (6) Discharge planning issues: Start date: 01/04/21 Start time: 11:00 Status: Acute Assessment and plan: Home when medically stable requiring inpatient care Subjective Subjective Patient reports: other Interval history since last seen: Pt sleepy but easy arousable. BP obtained using manual cuff, harder to hear but within 88-92% SBP and DBP was 60, will give narcan 0.2 with no effect. Patient wakes easily. States she is just tired. She wants something to drink. She is also febrile. Will run fever work up, CT abd, give 2 liters then return to at 200, continue to monitor. Exam Const General: cooperative, comfortable, ill appearing and lethargic Nutritional Appearance: obese Orientation: alert, awake and other (wakes easily) Eyes Pupils: PERRL EOM: EOM intact bilaterally Neck Neck: normal visual inspection and no lymphadenopathy Thyroid: thyroid normal Resp Effort & Inspection: normal respiratory effort and able to speak in complete sentences Auscultation: no rales, no rhonchi and no wheezes Cardio Jugular venous pressure: no JVD Rate: tachycardic Rhythm: regular rhythm Heart Sounds: S1 normal, S2 normal, no click, no gallops and no murmurs GI Inspection: normal to inspection and non-distended Palpation: no hepatosplenomegaly and nontender Percussion: normal to percussion General: No CVA tenderness and deferred Back/Spine/Pelvis Back: no CVA tenderness Thoracic/Lumbar Spine: thoracic and lumbar spine normal to inspection Skin General skin exam: no rashes or lesions noted Neuro General: patient alert and patient awake Extrem General: no edema Objective Last Vital Signs Temp 37.5 C 01/04/21 09:29 Pulse 108 H 01/04/21 09:29 Resp 18 01/04/21 09:29 BP 92/60 L 01/04/21 09:38 Pulse Ox 97 01/04/21 09:46 Laboratory Results - last 24 hr 01/03/21 01/03/21 01/03/21 18:45 18:45 18:45 WBC 15.24 H RBC 4.65 Hgb 14.1 Hct 42.7 MCV 91.8 MCH 30.3 MCHC 33.0 RDW 13.2 Plt Count 296 MPV 10.0 Immature Gran % 0.3 Neutrophils % 47.1 Lymphocytes % 44.4 Monocytes % 6.0 Eosinophils % 1.6 Basophils % 0.6 Nucleated RBC % 0 Absolute Neutrophils 7.18 H Absolute Lymphocytes 6.77 H Absolute Monocytes 0.91 H Absolute Eosinophils 0.24 Absolute Basophils 0.09 RBC Morphology Normal Sodium 137 Potassium 3.5 Chloride 101 Carbon Dioxide 22.8 Anion Gap 13.2 H BUN 12 Creatinine 1.4 H Estimated GFR/1.73 m2 42.08 Glucose 146 H Calcium 8.6 Magnesium 2.1 Total Bilirubin 0.4 AST 22 ALT 22 Alkaline Phosphatase 180 H Troponin I < 0.05 Total Protein 8.1 Albumin 3.4 Lipase 1808 H Urine Color Urine Clarity Urine pH Ur Specific [place] Urine Protein Urine Ketones Urine Blood Urine Nitrite Urine Bilirubin Urine Urobilinogen Ur Leukocyte Esterase Urine RBC Urine WBC Ur Epithelial Cells Urine Crystals Urine Bacteria Urine Casts Urine Mucus Ur Culture Indicated? Urine Glucose Urine Opiates Screen Urine Methadone Screen Ur Barbiturates Screen Ur Tricyclics Screen Ur Amphetamines Screen U Benzodiazepines Scrn Urine Cocaine Screen Ur THC Screen Ethyl Alcohol COVID-19 Source SARS-CoV-2 (PCR) 01/03/21 01/03/21 01/03/21 18:45 20:20 21:27 WBC RBC Hgb Hct MCV MCH MCHC RDW Plt Count MPV Immature Gran % Neutrophils % Lymphocytes % Monocytes % Eosinophils % Basophils % Nucleated RBC % Absolute Neutrophils Absolute Lymphocytes Absolute Monocytes Absolute Eosinophils Absolute Basophils RBC Morphology Sodium Potassium Chloride Carbon Dioxide Anion Gap BUN Creatinine Estimated GFR/1.73 m2 Glucose Calcium Magnesium Total Bilirubin AST ALT Alkaline Phosphatase Troponin I < 0.05 Total Protein Albumin Lipase Urine Color Urine Clarity Urine pH Ur Specific [place] Urine Protein Urine Ketones Urine Blood Urine Nitrite Urine Bilirubin Urine Urobilinogen Ur Leukocyte Esterase Urine RBC Urine WBC Ur Epithelial Cells Urine Crystals Urine Bacteria Urine Casts Urine Mucus Ur Culture Indicated? Urine Glucose Urine Opiates Screen Urine Methadone Screen Ur Barbiturates Screen Ur Tricyclics Screen Ur Amphetamines Screen U Benzodiazepines Scrn Urine Cocaine Screen Ur THC Screen Ethyl Alcohol 117.1 COVID-19 Source Nasal/Nares SARS-CoV-2 (PCR) Negative 01/04/21 01/04/21 01/04/21 04:10 04:10 07:05 WBC RBC Hgb Hct MCV MCH MCHC RDW Plt Count MPV Immature Gran % Neutrophils % Lymphocytes % Monocytes % Eosinophils % Basophils % Nucleated RBC % Absolute Neutrophils Absolute Lymphocytes Absolute Monocytes Absolute Eosinophils Absolute Basophils RBC Morphology Sodium Potassium Chloride Carbon Dioxide Anion Gap BUN Creatinine Estimated GFR/1.73 m2 Glucose Calcium Magnesium 1.8 Total Bilirubin AST ALT Alkaline Phosphatase Troponin I Total Protein Albumin Lipase Urine Color Yellow Urine Clarity Sl Cloudy Urine pH 5.5 Ur Specific [place] 1.025 Urine Protein 30 H Urine Ketones Negative Urine Blood Moderate H Urine Nitrite Negative Urine Bilirubin Negative Urine Urobilinogen 0.2 Ur Leukocyte Esterase Negative Urine RBC 5-10 H Urine WBC Negative Ur Epithelial Cells Few Urine Crystals Negative Urine Bacteria Rare Urine Casts Negative Urine Mucus Negative Ur Culture Indicated? No Urine Glucose Negative Urine Opiates Screen Positive A Urine Methadone Screen Negative Ur Barbiturates Screen Negative Ur Tricyclics Screen Positive A Ur Amphetamines Screen Negative U Benzodiazepines Scrn Negative Urine Cocaine Screen Negative Ur THC Screen Negative Ethyl Alcohol COVID-19 Source SARS-CoV-2 (PCR) 01/04/21 07:05 WBC 11.61 H RBC 4.81 Hgb 14.3 Hct 44.8 MCV 93.1 MCH 29.7 MCHC 31.9 L RDW 13.7 Plt Count MPV Immature Gran % 0.3 Neutrophils % 80.0 Lymphocytes % 10.6 Monocytes % 8.5 Eosinophils % 0.3 Basophils % 0.3 Nucleated RBC % 0 Absolute Neutrophils 9.29 H Absolute Lymphocytes 1.23 Absolute Monocytes 0.99 H Absolute Eosinophils 0.03 Absolute Basophils 0.03 RBC Morphology Normal Sodium Potassium Chloride Carbon Dioxide Anion Gap BUN Creatinine Estimated GFR/1.73 m2 Glucose Calcium Magnesium Total Bilirubin AST ALT Alkaline Phosphatase Troponin I Total Protein Albumin Lipase Urine Color Urine Clarity Urine pH Ur Specific [place] Urine Protein Urine Ketones Urine Blood Urine Nitrite Urine Bilirubin Urine Urobilinogen Ur Leukocyte Esterase Urine RBC Urine WBC Ur Epithelial Cells Urine Crystals Urine Bacteria Urine Casts Urine Mucus Ur Culture Indicated? Urine Glucose Urine Opiates Screen Urine Methadone Screen Ur Barbiturates Screen Ur Tricyclics Screen Ur Amphetamines Screen U Benzodiazepines Scrn Urine Cocaine Screen Ur THC Screen Ethyl Alcohol COVID-19 Source SARS-CoV-2 (PCR)
[2021-01-04] MEDS: Normal Saline 1,000 ML 999 ML IV ×2 (09:55→11:09)
[2021-01-04] MEDS: Naloxone 0.4 MG/ML VIAL 0.2 MG IVP (10:04)
[2021-01-04 10:22] LABS: ALT 17 U/L (14-59); AST 20 U/L (15-37); Albumin 2.8 g/dL (3.4-5.0); Alkaline Phosphatase 161 U/L (46-116); Anion Gap 11.3 mmol/L (3-11); BUN 15 mg/dL (7-18); Bilirubin, Total 0.8 mg/dL (0.2-1.0); CO2 21.7 mmol/L (21.0-32.0); CREATININE 1.9 mg/dL (0.55-1.02); Chloride 106 mmol/L (98-107); Estimated GFR 29.58 (mL/min/1.73m2); Glucose 88 mg/dL (74-106); Sodium 139 mmol/L (136-145); Total Protein 6.6 g/dL (6.4-8.2)
[2021-01-04 10:23] LABS: Lipase 3854 U/L (73-393); Potassium 4.7 mmol/L (3.5-5.1)
[2021-01-04] MEDS: Acetaminophen 500 MG TAB 1000 MG PO ×2 (10:24→19:22)
[2021-01-04 10:26] LABS: Calcium 8.1 mg/dL (8.5-10.1)
[2021-01-04 11:57] LABS: Lactate 2.1 mmol/L (0.6-1.4)
[2021-01-04 12:32] LABS: Procalcitonin 1.2 ng/mL
--- NOTE | 2021-01-04 12:50 | DI.MRI_ITS ---
Exam(s) MR ABDOMEN WO EXAM: MR ABDOMEN WO CLINICAL HISTORY: FEVER TECHNIQUE: Multiplanar multisequence MRA of the Abdomen was performed. Contrast was not administer ed due to the patient's decreased renal function. COMPARISON: CT CT ABDOMEN PELVIS WO from 01/04/[address] ABDOMEN PELVIS WO from 01/04/2021 FINDINGS: Visualized liver, spleen, adrenal glands and kidneys: Unremarkable. Pancreas: Displays normal signal intensity. Peripancreatic inflammatory changes are present. There is a 5 x 2.4 cm fluid collection anterior to the body and tail of the pancreas. This may represent a n abscess or pseudocyst. There is a small amount of perihepatic and perisplenic ascites. Inflammato ry changes are seen in the retroperitoneum. Gallbladder and Bile Ducts: Unremarkable. Visualized aorta: Unremarkable. Bowel: There is thickening of the wall of the distal stomach and the proximal visualized duodenum. T he findings would be consistent with gastritis and duodenitis. This is likely secondary to the adjac ent pancreatic inflammation. Soft Tissues: Unremarkable. Bone: Unremarkable. Lymph Nodes: Unremarkable. IMPRESSION: 1. Limited MRI of the abdomen. Contrast was not administered due to the patient's decreased renal fu nction. 2. Findings consistent with acute pancreatitis. 3. 5 x 2.4 cm fluid collection anterior to the body and tail of the pancreas suspicious for abscess o r pseudocyst. 4. Inflammatory changes consistent with gastritis and duodenitis likely secondary to the adjacent acu te pancreatitis. 5. Small amount of perihepatic and perisplenic ascites. Retroperitoneal inflammatory changes are not ed. DATA REPOSITORY:
--- NOTE | 2021-01-04 12:56 | W.SURGCON ---
Assessment and Plan Assessment and plan (1) Acute pancreatitis: Status: Acute Assessment and plan: -pt is actively in SIRS. I do not feel at this point that she has a pancreatic abscess. I think she just has severe pancreatitis and an severe inflammatory response. She is sequestrated all her fluids, which has led to BETH. -Continue aggressive hydration and monitor electrolytes -Going to see if she responds to some Plasma-Lyte better -Add in low-dose vasopressin And continue to watch her fluid response over the past 12 hours. She has had minimal response and about 100 cc out in the last 4 hours. Currently she is requiring 2 L of oxygen. She is starting to get some crackles/rales at the base but she appears to be resting comfortably and not working to breathe. We will continue to watch her fluid intake for signs of fluid overload or progressing ARDS She is probably going to need a central line and pressors started in the a.m., and consider transfer to tertiary center 90 minutes was spent doing the consult. I have been monitoring the patient's progress for the last 6 hours closely Qualifiers: Pancreatitis type: alcohol induced Acute pancreatitis complication: no infection or necrosis Qualified Code(s): K85.20 - Alcohol induced acute pancreatitis without necrosis or infection (2) Tobacco use: Status: Chronic (3) Cirrhosis: Status: Chronic (4) Chronic alcohol abuse: Status: Chronic (5) ADHD: Status: Acute (6) Migraines: Status: Chronic (7) Chronic pancreatitis due to chronic alcoholism: Status: Acute (8) SIRS without infection with organ dysfunction: Status: Acute History of Present Illness Narrative: Chief Complaint: abdominal pain, nausea and vomiting Narrative: This 40-year-old female is here because of abdominal pain. She has a history of pancreatitis and was here in the hospital in September of this year. It was thought to be alcohol related. She says that over the last day and a half she has had epigastric pain without radiation. She said she is not had a history of this in the past but does recall the pancreatitis in September. She has had associated nausea and vomiting with some loose stools. She tried putting up with the discomfort at home but could not take it anymore so she came in to be seen. Evaluation emergency department was consistent with pancreatitis. She has been given ondansetron, ketorolac and morphine. She has been given intravenous fluids also. She says she not been around anyone else that has been sick. She did have 1 drink of alcohol today and she said she normally drinks up to about 1024 ounce beers per week. She uses marijuana occasionally and smokes about half pack cigarettes per day. She has not been around anyone else been ill. She does live by herself. She has had both coronavirus vaccines. She is not working currently. -Patient has a longstanding history of heavy smoking and drinking. She was in the hospital in September with pancreatitis-due to alcohol. She had a ultrasound of the gallbladder which showed sludge. I have scoped her in the past and showed esophagitis. 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 It was not dysplastic. She has calcifications in her pancreatic head. -from ED notes 01/03 -She has a well-known history of alcoholic pancreatitis. She has microcalcifications in the head of her pancreas. I did review all her notes and test results. Today she is quite sleepy and maintaining her sats on room air she complains of a significant amount of pain and is requiring narcotics regularly but then she will complain of severe pain and then fall back to sleep. She has made little urine output in the past 24 hours and had some low blood pressures even after fluid boluses. She was transferred to the ICU and a Alcocer catheter placed. She basically made 50 cc of urine in about 4 hours time. She was given another fluid bolus so she has had a total of 3 fluid boluses and IV fluids at 200 cc an hour since 7 AM on 01/04. She is third spacing a significant amount of fluid into her abdomen. Her hemoglobin is remaining stable. Her creatinine continues to rise. She is having poor urine output. Her pressures are remaining in the high 90s. She is at high risk for pneumonia and pulmonary edema/ARDS. We will monitor her closely for this. If she does not respond to fluids the next 12 hours then she will probably need a central line and pressors and consider to transfer to a higher level of care Review of Systems All systems reviewed & are unremarkable except as noted in HPI and below [facility] Medical History (Updated 01/04/21 @ 22:12 by Antonella Mederos DO) Anemia Bipolar disorder Cannabis dependence Chronic alcoholism in remission pt. states she has been sober for 8 months Chronic erosive gastritis Cognitive dysfunction Esophagitis Fever Gastritis History of esophageal reflux Osteoarthritis of left hip Papilloma of larynx PTSD (post-traumatic stress disorder) Schizophrenia Supraglottic edema secondary to procedure Surgical History History of section History of esophagogastroduodenoscopy (EGD) (~04/13/20) History of tubal ligation Social History Smoking/Tobacco Use Status: Current every day Tobacco Type: cigarettes Smoking risk assessment performed?: Yes Alcohol Intake: current Alcohol Intake frequency: a few times a month Drug use: Rarely Substance use type: marijuana Do you feel safe at home: Yes Do you feel safe in your relationship?: Yes Exam HENMT Other: Head is atraumatic and normocephalic. Pupils are equal and reactive to light. There is no scleral jaundice. There is no scleral edema. She denies any eye pain or drainage Dentition is poor. There are no abscesses Neck is supple Chest Chest: normal inspection of the chest and normal palpation of entire chest wall Resp Effort & Inspection: normal respiratory effort and able to speak in complete sentences Auscultation: clear to auscultation bilaterally Other: No rales rhonchi or wheezing Cardio Rate: tachycardic Rhythm: regular rhythm GI Inspection: distended Palpation: soft and tender Auscultation: hypoactive bowel sounds Other: Patient is complaining of 8 out of 10 pain. But will fall asleep while talking to her. Skin Other: No breakdown Extrem General: full ROM and no clubbing, cyanosis or edema Results Last Vital Signs Temp 37.7 C H 01/04/21 11:57 Pulse 107 H 01/04/21 11:57 Resp 17 01/04/21 11:57 BP 86/58 L 01/04/21 11:57 Pulse Ox 94 01/04/21 11:57 Labs Result diagrams: 01/04/21 07:05 01/04/21 15:08 Labs: Laboratory Results - last 24 hr 01/03/21 01/03/21 01/03/21 18:45 18:45 18:45 WBC 15.24 H RBC 4.65 Hgb 14.1 Hct 42.7 MCV 91.8 MCH 30.3 MCHC 33.0 RDW 13.2 Plt Count 296 MPV 10.0 Immature Gran % 0.3 Neutrophils % 47.1 Lymphocytes % 44.4 Monocytes % 6.0 Eosinophils % 1.6 Basophils % 0.6 Nucleated RBC % 0 Absolute Neutrophils 7.18 H Absolute Lymphocytes 6.77 H Absolute Monocytes 0.91 H Absolute Eosinophils 0.24 Absolute Basophils 0.09 RBC Morphology Normal VBG Lactate Sodium 137 Potassium 3.5 Chloride 101 Carbon Dioxide 22.8 Anion Gap 13.2 H BUN 12 Creatinine 1.4 H Estimated GFR/1.73 m2 42.08 Glucose 146 H Calcium 8.6 Magnesium 2.1 Total Bilirubin 0.4 AST 22 ALT 22 Alkaline Phosphatase 180 H Troponin I < 0.05 Total Protein 8.1 Albumin 3.4 Lipase 1808 H Procalcitonin Urine Color Urine Clarity Urine pH Ur Specific [place] Urine Protein Urine Ketones Urine Blood Urine Nitrite Urine Bilirubin Urine Urobilinogen Ur Leukocyte Esterase Urine RBC Urine WBC Ur Epithelial Cells Urine Crystals Urine Bacteria Urine Casts Urine Mucus Ur Culture Indicated? Urine Glucose Urine Opiates Screen Urine Methadone Screen Ur Barbiturates Screen Ur Tricyclics Screen Ur Amphetamines Screen U Benzodiazepines Scrn Urine Cocaine Screen Ur THC Screen Ethyl Alcohol COVID-19 Source SARS-CoV-2 (PCR) 01/03/21 01/03/21 01/03/21 18:45 20:20 21:27 WBC RBC Hgb Hct MCV MCH MCHC RDW Plt Count MPV Immature Gran % Neutrophils % Lymphocytes % Monocytes % Eosinophils % Basophils % Nucleated RBC % Absolute Neutrophils Absolute Lymphocytes Absolute Monocytes Absolute Eosinophils Absolute Basophils RBC Morphology VBG Lactate Sodium Potassium Chloride Carbon Dioxide Anion Gap BUN Creatinine Estimated GFR/1.73 m2 Glucose Calcium Magnesium Total Bilirubin AST ALT Alkaline Phosphatase Troponin I < 0.05 Total Protein Albumin Lipase Procalcitonin Urine Color Urine Clarity Urine pH Ur Specific [place] Urine Protein Urine Ketones Urine Blood Urine Nitrite Urine Bilirubin Urine Urobilinogen Ur Leukocyte Esterase Urine RBC Urine WBC Ur Epithelial Cells Urine Crystals Urine Bacteria Urine Casts Urine Mucus Ur Culture Indicated? Urine Glucose Urine Opiates Screen Urine Methadone Screen Ur Barbiturates Screen Ur Tricyclics Screen Ur Amphetamines Screen U Benzodiazepines Scrn Urine Cocaine Screen Ur THC Screen Ethyl Alcohol 117.1 COVID-19 Source Nasal/Nares SARS-CoV-2 (PCR) Negative 01/04/21 01/04/21 01/04/21 04:10 04:10 07:05 WBC RBC Hgb Hct MCV MCH MCHC RDW Plt Count MPV Immature Gran % Neutrophils % Lymphocytes % Monocytes % Eosinophils % Basophils % Nucleated RBC % Absolute Neutrophils Absolute Lymphocytes Absolute Monocytes Absolute Eosinophils Absolute Basophils RBC Morphology VBG Lactate Sodium Potassium Chloride Carbon Dioxide Anion Gap BUN Creatinine Estimated GFR/1.73 m2 Glucose Calcium Magnesium 1.8 Total Bilirubin AST ALT Alkaline Phosphatase Troponin I Total Protein Albumin Lipase Procalcitonin Urine Color Yellow Urine Clarity Sl Cloudy Urine pH 5.5 Ur Specific [place] 1.025 Urine Protein 30 H Urine Ketones Negative Urine Blood Moderate H Urine Nitrite Negative Urine Bilirubin Negative Urine Urobilinogen 0.2 Ur Leukocyte Esterase Negative Urine RBC 5-10 H Urine WBC Negative Ur Epithelial Cells Few Urine Crystals Negative Urine Bacteria Rare Urine Casts Negative Urine Mucus Negative Ur Culture Indicated? No Urine Glucose Negative Urine Opiates Screen Positive A Urine Methadone Screen Negative Ur Barbiturates Screen Negative Ur Tricyclics Screen Positive A Ur Amphetamines Screen Negative U Benzodiazepines Scrn Negative Urine Cocaine Screen Negative Ur THC Screen Negative Ethyl Alcohol COVID-19 Source SARS-CoV-2 (PCR) 01/04/21 01/04/21 01/04/21 07:05 08:55 11:40 WBC 11.61 H RBC 4.81 Hgb 14.3 Hct 44.8 MCV 93.1 MCH 29.7 MCHC 31.9 L RDW 13.7 Plt Count MPV Immature Gran % 0.3 Neutrophils % 80.0 Lymphocytes % 10.6 Monocytes % 8.5 Eosinophils % 0.3 Basophils % 0.3 Nucleated RBC % 0 Absolute Neutrophils 9.29 H Absolute Lymphocytes 1.23 Absolute Monocytes 0.99 H Absolute Eosinophils 0.03 Absolute Basophils 0.03 RBC Morphology Normal VBG Lactate 2.1 H Sodium 139 Potassium 4.7 D Chloride 106 Carbon Dioxide 21.7 Anion Gap 11.3 H BUN 15 Creatinine 1.9 H Estimated GFR/1.73 m2 29.58 Glucose 88 D Calcium 8.1 L Magnesium Total Bilirubin 0.8 AST 20 ALT 17 Alkaline Phosphatase 161 H Troponin I Total Protein 6.6 Albumin 2.8 L Lipase 3854 H Procalcitonin 1.2 Urine Color Urine Clarity Urine pH Ur Specific [place] Urine Protein Urine Ketones Urine Blood Urine Nitrite Urine Bilirubin Urine Urobilinogen Ur Leukocyte Esterase Urine RBC Urine WBC Ur Epithelial Cells Urine Crystals Urine Bacteria Urine Casts Urine Mucus Ur Culture Indicated? Urine Glucose Urine Opiates Screen Urine Methadone Screen Ur Barbiturates Screen Ur Tricyclics Screen Ur Amphetamines Screen U Benzodiazepines Scrn Urine Cocaine Screen Ur THC Screen Ethyl Alcohol COVID-19 Source SARS-CoV-2 (PCR)
--- NOTE | 2021-01-04 13:00 | DI.RAD_ITS ---
Exam(s) XR CHEST 2V PA LATERAL EXAM: XR CHEST 2V PA LATERAL CLINICAL HISTORY: fever TECHNIQUE: 2D digital imaging was performed. COMPARISON: CR,XR XR CHEST 2V PA LATERAL from 09/19/2020 FINDINGS: MEDIASTINUM: Normal. HEART: Normal. PULMONARY VASCULATURE: Normal. LUNGS: Clear. PLEURAL SPACE: No pleural effusion or pneumothorax. BONE:Within normal limits for the patient's age. OTHER FINDINGS:Normal. IMPRESSION: No acute pulmonary findings. DATA REPOSITORY: RADIATION DOSE DELIVERED:
[2021-01-04] MEDS: Lactated Ringers 1,000 ML 1000 ML IV (13:46)
[2021-01-04] MEDS: IMIPENEM/CILASTATIN 500 MG in Normal Saline 100 ML 200 MG IVPB ×2 (13:48→19:23)
[2021-01-04] MEDS: Heparin 5,000 UNITS/ML VIAL 5000 UNITS SC (14:25)
[2021-01-04 15:14] LABS: Lactate 1.1 mmol/L (0.6-1.4)
[2021-01-04 15:43] LABS: ALT 13 U/L (14-59); AST 23 U/L (15-37); Albumin 2.2 g/dL (3.4-5.0); Alkaline Phosphatase 127 U/L (46-116); Anion Gap 9.4 mmol/L (3-11); BUN 17 mg/dL (7-18); Bilirubin, Total 0.6 mg/dL (0.2-1.0); C-Reactive Protein 11.52 mg/dL (0.0-0.3); CO2 21.6 mmol/L (21.0-32.0); CREATININE 2.5 mg/dL (0.55-1.02); Calcium 7.1 mg/dL (8.5-10.1); Chloride 107 mmol/L (98-107); Estimated GFR 21.55 (mL/min/1.73m2); Glucose 92 mg/dL (74-106); NT-proBNP 273 pg/mL (<300); Potassium 4.5 mmol/L (3.5-5.1); Sodium 138 mmol/L (136-145); Total Protein 5.5 g/dL (6.4-8.2)
[2021-01-04 15:59] LABS: GGT 69 U/L (5-55)
--- NOTE | 2021-01-04 16:22 | NUR.NOTE ---
Nursing Note: At 1304 on 01/04/21, pt. was transferred from Med/Surg to ICU per MD order, upon returning from a STAT MRI. This RN gave a bedside report to COORDINATOR HOTELS at this time. RN will reassess as necessary.
[2021-01-04] MEDS: Normal Saline 1,000 ML 1000 ML IV (17:15)
[2021-01-04] MEDS: HYDROmorphone 2 MG/ML VIAL 0.5 MG IVP (18:08)
[2021-01-04 18:55] LABS: Bilirubin Small (Negative); Blood Large (Negative); Clarity Cloudy (Clear); Glucose Negative (Negative); Ketones Trace mg/dL (Negative); Leukocyte Esterase Negative (Negative); Nitrite Negative (Negative); Urobilinogen 0.2 EU/dL (Up TO 0.2); pH 5.5 (5-8)
[2021-01-04 19:05] LABS: Bacteria Many HPF (Negative); Crystals Negative HPF (Negative); Epithelial Cells Many HPF (Negative); Other Cells Few Transitional (Negative); RBC 20-50 HPF (0-2)
[2021-01-04 19:06] LABS: C & S Indicated? No/Sq. Contamination; Casts 3-5 Hyaline LPF (Negative); Mucus Trace (Negative)
[2021-01-04] MEDS: Lactated Ringers 1,000 ML 250 ML IV (19:32)
[2021-01-04] MEDS: ELECTROLYTE-R SOLUTION 1,000 ML 500 ML IV (21:07)
[2021-01-04] MEDS: Amitriptyline 50 MG TAB PO (21:52)
[2021-01-04] MEDS: Pantoprazole 40 MG VIAL IVP (21:52)
[2021-01-04] MEDS: Gabapentin 600 MG TAB PO (21:53)
[2021-01-04] MEDS: risperiDONE 1 MG TAB 2 MG PO (21:53)
[2021-01-04] MEDS: Vasopressin 20 UNITS/ML VIAL (23:20)
[2021-01-04] MEDS: VASOPRESSIN 50 UNITS in Normal Saline 497.5 ML IV (23:23)
[2021-01-05] VITALS (78 sets, daily range): BP systolic 78–156; BP diastolic 35–88; PULSE 62–124; RESP 16–35; TEMP 36.3–38.2; O2SAT 90–100
[2021-01-05] MEDS: Lactated Ringers 1,000 ML 200 ML IV ×2 (00:18→07:16)
[2021-01-05] MEDS: IMIPENEM/CILASTATIN 500 MG in Normal Saline 100 ML 200 MG IVPB ×3 (04:30→20:02)
[2021-01-05] MEDS: HYDROmorphone 2 MG/ML VIAL 0.5 MG IVP ×2 (05:14→12:50)
[2021-01-05 06:39] LABS: Lactate 0.7 mmol/L (0.6-1.4)
[2021-01-05 06:46] LABS: Abs Immature Grans 0.24 10^3/uL (0.0-0.06); Absolute Basophil Count 0.05 10^3/uL (0.0-0.2); Absolute Eosinophil Count 0.27 10^3/uL (0.0-0.7); Absolute Lymphocyte Count 1.97 10^3/uL (1.2-3.4); Absolute Monocyte Count 1.15 10^3/uL (0.1-0.8); Absolute Neutrophil Count 11.46 10^3/uL (1.2-6.7); Basophils % 0.3; Eosinophils % 1.8; Immature Grans % 1.6; MCH 30.8 pg (27.0-33.0); MCHC 31.8 % (32.0-36.0); MPV 11.1 fL (8.0-11.0); Monocytes % 7.6; Neutrophils % 75.7; Nucleated RBC 0 %; RBC 3.44 10^6/uL (3.93-5.22); RDW 14.2 % (11.7-14.6); RDW-SD 50.4 fL
[2021-01-05 06:50] LABS: HGB 10.6 g/dL (11.2-15.7); MCV 96.8 fL (80-95); WBC 15.14 10^3/uL (4.4-10.8)
[2021-01-05 06:51] LABS: Ammonia < 10 umol/L (11-32); Platelet Count 100 10^3/uL (130-400)
[2021-01-05 06:52] LABS: HCT 33.3 % (36.0-46.0)
[2021-01-05 07:02] LABS: Magnesium 1.4 mg/dL (1.8-2.4)
[2021-01-05 07:08] LABS: ALT 17 U/L (14-59); AST 30 U/L (15-37); Albumin 1.9 g/dL (3.4-5.0); Alkaline Phosphatase 101 U/L (46-116); Anion Gap 5.5 mmol/L (3-11); BUN 18 mg/dL (7-18); Bilirubin, Direct 0.3 mg/dL (0.0-0.2); Bilirubin, Total 0.6 mg/dL (0.2-1.0); CO2 21.5 mmol/L (21.0-32.0); CREATININE 2.2 mg/dL (0.55-1.02); Calcium 7.4 mg/dL (8.5-10.1); Chloride 108 mmol/L (98-107); Estimated GFR 24.98 (mL/min/1.73m2); Glucose 116 mg/dL (74-106); Lipase 977 U/L (73-393); Potassium 4.2 mmol/L (3.5-5.1); Sodium 135 mmol/L (136-145); Total Protein 4.8 g/dL (6.4-8.2)
[2021-01-05] MEDS: Heparin 5,000 UNITS/ML VIAL 5000 UNITS SC ×2 (07:15→18:15)
[2021-01-05 07:18] LABS: C-Reactive Protein > 25.00 mg/dL (0.0-0.3)
[2021-01-05] MEDS: Normal Saline Flush 10 ML SYR IVP (08:16)
[2021-01-05] MEDS: risperiDONE 1 MG TAB PO (08:16)
[2021-01-05 08:18] LABS: Triglyceride 378 mg/dL (<150)
[2021-01-05] MEDS: ALBUMIN HUMAN 25 GM/100 ML BTL IV ×2 (08:27→09:08)
--- NOTE | 2021-01-05 08:29 | PGE_ITS ---
Date of Service Date of service: 01/05/21 Time of Service: 12:00 Assessment and Plan Assessment and plan (1) Acute on chronic pancreatitis: Status: Acute Assessment and plan: With a peripancreatic fluid collection, likely a pseudocyst rather than abscess. Case was reviewed with [facility] as well as between [facility] general surgery and hospitalist medicine, all of whom felt that the fluid collection represents a pseudocyst in formation rather than actual abscess. At this time, the patient has received sufficient IV hydration and is starting to third space, so we have switched to albumin. No further IVF after that for today. Trial clear liquids. Per [facility] clinical team, the patient would not benefit from any operative intervention at this time and does not require transfer for a tertiary level of care. This could be reconsidered if her condition worsens. Continue empiric imipenem/cilastin at this time. Await blood culture results. (2) Peripancreatic fluid collection: Status: Acute Assessment and plan: As above (3) SIRS (systemic inflammatory response syndrome): Status: Acute Assessment and plan: Sepsis/infection has not been confirmed, and SIRS is likely being driven by severe pancreatitis. As above. Continue empiric abx and await blood culture results. (4) Hypotension: Status: Resolved Assessment and plan: We cannot definitively confirm sepsis at this time. The patient was very much intravascularly depleted yesterday. Additionally, her risperidone may be lowering her BP. Finally, her hydromorphone could also have been contributing. MIVF held as she was sufficiently rescucitated. Receiving albumin this morning. (5) Acute kidney injury superimposed on chronic kidney disease: Status: Acute Assessment and plan: In setting of acute pancreatitis/SIRS. Read discussion re fluid status above. Monitor Cr now with albumin on board to hopefully recruit some of the fluid into intravascular space. (6) Hypoalbuminemia: Status: Acute Assessment and plan: As above (7) Acute on chronic anemia: Status: Acute Assessment and plan: Most likely dilutional, but we will check hemoccult. (8) Chronic pancreatitis due to chronic alcoholism: Status: Chronic Assessment and plan: Will need outpatient follow up with [facility] (9) Hypomagnesemia: Status: Acute Assessment and plan: Replete and recheck in am (10) High triglycerides: Status: Acute Assessment and plan: In setting of alcohol abuse. Not high enough to initiate insulin gtt. Start statin. (11) Alcohol abuse: Status: Chronic Assessment and plan: No evidence of EtOH withdrawal at this time. Will monitor. Continue thiamine/MVI replacement (12) DVT prophylaxis: Status: Acute Assessment and plan: SC heparin (13) Discharge planning issues: Status: Acute Assessment and plan: Full code Continues to require ICU. Total Critical Care Time 60 minutes. Subjective Subjective Interval history since last seen: Continues to report epigastric abdominal pain. had diarrhea. Denies nausea, chest pain, shortness of breath. States it hurts to cough. Working with an incentive spirometer. MAPs 80. Overnight, required pressors. Switched from vasopressin to levophed this am, then turned off. Got albumin this am. Getting a midline. 114/67, MAP 78. HR 102. Dilaudid at 6 am for pain. States it does not work long enough. STates it hurts to cough. Tmax 38.0 Coughing. Exam Narrative Exam Narrative: General: Obese female, A&Ox3, very alert, does not look to be in excruciating pain, not tremulous, does not appear to be withdrawing from EtOH at this time HEENT: EOMI, MMM Heart: RRR, mildly tachycardic Lungs: diminished breath sounds at B bases Abdomen: soft, distended, tender in epigastrium, +BS Extremities: no edema BLE's, 2+ pedal pulse B Objective Last Vital Signs Temp 36.3 C L 01/05/21 07:27 Pulse 93 H 01/05/21 07:16 Resp 27 H 01/05/21 07:20 BP 101/76 01/05/21 07:16 Pulse Ox 95 01/05/21 07:27 Laboratory Results - last 24 hr 01/04/21 01/04/21 01/04/21 08:55 11:40 15:08 WBC RBC Hgb Hct MCV MCH MCHC RDW Plt Count MPV Immature Gran % Neutrophils % Lymphocytes % Monocytes % Eosinophils % Basophils % Nucleated RBC % Absolute Neutrophils Absolute Lymphocytes Absolute Monocytes Absolute Eosinophils Absolute Basophils VBG Lactate 2.1 H 1.1 Sodium 139 Potassium 4.7 D Chloride 106 Carbon Dioxide 21.7 Anion Gap 11.3 H BUN 15 Creatinine 1.9 H Estimated GFR/1.73 m2 29.58 Glucose 88 D Calcium 8.1 L Magnesium Total Bilirubin 0.8 Conjugated Bilirubin GGT AST 20 ALT 17 Alkaline Phosphatase 161 H Ammonia C-Reactive Protein NT-Pro-B Natriuret Pep Total Protein 6.6 Albumin 2.8 L Triglycerides Lipase 3854 H Procalcitonin 1.2 Urine Color Urine Clarity Urine pH Ur Specific [place] Urine Protein Urine Ketones Urine Blood Urine Nitrite Urine Bilirubin Urine Urobilinogen Ur Leukocyte Esterase Urine RBC Urine WBC Ur Epithelial Cells Urine Crystals Urine Bacteria Urine Casts Urine Mucus Urine Other Ur Culture Indicated? Urine Glucose 01/04/21 01/04/21 01/05/21 15:08 17:00 06:20 WBC RBC Hgb Hct MCV MCH MCHC RDW Plt Count MPV Immature Gran % Neutrophils % Lymphocytes % Monocytes % Eosinophils % Basophils % Nucleated RBC % Absolute Neutrophils Absolute Lymphocytes Absolute Monocytes Absolute Eosinophils Absolute Basophils VBG Lactate Sodium 138 135 L Potassium 4.5 4.2 Chloride 107 108 H Carbon Dioxide 21.6 21.5 Anion Gap 9.4 5.5 BUN 17 18 Creatinine 2.5 H 2.2 H Estimated GFR/1.73 m2 21.55 24.98 Glucose 92 116 H Calcium 7.1 L 7.4 L Magnesium Total Bilirubin 0.6 0.6 Conjugated Bilirubin 0.3 H GGT 69 H AST 23 30 ALT 13 L 17 Alkaline Phosphatase 127 H 101 Ammonia C-Reactive Protein 11.52 H > 25.00 H NT-Pro-B Natriuret Pep 273 Total Protein 5.5 L 4.8 L Albumin 2.2 L 1.9 L Triglycerides 378 H Lipase 977 H Procalcitonin Urine Color Yellow Urine Clarity Cloudy Urine pH 5.5 Ur Specific [place] 1.020 Urine Protein 30 H Urine Ketones Trace H Urine Blood Large H Urine Nitrite Negative Urine Bilirubin Small H Urine Urobilinogen 0.2 Ur Leukocyte Esterase Negative Urine RBC 20-50 H Urine WBC 3-5 Ur Epithelial Cells Many Urine Crystals Negative Urine Bacteria Many Urine Casts 3-5 Hyaline Urine Mucus Trace Urine Other Few Transitional Ur Culture Indicated? No/Sq. Contamination Urine Glucose Negative 01/05/21 01/05/21 01/05/21 06:20 06:20 06:20 WBC RBC Hgb Hct MCV MCH MCHC RDW Plt Count MPV Immature Gran % Neutrophils % Lymphocytes % Monocytes % Eosinophils % Basophils % Nucleated RBC % Absolute Neutrophils Absolute Lymphocytes Absolute Monocytes Absolute Eosinophils Absolute Basophils VBG Lactate 0.7 Sodium Potassium Chloride Carbon Dioxide Anion Gap BUN Creatinine Estimated GFR/1.73 m2 Glucose Calcium Magnesium 1.4 L Total Bilirubin Conjugated Bilirubin GGT AST ALT Alkaline Phosphatase Ammonia < 10 L C-Reactive Protein NT-Pro-B Natriuret Pep Total Protein Albumin Triglycerides Lipase Procalcitonin Urine Color Urine Clarity Urine pH Ur Specific [place] Urine Protein Urine Ketones Urine Blood Urine Nitrite Urine Bilirubin Urine Urobilinogen Ur Leukocyte Esterase Urine RBC Urine WBC Ur Epithelial Cells Urine Crystals Urine Bacteria Urine Casts Urine Mucus Urine Other Ur Culture Indicated? Urine Glucose 01/05/21 06:20 WBC 15.14 H D RBC 3.44 L Hgb 10.6 L D Hct 33.3 L D MCV 96.8 H D MCH 30.8 MCHC 31.8 L RDW 14.2 Plt Count 100 L D MPV 11.1 H Immature Gran % 1.6 Neutrophils % 75.7 Lymphocytes % 13.0 Monocytes % 7.6 Eosinophils % 1.8 Basophils % 0.3 Nucleated RBC % 0 Absolute Neutrophils 11.46 H Absolute Lymphocytes 1.97 Absolute Monocytes 1.15 H Absolute Eosinophils 0.27 Absolute Basophils 0.05 VBG Lactate Sodium Potassium Chloride Carbon Dioxide Anion Gap BUN Creatinine Estimated GFR/1.73 m2 Glucose Calcium Magnesium Total Bilirubin Conjugated Bilirubin GGT AST ALT Alkaline Phosphatase Ammonia C-Reactive Protein NT-Pro-B Natriuret Pep Total Protein Albumin Triglycerides Lipase Procalcitonin Urine Color Urine Clarity Urine pH Ur Specific [place] Urine Protein Urine Ketones Urine Blood Urine Nitrite Urine Bilirubin Urine Urobilinogen Ur Leukocyte Esterase Urine RBC Urine WBC Ur Epithelial Cells Urine Crystals Urine Bacteria Urine Casts Urine Mucus Urine Other Ur Culture Indicated? Urine Glucose
--- NOTE | 2021-01-05 08:51 | PUCC_ITS ---
General Date of Service Date of service: 01/05/21 Time of Service: 07:30 Reason for Admission to ICU: Acute on chronic pancreatitis with abscess versus pseudocyst Assessment and Plan Assessment and plan (1) Chronic pancreatitis due to chronic alcoholism: Status: Acute (2) Acute pancreatitis: Status: Acute Qualifiers: Acute pancreatitis complication: no infection or necrosis Pancreatitis type: alcohol induced Qualified Code(s): K85.20 - Alcohol induced acute pancreatitis without necrosis or infection (3) Abscess of pancreas: Status: Acute (4) Leukocytosis: Status: Acute Qualifiers: Leukocytosis type: unspecified Qualified Code(s): D72.829 - Elevated white blood cell count, unspecified (5) Thrombocytopenia: Status: Chronic (6) Acute kidney injury: Status: Acute (7) Hypocalcemia: Status: Acute (8) Hypomagnesemia: Status: Acute (9) Bipolar disorder: Status: Acute Qualifiers: Active/Remission status: in partial remission Most recent bipolar episode type: most recent episode unspecified type Qualified Code(s): F31.70 - Bipolar disorder, currently in remission, most recent episode unspecified (10) Chronic alcohol abuse: Status: Chronic (11) Hypoalbuminemia: Status: Acute Assessment and plan: This is a 40-year-old female who was admitted to the ICU for acute on chronic pancreatitis. On admission her [place] score was 0 points and now 48 hours into admission her [place] is 4 points which has a 15% predicted mortality associated with it. It is evident that her pancreatitis is worsening since admission. She is more acidotic and has worsening BETH which is likely related both to her pancreatitis as well as administration of normal saline (normal saline as compared to a balance crystalloid such as LR or Plasma- Lyte is associated with more acidosis as well as more adverse renal outcomes). There is not a clear benefit in giving vasopressin for blood pressure support as opposed to Levophed, additionally Levophed provides more vasopressor support that vasopressin does. I first saw the patient we stop the vasopressin and started very low-dose Levophed as well as gave her albumin. She is no longer requiring any pressor support however if she were to require some moving forward I would start her on Levophed. She has been over resuscitated at this point be ing +8 L into admission, the recommendation typically for acute pancreatitis is 4 L of resuscitation in the first 48 hours. She does have crackles on exam which is due to the significant third spacing that occurs in pancreatitis. I am concerned about this large fluid collection seen on both CT and MRI which appears to be just and appear to the body of the pancreas. She has been started on imipenem appropriately however given the size of this large fluid collection transfer to a tertiary care center should be initiated. Recommendations Pulmonary: Hypoxic Respiratory failure She is on 2 L nasal cannula low currently. This is likely related to volume resuscitation in addition to probable atelectasis given diaphragm inflammation from the pancreatitis. He is at a high risk for development of secondary ARDS given the pancreatitis, fluid collection and massive amounts of inflammation just below the diaphragm seen on her imaging. - supplemental O2 as needed for sats >90% - Incentive Spirometer - adequate pain control to allow for appropriate tidal breaths - if she were to decompensate from a respiratory standpoint would recommend CPAP or BiPAP as opposed to HFNC to assess for response given volume status Cardiac: Transient Hypotension Evaluation of her maps she she have a map over 65 the majority of the time. I do not believe that she needs any vasopressor support at this time. - recommend Levophed if she requires pressor support moving forward with a goal MAP >65 - agree with giving 50g albumin - do not recommend central venous access at this time Renal: Acute Kidney Injury This is worsening over her hospitalization despite massive amounts of volume being given. - hold continuous fluids at this time - strict I&O's Hypocalcemia - due to pancreatitis, continue to monitor, no replacement warranted at this time particularly in the setting of BETH Hypomagnesemia - recommend repletement to a Mg of 2 Hypoalbuminemia In the setting of pancreatitis and chronic EtOH use - getting 50g albumin this morning I&O: Intake & Output 01/02/21 01/03/21 01/04/21 01/05/21 23:59 23:59 23:59 23:59 Intake Total 6340.033 / 6340.033 2265.176 / 2265.176 Output Total 650 / 650 Balance 6340.033 / 6340.033 1615.176 / 1615.176 Weight 94.7 kg Daily Fluid Goal:: Even GI Nutrition: Acute on Chronic Pancreatitis Worsening [place] score 48 hours after admission. She has received more than enough fluids, is 8 L positive at this time. Only approximately 20% of continuous fluid is retained intravascularly and the remainder is third spaced into potential spaces causing anasarca and worsening respiratory failure. Current pancreatitis management recommendations also include early p.o. intake if patients are able to tolerate this. If she is not being transferred for potential procedure then I would advocate for p.o. intake to start. - d/c continuous fluids - again recommend Levophed for pressor support if she consistently has MAPs <65 - agree with albumin given this morning - if not being transferred to a tertiary center would recommend PO intake - zosyn prn for nausea - recommend checking a triglyceride level Date of Last Bowel Movement: 01/03/21 Infectious Disease: Concern for abdominal abscess This is quite large and may represent a pseudocyst however given her decompensation as well as worsening pancreatitis over her hospital stay the potential for an intra-abdominal abscess should be entertained. That being said given the severity of her pancreatitis and the presence of this fluid collection she should either be transferred to a tertiary care center for further evaluation or at least a conversation with surgery and GI at a tertiary care center regarding possible procedure for this fluid collection should occur. - agree with imipenem for abdominal abscess coverage - procalcitonin is elevated Hematologic: Leukocytosis Due to SIRS response given worsening pancreatitis vs abdominal abscess Thrombocytopenia Significant reduction since 01/03/21 - recommend PT/INR, PTT, fibrinogen, d-dimer and TEG (thromboelastogram) and a peripheral smear to rule out DIC - unlikely HIT Neurologic: Pain She complains of significant pain and has a clear etiology for her pain - can consider starting a ketamine infusion for more pain control - Dilaudid can likely also be increased to 1mg q4hr prn EtOH Use Disorder - agree with MVI - no signs of withdrawl, continue to monitor - if any signs of withdrawl I would recommend 5mg/kg phenobarb with additional 2mg/kg doses to a maximum of 20mg/kg as opposed to Ativan Bipolar Disorder - continue home medications Endocrine: No acute concerns Lines: Midline PIV Prophylaxis: heparin for DVT ppx No clear indication for GI ppx - would discontinue Spent a total of 45 minutes with this patient including bedside assessment, bedside POCUS, rounding with nursing, coordination of care with hospitalist service, chart review and documentation. Code Status: Resuscitation Status Full Code Subjective Critical and life-threatening events over the past 24 hours: This is a 40-year-old female with evidence of chronic pancreatitis who has had one episode of acute pancreatitis in the past and who does drink who was admitted on 01/03/2021 for pancreatitis. She received a large amount of fluids and is currently 8 L positive seems as though she received a significant amount of normal saline. She decompensated slightly yesterday which prompted a CT of her abdomen which did show quite a significantly large fluid collection concerning for abscess. She was started on imipenem and a surgical consult was obtained. Surgery recommended initiation of vasopressin with continued large volume resuscitation. She was reportedly hypotensive overnight however looking through her maps they are largely over 65. When I arrived to see her this morning she was on 0.07 of vasopressin with a MAP of 80. She was resting comfortably but stated that she was in a lot of abdominal pain. She states that she has gone several months in the past without drinking but did drink a couple days prior to admission and typically she says she will have around 4 drinks. Exam Narrative Exam Narrative: POCUS 01/05/21: Parasternal short axis, parasternal long axis and subxiphoid views were obtained. There is normal cardiac contractility with a normal EF by my assessment. There is no pericardial effusion. The RV seems to be appropriate in size and function. The IVC is of normal size and collapses greater than 50% with inspiration. Const General: no acute distress Nutritional Appearance: well nourished [facility] Head: normocephalic Ears: external ears normal and no periauricular adenopathy General nose exam: nasal mucous membranes and turbinates normal Face and sinus: sinuses nontender Mouth: oropharynx normal and moist mucous membranes Teeth and gingiva: dentition normal Eyes General: appearance normal, both eyes and all related structures Pupils: PERRL Neck Neck: normal visual inspection and no lymphadenopathy Chest Chest: normal inspection of the chest Resp Effort & Inspection: normal respiratory effort Auscultation: rales bilaterally, no rhonchi and no wheezes Cardio Rate: regular rate Rhythm: regular rhythm Heart Sounds: S1 normal, S2 normal and no murmurs Pulses: radial pulses present bilaterally GI Inspection: normal to inspection Palpation: soft Skin General skin exam: no rashes or lesions noted Neuro General: patient alert, patient awake and patient oriented x3 Extrem General: no clubbing, no cyanosis and edema Psych Mental Status: mental status grossly normal Affect: normal affect Attitude: cooperative Most Recent VS/Results Last Vital Signs Temp 36.3 C L 01/05/21 07:27 Pulse 93 H 01/05/21 07:16 Resp 27 H 01/05/21 07:20 BP 101/76 01/05/21 07:16 Pulse Ox 95 01/05/21 07:27 Laboratory Results - last 24 hr 01/04/21 01/04/21 01/04/21 08:55 11:40 15:08 WBC RBC Hgb Hct MCV MCH MCHC RDW Plt Count MPV Immature Gran % Neutrophils % Lymphocytes % Monocytes % Eosinophils % Basophils % Nucleated RBC % Absolute Neutrophils Absolute Lymphocytes Absolute Monocytes Absolute Eosinophils Absolute Basophils VBG Lactate 2.1 H 1.1 Sodium 139 Potassium 4.7 D Chloride 106 Carbon Dioxide 21.7 Anion Gap 11.3 H BUN 15 Creatinine 1.9 H Estimated GFR/1.73 m2 29.58 Glucose 88 D Calcium 8.1 L Magnesium Total Bilirubin 0.8 Conjugated Bilirubin GGT AST 20 ALT 17 Alkaline Phosphatase 161 H Ammonia C-Reactive Protein NT-Pro-B Natriuret Pep Total Protein 6.6 Albumin 2.8 L Triglycerides Lipase 3854 H Procalcitonin 1.2 Urine Color Urine Clarity Urine pH Ur Specific [place] Urine Protein Urine Ketones Urine Blood Urine Nitrite Urine Bilirubin Urine Urobilinogen Ur Leukocyte Esterase Urine RBC Urine WBC Ur Epithelial Cells Urine Crystals Urine Bacteria Urine Casts Urine Mucus Urine Other Ur Culture Indicated? Urine Glucose 01/04/21 01/04/21 01/05/21 15:08 17:00 06:20 WBC RBC Hgb Hct MCV MCH MCHC RDW Plt Count MPV Immature Gran % Neutrophils % Lymphocytes % Monocytes % Eosinophils % Basophils % Nucleated RBC % Absolute Neutrophils Absolute Lymphocytes Absolute Monocytes Absolute Eosinophils Absolute Basophils VBG Lactate Sodium 138 135 L Potassium 4.5 4.2 Chloride 107 108 H Carbon Dioxide 21.6 21.5 Anion Gap 9.4 5.5 BUN 17 18 Creatinine 2.5 H 2.2 H Estimated GFR/1.73 m2 21.55 24.98 Glucose 92 116 H Calcium 7.1 L 7.4 L Magnesium Total Bilirubin 0.6 0.6 Conjugated Bilirubin 0.3 H GGT 69 H AST 23 30 ALT 13 L 17 Alkaline Phosphatase 127 H 101 Ammonia C-Reactive Protein 11.52 H > 25.00 H NT-Pro-B Natriuret Pep 273 Total Protein 5.5 L 4.8 L Albumin 2.2 L 1.9 L Triglycerides 378 H Lipase 977 H Procalcitonin Urine Color Yellow Urine Clarity Cloudy Urine pH 5.5 Ur Specific [place] 1.020 Urine Protein 30 H Urine Ketones Trace H Urine Blood Large H Urine Nitrite Negative Urine Bilirubin Small H Urine Urobilinogen 0.2 Ur Leukocyte Esterase Negative Urine RBC 20-50 H Urine WBC 3-5 Ur Epithelial Cells Many Urine Crystals Negative Urine Bacteria Many Urine Casts 3-5 Hyaline Urine Mucus Trace Urine Other Few Transitional Ur Culture Indicated? No/Sq. Contamination Urine Glucose Negative 01/05/21 01/05/21 01/05/21 06:20 06:20 06:20 WBC RBC Hgb Hct MCV MCH MCHC RDW Plt Count MPV Immature Gran % Neutrophils % Lymphocytes % Monocytes % Eosinophils % Basophils % Nucleated RBC % Absolute Neutrophils Absolute Lymphocytes Absolute Monocytes Absolute Eosinophils Absolute Basophils VBG Lactate 0.7 Sodium Potassium Chloride Carbon Dioxide Anion Gap BUN Creatinine Estimated GFR/1.73 m2 Glucose Calcium Magnesium 1.4 L Total Bilirubin Conjugated Bilirubin GGT AST ALT Alkaline Phosphatase Ammonia < 10 L C-Reactive Protein NT-Pro-B Natriuret Pep Total Protein Albumin Triglycerides Lipase Procalcitonin Urine Color Urine Clarity Urine pH Ur Specific [place] Urine Protein Urine Ketones Urine Blood Urine Nitrite Urine Bilirubin Urine Urobilinogen Ur Leukocyte Esterase Urine RBC Urine WBC Ur Epithelial Cells Urine Crystals Urine Bacteria Urine Casts Urine Mucus Urine Other Ur Culture Indicated? Urine Glucose 01/05/21 06:20 WBC 15.14 H D RBC 3.44 L Hgb 10.6 L D Hct 33.3 L D MCV 96.8 H D MCH 30.8 MCHC 31.8 L RDW 14.2 Plt Count 100 L D MPV 11.1 H Immature Gran % 1.6 Neutrophils % 75.7 Lymphocytes % 13.0 Monocytes % 7.6 Eosinophils % 1.8 Basophils % 0.3 Nucleated RBC % 0 Absolute Neutrophils 11.46 H Absolute Lymphocytes 1.97 Absolute Monocytes 1.15 H Absolute Eosinophils 0.27 Absolute Basophils 0.05 VBG Lactate Sodium Potassium Chloride Carbon Dioxide Anion Gap BUN Creatinine Estimated GFR/1.73 m2 Glucose Calcium Magnesium Total Bilirubin Conjugated Bilirubin GGT AST ALT Alkaline Phosphatase Ammonia C-Reactive Protein NT-Pro-B Natriuret Pep Total Protein Albumin Triglycerides Lipase Procalcitonin Urine Color Urine Clarity Urine pH Ur Specific [place] Urine Protein Urine Ketones Urine Blood Urine Nitrite Urine Bilirubin Urine Urobilinogen Ur Leukocyte Esterase Urine RBC Urine WBC Ur Epithelial Cells Urine Crystals Urine Bacteria Urine Casts Urine Mucus Urine Other Ur Culture Indicated? Urine Glucose Review of Systems All systems reviewed & are unremarkable except as noted in HPI and below Constitutional Constitutional: Reports fatigue, Reports headache(s) and Reports lethargy ENT Ears, Nose, Mouth, and Throat: Reports headache(s) Gastrointestinal Gastrointestinal: Reports abdominal pain, Reports bloating and Reports nausea Neurologic Neurologic: Reports headache(s) Endocrine Endocrine: Reports fatigue
--- NOTE | 2021-01-05 09:21 | W.PM.PROGNOT ---
Date of Service Date of service: 01/05/21 Time of Service: : Subjective Subjective Interval history since last seen: Patient reports at rest her pain is well controlled. However, increases significantly with transfers and repositioning within bed. She denies Objective Last Vital Signs Temp 36.3 C L 01/05/21 07:27 Pulse 103 H 01/05/21 09:03 Resp 25 H 01/05/21 09:03 BP 112/62 01/05/21 09:03 Pulse Ox 95 01/05/21 09:03 Laboratory Results - last 24 hr 01/04/21 01/04/21 01/04/21 08:55 11:40 15:08 WBC RBC Hgb Hct MCV MCH MCHC RDW Plt Count MPV Immature Gran % Neutrophils % Lymphocytes % Monocytes % Eosinophils % Basophils % Nucleated RBC % Absolute Neutrophils Absolute Lymphocytes Absolute Monocytes Absolute Eosinophils Absolute Basophils VBG Lactate 2.1 H 1.1 Sodium 139 Potassium 4.7 D Chloride 106 Carbon Dioxide 21.7 Anion Gap 11.3 H BUN 15 Creatinine 1.9 H Estimated GFR/1.73 m2 29.58 Glucose 88 D Calcium 8.1 L Magnesium Total Bilirubin 0.8 Conjugated Bilirubin GGT AST 20 ALT 17 Alkaline Phosphatase 161 H Ammonia C-Reactive Protein NT-Pro-B Natriuret Pep Total Protein 6.6 Albumin 2.8 L Triglycerides Lipase 3854 H Procalcitonin 1.2 Urine Color Urine Clarity Urine pH Ur Specific [place] Urine Protein Urine Ketones Urine Blood Urine Nitrite Urine Bilirubin Urine Urobilinogen Ur Leukocyte Esterase Urine RBC Urine WBC Ur Epithelial Cells Urine Crystals Urine Bacteria Urine Casts Urine Mucus Urine Other Ur Culture Indicated? Urine Glucose 01/04/21 01/04/21 01/05/21 15:08 17:00 06:20 WBC RBC Hgb Hct MCV MCH MCHC RDW Plt Count MPV Immature Gran % Neutrophils % Lymphocytes % Monocytes % Eosinophils % Basophils % Nucleated RBC % Absolute Neutrophils Absolute Lymphocytes Absolute Monocytes Absolute Eosinophils Absolute Basophils VBG Lactate Sodium 138 135 L Potassium 4.5 4.2 Chloride 107 108 H Carbon Dioxide 21.6 21.5 Anion Gap 9.4 5.5 BUN 17 18 Creatinine 2.5 H 2.2 H Estimated GFR/1.73 m2 21.55 24.98 Glucose 92 116 H Calcium 7.1 L 7.4 L Magnesium Total Bilirubin 0.6 0.6 Conjugated Bilirubin 0.3 H GGT 69 H AST 23 30 ALT 13 L 17 Alkaline Phosphatase 127 H 101 Ammonia C-Reactive Protein 11.52 H > 25.00 H NT-Pro-B Natriuret Pep 273 Total Protein 5.5 L 4.8 L Albumin 2.2 L 1.9 L Triglycerides 378 H Lipase 977 H Procalcitonin Urine Color Yellow Urine Clarity Cloudy Urine pH 5.5 Ur Specific [place] 1.020 Urine Protein 30 H Urine Ketones Trace H Urine Blood Large H Urine Nitrite Negative Urine Bilirubin Small H Urine Urobilinogen 0.2 Ur Leukocyte Esterase Negative Urine RBC 20-50 H Urine WBC 3-5 Ur Epithelial Cells Many Urine Crystals Negative Urine Bacteria Many Urine Casts 3-5 Hyaline Urine Mucus Trace Urine Other Few Transitional Ur Culture Indicated? No/Sq. Contamination Urine Glucose Negative 01/05/21 01/05/21 01/05/21 06:20 06:20 06:20 WBC RBC Hgb Hct MCV MCH MCHC RDW Plt Count MPV Immature Gran % Neutrophils % Lymphocytes % Monocytes % Eosinophils % Basophils % Nucleated RBC % Absolute Neutrophils Absolute Lymphocytes Absolute Monocytes Absolute Eosinophils Absolute Basophils VBG Lactate 0.7 Sodium Potassium Chloride Carbon Dioxide Anion Gap BUN Creatinine Estimated GFR/1.73 m2 Glucose Calcium Magnesium 1.4 L Total Bilirubin Conjugated Bilirubin GGT AST ALT Alkaline Phosphatase Ammonia < 10 L C-Reactive Protein NT-Pro-B Natriuret Pep Total Protein Albumin Triglycerides Lipase Procalcitonin Urine Color Urine Clarity Urine pH Ur Specific [place] Urine Protein Urine Ketones Urine Blood Urine Nitrite Urine Bilirubin Urine Urobilinogen Ur Leukocyte Esterase Urine RBC Urine WBC Ur Epithelial Cells Urine Crystals Urine Bacteria Urine Casts Urine Mucus Urine Other Ur Culture Indicated? Urine Glucose 01/05/21 06:20 WBC 15.14 H D RBC 3.44 L Hgb 10.6 L D Hct 33.3 L D MCV 96.8 H D MCH 30.8 MCHC 31.8 L RDW 14.2 Plt Count 100 L D MPV 11.1 H Immature Gran % 1.6 Neutrophils % 75.7 Lymphocytes % 13.0 Monocytes % 7.6 Eosinophils % 1.8 Basophils % 0.3 Nucleated RBC % 0 Absolute Neutrophils 11.46 H Absolute Lymphocytes 1.97 Absolute Monocytes 1.15 H Absolute Eosinophils 0.27 Absolute Basophils 0.05 VBG Lactate Sodium Potassium Chloride Carbon Dioxide Anion Gap BUN Creatinine Estimated GFR/1.73 m2 Glucose Calcium Magnesium Total Bilirubin Conjugated Bilirubin GGT AST ALT Alkaline Phosphatase Ammonia C-Reactive Protein NT-Pro-B Natriuret Pep Total Protein Albumin Triglycerides Lipase Procalcitonin Urine Color Urine Clarity Urine pH Ur Specific [place] Urine Protein Urine Ketones Urine Blood Urine Nitrite Urine Bilirubin Urine Urobilinogen Ur Leukocyte Esterase Urine RBC Urine WBC Ur Epithelial Cells Urine Crystals Urine Bacteria Urine Casts Urine Mucus Urine Other Ur Culture Indicated? Urine Glucose
[2021-01-05] MEDS: MAGNESIUM SULFATE 4 GM/100 ML BAG IVPB (10:06)
[2021-01-05 12:26] LABS: INR 1.3 (0.9-1.1); Prothrombin Time 13.1 sec (9.3-11.0)
[2021-01-05] MEDS: Thiamine 100 MG TAB PO (12:47)
[2021-01-05] MEDS: Acetaminophen 500 MG TAB 1000 MG PO ×2 (12:47→21:16)
[2021-01-05] MEDS: Normal Saline 500 ML IV (12:52)
--- NOTE | 2021-01-05 16:49 | PDOC.CMPRO ---
- If Service Date Differs Date of service: 01/05/21 Time of Service: 16:50 Care Management Progress Note S/O: Celia was laying in bed when CM met with her. She was cooperative, pleasant and easily engaged in conversation. She had a meeting via phone with her therapist today. No change to overall plan, CM continues to follow. A: 40 year old female admitted to [facility] on 01/03/21 for pancreatitis P: Celia will likely be discharged home with no new services. She will follow up with her PCP and discharge plan of care and transport with family. CM will continue to support Celia and her discharge planning needs.
[2021-01-05] MEDS: Nicotine 14 MG/24 HR PATCH TD (18:51)
[2021-01-05] MEDS: Atorvastatin 10 MG TAB PO (20:01)
--- NOTE | 2021-01-05 20:40 | W.PM.PROGNOT ---
Date of Service Date of service: 01/05/21 Time of Service: 14:00 Assessment and Plan Assessment and plan (1) SIRS (systemic inflammatory response syndrome): Status: Acute (2) Alcohol abuse: Status: Chronic (3) Acute kidney injury superimposed on chronic kidney disease: Status: Acute (4) Peripancreatic fluid collection: Status: Acute (5) Acute on chronic pancreatitis: Status: Acute Assessment and plan: -I don't think the pt has an abscess. I think the fluid collection is combination of edema and possible developing of pseudocyst. No hemorrhage or necrosis. -BP is recovered today. Pt does not require pressors at this time. -Cont supportive cares -pt has adequate IV access at this time. -will follow peripherally 30 mins spent in pt care today (6) Hypoalbuminemia: Status: Acute (7) Tobacco use: Status: Chronic (8) High triglycerides: Status: Acute Subjective Subjective Interval history since last seen: Pt seen and examined. no headaches. No CP or SOB. no productive cough. no dysuria. no leg pain or swelling. She is still c/o abdominal pain- though she says it is improved. Nausea is improved, and she is tolerating CL liquids. She did have a BM that was mostly liquid- no blood. She is pulling in about 800cc on IS. No cough. Bp is improved from last pm. She is starting to put on more urine- grossly bloody. Exam HENMT Other: no dental abscess/no thrush. no jaundice Resp Effort & Inspection: normal respiratory effort and able to speak in complete sentences Other: lungs are clear. no R/R. Cardio Rate: tachycardic Rhythm: regular rhythm GI Other: distention. no peritonitis +BS Extrem General: no clubbing, cyanosis or edema Objective Last Vital Signs Temp 38.0 C H 01/05/21 16:27 Pulse 121 H 01/05/21 18:47 Resp 30 H 01/05/21 18:47 BP 104/57 L 01/05/21 18:47 Pulse Ox 94 01/05/21 18:47 Laboratory Results - last 24 hr 01/05/21 01/05/21 01/05/21 06:20 06:20 06:20 WBC RBC Hgb Hct MCV MCH MCHC RDW Plt Count MPV Immature Gran % Neutrophils % Lymphocytes % Monocytes % Eosinophils % Basophils % Nucleated RBC % Absolute Neutrophils Absolute Lymphocytes Absolute Monocytes Absolute Eosinophils Absolute Basophils PT INR VBG Lactate Sodium 135 L Potassium 4.2 Chloride 108 H Carbon Dioxide 21.5 Anion Gap 5.5 BUN 18 Creatinine 2.2 H Estimated GFR/1.73 m2 24.98 Glucose 116 H Calcium 7.4 L Magnesium 1.4 L Total Bilirubin 0.6 Conjugated Bilirubin 0.3 H AST 30 ALT 17 Alkaline Phosphatase 101 Ammonia < 10 L C-Reactive Protein > 25.00 H Total Protein 4.8 L Albumin 1.9 L Triglycerides 378 H Lipase 977 H 01/05/21 01/05/21 01/05/21 06:20 06:20 12:06 WBC 15.14 H D RBC 3.44 L Hgb 10.6 L D Hct 33.3 L D MCV 96.8 H D MCH 30.8 MCHC 31.8 L RDW 14.2 Plt Count 100 L D MPV 11.1 H Immature Gran % 1.6 Neutrophils % 75.7 Lymphocytes % 13.0 Monocytes % 7.6 Eosinophils % 1.8 Basophils % 0.3 Nucleated RBC % 0 Absolute Neutrophils 11.46 H Absolute Lymphocytes 1.97 Absolute Monocytes 1.15 H Absolute Eosinophils 0.27 Absolute Basophils 0.05 PT 13.1 H INR 1.3 H VBG Lactate 0.7 Sodium Potassium Chloride Carbon Dioxide Anion Gap BUN Creatinine Estimated GFR/1.73 m2 Glucose Calcium Magnesium Total Bilirubin Conjugated Bilirubin AST ALT Alkaline Phosphatase Ammonia C-Reactive Protein Total Protein Albumin Triglycerides Lipase
[2021-01-05] MEDS: Amitriptyline 50 MG TAB PO (21:12)
[2021-01-05] MEDS: Pantoprazole 40 MG VIAL IVP (21:12)
[2021-01-05] MEDS: risperiDONE 1 MG TAB 2 MG PO (21:12)
[2021-01-05] MEDS: Gabapentin 600 MG TAB PO (21:12)
[2021-01-06] VITALS (28 sets, daily range): BP systolic 122–150; BP diastolic 64–116; PULSE 93–128; RESP 18–31; TEMP 36.8–38; O2SAT 94–99
[2021-01-06] MEDS: Acetaminophen 500 MG TAB 1000 MG PO (04:13)
[2021-01-06] MEDS: IMIPENEM/CILASTATIN 500 MG in Normal Saline 100 ML 200 MG IVPB (04:15)
[2021-01-06] MEDS: Heparin 5,000 UNITS/ML VIAL 5000 UNITS SC ×2 (06:17→17:54)
[2021-01-06 06:54] LABS: Abs Immature Grans 0.25 10^3/uL (0.0-0.06); Absolute Basophil Count 0.02 10^3/uL (0.0-0.2); Absolute Eosinophil Count 0.27 10^3/uL (0.0-0.7); Absolute Lymphocyte Count 1.71 10^3/uL (1.2-3.4); Absolute Monocyte Count 0.69 10^3/uL (0.1-0.8); Basophils % 0.2; Eosinophils % 2.5; HCT 29.3 % (36.0-46.0); HGB 9.3 g/dL (11.2-15.7); Immature Grans % 2.3; Lymphocytes % 15.8; MCH 30.2 pg (27.0-33.0); MCHC 31.7 % (32.0-36.0); MCV 95.1 fL (80-95); Monocytes % 6.4; Neutrophils % 72.8; Nucleated RBC 0 %; Platelet Count 110 10^3/uL (130-400); RBC 3.08 10^6/uL (3.93-5.22); RDW 14.3 % (11.7-14.6); RDW-SD 49.3 fL; WBC 10.85 10^3/uL (4.4-10.8)
[2021-01-06 07:14] LABS: ALT 15 U/L (14-59); AST 22 U/L (15-37); Albumin 2.3 g/dL (3.4-5.0); Alkaline Phosphatase 83 U/L (46-116); Anion Gap 8.6 mmol/L (3-11); BUN 15 mg/dL (7-18); Bilirubin, Direct 0.2 mg/dL (0.0-0.2); Bilirubin, Total 0.6 mg/dL (0.2-1.0); CO2 22.4 mmol/L (21.0-32.0); CREATININE 1.7 mg/dL (0.55-1.02); Chloride 109 mmol/L (98-107); Estimated GFR 33.64 (mL/min/1.73m2); Glucose 90 mg/dL (74-106); Lipase 352 U/L (73-393); Potassium 3.4 mmol/L (3.5-5.1); Sodium 140 mmol/L (136-145); Total Protein 5.7 g/dL (6.4-8.2)
[2021-01-06 07:16] LABS: Magnesium 2.4 mg/dL (1.8-2.4)
--- NOTE | 2021-01-06 07:17 | PUCC_ITS ---
General Date of Service Date of service: 01/06/21 Time of Service: 07:30 Reason for Admission to ICU: Acute on chronic pancreatitis Assessment and Plan Assessment and plan (1) Chronic pancreatitis due to chronic alcoholism: Status: Chronic (2) Acute pancreatitis: Status: Acute Qualifiers: Acute pancreatitis complication: no infection or necrosis Pancreatitis type: alcohol induced Qualified Code(s): K85.20 - Alcohol induced acute pancreatitis without necrosis or infection (3) Leukocytosis: Status: Acute Qualifiers: Leukocytosis type: unspecified Qualified Code(s): D72.829 - Elevated white blood cell count, unspecified (4) Thrombocytopenia: Status: Chronic (5) Acute kidney injury: Status: Acute (6) Hypocalcemia: Status: Acute (7) Hypomagnesemia: Status: Acute (8) Bipolar disorder: Status: Acute Qualifiers: Active/Remission status: in partial remission Most recent bipolar episode type: most recent episode unspecified type Qualified Code(s): F31.70 - Bipolar disorder, currently in remission, most recent episode unspecified (9) Chronic alcohol abuse: Status: Chronic (10) Pseudocyst of pancreas: Status: Acute (11) Hypoalbuminemia: Status: Acute Assessment and plan: This is a 40-year-old female who was admitted to the ICU for acute on chronic pancreatitis. On admission her Romelia's score was 0 points and 48 hours into admission her Romelia's is 4 points which has a 15% predicted mortality associated with it. It is evident that her pancreatitis is worsening since admission, however now seems to be improving. She has been over resuscitated at this point being +8 L into admission, the recommendation typically for acute pancreatitis is 4 L of resuscitation in the first 48 hours, however given her age and normal cardiac activity on bedside echo she has tolerated this adequately. I am concerned about this large fluid collection seen on both CT and MRI which appears to be just and appear to the body of the pancreas. Surgery at [facility] and GI at [facility] has been consulted who do not feel as though this is an abscess. The patient has also improved without drainage which again lends against intra-abdominal abscess. This likely then represents a pseudocyst and should have outpatient follow up. Recommendations Pulmonary: Hypoxic Respiratory failure She is on 2 L nasal cannula currently. This is likely related to volume resuscitation in addition to probable atelectasis given diaphragm inflammation from the pancreatitis. He is at a high risk for development of secondary ARDS given the pancreatitis, fluid collection and massive amounts of inflammation just below the diaphragm seen on her imaging. - supplemental O2 as needed for sats >90% - Incentive Spirometer - adequate pain control to allow for appropriate tidal breaths - if she were to decompensate from a respiratory standpoint would recommend CPAP or BiPAP as opposed to HFNC to assess for response given volume status Cardiac: Transient Hypotension, resolved Evaluation of her maps she she have a map over 65 the majority of the time. I do not believe that she needs any vasopressor support at this time. Renal: Acute Kidney Injury, improving - hold continuous fluids at this time - strict I&O's - no more fluid resuscitation needed Hypocalcemia - due to pancreatitis, continue to monitor, no replacement warranted at this time particularly in the setting of BETH Hypomagnesemia - recommend repletement to a Mg of 2 Hypoalbuminemia In the setting of pancreatitis and chronic EtOH use - s/p 50g albumin I&O: Intake & Output 01/03/21 01/04/21 01/05/21 01/06/21 23:59 23:59 23:59 23:59 Intake Total 6340.033 / 6340.033 3265.476 / 3265.476 350 / 350 Output Total 1875 / 1875 1400 / 1400 Balance 6340.033 / 6340.033 1390.476 / 1390.476 -1050 / -1050 Weight 94.7 kg Daily Fluid Goal:: even to negative GI Nutrition: Acute on Chronic Pancreatitis with likely pseudocyst Worsening [place] score 48 hours after admission. She has received more than enough fluids, is 8 L positive at this time. Only approximately 20% of continuous fluid is retained intravascularly and the remainder is third spaced into potential spaces causing anasarca and worsening respiratory failure. Current pancreatitis management recommendations also include early p.o. intake if patients are able to tolerate this. - no more IVF warranted at this time - recommend full diet - tolerated clears with no issues - zosyn prn for nausea - normal triglyceride level Date of Last Bowel Movement: 01/03/21 Infectious Disease: No acute concerns - agree with discontinuing imipenem Hematologic: Leukocytosis Due to SIRS response given worsening pancreatitis vs abdominal abscess Thrombocytopenia Significant reduction since 01/03/21 - PT/INR elevated - fibrinogen pending, no TEG available - unlikely HIT Neurologic: Pain, improving - continue prn Dilaudid EtOH Use Disorder - agree with MVI - no signs of withdrawl, continue to monitor - if any signs of withdrawl I would recommend 5mg/kg phenobarb with additional 2mg/kg doses to a maximum of 20mg/kg as opposed to Ativan Bipolar Disorder - continue home medications Endocrine: No acute concerns Lines: Midline PIV Prophylaxis: Heparin, Protonix - not needed for ppx, but may help with pseudocyst Code Status: Resuscitation Status Full Code Subjective Critical and life-threatening events over the past 24 hours: She is feeling well today. She tolerated her clear diet with no issues. She is willing to dry a full diet. No nausea. She does some have abdominal pain still, but has not been requiring Dilaudid. Exam Narrative Exam Narrative: POCUS 01/05/21: Parasternal short axis, parasternal long axis and subxiphoid views were obtained. There is normal cardiac contractility with a normal EF by my assessment. There is no pericardial effusion. The RV seems to be appropriate in size and function. The IVC is of normal size and collapses greater than 50% with inspiration. Const General: no acute distress Nutritional Appearance: well nourished [facility] Head: normocephalic Ears: external ears normal and no periauricular adenopathy General nose exam: nasal mucous membranes and turbinates normal Face and sinus: sinuses nontender Mouth: oropharynx normal and moist mucous membranes Teeth and gingiva: dentition normal Eyes General: appearance normal, both eyes and all related structures Pupils: PERRL Neck Neck: normal visual inspection and no lymphadenopathy Chest Chest: normal inspection of the chest Resp Effort & Inspection: normal respiratory effort Auscultation: no rales, no rhonchi and no wheezes Cardio Rate: regular rate Rhythm: regular rhythm Heart Sounds: S1 normal, S2 normal and no murmurs Pulses: radial pulses present bilaterally GI Inspection: normal to inspection Palpation: soft Skin General skin exam: no rashes or lesions noted Neuro General: patient alert, patient awake and patient oriented x3 Extrem General: no clubbing, no cyanosis and edema Psych Mental Status: mental status grossly normal Affect: normal affect Attitude: cooperative Most Recent VS/Results Last Vital Signs Temp 37.8 C H 01/06/21 03:50 Pulse 96 H 01/06/21 06:01 Resp 23 01/06/21 06:01 BP 143/79 H 01/06/21 06:01 Pulse Ox 94 01/06/21 03:50 Laboratory Results - last 24 hr 01/05/21 01/05/21 01/06/21 06:20 12:06 06:15 WBC 10.85 H RBC 3.08 L Hgb 9.3 L Hct 29.3 L MCV 95.1 H MCH 30.2 MCHC 31.7 L RDW 14.3 Plt Count 110 L MPV 11.0 Immature Gran % 2.3 Neutrophils % 72.8 Lymphocytes % 15.8 Monocytes % 6.4 Eosinophils % 2.5 Basophils % 0.2 Nucleated RBC % 0 Absolute Neutrophils 7.90 H Absolute Lymphocytes 1.71 Absolute Monocytes 0.69 Absolute Eosinophils 0.27 Absolute Basophils 0.02 PT 13.1 H INR 1.3 H Sodium 135 L Potassium 4.2 Chloride 108 H Carbon Dioxide 21.5 Anion Gap 5.5 BUN 18 Creatinine 2.2 H Estimated GFR/1.73 m2 24.98 Glucose 116 H Calcium 7.4 L Total Bilirubin 0.6 Conjugated Bilirubin 0.3 H AST 30 ALT 17 Alkaline Phosphatase 101 C-Reactive Protein > 25.00 H Total Protein 4.8 L Albumin 1.9 L Triglycerides 378 H Lipase 977 H Review of Systems All systems reviewed & are unremarkable except as noted in HPI and below Constitutional Constitutional: Reports fatigue, Reports headache(s) and Reports lethargy ENT Ears, Nose, Mouth, and Throat: Reports headache(s) Gastrointestinal Gastrointestinal: Reports abdominal pain, Reports bloating and Reports nausea Neurologic Neurologic: Reports headache(s) Endocrine Endocrine: Reports fatigue
[2021-01-06 07:38] LABS: C-Reactive Protein > 25.00 mg/dL (0.0-0.3)
--- NOTE | 2021-01-06 08:15 | W.PM.PROGNOT ---
Date of Service Date of service: 01/06/21 Time of Service: 10:30 Assessment and Plan Assessment and plan (1) Acute on chronic pancreatitis: Status: Acute Assessment and plan: With a peripancreatic fluid collection, felt to be a pseudocyst rather than abscess. Improved. Advance diet. Transfer out of the ICU. Transition to PO pain meds. Encourage IS. No IVF at this time. No need for albumin at this as well. Abx d/c'ed as blood cultures negative. Case was reviewed with [facility] as well as between [facility] general surgery and hospitalist medicine, all of whom felt that the fluid collection represents a pseudocyst in formation rather than actual abscess. No indication for transfer to a tertiary care facility at this time. (2) Peripancreatic fluid collection: Status: Acute Assessment and plan: As above (3) SIRS (systemic inflammatory response syndrome): Status: Acute Assessment and plan: Sepsis/infection unlikely. Blood cultures are negative. SIRS is likely being driven by severe pancreatitis. As above. D/c abx. (4) Hypotension: Status: Resolved Assessment and plan: Probably due to distributive shock from third spacing. No evidence of sepsis at this time. Off pressors. Not requiring IV fluid or albumin support. (5) Acute kidney injury superimposed on chronic kidney disease: Status: Acute Assessment and plan: In setting of acute pancreatitis/SIRS. Improved. No further IV hydration. Monitor Kidney function/Cr/daily weights/I/O's. (6) Hypoalbuminemia: Status: Acute Assessment and plan: As above (7) Acute on chronic anemia: Status: Acute Assessment and plan: Most likely dilutional. Heme negative. Continue to monitor off IVF. (8) Chronic pancreatitis due to chronic alcoholism: Status: Chronic Assessment and plan: Will need outpatient follow up with [facility] (9) Hypomagnesemia: Status: Resolved Assessment and plan: recheck in am (10) High triglycerides: Status: Acute Assessment and plan: In setting of alcohol abuse. Not high enough to initiate insulin gtt. Continue statin. (11) Alcohol abuse: Status: Chronic Assessment and plan: No evidence of EtOH withdrawal at this time. Will monitor. Continue thiamine/MVI replacement (12) DVT prophylaxis: Status: Acute Assessment and plan: SC heparin (13) Discharge planning issues: Status: Acute Assessment and plan: Full code Transfer out of ICU to [facility] Subjective Subjective Interval history since last seen: Pain is better. Able to sleep with her current level of pain, though she didn't sleep well last night. No n/v. No worsening pain with clear liquids. No dizziness, chest pain, shortness of breath. Reports her chronic smoker's cough. Working with IS. Had no required dilaudid overnight. Last dose at 12:50 pm. Diarrhea this am - greasy. Has this at home as well. Exam Narrative Exam Narrative: General: Obese female, A&Ox3, asleep, easily arousable, slurring words, but able to answer questions appropriately, following commands. Not tremulous. HEENT: EOMI, MMM Heart: RRR, no m/r/g Lungs: diminished breath sounds at B bases Abdomen: soft, mildly distended, mildly tender in epigastrium, +hypoactive BS Extremities: no edema BLE's, 2+ pedal pulse B Objective Last Vital Signs Temp 37.8 C H 01/06/21 08:12 Pulse 99 H 01/06/21 08:12 Resp 23 01/06/21 08:12 BP 136/83 01/06/21 08:12 Pulse Ox 94 01/06/21 08:12 Laboratory Results - last 24 hr 01/05/21 01/05/21 01/06/21 06:20 12:06 06:15 WBC RBC Hgb Hct MCV MCH MCHC RDW Plt Count MPV Immature Gran % Neutrophils % Lymphocytes % Monocytes % Eosinophils % Basophils % Nucleated RBC % Absolute Neutrophils Absolute Lymphocytes Absolute Monocytes Absolute Eosinophils Absolute Basophils PT 13.1 H INR 1.3 H Sodium 135 L 140 Potassium 4.2 3.4 L Chloride 108 H 109 H Carbon Dioxide 21.5 22.4 Anion Gap 5.5 8.6 BUN 18 15 Creatinine 2.2 H 1.7 H Estimated GFR/1.73 m2 24.98 33.64 Glucose 116 H 90 Calcium 7.4 L 8.0 L Magnesium Total Bilirubin 0.6 0.6 Conjugated Bilirubin 0.3 H 0.2 AST 30 22 ALT 17 15 Alkaline Phosphatase 101 83 C-Reactive Protein > 25.00 H > 25.00 H Total Protein 4.8 L 5.7 L Albumin 1.9 L 2.3 L Triglycerides 378 H Lipase 977 H 352 01/06/21 01/06/21 06:15 06:15 WBC 10.85 H RBC 3.08 L Hgb 9.3 L Hct 29.3 L MCV 95.1 H MCH 30.2 MCHC 31.7 L RDW 14.3 Plt Count 110 L MPV 11.0 Immature Gran % 2.3 Neutrophils % 72.8 Lymphocytes % 15.8 Monocytes % 6.4 Eosinophils % 2.5 Basophils % 0.2 Nucleated RBC % 0 Absolute Neutrophils 7.90 H Absolute Lymphocytes 1.71 Absolute Monocytes 0.69 Absolute Eosinophils 0.27 Absolute Basophils 0.02 PT INR Sodium Potassium Chloride Carbon Dioxide Anion Gap BUN Creatinine Estimated GFR/1.73 m2 Glucose Calcium Magnesium 2.4 Total Bilirubin Conjugated Bilirubin AST ALT Alkaline Phosphatase C-Reactive Protein Total Protein Albumin Triglycerides Lipase
[2021-01-06] MEDS: Multivitamin TAB 1 TAB PO (08:34)
[2021-01-06] MEDS: Potassium Chloride 20 MEQ TABCR 40 MEQ PO (08:34)
[2021-01-06] MEDS: risperiDONE 1 MG TAB PO (08:34)
[2021-01-06] MEDS: Thiamine 100 MG TAB PO (08:34)
[2021-01-06 09:08] LABS: C Diff PCR Negative (Negative)
--- NOTE | 2021-01-06 09:32 | PDOC.CMPRO ---
- If Service Date Differs Date of service: 01/06/21 Time of Service: 09:32 Care Management Progress Note S/O: Celia was laying in bed when CM met with her. She was cooperative, pleasant and easily engaged in conversation. She reports that she is feeling much better than yesterday and is anticipating being transferred to the MS floor soon. She is also happy that her diet is being advanced at lunch time today. Patient has zero complaints and is cheerful. CM continues to follow. A: 40 year old female admitted to [facility] on 01/03/21 for pancreatitis P: Celia will likely be discharged home with no new services. She will follow up with her PCP and discharge plan of care and transport with her . CM will continue to support Celia and her discharge planning needs.
--- NOTE | 2021-01-06 10:44 | PHA.REVIEW ---
Pharmacy Admission Review - Admission Clinical Review (Last Updated 01/05/21 @ 20:58 by Antonella Mederos DO) SIRS (systemic inflammatory response syndrome) (Acute) Acute kidney injury superimposed on chronic kidney disease (Acute) Acute on chronic anemia (Acute) Peripancreatic fluid collection (Acute) Acute on chronic pancreatitis (Acute) Hypoalbuminemia (Acute) Hypocalcemia (Acute) Acute kidney injury (Acute) Leukocytosis (Acute) Abscess of pancreas (Acute) SIRS without infection with organ dysfunction (Acute) Bipolar disorder (Acute) Fever (Acute) Hypomagnesemia (Acute) High triglycerides (Acute) DVT prophylaxis (Acute) Acute pancreatitis (Acute) Discharge planning issues (Acute) ADHD (Acute) lamotrigine [From Lamictal] Allergy (Severe, Verified 01/03/21 21:15) Blistery rash per Marbella Cutler acetaminophen Adverse Reaction (Intermediate, Verified 01/03/21 21:15) Nausea & vomiting Resuscitation Status Full Code Height 5 ft 7 in Weight 94.7 kg - Renal Dosing Renal Dosing: BUN 15 mg/dL (7-18) 01/06/21 06:15 Creatinine 1.7 mg/dL (0.55-1.02) H 01/06/21 06:15 Medications needing adjustments: Reviewed (Crcl ~53 mL/min using adjusted body weight. Current meds okay) - Anticoagulation Anticoagulation: Hgb 9.3 g/dL (11.2-15.7) L 01/06/21 06:15 Hct 29.3 % (36.0-46.0) L 01/06/21 06:15 Plt Count 110 10^3/uL (130-400) L 01/06/21 06:15 INR 1.3 (0.9-1.1) H 01/05/21 12:06 Creatinine 1.7 mg/dL (0.55-1.02) H 01/06/21 06:15 DVT Prophylaxis: Reviewed Medications: Heparin Therapeutic Anticoagulation: N/A - Opiate Usage Evaluate Pain Scale/Pains Meds: Reviewed Scheduled Bowel Reg ordered if on Opiates?: No (pt having liquid BMs) - Relevant Labs Sodium 140 mmol/L (136-145) 01/06/21 06:15 Potassium 3.4 mmol/L (3.5-5.1) L 01/06/21 06:15 Chloride 109 mmol/L (98-107) H 01/06/21 06:15 Magnesium 2.4 mg/dL (1.8-2.4) 01/06/21 06:15 C-Reactive Protein > 25.00 mg/dL (0.0-0.3) H 01/06/21 06:15 Electrolytes, C-Reactive P, ESR: Reviewed (potassium replacement ordered) - DM Control DM Control: Glucose 90 mg/dL (74-106) 01/06/21 06:15 Insulin Dosing: N/A - Heart Failure/ND Heart Failure/ND: Troponin I < 0.05 ng/mL (<0.06) 01/03/21 21:27 NT-Pro-B Natriuret Pep 273 pg/mL (<300) 01/04/21 15:08 EF%, TEVIN's, B-Blockers, Diuretics: Reviewed - BP Control BP Control: Blood Pressure [Left Arm] 136/83 Blood Pressure 143/79 Blood Pressure 127/86 Blood Pressure 131/85 Blood Pressure 126/72 Blood Pressure 132/116 Blood Pressure 132/75 Blood Pressure 124/77 Blood Pressure 119/63 If elevated: Reviewed (BP has been up and down some since admission.) - Qtc Review If Elevated: N/A (QTc 445 on admission) - IV to PO Switch IV Medications: Intervened (Will ask provider about changing pantoprazole from IV to PO as pt is taking other PO meds.) - Home Meds Home Med List reviewed: Reviewed (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 Antibiotic Activity - Pharmacy Antibiotic Review Pharmacy Antibiotic Activity: D/C antibiotic (Unasyn was discontinued as BCs were negative per progress note.)
[2021-01-06] MEDS: oxyCODONE 5 mg/Acetaminophen 325 mg TAB 1 TAB PO ×3 (11:00→20:03)
[2021-01-06] MEDS: Pantoprazole 40 MG TABCR PO (12:47)
[2021-01-06 15:07] LABS: HCG Qual (Urine) Negative
[2021-01-06] MEDS: Normal Saline Flush 10 ML SYR IVP (15:40)
[2021-01-06 17:47] LABS: Fibrinogen 444 mg/dl (171-384)
[2021-01-06] MEDS: Nicotine 14 MG/24 HR PATCH TD (19:04)
[2021-01-06] MEDS: hydrOXYzine HCL 25 MG TAB PO (19:05)
[2021-01-06] MEDS: Atorvastatin 10 MG TAB PO (19:05)
[2021-01-06] MEDS: Gabapentin 600 MG TAB PO (21:46)
[2021-01-06] MEDS: Amitriptyline 50 MG TAB PO (21:46)
[2021-01-06] MEDS: risperiDONE 1 MG TAB 2 MG PO (21:47)
[2021-01-07] VITALS: BP 141/93; PULSE 95; RESP 18; TEMP 36.9; O2SAT 97
[2021-01-07] MEDS: Melatonin 3 MG TAB PO (00:03)
[2021-01-07] MEDS: oxyCODONE 5 mg/Acetaminophen 325 mg TAB 1 TAB PO ×4 (00:03→13:04)
[2021-01-07 00:06] VITALS: O2SAT 96
[2021-01-07 04:04] VITALS: BP 135/83; PULSE 92; RESP 19; TEMP 36.6; O2SAT 95
[2021-01-07] MEDS: Heparin 5,000 UNITS/ML VIAL 5000 UNITS SC (06:00)
[2021-01-07 07:19] LABS: Abs Immature Grans 0.06 10^3/uL (0.0-0.06); Absolute Basophil Count 0.03 10^3/uL (0.0-0.2); Absolute Eosinophil Count 0.36 10^3/uL (0.0-0.7); Absolute Lymphocyte Count 1.93 10^3/uL (1.2-3.4); Absolute Monocyte Count 0.86 10^3/uL (0.1-0.8); Absolute Neutrophil Count 6.14 10^3/uL (1.2-6.7); Basophils % 0.3; Eosinophils % 3.8; HCT 28.8 % (36.0-46.0); HGB 9.3 g/dL (11.2-15.7); Immature Grans % 0.6; Lymphocytes % 20.6; MCH 30.1 pg (27.0-33.0); MCHC 32.3 % (32.0-36.0); MCV 93.2 fL (80-95); MPV 10.7 fL (8.0-11.0); Monocytes % 9.2; Neutrophils % 65.5; Nucleated RBC 0 %; Platelet Count 144 10^3/uL (130-400); RBC 3.09 10^6/uL (3.93-5.22); RDW 14.5 % (11.7-14.6); RDW-SD 49.1 fL; WBC 9.38 10^3/uL (4.4-10.8)
[2021-01-07 07:36] VITALS: BP 129/87; PULSE 97; RESP 16; TEMP 36.7; O2SAT 94
[2021-01-07 07:39] LABS: ALT 17 U/L (14-59); AST 15 U/L (15-37); Albumin 2.3 g/dL (3.4-5.0); Alkaline Phosphatase 97 U/L (46-116); Anion Gap 10.7 mmol/L (3-11); BUN 13 mg/dL (7-18); Bilirubin, Direct 0.2 mg/dL (0.0-0.2); Bilirubin, Total 0.7 mg/dL (0.2-1.0); C-Reactive Protein 22.83 mg/dL (0.0-0.3); CO2 21.3 mmol/L (21.0-32.0); CREATININE 1.5 mg/dL (0.55-1.02); Calcium 8.2 mg/dL (8.5-10.1); Chloride 109 mmol/L (98-107); Estimated GFR 38.86 (mL/min/1.73m2); Glucose 98 mg/dL (74-106); Potassium 3.7 mmol/L (3.5-5.1); Sodium 141 mmol/L (136-145); Total Protein 6.1 g/dL (6.4-8.2)
[2021-01-07 07:57] LABS: Magnesium 1.9 mg/dL (1.8-2.4)
[2021-01-07] MEDS: risperiDONE 1 MG TAB PO (08:18)
[2021-01-07] MEDS: Pantoprazole 40 MG TABCR PO (08:19)
[2021-01-07] MEDS: Multivitamin TAB 1 TAB PO (08:19)
[2021-01-07] MEDS: Thiamine 100 MG TAB PO (08:19)
[2021-01-07] MEDS: hydrOXYzine HCL 25 MG TAB PO (08:30)
[2021-01-07 11:30] VITALS: BP 123/86; PULSE 95; RESP 18; TEMP 36.9; O2SAT 95
--- NOTE | 2021-01-07 11:56 | DSE_ITS ---
Date of service: 01/07/21 Time of Service: 11:56 DS: Diagnosis Discharge Diagnosis (1) Chronic pancreatitis due to chronic alcoholism: Status: Chronic (2) Acute pancreatitis: Status: Acute (3) Leukocytosis: Status: Acute (4) Thrombocytopenia: Status: Chronic (5) Acute kidney injury: Status: Acute (6) Hypocalcemia: Status: Acute (7) Hypomagnesemia: Status: Acute (8) Bipolar disorder: Status: Acute (9) Chronic alcohol abuse: Status: Chronic (10) Pseudocyst of pancreas: Status: Acute (11) Hypoalbuminemia: Status: Acute Discharge Plan Disposition Patient Disposition: HOME Condition: Improving Discharge Details Reason For Visit: Pancreatitis Admit Date/Time: 01/03/21 20:19 Admit Provider: Shemar Montiel Attending Provider: Shemar Montiel Primary Care Provider: Angela Cerrato Hospital Course Hospital Course: This is a 40 year old female with an extensive medical history including pancreatitis, alcohol abuse, schizophrenia, bipolar disorder, ADHD, renal disease who presented to the emergency department with c/o abdominal pain, diagnosed with pancreatitis and admitted to med/surg for IV hydration, bowel rest and symptom management. Her initial CT scan was performed without contrast d/t renal function and there was initially a concern of an abscess. After arriving to the floor developed hypotension and was transferred to ICU level of care. She was started on imipenem/cilastin, given IV fluids aggressively and surgical services was consulted. She underwent an MRI and after further imaging and clinical evaluation, it was felt she was developing a pseudocyst. Her blood pressure stabilized with IV fluids, she never required pressors. She continued to remain hemodynamically stable and was transferred back to med/surg. Her antibiotics discontinued. Her pain improved and we were able to advance her diet which she tolerated well. She was afebrile and hemodynamically stable and now ready for discharge to home. her white count normalized, creatinine improved to 1.5 from 2.5, appears baseline of 1.2-1.4. Her CRP was elevated at above 25 but is trending downward at is 22 on day of discharge. She is tolerating regular diet and will be referred to pcp for outpatient f/u. She states she is connected with a instructional technology coach and declines a meeting while hospitalized. she is being discharge to home with no services. discharge discussed with Dr Padilla. Home Meds and New Rx's Prescriptions: Continued amitriptyline 50 mg tablet 50 mg PO QHS RF: 0 risperidone 2 mg tablet 2 mg PO QHS RF: 0 risperidone 1 mg tablet 2 mg PO DAILY RF: 0 hydroxyzine HCl 25 mg tablet 25 mg PO TID PRNRF: 0 cyclobenzaprine 10 mg tablet 10 mg PO BID RF: 0 albuterol sulfate [ProAir HFA] 90 mcg/actuation HFA aerosol inhaler 2 puff IH Q6H PRNRF: 0 gabapentin 300 mg Tablet 600 mg PO QHS RF: 0 Discharge Instructions Instructions: Pancreatitis (DC), Alcohol Use Disorder (DC) Stand Alone Forms: Nursing Discharge Form Referrals: Angela Cerrato [Primary Care Provider] - 01/15/21 3:00 pm Activity:: Activity as Tolerated Equipment/Supplies:: No Equipment Needed Diet:: No alcohol Discharge Orders Discharge Orders: Discharge Order (Routine); Ordered 01/07/21 Ordered By: Briana Amanda DS: Summary Time Spent with Patient providing and/or coordinating discharge services: Greater than 30 minutes Status at Discharge Functional status at discharge: independent ambulation Overall status at discharge: patient is progressing back to baseline Mental Status: mental status grossly normal Speech and Movement: speech and movement normal Mood: congruent mood Affect: normal affect Exam Const General: cooperative, disheveled and ill appearing chronically Nutritional Appearance: obese Orientation: alert, awake and oriented x3 HENMT Head: normal to inspection, normocephalic and atraumatic Mouth: oral mucosae normal Resp Effort & Inspection: normal respiratory effort Cardio Rate: regular rate Rhythm: regular rhythm GI Inspection: normal to inspection Palpation: soft and tender in the RUQ (slightly); with no rebound tenderness Auscultation: normal bowel sounds Skin Rashes: no rashes Neuro General: patient alert, patient awake and patient oriented x3 Extrem General: normal to inspection and full ROM Psych Appearance: disheveled Mental Status: mental status grossly normal Speech and Movement: speech and movement normal Mood: congruent mood Affect: normal affect Attitude: cooperative Thought Process: normal Thought Content: normal Insight: poor Judgment: poor DS: Data Vitals/I&O Vitals and I&O: Vital Signs Temperature 36.7 C 01/07/21 07:36 Temperature Source Temporal Artery Scan 01/07/21 07:36 Pulse 97 H 01/07/21 07:36 Pulse Rhythm Regular 01/07/21 10:28 Pulse 110 H 01/06/21 12:01 Respiratory Rate 16 01/07/21 07:36 Respiratory Effort Non-Labored 01/07/21 10:28 Respiratory Depth Normal 01/07/21 10:28 Respiratory Pattern Normal 01/07/21 10:28 Blood Pressure 129/87 01/07/21 07:36 Blood Pressure Mean 97 01/06/21 12:01 Blood Pressure Position Supine 01/06/21 08:12 Pulse Oximetry 94 01/07/21 07:36 Oxygen Delivery Method Room Air 01/07/21 07:36 Oxygen Flow Rate 0 01/07/21 07:36 Pain Level 6 01/07/21 08:29 Comment 01/07/21 00:00 Intake & Output 01/06/21 01/06/21 01/07/21 11:59 23:59 11:59 Intake Total 910 / 1250 340 / 1250 Output Total 1400 / 2450 1050 / 2450 1000 / 1000 Balance -490 / -1200 -710 / -1200 -1000 / -1000 Intake: IV 100 / 110 10 / 110 Oral 810 / 1140 330 / 1140 Output: Urine 1400 / 2450 1050 / 2450 1000 / 1000 Other: Urine Color Brown Yellow Light Rashmi Jarvis Emery Urine Appearance Sediment Cloudy Clear Hematuria Urine Odor Normal Comment Alcocer intact and draining dark urine Stool Occult Blood Negative Stool Size Large Moderate Stool Characteristics Liquid Liquid Mucoid Voiding Methods Bedside Commode Toilet Data Completed and Pending Labs on day of discharge: Labs from last 24 hours 01/07/21 01/07/21 01/07/21 07:07 07:07 07:07 WBC 9.38 RBC 3.09 L Hgb 9.3 L Hct 28.8 L MCV 93.2 MCH 30.1 MCHC 32.3 RDW 14.5 Plt Count 144 MPV 10.7 Immature Gran % 0.6 Neutrophils % 65.5 Lymphocytes % 20.6 Monocytes % 9.2 Eosinophils % 3.8 Basophils % 0.3 Nucleated RBC % 0 Absolute Neutrophils 6.14 Absolute Lymphocytes 1.93 Absolute Monocytes 0.86 H Absolute Eosinophils 0.36 Absolute Basophils 0.03 Fibrinogen Sodium 141 Potassium 3.7 Chloride 109 H Carbon Dioxide 21.3 Anion Gap 10.7 BUN 13 Creatinine 1.5 H Estimated GFR/1.73 m2 38.86 Glucose 98 Calcium 8.2 L Magnesium 1.9 Total Bilirubin 0.7 Conjugated Bilirubin 0.2 AST 15 ALT 17 Alkaline Phosphatase 97 C-Reactive Protein 22.83 H Total Protein 6.1 L Albumin 2.3 L Urine HCG, Qual 01/06/21 01/06/21 14:40 07:55 WBC RBC Hgb Hct MCV MCH MCHC RDW Plt Count MPV Immature Gran % Neutrophils % Lymphocytes % Monocytes % Eosinophils % Basophils % Nucleated RBC % Absolute Neutrophils Absolute Lymphocytes Absolute Monocytes Absolute Eosinophils Absolute Basophils Fibrinogen 444 H Sodium Potassium Chloride Carbon Dioxide Anion Gap BUN Creatinine Estimated GFR/1.73 m2 Glucose Calcium Magnesium Total Bilirubin Conjugated Bilirubin AST ALT Alkaline Phosphatase C-Reactive Protein Total Protein Albumin Urine HCG, Qual Negative Preliminary micro results at discharge 01/04/21 11:40 Blood Culture - Preliminary Blood NO GROWTH 48 HOURS 01/04/21 11:25 Blood Culture - Preliminary Blood NO GROWTH 48 HOURS [facility] Medical History (Updated 01/06/21 @ 11:11 by Petrona Concepcion MD) Anemia Bipolar disorder Cannabis dependence Chronic alcoholism in remission pt. states she has been sober for 8 months Chronic erosive gastritis Cognitive dysfunction Esophagitis Fever Gastritis History of esophageal reflux Osteoarthritis of left hip Papilloma of larynx PTSD (post-traumatic stress disorder) Schizophrenia Supraglottic edema secondary to procedure Surgical History History of section History of esophagogastroduodenoscopy (EGD) (~04/13/20) History of tubal ligation Social History Smoking/Tobacco Use Status: Current every day Tobacco Type: cigarettes Smoking risk assessment performed?: Yes Alcohol Intake: current Alcohol Intake frequency: a few times a month Drug use: Rarely Substance use type: marijuana Do you feel safe at home: Yes Do you feel safe in your relationship?: Yes
--- NOTE | 2021-01-07 12:11 | PDOC.CMDIS ---
- If Service Date Differs Date of service: 01/07/21 Time of Service: 12:11 LACE Index Scoring Tool - Questions: Length of Stay (in days): 4 - 6 Acuity (Admit via E.D.?): Yes E.D. Visits: 11 - Answers: Total Score: 11 Risk of Readmission: High Risk Care Management Discharge Reason for Hospitalization: Pancreatitis Discharge Plan: Discharge home via private vehicle with . Celia will need close follow up with out patient providers. Celia has a recovery coordinator (Kerry) and is establishing care with a new therapist (Rashmi) today via Zoom. Patient/Family Education Needs: Review discharge instructions, limitations, plan of care and follow up needs. Ask me three.
[2021-01-07] MEDS: Bacitracin 1 PACKET (13:10)
== END 2021-01-07 13:23 | disposition home or self-care (01) | DRG 438 ==
LOC: ER 21:17 → MS 21:22 → ICU 01-04 13:24 → MS 01-05 01:08 → ICU 01-05 10:27 → MS 01-06 13:37
PROVIDERS: Internal Medicine; Nurse Practitioner Family; Student in an Organized Health Care Education/Training Program; Surgery; Admitting Provider Family Medicine; Emergency Provider Physician Assistant; PCP Family Medicine; Visit Provider Family Medicine
DX: K85.20 Alcohol induced acute pancreatitis without necrosis or infection (principal); J96.91 Respiratory failure, unspecified with hypoxia; R65.11 Systemic inflammatory response syndrome (SIRS) of non-infectious origin with acute organ dysfunction; K86.3 Pseudocyst of pancreas; N17.9 Acute kidney failure, unspecified; F10.10 Alcohol abuse, uncomplicated; R50.81 Fever presenting with conditions classified elsewhere; F17.210 Nicotine dependence, cigarettes, uncomplicated; Z20.822 Contact with and (suspected) exposure to COVID-19; D64.9 Anemia, unspecified; F12.20 Cannabis dependence, uncomplicated; K29.50 Unspecified chronic gastritis without bleeding; K20.90 Esophagitis, unspecified without bleeding; M16.12 Unilateral primary osteoarthritis, left hip; F43.10 Post-traumatic stress disorder, unspecified; F20.9 Schizophrenia, unspecified; I95.9 Hypotension, unspecified; F90.9 Attention-deficit hyperactivity disorder, unspecified type; K74.60 Unspecified cirrhosis of liver; G43.909 Migraine, unspecified, not intractable, without status migrainosus; K86.0 Alcohol-induced chronic pancreatitis; N18.9 Chronic kidney disease, unspecified; E88.09 Other disorders of plasma-protein metabolism, not elsewhere classified; E78.1 Pure hyperglyceridemia; D69.6 Thrombocytopenia, unspecified; E83.42 Hypomagnesemia; E83.51 Hypocalcemia; D72.829 Elevated white blood cell count, unspecified; F31.70 Bipolar disorder, currently in remission, most recent episode unspecified
CPT/HCPCS: 36410; 36415; 36416; 80048; 80053; 80076; 80307; 82962; 83690; 84145; 85384; 87040; 87493; 87635; 93005; 96361; 96374; 96375; 99285; 71045; 71046; 74176; 74181; 80320; 81003; 81015; 81025; 82140; 82977; 83605; 83735; 83880; 84478; 84484; 85025; 85610; 86140; 93010; 94667; 99222; 99232; 99233; 99239; 99291; J0743; J1644; J1885; J2270; J2310; J2405; J3475; J3490

== ENCOUNTER 2021-04-06 09:16 | Emergency (ER) | payer MEDICAID, SELFPAY ==
[2021-04-06 09:27] VITALS: BP 175/108; PULSE 99; RESP 18; TEMP 36.7; O2SAT 99
--- NOTE | 2021-04-06 09:46 | W.ED.GENAD ---
Discharge Plan Disposition Patient Disposition: HOME Condition: Stable Discharge Details Clinical Impression: Pain, dental Primary Care Provider: Angela Cerrato ED Provider: Candice Cervantes Home Meds and New Rx's Prescriptions: New amoxicillin-pot clavulanate [Augmentin] 875-125 mg tablet 1 tab PO BID 10 Days Qty: 20 RF: 0 Continued risperidone 2 mg tablet 2 mg PO QHS RF: 0 risperidone 1 mg tablet 2 mg PO DAILY RF: 0 hydroxyzine HCl 25 mg tablet 25 mg PO TID PRNRF: 0 albuterol sulfate [ProAir HFA] 90 mcg/actuation HFA aerosol inhaler 2 puff IH Q6H PRNRF: 0 No Action amitriptyline 50 mg tablet 50 mg PO QHS RF: 0 cyclobenzaprine 10 mg tablet 10 mg PO BID RF: 0 gabapentin 300 mg Tablet 600 mg PO QHS RF: 0 Discharge Instructions Instructions: Toothache (ED) Additional Instructions: Take antibiotic as directed. Please take a probiotic or eat yogurt while taking the antibiotic. Please take Ibuprofen with food every 4-6 hours as needed for pain and swelling. Use the Hurricaine gel up to 3 times daily as needed for pain. May apply directly to the area of pain. Please continue to follow-up with the dentist as previously scheduled. Rinse mouth after eating with warm salt water. Practice good oral hygiene. Referrals: Angela Cerrato [Primary Care Provider] - 1 week Medical Decision Making 40-year-old female presents to the ER with left-sided dental pain. Patient has a history of poor dentition. She is requesting medication and was instructed to present by her dentist. Patient is a smoker. She has been taking ibuprofen with little to no help. On exam patient has generalized poor dentition and some erythema gingiva to the left upper and left lower gums. No area of fluctuance or signs of abscess. Patient was given Augmentin here in the department and sent with a prescription to the pharmacy on file. Patient was also given Hurricaine gel and instructed on use. HPI General Mode of arrival: ambulatory. Date/Time Provider Initiated Documentation: 04/06/21 09:28. Limitations to Documentation: no limitations. Information obtained by: patient and RN notes reviewed. HPI Narrative: 40-year-old female presents to the ER with chief complaint of left-sided tooth pain. Patient reports that she was sent to get on meds by her dentist office. She reports taking ibuprofen approximately an hour prior to arrival. She denies any fever chills or any other associated symptoms. She has a past medical history of alcohol abuse, hypomagnesemia, acute kidney injury, pancreatitis, thrombocytopenia, schizophrenia, ADHD and migraines. Related Data Home Medications Medication Instructions Recorded Confirmed albuterol sulfate 90 mcg/actuation 2 puff IH Q6H PRN 11/26/19 04/06/21 aerosol inhaler amitriptyline 50 mg tablet 50 mg PO QHS 11/26/19 04/06/21 cyclobenzaprine 10 mg tablet 10 mg PO BID 11/26/19 04/06/21 hydroxyzine HCl 25 mg tablet 25 mg PO TID PRN 11/26/19 04/06/21 risperidone 1 mg tablet 2 mg PO DAILY 11/26/19 04/06/21 risperidone 2 mg tablet 2 mg PO QHS 11/26/19 04/06/21 gabapentin 600 mg PO QHS 03/17/20 04/06/21 amoxicillin-pot clavulanate 1 tab PO BID 10 Days #20 tab 04/06/21 [Augmentin] Previous Rx's Medication Instructions Recorded amoxicillin-pot clavulanate 1 tab PO BID 10 Days #20 tab 04/06/21 [Augmentin] Allergies Allergy/AdvReac Type Severity Reaction Status Date / Time lamotrigine [From Lamictal] Allergy Severe Blistery Verified 04/06/21 09:31 rash per Marbella Emilianaimshaw acetaminophen AdvReac Intermediate Nausea & Verified 04/06/21 09:31 vomiting General Stated Complaint: DentalOral SHEREEN: 5 Review of Systems All systems reviewed & are unremarkable except as noted in HPI and below ENT Ears, Nose, Mouth, and Throat: Reports as per HPI and Reports other (tooth pain) [facility] Active Problem List Pseudocyst of pancreas (Acute) SIRS (systemic inflammatory response syndrome) (Acute) Alcohol abuse (Chronic) Acute kidney injury superimposed on chronic kidney disease (Acute) Acute on chronic anemia (Acute) Peripancreatic fluid collection (Acute) Acute on chronic pancreatitis (Acute) Hypoalbuminemia (Acute) Hypocalcemia (Acute) Acute kidney injury (Acute) Thrombocytopenia (Chronic) Leukocytosis (Acute) SIRS without infection with organ dysfunction (Acute) Chronic pancreatitis due to chronic alcoholism (Chronic) Bipolar disorder (Acute) Cannabis dependence (Acute) Chronic erosive gastritis (Acute) Schizophrenia (Chronic) Fever (Acute) Polymorphic light eruption (Acute) Rash (Acute) Headache (Acute) Bacteria in urine (Acute) Pain, dental (Acute) COVID-19 vaccine administered (Acute) Hypomagnesemia (Acute) High triglycerides (Acute) Chronic renal disease (Chronic) DVT prophylaxis (Acute) Acute pancreatitis (Acute) Discharge planning issues (Acute) Tobacco use (Chronic) Cirrhosis (Chronic) Chronic alcohol abuse (Chronic) ADHD (Acute) Migraines (Chronic) Medical History Anemia Chronic alcoholism in remission pt. states she has been sober for 8 months Cognitive dysfunction Esophagitis Gastritis History of esophageal reflux Osteoarthritis of left hip Papilloma of larynx PTSD (post-traumatic stress disorder) Supraglottic edema secondary to procedure Surgical History History of section History of esophagogastroduodenoscopy (EGD) (~04/13/20) History of tubal ligation Social History Smoking/Tobacco Use Status: Current every day Tobacco Type: cigarettes Smoking risk assessment performed?: Yes Alcohol Intake: current Alcohol Intake frequency: a few times a month Drug use: Rarely Substance use type: marijuana Do you feel safe at home: Yes Do you feel safe in your relationship?: Yes Exam HENMT Head: normal to inspection Ears: external ears normal General nose exam: external nose normal Face and sinus: normal facial exam Mouth: lip normal, tongue normal and moist mucous membranes Teeth and gingiva: caries, gingiva abnormal diffusely erythematous; without any purulent discharge and poor dentition Course Vital Signs Vital signs: Vital Signs Temperature 36.7 C 04/06/21 09:27 Pulse 99 H 04/06/21 09:27 Respiratory Rate 18 04/06/21 09:27 Blood Pressure 175/108 H 04/06/21 09:27 Pulse Oximetry 99 04/06/21 09:27 Temperature 36.7 C 04/06/21 09:27 Temperature Source Skin 04/06/21 09:27 Pulse 99 H 04/06/21 09:27 Respiratory Rate 18 04/06/21 09:27 Respiratory Effort 04/06/21 09:33 Blood Pressure 175/108 H 04/06/21 09:27 Blood Pressure Position Sitting 04/06/21 09:27 Pulse Oximetry 99 04/06/21 09:27 Oxygen Delivery Method Room Air 04/06/21 09:27 Oxygen Flow Rate 0 04/06/21 09:27 Pain Level 8 04/06/21 09:34
[2021-04-06] MEDS: Amoxicillin 875/Clav. 125 TAB PO (10:14)
[2021-04-06] MEDS: Benzocaine 20% Gel 30 GM JAR MM (10:14)
== END 2021-04-06 10:22 | disposition home or self-care (01) ==
PROVIDERS: Emergency Provider Registered Nurse Emergency; PCP Family Medicine
DX: K08.89 Other specified disorders of teeth and supporting structures (principal)
CPT/HCPCS: 99283

== ENCOUNTER 2021-06-08 12:00 | Emergency (ER) | payer MEDICAID, SELFPAY ==
[2021-06-08 12:04] VITALS: BP 143/101; PULSE 98; RESP 16; TEMP 37.1; O2SAT 98
--- NOTE | 2021-06-08 12:18 | ED.GENADUL_ITS ---
Discharge Plan Disposition Patient Disposition: HOME Condition: Stable Discharge Details Clinical Impression: Low back pain Primary Care Provider: Angela Cerrato ED Provider: Candice Cervantes Home Meds and New Rx's Prescriptions: No Action amitriptyline 50 mg tablet 50 mg PO QHS RF: 0 risperidone 2 mg tablet 2 mg PO QHS RF: 0 risperidone 1 mg tablet 2 mg PO DAILY RF: 0 hydroxyzine HCl 25 mg tablet 25 mg PO TID PRNRF: 0 cyclobenzaprine 10 mg tablet 10 mg PO BID RF: 0 albuterol sulfate [ProAir HFA] 90 mcg/actuation HFA aerosol inhaler 2 puff IH Q6H PRNRF: 0 gabapentin 300 mg Tablet 600 mg PO QHS RF: 0 Discharge Instructions Instructions: Acute Low Back Pain (ED) Additional Instructions: At this time the urinalysis has not resulted. I will call you for any abnormal results if you need to be placed on antibiotic I will send one to the pharmacy on file. Follow up with primary care provider in 3-5 days. Return to ED sooner if any worsening or concerns. Increase oral fluids. Please take Ibuprofen with food every 4-6 hours as needed for pain and swelling. Referrals: Angela Cerrato [Primary Care Provider] - 5 days Discharge Data Discharge Date/Time-TO BE ENTERED AT DEPARTURE: 06/08/21 12:44 Medical Decision Making 41-year-old female presents to the ER with chief complaint of lower back pain. She is concerned that she may have a urinary tract infection. She reports that she does not normally have symptoms of UTI. She also reports she began her menstrual period yesterday. She denies any nausea vomiting diarrhea, fever or chills or any associated symptoms. She has a past medical history of anemia, cognitive dysfunction, gastritis, GERD, PTSD. Surgical history includes C- section and tubal ligation 1239: Patient requesting to leave due to needing to catch the bus. Urinalysis is not resulted yet. I will call the patient with results if needed. Urinalysis shows squamous contamination. HPI General Mode of arrival: ambulatory . Date/Time Provider Initiated Documentation: 06/08/21 12:01 . Limitations to Documentation: no limitations . Information obtained by: patient and RN notes reviewed . HPI Narrative: 41-year-old female presents to the ER with chief complaint of lower back pain. She is concerned that she may have a urinary tract infection. She reports that she does not normally have symptoms of UTI. She also reports she began her menstrual period yesterday. She denies any nausea vomiting diarrhea, fever or chills or any associated symptoms. She has a past medical history of anemia, cognitive dysfunction, gastritis, GERD, PTSD. Surgical history includes C- section and tubal ligation Related Data Home Medications Medication Instructions Recorded Confirmed albuterol sulfate 90 mcg/actuation 2 puff IH Q6H PRN 11/26/19 06/08/21 aerosol inhaler amitriptyline 50 mg tablet 50 mg PO QHS 11/26/19 06/08/21 cyclobenzaprine 10 mg tablet 10 mg PO BID 11/26/19 06/08/21 hydroxyzine HCl 25 mg tablet 25 mg PO TID PRN 11/26/19 06/08/21 risperidone 1 mg tablet 2 mg PO DAILY 11/26/19 06/08/21 risperidone 2 mg tablet 2 mg PO QHS 11/26/19 06/08/21 gabapentin 600 mg PO QHS 03/17/20 06/08/21 Allergies Allergy/AdvReac Type Severity Reaction Status Date / Time lamotrigine [From Lamictal] Allergy Severe Blistery Verified 04/06/21 09:31 rash per Marbella Edmondshaw acetaminophen AdvReac Intermediate Nausea & Verified 04/06/21 09:31 vomiting General Stated Complaint: Urinary SHEREEN: 4 Review of Systems All systems reviewed & are unremarkable except as noted in HPI and below Musculoskeletal Musculoskeletal: Reports back pain PFSH All Active Problems (Updated 06/08/21 @ 12:41 by Candice Cervantes) Low back pain (Acute) Pseudocyst of pancreas (Acute) SIRS (systemic inflammatory response syndrome) (Acute) Alcohol abuse (Chronic) Acute kidney injury superimposed on chronic kidney disease (Acute) Acute on chronic anemia (Acute) Peripancreatic fluid collection (Acute) Acute on chronic pancreatitis (Acute) Hypoalbuminemia (Acute) Hypocalcemia (Acute) Acute kidney injury (Acute) Thrombocytopenia (Chronic) Leukocytosis (Acute) SIRS without infection with organ dysfunction (Acute) Chronic pancreatitis due to chronic alcoholism (Chronic) Bipolar disorder (Acute) Cannabis dependence (Acute) Chronic erosive gastritis (Acute) Schizophrenia (Chronic) Fever (Acute) Polymorphic light eruption (Acute) Rash (Acute) Headache (Acute) Bacteria in urine (Acute) Pain, dental (Acute) COVID-19 vaccine administered (Acute) Hypomagnesemia (Acute) High triglycerides (Acute) Chronic renal disease (Chronic) DVT prophylaxis (Acute) Acute pancreatitis (Acute) Discharge planning issues (Acute) Tobacco use (Chronic) Cirrhosis (Chronic) Chronic alcohol abuse (Chronic) ADHD (Acute) Migraines (Chronic) Active Problem List Pseudocyst of pancreas (Acute) SIRS (systemic inflammatory response syndrome) (Acute) Alcohol abuse (Chronic) Acute kidney injury superimposed on chronic kidney disease (Acute) Acute on chronic anemia (Acute) Peripancreatic fluid collection (Acute) Acute on chronic pancreatitis (Acute) Hypoalbuminemia (Acute) Hypocalcemia (Acute) Acute kidney injury (Acute) Thrombocytopenia (Chronic) Leukocytosis (Acute) SIRS without infection with organ dysfunction (Acute) Chronic pancreatitis due to chronic alcoholism (Chronic) Bipolar disorder (Acute) Cannabis dependence (Acute) Chronic erosive gastritis (Acute) Schizophrenia (Chronic) Fever (Acute) Polymorphic light eruption (Acute) Rash (Acute) Headache (Acute) Bacteria in urine (Acute) Pain, dental (Acute) COVID-19 vaccine administered (Acute) Hypomagnesemia (Acute) High triglycerides (Acute) Chronic renal disease (Chronic) DVT prophylaxis (Acute) Acute pancreatitis (Acute) Discharge planning issues (Acute) Tobacco use (Chronic) Cirrhosis (Chronic) Chronic alcohol abuse (Chronic) ADHD (Acute) Migraines (Chronic) Medical History Anemia Chronic alcoholism in remission pt. states she has been sober for 8 months Cognitive dysfunction Esophagitis Gastritis History of esophageal reflux Osteoarthritis of left hip Papilloma of larynx PTSD (post-traumatic stress disorder) Supraglottic edema secondary to procedure Surgical History History of section History of esophagogastroduodenoscopy (EGD) (~04/13/20) History of tubal ligation Social History Smoking/Tobacco Use Status: Current every day Tobacco Type: cigarettes Smoking risk assessment performed?: Yes Alcohol Intake: current Alcohol Intake frequency: a few times a month Drug use: Rarely Substance use type: marijuana Do you feel safe at home: Yes Do you feel safe in your relationship?: Yes Exam Narrative Exam Narrative: Constitutional: Alert and oriented x3. Appears stated age. Normal body habitus. Head: Normocephalic, no trauma. Eyes: Pupils PERRL, Red reflex noted, EOM's intact. Eyelids symmetrical without lesions, discharge, or swelling. ENT: Bilateral TM's WNL, External ear normal to inspection, no mastoid TTP, swelling, or erythema, Nasal turbinates WNL, no nasal discharge. Normal dentition, Posterior pharynx WNL, no exudate. Chest: RRR, Normal S1, S2, distal pulses intact. Resp: Lungs clear to auscultation bilaterally, no wheezes, rales, or rhonchi. Abdomen: Soft, non-distended, Normoactive bowel sounds all 4 quads. Musculoskeletal: Normal gait, 5/5 strength to all four extremities. Skin: No suspicious rashes or lesions. Capillary refill less than 2 sec. Neurologic: Cranial nerves II-XII intact. Alert and oriented x 3. Motor: No deficits noted. Sensory: Intact bilaterally all 4 extremities. Reflexes: DTR's intact bilaterally.. Hematologic/Lymphatic: No ecchymosis, no lymphadenopathy. Course Vital Signs Vital signs: Vital Signs Temperature 37.1 C 06/08/21 12:04 Pulse 98 H 06/08/21 12:04 Respiratory Rate 16 06/08/21 12:04 Blood Pressure 143/101 H 06/08/21 12:04 Pulse Oximetry 98 06/08/21 12:04 Temperature 37.1 C 06/08/21 12:04 Temperature Source Skin 06/08/21 12:04 Pulse 98 H 06/08/21 12:04 Respiratory Rate 16 06/08/21 12:04 Blood Pressure 143/101 H 06/08/21 12:04 Blood Pressure Position Sitting 06/08/21 12:04 Pulse Oximetry 98 06/08/21 12:04 Oxygen Delivery Method Room Air 06/08/21 12:04 Oxygen Flow Rate 0 06/08/21 12:04 Pain Level 0 06/08/21 12:14
[2021-06-08 12:33] LABS: Bilirubin Negative (Negative); Blood Large (Negative); Clarity Sl Cloudy (Clear); Glucose Negative (Negative); Ketones Trace mg/dL (Negative); Leukocyte Esterase Trace (Negative); Nitrite Negative (Negative)
[2021-06-08 12:44] LABS: Bacteria Moderate HPF (Negative); Casts Negative LPF (Negative); Crystals Negative HPF (Negative); Epithelial Cells Many HPF (Negative); Mucus Trace (Negative); RBC 20-50 HPF (0-2)
[2021-06-08 12:45] LABS: C & S Indicated? No/Sq. Contamination
== END 2021-06-08 12:44 | disposition home or self-care (01) ==
PROVIDERS: Emergency Provider Registered Nurse Emergency; PCP Family Medicine
DX: M54.50 Low back pain, unspecified (principal)
CPT/HCPCS: 81025; 99282; 81003; 81015